=== PATIENT | male | born 1955 | race Caucasian/White ===

== ENCOUNTER 2019-06-26 09:55 | Outpatient (RCR) | payer MEDICARE, MEDICAID, SELFPAY | END 2019-06-26 23:59 | disposition home or self-care (01) | LOC: ONCMED 09:55 | PROVIDERS: Family Provider Electrodiagnostic Medicine; Visit Provider Internal Medicine Medical Oncology | DX: D50.9 Iron deficiency anemia, unspecified (principal) | CPT/HCPCS: 86850; 86900; 86901; 86920 ×2; 96365 ==

== ENCOUNTER 2019-07-09 10:20 | Outpatient (RCR) | payer SELFPAY | END 2019-07-17 00:01 | LOC: ONCMED 10:20 | PROVIDERS: Family Provider Electrodiagnostic Medicine; Visit Provider Nurse Practitioner | DX: D50.0 Iron deficiency anemia secondary to blood loss (chronic) (principal) | CPT/HCPCS: 85025 ×2; 96365; J1439 ==

== ENCOUNTER 2019-08-01 09:59 | Outpatient (RCR) | payer MEDICARE, MEDICAID, SELFPAY ==
[2019-08-01 15:46] LABS: Basophils # 0.1 10^3/uL (0.0-0.1); Basophils % 0.8 %; Eosinophils # 0.9 10^3/uL (0.0-0.8); Eosinophils % 14.6 %; Hematocrit 39.8 % (42.0-52.0); Hemoglobin 12.1 g/dL (11.7-16.6); Lymphocytes % 16.3 %; Mean Corpuscular HGB Conc 30.4 g/dL (30.0-36.0); Mean Corpuscular Hemoglobin 24.1 pg (28.0-34.0); Mean Corpuscular Volume 79.3 fL (80-94); Mean Platelet Volume 10.2 fL (7.4-10.4); Monocytes # 0.5 10^3/uL (0.2-0.9); Monocytes % 8.3 %; Neutrophils # 3.7 10^3/uL (1.8-7.7); Neutrophils % 59.4 %; Nucleated Red Blood Cells % 0 %; Platelet Count 186 10^3/cmm (130-400); Red Blood Count 5.02 10^6/uL (4.1-5.3); Red Cell Distribution Width 23.6 % (12.1-15.1); White Blood Count 6.3 10^3/uL (4.0-10.0)
[2019-08-01 15:50] LABS: Alanine Aminotransferase 21 U/L (0-41); Albumin Level 4.1 g/dL (3.5-5.2); Alkaline Phosphatase 193 IU/L (40-130); Anion Gap 17.8 (5-19); Aspartate Amino Transferase 28 U/L (0-40); Blood Urea Nitrogen 18 mg/dL (8-23); Calcium 8.7 mg/Dl (8.8-10.2); Carbon Dioxide 24 mmol/L (22-29); Chloride 101 mmol/L (98-107); Ferritin 66 ng/mL (30-400); Globulin 2.5 g/dL (1.3-4.6); Glomerular Filtration Rate 114.3 mL/min (90-130); Glucose 152 mg/dL (74-106); Iron 62 ug/dL (59-158); Potassium 3.8 mmol/L (3.5-5.1); Sodium 139 mmol/L (136-145); Total Bilirubin 0.4 mg/dL (0.15-1.2); Total Iron Binding Capacity 309 mg/dL; Total Protein 6.6 g/dL (6.6-8.7); Unsaturated Iron Binding 247 ug/dL (112-347)
== END 2019-08-17 23:59 | disposition home or self-care (01) ==
LOC: WOUND 09:59
PROVIDERS: Family Provider Electrodiagnostic Medicine; PCP Electrodiagnostic Medicine; Visit Provider Nurse Practitioner Family
DX: Z09 Encounter for follow-up examination after completed treatment for conditions other than malignant neoplasm (principal)
CPT/HCPCS: 80053; 82728; 83540; 83550; 85025; 99203; G0463

== ENCOUNTER 2019-08-01 14:25 | Outpatient (CLI) | payer MEDICARE, MEDICAID, SELFPAY | END 2019-08-01 14:26 | disposition home or self-care (01) | LOC: ONCMED 14:28 | PROVIDERS: Family Provider Electrodiagnostic Medicine; PCP Electrodiagnostic Medicine; Visit Provider Nurse Practitioner | DX: Z76.89 Persons encountering health services in other specified circumstances (principal) ==

== ENCOUNTER 2019-08-02 13:20 | Outpatient (CLI) | payer MEDICARE, MEDICAID, SELFPAY ==
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
== END 2019-08-02 13:21 | disposition home or self-care (01) ==
LOC: ONCMED 13:20
PROVIDERS: Family Provider Electrodiagnostic Medicine; PCP Electrodiagnostic Medicine; Visit Provider Nurse Practitioner
DX: D50.9 Iron deficiency anemia, unspecified (principal); G89.29 Other chronic pain; I10 Essential (primary) hypertension; K21.9 Gastro-esophageal reflux disease without esophagitis; M19.90 Unspecified osteoarthritis, unspecified site; F32.9 Major depressive disorder, single episode, unspecified; I48.91 Unspecified atrial fibrillation; Z79.82 Long term (current) use of aspirin; Z79.01 Long term (current) use of anticoagulants; Z95.0 Presence of cardiac pacemaker; Z90.49 Acquired absence of other specified parts of digestive tract; Z98.84 Bariatric surgery status
CPT/HCPCS: 99214

== ENCOUNTER 2019-08-19 12:38 | Inpatient (IN) | payer MEDICARE, MEDICAID, SELFPAY ==
[2019-08-19] VITALS (7 sets, daily range): BP systolic 116–147; BP diastolic 82–87; PULSE 59–70; RESP 15–20; TEMP 36.7–37.1; O2SAT 20–96; BMI 33.1
--- NOTE | 2019-08-19 13:40 | ED_ITS ---
Entered by Leonora Washington, acting as scribe for Cecilia Ortega MD Aug 19, 2019 12:38 HPI - Abdominal Pain General: Chief Complaint: Abdominal Pain Stated Complaint: NAUSEA/VOMITING Time Seen by Provider: 08/19/19 13:39 Source: patient Mode of arrival: wheelchair Limitations: no limitations History of Present Illness: HPI narrative: 63 yo male presents with abdomen pain. pt states this today today. pt states movement and pushing makes the pain worse and nothing a=makes it better. pt has had constipation. pt denies any other symptoms at this time MD elicited complaint: abdominal pain Pertinent past history: none Onset (ago): hour(s) (today) Pain Consistency: constant Location: Epigastric Severity: moderate Quality: sharp Radiation: none Migration to: no migration Exacerbating factors: movement Relieving factors: nothing Associated Symptoms: Reports nausea and vomiting; Denies chills, diarrhea, dysuria and fever(s) Review of Systems Const: Denies: fever, chills, body aches or change in appetite Eyes: Denies: blurry vision or eye discomfort ENMT: Denies: throat pain or dental pain Card: Denies: chest pain Resp: Denies: shortness of breath GI: Reports: abdominal pain, nausea and vomiting; Denies: diarrhea : Denies: painful urination Musc: Denies: neck pain or back pain Skin/Breast: Denies: rash Neuro: Denies: headache Psych: Denies: depression Sincere/Lymph: Denies: easy bruising All/Imm: Denies: hives PFSH ED PFSH: Statuses (acute, chronic, etc) shown below reflect problem list status as previously entered and may not be historically accurate Social History Smoking and tobacco status: never smoked Physical Exam Const: COMMON NORMALS: no apparent distress, oriented x3 and healthy appearing HENMT: COMMON NORMALS: normocephalic and head/scalp atraumatic HEAD & SCALP: normocephalic and atraumatic Eye: COMMON NORMALS: PERRL and EOMs intact bilaterally PUPIL: Yes PERRL Neck/C-Spine: COMMON NORMALS: full ROM and supple Chest: COMMONS NORMALS: inspection of chest normal and palpation of chest normal Resp: COMMON NORMALS: normal respiratory effort, no retractions, no use of accessory muscles and clear to auscultation bilaterally AUSCULTATION: clear to auscultation bilaterally Cardio: COMMON NORMALS: regular rate, regular rhythm and no murmurs RATE: r egular rate RHYTHM: regular rhythm GI: OTHER: distention with decreased bowel sounds, minimal tenderness Extremity: COMMON NORMALS: normal to inspection and full ROM Neuro: COMMON NORMALS: oriented x3, moves all extremities and no focal motor deficits Psych: COMMON NORMALS: mental status grossly normal, thought process normal and cooperative THOUGHT PROCESS: normal thought process Skin: COMMON NORMALS: no rashes or lesions noted and no wounds GENERAL SKIN EXAM: no rashes or lesions noted Course Vital Signs: Vital signs: Vital Signs Temperature 98.3 F 08/19/19 13:25 Pulse Rate 70 08/19/19 13:25 Respiratory Rate 16 08/19/19 14:21 Blood Pressure 147/87 08/19/19 13:25 Pulse Oximetry 84 L 08/19/19 13:59 MDM - Abdominal Pain MDM Narrative: Medical decision making narrative: Patient presents here with abdominal pain along with vomiting is found to have small bowel obstruction on CT scan. Patient has minimal tenderness and normal white count. Spoke to ebonie foster will admit. Surgeon Dr. Pagan consulted as well. Lab Data: Labs: Lab Results 08/19/19 08/19/19 Range/Units 13:55 13:55 WBC 9.7 (4.0-10.0) 10^3/ uL RBC 5.47 H (4.1-5.3) 10^6/u L Hgb 13.3 (11.7-16.6) g/dL Hct 42.1 (42.0-52.0) % MCV 77.0 L (80-94) fL MCH 24.3 L (28.0-34.0) pg MCHC 31.6 (30.0-36.0) g/dL RDW 20.8 H (12.1-15.1) % Plt Count 213 (130-400) 10^3/c mm MPV 10.3 (7.4-10.4) fL Neut % (Auto) 83.8 % Lymph % (Auto) 5.7 % Orange % (Auto) 6.7 % Eos % (Auto) 3.0 % Baso % (Auto) 0.3 % Neut # (Auto) 8.1 H (1.8-7.7) 10^3/u L Lymph # (Auto) 0.6 L (0.8-4.8) 10^3/u L Orange # (Auto) 0.7 (0.2-0.9) 10^3/u L Eos # (Auto) 0.3 (0.0-0.8) 10^3/u L Baso # (Auto) 0.0 (0.0-0.1) 10^3/u L Nucleated RBC % (a uto) 0 % Nucleated RBCs # 0.0 /100WBC Sodium 138 (136-145) mmol/L Potassium 4.3 (3.5-5.1) mmol/L Chloride 95 L (98-107) mmol/L Carbon Dioxide 32 H (22-29) mmol/L Anion Gap 15.3 (5-19) BUN 15 (8-23) mg/dL Creatinine 1.0 (0.7-1.2) mg/dL GFR Calculation 75.7 L (90-130) mL/min Glucose 157 H (74-106) mg/dL Calcium 9.7 (8.5-10.5) mg/dL Total Bilirubin 0.6 (0.15-1.2) mg/dL AST 42 H (0-40) U/L ALT 32 (0-41) U/L Alkaline Phosphata se 245 H (40-130) IU/L Total Protein 8.0 (6.6-8.7) g/dL Albumin 4.2 (3.5-5.2) g/dL Globulin 3.8 (1.3-4.6) g/dL Lipase 90 H (13-60) U/L Imaging Data ^: CT Abd/Pel: Radiologist's impression: Signed Patient: Gary King Unit #: [id number] : 1955 Age/Sex: 63 / M ADM Date: 08/19/19 Loc: ER Room/Bed: Attending Dr: Ordering Provider/Ordering MD: Cecilia Ortega MD Date of Service: 08/19/19 Procedure(s): CT abdomen pelvis w con* [id number] Accession Number(s): [id number] Report Number: [id number] PROCEDURE INFORMATION: Exam: CT Abdomen And Pelvis With Contrast Exam date and time: 08/19/2019 2:01 PM Age: 63 years old Clinical indication: Abdominal pain; Prior surgery; Surgery type: Pacemaker. Hernia. Laparotomy. ; Patient HX: Generalized abd pain with nausea TECHNIQUE: Imaging protocol: Computed tomography of the abdomen and pelvis with intravenous contrast. Total DLP: 2092.82 mGy-cm Radiation optimization: All CT scans at this facility use at least one of these dose optimization techniques: automated exposure control; mA and/or kV adjustment per patient size (includes targeted exams where dose is matched to clinical indication); or iterative reconstruction. Contrast material: OMNI 300; Contrast volume: 95 ml; Contrast route: 18G; COMPARISON: CT abdomen pelvis w con* [id number] 09/05/2018 9:04 PM FINDINGS: Liver: Mild hepatic steatosis. Gallbladder and bile ducts: Normal. No calcified stones. No ductal dilation. Pancreas: Normal. No ductal dilation. Spleen: Spleen measures 16 cm long. Adrenals: Normal. No mass. Kidneys and ureters: Both kidneys contain several small sub cm low-density cysts. Stomach and bowel: Prior gastric and small bowel surgery. Moderate amount of food/liquid in stomach. Dilated proximal small bowel with some fecalization of contents. Transition zone with collapsed distal small bowel. Modest amount of stool in the colon. Appendix: No evidence of appendicitis. Intraperitoneal space: Unremarkable. No free air. No significant fluid collection. Vasculature: Unremarkable. No abdominal aortic aneurysm. Lymph nodes: Unremarkable. No enlarged lymph nodes. Bladder: Unremarkable as visualized. Reproductive: Unremarkable as visualized. Bones/joints: Lower thoracic and lower lumbar spine degenerative disc changes, chronic. Soft tissues: Unremarkable. CT/CT abdomen pelvis w con* [id number] IMPRESSION: 1.) Prior gastric and small bowel surgery. Moderate amount of food/liquid in stomach. Dilated proximal small bowel with some fecalization of contents. Transition zone with collapsed distal small bowel. Appearance worrisome for early or partial mid small bowel obstruction. 2.) Hepatic steatosis. Mild splenomegaly. Radiation Dose CTDIVOL = (mGy): DLP = 2092.82 (mG Discharge Plan Discharge Prescriptions: No Action Aspir-81 81 mg PO DAILY RF: 0 amitriptyline 75 mg tablet 75 mg PO DAILY RF: 0 tizanidine 4 mg tablet 4 mg PO TID RF: 0 ondansetron HCl 4 mg tablet 4 mg PO PRN RF: 0 sertraline 100 mg tablet 100 mg PO BID RF: 0 mupirocin 2 % ointment 1 applic TOPICAL PRN PRN (Reason: [place]) RF: 0 gabapentin 100 mg capsule 100 mg PO BID RF: 0 Multaq 400 mg tablet 400 mg PO BID RF: 0 Coding Level of Care Code ED Assistant Spa Manager for Chg Fwd Exam Problem Focused The documentation recorded by the Felix castillo Bridget Annette, accurately reflects the service I personally performed and the decisions made by Jordan sarkar Korby, MD Aug 19, 2019 12:38
--- NOTE | 2019-08-19 13:43 | XRR_ITS ---
PROCEDURE INFORMATION: Exam: XR Chest, 1 View Exam date and time: 08/19/2019 2:02 PM Age: 63 years old Clinical indication: Chest pain; Additional info: SOB TECHNIQUE: Imaging protocol: XR of the chest Views: 1 view. COMPARISON: CR Chest 1 [place] [id number] 02/13/2019 5:25 PM FINDINGS: Tubes, catheters and devices: Left subclavian pacemaker in place. Lungs: Unremarkable. No consolidation. Pleural space: Unremarkable. No pleural effusion. No pneumothorax. Heart/Mediastinum: Unremarkable. No cardiomegaly. Vasculature: Ectatic aorta. Bones/joints: Unremarkable. Other findings: Epigastric and left upper quadrant region surgical clips in place. XR/XR chest 1V portable [id number] IMPRESSION: No acute process evident. Prior upper abdominal surgery.
--- NOTE | 2019-08-19 13:43 | CTR_ITS ---
PROCEDURE INFORMATION: Exam: CT Abdomen And Pelvis With Contrast Exam date and time: 08/19/2019 2:01 PM Age: 63 years old Clinical indication: Abdominal pain; Prior surgery; Surgery type: Pacemaker. Hernia. Laparotomy. ; Patient HX: Generalized abd pain with nausea TECHNIQUE: Imaging protocol: Computed tomography of the abdomen and pelvis with intravenous contrast. Total DLP: 2092.82 mGy-cm Radiation optimization: All CT scans at this facility use at least one of these dose optimization techniques: automated exposure control; mA and/or kV adjustment per patient size (includes targeted exams where dose is matched to clinical indication); or iterative reconstruction. Contrast material: OMNI 300; Contrast volume: 95 ml; Contrast route: 18G; COMPARISON: CT abdomen pelvis w con* [id number] 09/05/2018 9:04 PM FINDINGS: Liver: Mild hepatic steatosis. Gallbladder and bile ducts: Normal. No calcified stones. No ductal dilation. Pancreas: Normal. No ductal dilation. Spleen: Spleen measures 16 cm long. Adrenals: Normal. No mass. Kidneys and ureters: Both kidneys contain several small sub cm low-density cysts. Stomach and bowel: Prior gastric and small bowel surgery. Moderate amount of food/liquid in stomach. Dilated proximal small bowel with some fecalization of contents. Transition zone with collapsed distal small bowel. Modest amount of stool in the colon. Appendix: No evidence of appendicitis. Intraperitoneal space: Unremarkable. No free air. No significant fluid collection. Vasculature: Unremarkable. No abdominal aortic aneurysm. Lymph nodes: Unremarkable. No enlarged lymph nodes. Bladder: Unremarkable as visualized. Reproductive: Unremarkable as visualized. Bones/joints: Lower thoracic and lower lumbar spine degenerative disc changes, chronic. Soft tissues: Unremarkable. CT/CT abdomen pelvis w con* [id number] IMPRESSION: 1.) Prior gastric and small bowel surgery. Moderate amount of food/liquid in stomach. Dilated proximal small bowel with some fecalization of contents. Transition zone with collapsed distal small bowel. Appearance worrisome for early or partial mid small bowel obstruction. 2.) Hepatic steatosis. Mild splenomegaly. Radiation Dose CTDIVOL = (mGy): DLP = 2092.82 (mGy-cm)
[2019-08-19] MEDS: iohexol 300 mg/mL 100 mL Btl IV (14:02)
[2019-08-19 14:04] LABS: Basophils % 0.3 %; Eosinophils # 0.3 10^3/uL (0.0-0.8); Hematocrit 42.1 % (42.0-52.0); Hemoglobin 13.3 g/dL (11.7-16.6); Lymphocytes # 0.6 10^3/uL (0.8-4.8); Lymphocytes % 5.7 %; Mean Corpuscular HGB Conc 31.6 g/dL (30.0-36.0); Mean Corpuscular Hemoglobin 24.3 pg (28.0-34.0); Mean Platelet Volume 10.3 fL (7.4-10.4); Monocytes # 0.7 10^3/uL (0.2-0.9); Monocytes % 6.7 %; Neutrophils # 8.1 10^3/uL (1.8-7.7); Neutrophils % 83.8 %; Nucleated Red Blood Cells % 0 %; Platelet Count 213 10^3/cmm (130-400); Red Blood Count 5.47 10^6/uL (4.1-5.3); Red Cell Distribution Width 20.8 % (12.1-15.1); White Blood Count 9.7 10^3/uL (4.0-10.0)
[2019-08-19] MEDS: ondansetron 2 mg/ML SDV 2 mL 4 MG IVP (14:21)
[2019-08-19] MEDS: morphine 4 mg/mL SDV 1 mL IVP (14:21)
[2019-08-19] MEDS: sodium chloride 0.9% 1,000 ML 999 ML IV (14:21)
[2019-08-19 14:25] LABS: Alanine Aminotransferase 32 U/L (0-41); Albumin Level 4.2 g/dL (3.5-5.2); Alkaline Phosphatase 245 IU/L (40-130); Anion Gap 15.3 (5-19); Aspartate Amino Transferase 42 U/L (0-40); Blood Urea Nitrogen 15 mg/dL (8-23); Calcium 9.7 mg/dL (8.5-10.5); Carbon Dioxide 32 mmol/L (22-29); Chloride 95 mmol/L (98-107); Globulin 3.8 g/dL (1.3-4.6); Glomerular Filtration Rate 75.7 mL/min (90-130); Glucose 157 mg/dL (74-106); Lipase 90 U/L (13-60); Potassium 4.3 mmol/L (3.5-5.1); Sodium 138 mmol/L (136-145); Total Bilirubin 0.6 mg/dL (0.15-1.2)
[2019-08-19] MEDS: LORazepam 2 mg/mL INJ 1 mL 1 MG IVP (15:13)
--- NOTE | 2019-08-19 15:35 | PC.PHAR ---
PT STATES HE THINKS THIS IS ALL THE MEDICATIONS HE TAKES-PT PHARMACY IS NOT OPEN TO VERIFY ALL THE PTS MEDS
--- NOTE | 2019-08-19 16:36 | PC.NURSE ---
Nurse unavailable for report, stated they would call back.
[2019-08-19] MEDS: sodium chloride 0.9% 1,000 ML 100 ML IV (19:00)
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
[2019-08-19] MEDS: dextrose 5%-lactated ringers 1,000 ML 75 ML IV (20:51)
[2019-08-20] VITALS (12 sets, daily range): BP systolic 122–145; BP diastolic 71–88; PULSE 59–80; RESP 18–20; TEMP 36.4–37; O2SAT 93–99
[2019-08-20] MEDS: HYDROmorphone 1 mg/mL INJ 1 mL 0.5 MG IVP ×3 (03:09→23:27)
[2019-08-20 04:33] LABS: Basophils % 0.6 %; Eosinophils # 0.4 10^3/uL (0.0-0.8); Hematocrit 38.9 % (42.0-52.0); Hemoglobin 11.9 g/dL (11.7-16.6); Lymphocytes # 0.8 10^3/uL (0.8-4.8); Lymphocytes % 14.3 %; Mean Corpuscular HGB Conc 30.6 g/dL (30.0-36.0); Mean Corpuscular Hemoglobin 25.1 pg (28.0-34.0); Mean Corpuscular Volume 81.9 fL (80-94); Monocytes # 0.6 10^3/uL (0.2-0.9); Monocytes % 11.4 %; Neutrophils # 3.5 10^3/uL (1.8-7.7); Neutrophils % 66.3 %; Nucleated Red Blood Cells % 0 %; Platelet Count 171 10^3/cmm (130-400); Red Blood Count 4.75 10^6/uL (4.1-5.3); Red Cell Distribution Width 21.2 % (12.1-15.1); White Blood Count 5.3 10^3/uL (4.0-10.0)
[2019-08-20 04:50] LABS: Anion Gap 12.1 (5-19); Blood Urea Nitrogen 14 mg/dL (8-23); Calcium 8.6 mg/dL (8.5-10.5); Carbon Dioxide 29 mmol/L (22-29); Chloride 99 mmol/L (98-107); Glomerular Filtration Rate 85.5 mL/min (90-130); Glucose 100 mg/dL (74-106); Osmolality Calculated 278 mOsm/kg (285-295); Potassium 4.1 mmol/L (3.5-5.1); Sodium 136 mmol/L (136-145)
[2019-08-20 05:03] LABS: Add Urine Microscopic? NO; Bilirubin Urine 1+ (NEGATIVE); Blood Urine Neg (Negative); Glucose Urine UA Norm (Normal); Ketones Urine Negative (Negative); Leukocyte Esterase Urine Negative (Negative); Nitrate Urine Negative (Negative); Protein Urine Neg (Negative); Specific Gravity, Urine 1.015 (1.005-1.030); Urine Appearance Clear (CLEAR); Urine Color Yellow (Yellow); Urobilinogen Urine 1 mg/dL (Negative); pH Urine 6 (5-7)
--- NOTE | 2019-08-20 07:00 | XR_ITS ---
WS: [id number] ABDOMEN KUB CLINICAL INFORMATION: Renal/ureteral calculi. COMPARISON: CT August 19, 2019 FINDINGS: Surgical clips at the GE junction. Moderate fecal retention in the colon. Fluid-filled loops of small and large bowel unchanged since the prior CT. Contrast in the bladder. XR/XR KUB portable [id number] Impression: 1. Fluid-filled loops of small and large bowel unchanged since the recent CT. 2. Moderate pancolonic constipation
--- NOTE | 2019-08-20 08:22 | PM.PN ---
Subjective Subjective: Interval history: Patient denies abdominal pain. Reports feeling unchanged. Had large amount of bilious fluid NG output. Reports that he did not pass gas since yesterday. His last bowel movement which was formed was on Tuesday. He denies previous history of heart disease or COPD. Patient reports that approximately 6 months ago he started having shortness of breath and chest pain. He was evaluated by his security administrator in [place] ([place]) and had stress test approximately 4 months ago but unfortunately patient was unable to follow-up at that time due to weather and now has appointment to see his security administrator only in September. Reports that since then frequency of his chest pains which sometimes can even happen at rest increased. Reports that for the last 3 months he has been sleeping in the chair and had 2 episodes of waking up short of breath. Reports that for the last 1 month he barely can walk before getting significantly dyspneic. He reports that his chest pain usually lasts 1 to 2 minutes and is in the left precordium. Reports that rest alleviates his pain and describes it as sharp with some dull elements nonradiating and nonpleuritic. Vitals/I&O/Wt Last Vital Signs Temp 98.5 F 08/20/19 07:09 Pulse 60 08/20/19 07:09 Resp 20 H 08/20/19 07:09 BP 134/84 08/20/19 07:09 Pulse Ox 99 08/20/19 07:09 08/19/19 08/20/19 08/20/19 22:59 06:59 14:59 Intake Total 186.667 / 186.667 716.25 / 902.917 Output Total 0 / 0 565 / 565 Balance 186.667 / 186.667 151.25 / 337.917 Weight last 48 hrs Weight 120.202 kg Physical Exam Narrative: EXAM NARRATIVE: Patient exam shows clear lungs and regular heart. Abdomen is soft and nontender with hypoactive bowel sounds. No guarding or rebound tenderness. No lower extremity edema. No focal neurological deficit on gross examination. Data : 08/20/19 03:54 08/20/19 03:54 A&P Assessment and plan (1) Small bowel obstruction: Most likely due to adhesions Status: Acute Code(s): K56.609 - Unspecified intestinal obstruction, unspecified as to partial versus complete obstruction (2) Dyspnea on exertion: Obtain echocardiogram, EKG for further evaluation Status: Acute Code(s): R06.09 - Other forms of dyspnea (3) Chest pain: Currently chest pain-free. Obtain EKG, troponin and echocardiogram Status: Acute Code(s): R07.9 - Chest pain, unspecified Additional A&P Information High-dose PPI, avoid NSAIDs Monitor CMP and CBC. Start patient on Lovenox for DVT prophylaxis Patient is full code Attestations Medical Necessity Statement*: Patient with small bowel obstruction requires close inpatient monitoring and treatment. 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
--- NOTE | 2019-08-20 08:35 | USCV_ITS ---
Gary King Age: 63 Gender: M : 1955 Exam Date: 08/20/2019 13:45 Ordering Phys: German Nunes MD Technologist: Kelle Burton [place] [facility] [place]: [place] BP: 125 / 82 HR: 61 Rhythm: Sinus Technical Quality: Technically difficult study MEASUREMENTS (Male / Female) Normal Values 2D ECHO LV Diastolic Diameter PLAX 5.0 cm 4.2 - 5.9 / 3.9 - 5.3 cm LV Systolic Diameter PLAX 3.7 cm LV Chamber Size 4.7 cm IVS Diastolic Thickness 1.4 cm 0.6 - 1.0 / 0.6 - 0.9 cm IVS Systolic Thickness 1.6 cm LVPW Diastolic Thickness 1.3 cm 0.6 - 1.0 / 0.6 - 0.9 cm LVPW Systolic Thickness 1.8 cm RV Chamber Size 3.2 cm LVOT Diameter 2.1 cm LV Ejection Fraction 2D Teich 52.6 % LA Diameter 4.3 cm LA Width 4.0 cm LA Height 6.7 cm RA Width 3.3 cm RA Height 6.2 cm Aorta at Sinotubular Diameter 3.1 cm M-MODE LV Diastolic Diameter MM 6.9 cm 4.2 - 5.9 / 3.9 - 5.3 cm LV Systolic Diameter MM 5.4 cm LV Ejection Fraction MM Teich 42.9 % IVS Diastolic Thickness MM 1.5 cm 0.6 - 1.0 / 0.6 - 0.9 cm IVS Systolic Thickness MM 1.5 cm LVPW Diastolic Thickness MM 1.6 cm 0.6 - 1.0 / 0.6 - 0.9 cm LVPW Systolic Thickness MM 2.0 cm Aortic Annulus Diameter 4.3 cm LA Ao Ratio MM 1.0 MV E Point Septal Separation 0.7 cm DOPPLER AV Peak Velocity 126.0 cm/s LVOT Peak Velocity 106.0 cm/s AV Area Cont Eq vti 3.1 cm squared AV Area Cont Eq pk 3.0 cm squared MV Area PHT 3.1 cm squared Mitral E to A Ratio 1.0 MV E' Velocity 16.0 cm/s Mitral E to MV E' Ratio 5.3 Mitral E to LV E' Lateral Ratio 3.9 Mitral E to LV E' Septal Ratio 8.2 TR Peak Velocity 269.0 cm/s TR Peak Gradient 29.0 mmHg TR Mean Velocity 221.8 cm/s TR Mean Gradient 20.5 mmHg TR Velocity Time Integral 92.4 cm TV Peak E Velocity 58.0 cm/s Right Atrial Pressure 3.0 mmHg Pulmonary Artery Systolic Pressu 31.9 mmHg PV Peak Velocity 98.0 cm/s RV Acceleration Time 0.1 s RV Ejection Time 0.3 s RV AcT/ET 0.3 FINDINGS Left Ventricle Normal left ventricular cavity size. Normal left ventricular systolic function. No regional wall motion abnormalities. Left ventricular ejection fraction is estimated at 60 %. Grade I/IV diastolic dysfunction (abnormal relaxation filling pattern), normal to mildly elevated filling pressures. Right Ventricle Normal right ventricular size. Catheter/pacemaker wire visualized in the right ventricle. Right Atrium Normal right atrial size. Catheter/pacemaker wire in the right atrial cavity. Left Atrium The left atrium is normal in size. Mitral Valve Mildly thickened mitral valve. Mitral annular calcification. No mitral valve stenosis. Mild mitral valve regurgitation. Aortic Valve Mild aortic valve calcification. No aortic valve stenosis. Trace aortic valve regurgitation. Tricuspid Valve Moderate tricuspid valve regurgitation. Pulmonic Valve Structurally normal pulmonic valve without significant stenosis. There is no pulmonic regurgitation. Pericardium Normal pericardium without effusion. Aorta Normal ascending aorta dimension. CONCLUSIONS 1-Normal left ventricular cavity size. Normal left ventricular systolic function. No regional wall motion abnormalities. Left ventricular ejection fraction is estimated at 60 %. Grade I/IV diastolic dysfunction (abnormal relaxation filling pattern), normal to mildly elevated filling pressures. 2-Normal right ventricular size. Catheter/pacemaker wire visualized in the right ventricle. 3-Normal right atrial size. Catheter/pacemaker wire in the right atrial cavity. 4-Mildly thickened mitral valve. Mitral annular calcification. No mitral valve stenosis. Mild mitral valve regurgitation. 5-Mild aortic valve calcification. No aortic valve stenosis. Trace aortic valve regurgitation. 6-Moderate tricuspid valve regurgitation. 7-There is no pericardial effusion. 8-Right atrial pressure is around 5 mm of mercury. 9-When compared to the prior echocardiogram dated 05/28/2016 there appeared to be /ICD/ PPM wire in the right atrium and ventricle now Shakir Almendarez MD (Electronically Signed) Final Date: 20 August 2019 18:15 S
--- NOTE | 2019-08-20 08:35 | ECG_ITS ---
Measurements Intervals [place] Rate: 63 P: -55 NV: 239 QRS: -11 QRSD: 126 T: 18 QT: 466 QTc: 478 ELECTRONIC ATRIAL PACEMAKER POSSIBLE LEFT VENTRICULAR HYPERTROPHY [VOLTAGE CRITERIA PLUS LAE OR QRS WIDENING] PROBABLE LATERAL MYOCARDIAL INFARCTION [35 ms Q WAVE IN I/aVL/V5/V6], PROBABLY OLD Compared to ECG 02/13/2019 23:22:37 T-wave abnormality no longer present Possible ischemia no longer present Myocardial infarct finding still present Electronically Signed On 08-20-2019 21:07:15 EDUCATIONAL THERAPIST by Víctor Ponce M.D. [email or web address]
[2019-08-20] MEDS: pantoprazole 40 mg SDV IVP ×2 (09:07→23:23)
[2019-08-20] MEDS: enoxaparin 40 mg/0.4 mL Syringe SUBCUT (09:08)
[2019-08-20] MEDS: dextrose 5%-lactated ringers 1,000 ML 75 ML IV (09:13)
--- NOTE | 2019-08-20 13:02 | PC.CHAP ---
Pastoral Care Encounter/Spiritual Assessment Type of Contact [] Declined hoop bender tank visit [] Patient/Family/Request visit [] Outpatient visit [] Follow-up visit [] Physician referral [] Code/Alert [x] Routine visit [] Staff referral [] Actively dying [] Patient sleeping [] Family support [] [] Out of room [] Palliative care [] [] Receiving care in room [] Pre-surgical visit [] Trauma [] Long length of stay [] ICU visit [] Other: Relational/Emotional Strength [x] Patient feels connected with others/family/visitors/staff [] Distress [] Loneliness/isolation [] Abandonment Spirituality of Patient [] Person of Hilary [] Attends Sikhism of their Hilary [x] Believes in Prayer [] Reads Bible or Gnosticist materials [] There are Spiritual issues to be addressed Machine [employer] Interventions [x] Prayer [x] Active listening [x] Non-anxious presence [x] Spiritual/emotional support [] Crisis/trauma care [x] Spiritual counseling [] Bereavement support [] Provided bereavement packet [] Provided Bible/devotional materials [] Provided toy/stuffed animal, coloring book to patient or family member [] Provided Communion [] Anointing/[place] [] Salvation [x] Completed spiritual assessment [] Other: Impact on Illness or Injury [] Angry [x] Fearful [x] Anxious [] Often cries [] Exhaustion [] Unable to work [] Unable to attend yarsanism [] Unable to walk/stand [] Unable to read [] Unable to drive [] Unable to eat/drink [] Unable to sleep [] Unable to be with family [] Patient intubated [] Other: Summary News patient received from Doctor was not as ppositive as paitent expected. Patient is now worried and concerned about what will happen. Machine [employer] Swathi Hall Time spent with patient 20 minutes
--- NOTE | 2019-08-20 13:07 | PC.NURSE ---
Enema Milk and molasses enema given to patient at 12:45. Patient able to hold enema for approximately 20 minutes. Up to bedside commode with results of 2 small hard marble sized pieces of stool.
--- NOTE | 2019-08-20 18:24 | PC.NURSE ---
Milk and molasses enema given.
[2019-08-21] VITALS (8 sets, daily range): BP systolic 128–160; BP diastolic 81–97; PULSE 59–69; RESP 14–20; TEMP 36.4–36.9; O2SAT 93–97
[2019-08-21] MEDS: dextrose 5%-lactated ringers 1,000 ML 75 ML IV (03:42)
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
[2019-08-21] MEDS: pantoprazole 40 mg SDV IVP ×2 (09:58→20:48)
[2019-08-21] MEDS: enoxaparin 40 mg/0.4 mL Syringe SUBCUT (09:59)
[2019-08-21] MEDS: HYDROmorphone 1 mg/mL INJ 1 mL 0.5 MG IVP (10:06)
--- NOTE | 2019-08-21 11:32 | PC.NURSE ---
Milk and Molasses enema given to patient with 3 hard golf ball sized pieces of stool out.
[2019-08-21] MEDS: peg /e-lyte soln 4,000 mL Btl 1500 ML PO (11:45)
--- NOTE | 2019-08-21 15:56 | P.PN_ITS ---
Subjective Subjective: Interval history: Patient denies any complaints this morning. He had good bowel movements with enema. He is passing gas now. He is NG tube output appears to be decreasing. Vitals/I&O/Wt Last Vital Signs Temp 98.5 F 08/21/19 11:51 Pulse 64 08/21/19 11:51 Resp 20 H 08/21/19 11:51 BP 140/86 08/21/19 11:51 Pulse Ox 94 08/21/19 11:51 08/21/19 08/21/19 08/21/19 06:59 14:59 22:59 Intake Total 508.75 / 1453.75 240 / 240 Output Total 1050 / 2100 Balance -541.25 / -646.25 240 / 240 Physical Exam Narrative: EXAM NARRATIVE: Patient exam shows clear lungs and regular heart. Abdomen is soft and nontender with hypoactive bowel sounds. No guarding or rebound tenderness. No lower extremity edema. No focal neurological deficit on gross examination. Data : 08/20/19 03:54 08/20/19 03:54 A&P Assessment and plan (1) Small bowel obstruction: Most likely due to adhesions Status: Acute Code(s): K56.609 - Unspecified intestinal obstruction, unspecified as to partial versus complete obstruction (2) Dyspnea on exertion: Obtain echocardiogram, EKG for further evaluation Status: Acute Code(s): R06.09 - Other forms of dyspnea (3) Chest pain: Currently chest pain-free. Obtain EKG, troponin and echocardiogram Status: Acute Code(s): R07.9 - Chest pain, unspecified Additional A&P Information Continue current monitoring and treatment. Encouraged ambulation. Continue bowel regimen. Appreciate Dr. Pagan's help. 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
[2019-08-21] MEDS: ondansetron 2 mg/ML SDV 2 mL 4 MG IVP (16:06)
[2019-08-22] VITALS (7 sets, daily range): BP systolic 134–151; BP diastolic 74–93; PULSE 59–62; RESP 18–20; TEMP 36.7–37.8; O2SAT 91–98
[2019-08-22] MEDS: dextrose 5%-lactated ringers 1,000 ML 75 ML IV (00:45)
[2019-08-22 05:36] LABS: Basophils % 0.8 %; Eosinophils # 0.4 10^3/uL (0.0-0.8); Eosinophils % 8.1 %; Hemoglobin 11.6 g/dL (11.7-16.6); Lymphocytes # 0.6 10^3/uL (0.8-4.8); Lymphocytes % 12.2 %; Mean Corpuscular HGB Conc 31.4 g/dL (30.0-36.0); Mean Corpuscular Hemoglobin 24.2 pg (28.0-34.0); Mean Corpuscular Volume 77.1 fL (80-94); Mean Platelet Volume 10.4 fL (7.4-10.4); Monocytes # 0.5 10^3/uL (0.2-0.9); Monocytes % 9.7 %; Neutrophils # 3.6 10^3/uL (1.8-7.7); Neutrophils % 68.8 %; Nucleated Red Blood Cells % 0 %; Platelet Count 168 10^3/cmm (130-400); White Blood Count 5.2 10^3/uL (4.0-10.0)
[2019-08-22 05:53] LABS: Alanine Aminotransferase 41 U/L (0-41); Albumin Level 3.4 g/dL (3.5-5.2); Alkaline Phosphatase 203 IU/L (40-130); Anion Gap 13.5 (5-19); Aspartate Amino Transferase 53 U/L (0-40); Blood Urea Nitrogen 7 mg/dL (8-23); Calcium 8.9 mg/dL (8.5-10.5); Carbon Dioxide 31 mmol/L (22-29); Chloride 99 mmol/L (98-107); Globulin 3.6 g/dL (1.3-4.6); Glomerular Filtration Rate 85.5 mL/min (90-130); Potassium 3.5 mmol/L (3.5-5.1); Sodium 140 mmol/L (136-145); Total Bilirubin 0.6 mg/dL (0.15-1.2)
--- NOTE | 2019-08-22 07:02 | XRR_ITS ---
PROCEDURE INFORMATION: Exam: XR Abdomen, 2 Views Exam date and time: 08/22/2019 8:11 AM Age: 63 years old Clinical indication: Abdominal pain; Prior surgery; Surgery type: Gastric bypass; Additional info: Sbo, abd pain TECHNIQUE: Imaging protocol: XR of the abdomen. Frontal supine and upright views of the abdomen. Views: 2 Views. COMPARISON: CR XR abdomen min 2V [id number] 08/21/2019 8:34 AM FINDINGS: Gastrointestinal tract: Marked and progressive bowel dilatation, along with prominent stool. Intraperitoneal space: Extensive postoperative change in the left upper abdomen. Residual 11 mm metallic foreign body overlying the left midabdomen. Bones/joints: Osteopenia and degenerative change. XR/XR abdomen min 2V [id number] IMPRESSION: Marked and progressive bowel dilatation, along with prominent stool.
[2019-08-22 09:14] LABS: Glucose 93 mg/dL (65-115)
[2019-08-22] MEDS: pantoprazole 40 mg SDV IVP (09:40)
[2019-08-22] MEDS: enoxaparin 40 mg/0.4 mL Syringe SUBCUT (09:45)
--- NOTE | 2019-08-22 14:53 | PM.PN ---
Subjective Subjective: Interval history: Patient denies any abdominal pain, nausea or vomiting, had a large loose bowel movement last night. Tolerating a full liquid diet. Vitals/I&O/Wt Last Vital Signs Temp 98.1 F 08/22/19 10:59 Pulse 59 L 08/22/19 10:59 Resp 20 H 08/22/19 10:59 BP 136/84 08/22/19 10:59 Pulse Ox 98 08/22/19 10:59 08/21/19 08/22/19 08/22/19 22:59 06:59 14:59 Intake Total 757.5 / 1147.5 150 / 1147.5 480 / 480 Output Total 350 / 350 Balance 407.5 / 797.5 150 / 797.5 480 / 480 Physical Exam Narrative: EXAM NARRATIVE: Abdomen: Soft, minimally distended, nontender Data : 08/22/19 04:25 08/22/19 04:25 A&P Assessment and plan (1) Small bowel obstruction: Appears to be resolving. 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 Recommended that he advance diet slowly and to stay on an aggressive bowel regimen with senna S and lactulose Follow-up PRN Status: Acute Code(s): K56.609 - Unspecified intestinal obstruction, unspecified as to partial versus complete obstruction Attestations Medical Necessity Statement*: Small bowel obstruction appears to be resolving Coding Level of Care Code Acute Control Systems Specialist for [facility] Diagnoses Small bowel obstruction K56.609
--- NOTE | 2019-08-22 14:59 | PM.DCS ---
Discharge Providers Date of Admission: 08/19/19 14:57 Date of Discharge: Date of Discharge: August 22, 2019 Attending Provider at Admission: German Nunes MD Attending Provider at Discharge: German Nunes MD Primary Care Provider: Alek Mahmood DO Diagnoses at Discharge Discharge Diagnosis (1) Small bowel obstruction: Status: Acute (2) Drug-induced ileus: Status: Acute Reason for Visit Reason for Visit: Reason For Visit: NAUSEA/VOMITING Hospital Course Discharge Summary: Patient on chronic therapy with amitriptyline presents with signs and symptoms of small bowel obstruction. Patient was found to have drug-induced ileus. He was treated supportively and gradually improved. This afternoon patient reports feeling much better and strong enough to be dismissed home. Denies abdominal pain. Reports passing gas. Had bowel movement last night. Tolerates oral intake. Amitriptyline dose will be changed to 50 mg daily for now and patient was told to discuss with primary care physician to further wean it off. Discussed with Dr. Pagan and we will give lactulose twice daily for now and start on senna/Colace. Physical Exam Const: COMMON NORMALS: no apparent distress and oriented x3 Resp: COMMON NORMALS: normal respiratory effort and clear to auscultation bilaterally AUSCULTATION: clear to auscultation bilaterally Cardio: COMMON NORMALS: regular rate, regular rhythm and S2 normal heart sound RATE: regular rate RHYTHM: regular rhythm HEART SOUNDS: S2 normal OTHER: No lower extremity edema GI: COMMON NORMALS: normal to inspection, nondistended, normoactive bowel sounds, soft to palpation and non-tender PALPATION: Yes soft Neuro: COMMON NORMALS: oriented x3 and no focal motor deficits Discharge Data Data Completed and Pending: Completed Studies During Hospitalization Category Date Time Status CT abdomen pelvis w con* [id number] Urge nt Cat Scan 08/19/19 13:43 Completed XR KUB portable 7 [id number] Routine Exams 08/20/19 07:00 Completed XR abdomen min 2V [id number] Routine Exams 08/22/19 07:02 Completed XR abdomen min 2V [id number] Urgent Exams 08/21/19 07:54 Completed XR chest 1V gregory ble [id number] Urgent Exams 08/19/19 13:43 Completed CV echo complete* [id number] Routine Ultrasound 08/20/19 08:35 Completed Labs from last 24 hours 08/22/19 08/22/19 04:25 04:25 WBC 5.2 RBC 4.80 Hgb 11.6 L Hct 37.0 L MCV 77.1 L MCH 24.2 L MCHC 31.4 RDW 20.0 H Plt Count 168 MPV 10.4 Neut % (Auto) 68.8 Lymph % (Auto) 12.2 [place] % (Auto) 9.7 Eos % (Auto) 8.1 Baso % (Auto) 0.8 Neut # (Auto) 3.6 Lymph # (Auto) 0.6 L [place] # (Auto) 0.5 Eos # (Auto) 0.4 Baso # (Auto) 0.0 Nucleated RBC % (a uto) 0 Nucleated RBCs # 0.0 Sodium 140 Potassium 3.5 Chloride 99 Carbon Dioxide 31 H Anion Gap 13.5 BUN 7 L Creatinine 0.9 GFR Calculation 85.5 L Glucose 93 Calcium 8.9 Total Bilirubin 0.6 AST 53 H ALT 41 Alkaline Phosphata se 203 H Total Protein 7.0 Albumin 3.4 L Globulin 3.6 Vitals: Last Vital Signs Temp 98.1 F 08/22/19 10:59 Pulse 59 L 08/22/19 10:59 Resp 20 H 08/22/19 10:59 BP 136/84 08/22/19 10:59 Pulse Ox 98 08/22/19 10:59 Discharge Plan Discharge Patient Disposition: Home, Self-Care Condition: Stable Prescriptions: New amitriptyline 50 mg tablet 50 mg PO DAILY Qty: 10 RF: 0 lactulose 10 gram packet 10 gm PO BID Qty: 30 RF: 0 Senna with Docusate Sodium 8.6-50 mg tablet 1 tab-cap PO BID Qty: 60 RF: 0 Continued Aspir-81 81 mg PO DAILY RF: 0 tizanidine 4 mg tablet 4 mg PO TID RF: 0 ondansetron HCl 4 mg tablet 4 mg PO PRN RF: 0 sertraline 100 mg tablet 100 mg PO BID RF: 0 mupirocin 2 % ointment 1 applic TOPICAL PRN PRN (Reason: UKNOWN) RF: 0 gabapentin 100 mg capsule 100 mg PO BID RF: 0 Multaq 400 mg tablet 400 mg PO BID RF: 0 Discontinued amitriptyline 75 mg tablet 75 mg PO DAILY RF: 0 Multaq 400 mg tablet RF: 0 Discharge Orders: Discharge Order (Routine); Ordered 08/22/19 Ordered By: German Nunes Referrals: Alek Mahmood, [Primary Care Provider] - 4-7 days Discharge Diet: Advance as tolerated Discharge Activity: Resume usual activity Patient Instructions: Perphenazine/Amitriptyline (By mouth), Amitriptyline (By mouth), Laxative, Stimulant (By mouth), Lactulose (By mouth), Angina (DC), Bowel Obstruction (DC) Activity Restrictions/Additional Instructions: Please call your doctor or present to emergency department if your condition worsens or you develop diarrhea, lightheadedness, fatigue or see blood in your stool or black stool. Please discuss with your doctor to gradually wean off amitriptyline which is likely playing a role in your constipation. Please discontinue lactulose if you start having diarrhea. Discharge Attestations Time Spent in Discharge Care*: greater than 30 min Quality Metrics Clinical Quality Measures During this hospital stay, did patient experience: None Coding Level of Care Code Acute Panelbeater for [facility] Fwd Exam Problem Focused Diagnoses Small bowel obstruction K56.609 Drug-induced ileus K56.7; T50.905E
== END 2019-08-22 16:00 | disposition home or self-care (01) | DRG 389 ==
LOC: ER 16:38 → MEDSURG 16:40
PROVIDERS: Internal Medicine; Physician Assistant; Admitting Provider Internal Medicine; Emergency Provider Emergency Medicine; Family Provider Electrodiagnostic Medicine; PCP Electrodiagnostic Medicine; Visit Provider Internal Medicine
DX: K56.7 Ileus, unspecified (principal); I48.20 Chronic atrial fibrillation, unspecified; K56.50 Intestinal adhesions [bands], unspecified as to partial versus complete obstruction; R07.9 Chest pain, unspecified; Z95.0 Presence of cardiac pacemaker; Z79.82 Long term (current) use of aspirin; Z79.899 Other long term (current) drug therapy; Z88.5 Allergy status to narcotic agent; Z88.8 Allergy status to other drugs, medicaments and biological substances; E03.9 Hypothyroidism, unspecified; F32.9 Major depressive disorder, single episode, unspecified; G89.29 Other chronic pain; M54.9 Dorsalgia, unspecified; I10 Essential (primary) hypertension; Z87.891 Personal history of nicotine dependence
CPT/HCPCS: 12345; 36415; 45915; 71045; 74018; 74019; 74177; 80048; 80053; 81003; 83690; 85025; 93005; 93306; 94760; 94762; 96372; 96374; 96375; 99283; C9113; J1170; J1650; J2060; J2270; J2405; J7030; Q9967

== ENCOUNTER 2019-09-14 08:55 | Outpatient (CLI) | payer MEDICARE, MEDICAID, SELFPAY ==
[2019-09-14 10:02] LABS: Basophils # 0.1 10^3/uL (0.0-0.1); Eosinophils # 0.8 10^3/uL (0.0-0.8); Eosinophils % 13.6 %; Hematocrit 38.3 % (42.0-52.0); Hemoglobin 11.8 g/dL (11.7-16.6); Lymphocytes # 0.8 10^3/uL (0.8-4.8); Lymphocytes % 13.9 %; Mean Corpuscular HGB Conc 30.8 g/dL (30.0-36.0); Mean Corpuscular Volume 77.8 fL (80-94); Mean Platelet Volume 10.3 fL (7.4-10.4); Monocytes # 0.6 10^3/uL (0.2-0.9); Monocytes % 9.1 %; Neutrophils # 3.7 10^3/uL (1.8-7.7); Neutrophils % 61.9 %; Nucleated Red Blood Cells % 0 %; Platelet Count 250 10^3/cmm (130-400); Red Blood Count 4.92 10^6/uL (4.1-5.3); Red Cell Distribution Width 17.2 % (12.1-15.1)
[2019-09-14 10:15] LABS: Alanine Aminotransferase 66 U/L (0-41); Albumin Level 3.6 g/dL (3.5-5.2); Alkaline Phosphatase 354 IU/L (40-130); Anion Gap 12.4 (5-19); Aspartate Amino Transferase 66 U/L (0-40); Blood Urea Nitrogen 13 mg/dL (8-23); Calcium 9.1 mg/dL (8.5-10.5); Carbon Dioxide 32 mmol/L (22-29); Chloride 97 mmol/L (98-107); Ferritin 32 ng/mL (30-400); Globulin 3.9 g/dL (1.3-4.6); Glomerular Filtration Rate 114.3 mL/min (90-130); Glucose 128 mg/dL (65-115); Iron 34 ug/dL (59-158); Percent Saturation 10.4 % (20-50); Potassium 4.4 mmol/L (3.5-5.1); Sodium 137 mmol/L (136-145); Total Bilirubin 0.4 mg/dL (0.15-1.2); Total Iron Binding Capacity 326 mcg/dl; Total Protein 7.5 g/dL (6.6-8.7); Unsaturated Iron Binding 292 ug/dL (112-347)
== END 2019-09-14 08:56 | disposition home or self-care (01) ==
PROVIDERS: Family Provider Electrodiagnostic Medicine; PCP Electrodiagnostic Medicine; Visit Provider Nurse Practitioner
DX: D50.9 Iron deficiency anemia, unspecified (principal)
CPT/HCPCS: 80053; 82728; 83540; 83550; 85025

== ENCOUNTER 2019-10-19 10:57 | Outpatient (CLI) | payer MEDICARE, MEDICAID, SELFPAY | END 2019-10-19 10:58 | disposition home or self-care (01) | LOC: ONCMED 10:57 | PROVIDERS: Family Provider Electrodiagnostic Medicine; PCP Electrodiagnostic Medicine; Visit Provider Nurse Practitioner | DX: D50.9 Iron deficiency anemia, unspecified (principal) | CPT/HCPCS: 96365; J1439 ==

== ENCOUNTER 2019-11-12 09:35 | Outpatient (CLI) | payer MEDICARE, MEDICAID, SELFPAY ==
[2019-11-12 10:32] LABS: Basophils # 0.1 10^3/uL (0.0-0.1); Basophils % 1.3 %; Eosinophils # 0.7 10^3/uL (0.0-0.8); Eosinophils % 10.7 %; Hematocrit 41.4 % (42.0-52.0); Hemoglobin 12.7 g/dL (11.7-16.6); Mean Corpuscular HGB Conc 30.7 g/dL (30.0-36.0); Mean Corpuscular Hemoglobin 25.3 pg (28.0-34.0); Mean Corpuscular Volume 82.6 fL (80-94); Mean Platelet Volume 9.9 fL (7.4-10.4); Monocytes # 0.5 10^3/uL (0.2-0.9); Monocytes % 7.8 %; Neutrophils # 3.9 10^3/uL (1.8-7.7); Neutrophils % 63.4 %; Nucleated Red Blood Cells % 0 %; Platelet Count 203 10^3/cmm (130-400); Red Blood Count 5.01 10^6/uL (4.1-5.3); Red Cell Distribution Width 17.9 % (12.1-15.1); White Blood Count 6.1 10^3/uL (4.0-10.0)
[2019-11-12 10:54] LABS: Alanine Aminotransferase 37 U/L (0-41); Albumin Level 3.8 g/dL (3.5-5.2); Alkaline Phosphatase 243 IU/L (40-130); Aspartate Amino Transferase 35 U/L (0-40); Blood Urea Nitrogen 16 mg/dL (8-23); Calcium 8.6 mg/dL (8.5-10.5); Carbon Dioxide 28 mmol/L (22-29); Chloride 102 mmol/L (98-107); Ferritin 132 ng/mL (30-400); Globulin 3.4 g/dL (1.3-4.6); Glomerular Filtration Rate 113.9 mL/min (90-130); Glucose 136 mg/dL (65-115); Iron 45 ug/dL (59-158); Osmolality Calculated 288 mOsm/kg (285-295); Percent Saturation 15.5 % (20-50); Sodium 140 mmol/L (136-145); Total Bilirubin 0.3 mg/dL (0.15-1.2); Total Iron Binding Capacity 290 mcg/dl; Total Protein 7.2 g/dL (6.6-8.7); Unsaturated Iron Binding 245 ug/dL (112-347)
== END 2019-11-12 09:36 | disposition home or self-care (01) ==
LOC: ONCMED 15:32
PROVIDERS: Family Provider Electrodiagnostic Medicine; PCP Electrodiagnostic Medicine; Visit Provider Nurse Practitioner
DX: D50.0 Iron deficiency anemia secondary to blood loss (chronic) (principal)
CPT/HCPCS: 36415; 80053; 82728; 83540; 83550; 85025

== ENCOUNTER 2020-03-07 11:20 | Outpatient (CLI) | payer MEDICARE, MEDICAID, SELFPAY ==
[2020-03-07 12:27] LABS: Basophils # 0.1 10^3/uL (0.0-0.1); Basophils % 1.1 %; Eosinophils # 0.9 10^3/uL (0.0-0.8); Eosinophils % 11.7 %; Hematocrit 37.5 % (42.0-52.0); Hemoglobin 11.2 g/dL (11.7-16.6); Lymphocytes # 1.3 10^3/uL (0.8-4.8); Lymphocytes % 17.9 %; Mean Corpuscular HGB Conc 29.9 g/dL (30.0-36.0); Mean Corpuscular Hemoglobin 23.5 pg (28.0-34.0); Mean Corpuscular Volume 78.8 fL (80-94); Mean Platelet Volume 10.7 fL (7.4-10.4); Monocytes # 0.7 10^3/uL (0.2-0.9); Monocytes % 9.7 %; Neutrophils # 4.39 10^3/uL (1.8-7.7); Neutrophils % 59.3 %; Nucleated Red Blood Cells % 0 %; Platelet Count 251 10^3/cmm (130-400); Red Blood Count 4.76 10^6/uL (4.1-5.3); Red Cell Distribution Width 14.7 % (12.1-15.1); White Blood Count 7.4 10^3/uL (4.0-10.0)
[2020-03-07 12:59] LABS: Alanine Aminotransferase 20 U/L (0-41); Albumin Level 3.9 g/dL (3.5-5.2); Alkaline Phosphatase 213 IU/L (40-130); Anion Gap 12.3 (5-19); Aspartate Amino Transferase 22 U/L (0-40); Blood Urea Nitrogen 22 mg/dL (8-23); Calcium 8.7 mg/dL (8.5-10.5); Carbon Dioxide 26 mmol/L (22-29); Chloride 104 mmol/L (98-107); Globulin 2.9 g/dL (1.3-4.6); Glomerular Filtration Rate 85.2 mL/min (90-130); Glucose 72 mg/dL (65-115); Osmolality Calculated 281 mOsm/kg (285-295); Potassium 4.3 mmol/L (3.5-5.1); Sodium 138 mmol/L (136-145); Total Bilirubin 0.3 mg/dL (0.15-1.2); Total Protein 6.8 g/dL (6.6-8.7)
[2020-03-07 13:48] LABS: Total Iron Binding Capacity 384 mcg/dl
[2020-03-07 13:52] LABS: Iron 32 ug/dL (59-158); Percent Saturation 8.3 % (20-50); Unsaturated Iron Binding 352 ug/dL (112-347)
[2020-03-07 13:53] LABS: Ferritin 18 ng/mL (30-400)
== END 2020-03-07 11:21 | disposition home or self-care (01) ==
LOC: ONCMED 12:06
PROVIDERS: PCP Electrodiagnostic Medicine; Visit Provider Internal Medicine Medical Oncology
DX: D50.0 Iron deficiency anemia secondary to blood loss (chronic) (principal); I10 Essential (primary) hypertension
CPT/HCPCS: 80053; 82728; 83540; 83550; 85025

== ENCOUNTER 2020-03-12 14:57 | Outpatient (CLI) | payer MEDICARE, MEDICAID, SELFPAY ==
[2020-03-12] MEDS: ferric carboxy (IVPB) 750 MG in sodium chloride 0.9% (100 ml) 100 ML 345 MG IV (15:16)
== END 2020-03-12 14:58 | disposition home or self-care (01) ==
LOC: ONCMED 14:57
PROVIDERS: PCP Electrodiagnostic Medicine; Visit Provider Nurse Practitioner
DX: D50.9 Iron deficiency anemia, unspecified (principal)
CPT/HCPCS: 96365; J1439

== ENCOUNTER 2020-04-07 05:46 | Outpatient (CLI) | payer MEDICARE, MEDICAID, SELFPAY ==
[2020-04-07] MEDS: ferric carboxy (IVPB) 750 MG in sodium chloride 0.9% (100 ml) 100 ML 345 MG IV (15:05)
== END 2020-04-07 05:47 | disposition home or self-care (01) ==
LOC: ONCMED 05:48
PROVIDERS: PCP Electrodiagnostic Medicine; Visit Provider Internal Medicine Medical Oncology
DX: D50.0 Iron deficiency anemia secondary to blood loss (chronic) (principal)
CPT/HCPCS: 96365; J1439

== ENCOUNTER 2020-05-13 13:30 | Outpatient (CLI) | payer MEDICARE, MEDICAID, SELFPAY ==
[2020-05-13 13:20] LABS: Basophils # 0.1 10^3/uL (0.0-0.1); Eosinophils # 0.7 10^3/uL (0.0-0.8); Eosinophils % 13.2 %; Hematocrit 40.2 % (42.0-52.0); Hemoglobin 12.4 g/dL (11.7-16.6); Lymphocytes # 0.8 10^3/uL (0.8-4.8); Lymphocytes % 15.3 %; Mean Corpuscular HGB Conc 30.8 g/dL (30.0-36.0); Mean Corpuscular Hemoglobin 25.1 pg (28.0-34.0); Mean Corpuscular Volume 81.2 fL (80-94); Mean Platelet Volume 10.5 fL (7.4-10.4); Monocytes # 0.4 10^3/uL (0.2-0.9); Monocytes % 7.3 %; Neutrophils % 62.8 %; Nucleated Red Blood Cells % 0 %; Platelet Count 205 10^3/cmm (130-400); Red Blood Count 4.95 10^6/uL (4.1-5.3); Red Cell Distribution Width 17.8 % (12.1-15.1); White Blood Count 5.2 10^3/uL (4.0-10.0)
[2020-05-13 13:43] LABS: Alanine Aminotransferase 34 U/L (0-41); Albumin Level 3.6 g/dL (3.5-5.2); Alkaline Phosphatase 241 IU/L (40-130); Anion Gap 15.2 (5-19); Aspartate Amino Transferase 30 U/L (0-40); Blood Urea Nitrogen 16 mg/dL (8-23); Calcium 8.4 mg/dL (8.5-10.5); Carbon Dioxide 26 mmol/L (22-29); Chloride 97 mmol/L (98-107); Ferritin 83 ng/mL (30-400); Globulin 2.8 g/dL (1.3-4.6); Glomerular Filtration Rate 113.9 mL/min (90-130); Glucose 168 mg/dL (65-115); Iron 40 ug/dL (59-158); Osmolality Calculated 283 mOsm/kg (285-295); Percent Saturation 15.1 % (20-50); Potassium 4.2 mmol/L (3.5-5.1); Sodium 134 mmol/L (136-145); Total Bilirubin 0.3 mg/dL (0.15-1.2); Total Iron Binding Capacity 264 mcg/dl; Total Protein 6.4 g/dL (6.6-8.7); Unsaturated Iron Binding 224 ug/dL (112-347)
== END 2020-05-13 13:31 | disposition home or self-care (01) ==
LOC: ONCMED 13:31
PROVIDERS: PCP Electrodiagnostic Medicine; Visit Provider Internal Medicine Medical Oncology
DX: D50.9 Iron deficiency anemia, unspecified (principal)
CPT/HCPCS: 36415; 80053; 82728; 83540; 83550; 85025

== ENCOUNTER 2020-05-14 06:02 | Outpatient (CLI) | payer MEDICARE, MEDICAID, SELFPAY ==
[2020-05-14] MEDS: pneumococcal (23 valent) SDV 0.5 mL IM (14:12)
[2020-05-14] MEDS: ferric carboxy (IVPB) 750 MG in sodium chloride 0.9% (100 ml) 100 ML 345 MG IV (14:15)
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
== END 2020-05-14 06:03 | disposition home or self-care (01) ==
LOC: ONCMED 06:04
PROVIDERS: PCP Electrodiagnostic Medicine; Visit Provider Internal Medicine Medical Oncology
DX: D50.9 Iron deficiency anemia, unspecified (principal); Z23 Encounter for immunization; I10 Essential (primary) hypertension; K21.9 Gastro-esophageal reflux disease without esophagitis; I48.91 Unspecified atrial fibrillation; I48.92 Unspecified atrial flutter; M47.9 Spondylosis, unspecified; F32.9 Major depressive disorder, single episode, unspecified; G89.29 Other chronic pain; Z98.84 Bariatric surgery status; Z79.01 Long term (current) use of anticoagulants; Z95.0 Presence of cardiac pacemaker
CPT/HCPCS: 90471; 90686; 90732; 96365; 99214; J1439

== ENCOUNTER 2020-08-14 11:16 | Outpatient (CLI) | payer MEDICARE, MEDICAID, SELFPAY ==
[2020-08-14 12:15] LABS: Basophils # 0.1 10^3/uL (0.0-0.1); Basophils % 1.6 %; Eosinophils # 0.8 10^3/uL (0.0-0.8); Eosinophils % 12.9 %; Hematocrit 39.8 % (42.0-52.0); Hemoglobin 12.2 g/dL (11.7-16.6); Lymphocytes # 0.9 10^3/uL (0.8-4.8); Lymphocytes % 14.6 %; Mean Corpuscular HGB Conc 30.7 g/dL (30.0-36.0); Mean Corpuscular Hemoglobin 24.7 pg (28.0-34.0); Mean Corpuscular Volume 80.7 fL (80-94); Mean Platelet Volume 10.5 fL (7.4-10.4); Monocytes # 0.5 10^3/uL (0.2-0.9); Monocytes % 7.4 %; Neutrophils # 4.03 10^3/uL (1.8-7.7); Nucleated Red Blood Cells % 0 %; Platelet Count 244 10^3/cmm (130-400); Red Blood Count 4.93 10^6/uL (4.1-5.3); Red Cell Distribution Width 14.5 % (12.1-15.1); White Blood Count 6.4 10^3/uL (4.0-10.0)
[2020-08-14 12:50] LABS: Ferritin 55 ng/mL (30-400); Iron 35 ug/dL (59-158); Percent Saturation 10.2 % (20-50); Total Iron Binding Capacity 340 mcg/dl; Unsaturated Iron Binding 305 ug/dL (112-347)
== END 2020-08-14 11:17 | disposition home or self-care (01) ==
LOC: ONCMED 15:28
PROVIDERS: PCP Electrodiagnostic Medicine; Visit Provider Internal Medicine Medical Oncology
DX: D50.0 Iron deficiency anemia secondary to blood loss (chronic) (principal)
CPT/HCPCS: 82728; 83540; 83550; 85025

== ENCOUNTER 2020-09-07 01:37 | Emergency (ER) | payer MEDICARE, MEDICAID, SELFPAY ==
[2020-09-07 01:44] VITALS: BP 117/90; PULSE 98; RESP 28; TEMP 36.4; O2SAT 93; BMI 33.7
--- NOTE | 2020-09-07 01:55 | XRR_ITS ---
PROCEDURE INFORMATION: Exam: XR Chest, 1 View Exam date and time: 09/07/2020 2:00 AM Age: 64 years old Clinical indication: Dyspnea; Prior surgery; Surgery date: 6+ months; Surgery type: Pacemaker, hernia, bowel; Additional info: SOB TECHNIQUE: Imaging protocol: XR of the chest Views: 1 view. COMPARISON: CR XR chest 1V portable [id number] 08/19/2019 1:56 PM FINDINGS: Lungs: Unremarkable. No consolidation. Pleural spaces: Unremarkable. No pleural effusion. No pneumothorax. Heart/Mediastinum: Unremarkable. No cardiomegaly. Vasculature: A sequencing bipolar pacemaker is placed via the left subclavian vein. Bones/joints: Unremarkable. Intraperitoneal space: Numerous surgical clips are seen in the left upper quadrant of the abdomen. XR/XR chest 1V portable [id number] IMPRESSION: There are no acute chest findings. Stable appearance of the chest compared with 08/19/2019.
[2020-09-07 02:06] LABS: Basophils # 0.1 10^3/uL (0.0-0.1); Basophils % 1.2 %; Eosinophils # 0.5 10^3/uL (0.0-0.8); Eosinophils % 7.6 %; Hematocrit 38.7 % (42.0-52.0); Hemoglobin 11.8 g/dL (11.7-16.6); Lymphocytes % 17.3 %; Mean Corpuscular HGB Conc 30.5 g/dL (30.0-36.0); Mean Corpuscular Volume 78.7 fL (80-94); Mean Platelet Volume 10.5 fL (7.4-10.4); Monocytes # 0.5 10^3/uL (0.2-0.9); Monocytes % 7.6 %; Neutrophils # 3.96 10^3/uL (1.8-7.7); Neutrophils % 65.8 %; Nucleated Red Blood Cells % 0 %; Platelet Count 204 10^3/cmm (130-400); Red Blood Count 4.92 10^6/uL (4.1-5.3); Red Cell Distribution Width 14.6 % (12.1-15.1)
[2020-09-07 02:15] VITALS: BP 136/87; PULSE 67; RESP 18; O2SAT 94
[2020-09-07 02:24] LABS: ABG PCO2 48.2 mmHg (35-45); ABG PH Result 7.39 (7.35-7.45); Base Excess ABG 3.6 mmol/L (-2.0-2.0); Blood Gas Sample Site Brachial, left; Blood Gas Sample Type Arterial; HCO3 ABG 29.3 mmol/L (22-26); HGB O2 Sat 93.7 % (95-100); Methemoglobin 0.7 % (0.4-1.5); Oxygen Device NC; Total Hemoglobin 11.8 g/dL (14-18)
[2020-09-07 02:41] LABS: D Dimer 1.08 ug/mIFEU (0-0.59)
[2020-09-07 02:42] LABS: NT Pro B Type Natriuretic Pept 105 pg/mL (0-125); Procalcitonin 0.07 ng/mL (0-0.5)
--- NOTE | 2020-09-07 02:44 | ECG_ITS ---
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 Measurements Intervals [place] Rate: 64 P: 113 NC: 194 QRS: 193 QRSD: 112 T: 133 QT: 396 QTc: 410 Interpretive Statements SINUS RHYTHM WITH OCCASIONAL SUPRAVENTRICULAR PREMATURE COMPLEXES POSSIBLE RIGHT VENTRICULAR HYPERTROPHY [SOME/ALL OF: PROMINENT R IN V1, LATE TRANSITION, RAD, KINGS, SSS] Compared to ECG 08/20/2019 09:21:58 Atrial abnormality now present Atrial-paced complex(es) or rhythm no longer present Myocardial infarct finding no longer present Electronically Signed On 09-07-2020 18:38:16 CAR UNLOADER by Dayna Mistry M.D. [email or web address]
[2020-09-07 02:48] LABS: Influenza A by IFA Negative (Negative); Influenza B by IFA Negative (Negative); SARS Covid-2 Antigen Negative (Negative)
--- NOTE | 2020-09-07 02:48 | CTR_ITS ---
PROCEDURE INFORMATION: Exam: CT Angiography Chest With Contrast Exam date and time: 09/07/2020 3:00 AM Age: 64 years old Clinical indication: Abnormal findings; Abnormal diagnostic tests; Elevated d-dimer; Prior surgery; Surgery date: 6+ months; Surgery type: Pacemaker, hernia, bowel; Additional info: Chest pain TECHNIQUE: Imaging protocol: Computed tomographic angiography of the chest with contrast. 3D rendering (Not supervised by radiologist): MIP and/or 3D reconstructed images were created by the technologist. Radiation optimization: All CT scans at this facility use at least one of these dose optimization techniques: automated exposure control; mA and/or kV adjustment per patient size (includes targeted exams where dose is matched to clinical indication); or iterative reconstruction. Contrast material: VISI; Contrast volume: 95 ml; Contrast route: INTRAVENOUS (IV); COMPARISON: CTA Chest w Abd/Pel w* 02/13/2019 7:30 PM RADIATION DOSE METRICS: Total DLP (mGy-cm): 701.67 FINDINGS: Tubes, catheters and devices: A sequential bipolar pacemaker is placed via the left subclavian vein. Pulmonary arteries: Normal. No pulmonary emboli. Aorta: Unremarkable. No aortic aneurysm. No aortic dissection. Lungs: There are some increased interstitial opacities present in the lower lobes bilaterally, left more prominent than right, findings that may represent mild pulmonary edema. Some strandy opacities are present in the right lung base likely representing atelectasis or parenchymal or pleural scarring. A calcified granuloma seen in the left upper lobe adjacent to the superior mediastinum. Pleural spaces: Unremarkable. No pneumothorax. No pleural effusion. Heart: Unremarkable. No cardiomegaly. No pericardial effusion. Lymph nodes: Unremarkable. No enlarged lymph nodes. Liver: There is hypoattenuation of the hepatic compatible fatty infiltration. Stomach and bowel: Status post gastric bypass procedure. Bones/joints: Unremarkable. No acute fracture. Soft tissues: Unremarkable. CT/CT angio chest PE protcl [id number] IMPRESSION: 1. There is no evidence for pulmonary emboli. 2. Subtle interstitial opacities are seen in the lower hemithoraces, left more prominent than right, findings could represent mild pulmonary edema. A bilateral basilar pneumonitis cannot be entirely excluded. 3. Strandy and patchy opacities in the right lung base likely represents atelectasis versus parenchymal or pleural scarring. 4. Fatty infiltration of the liver Radiation Dose CTDIVOL = (mGy): DLP = 701.67 (mGy-cm)
[2020-09-07 02:52] LABS: Lactic Sepsis W/Reflex 1.2 mmol/L (0.5-2.2)
[2020-09-07 02:53] LABS: Alanine Aminotransferase 18 U/L (0-41); Albumin Level 3.8 g/dL (3.5-5.2); Alkaline Phosphatase 195 IU/L (40-130); Anion Gap 16.1 (5-19); Aspartate Amino Transferase 23 U/L (0-40); Blood Urea Nitrogen 16 mg/dL (8-23); Calcium 8.6 mg/dL (8.5-10.5); Carbon Dioxide 25 mmol/L (22-29); Chloride 98 mmol/L (98-107); Creatinine Clr Calc Pharmacy 152.3011; Globulin 3.4 g/dL (1.3-4.6); Glomerular Filtration Rate 113.9 mL/min (90-130); Glucose 124 mg/dL (65-115); Osmolality Calculated 283 mOsm/kg (285-295); Potassium 4.1 mmol/L (3.5-5.1); Sodium 135 mmol/L (136-145); Total Bilirubin 0.3 mg/dL (0.15-1.2); Total Protein 7.2 g/dL (6.6-8.7)
[2020-09-07 02:57] VITALS: BP 136/87; PULSE 61; RESP 16; O2SAT 94
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
[2020-09-07] MEDS: iodixanol 320 mg/mL 100mL Btl IV (03:24)
[2020-09-07 03:38] LABS: Troponin(5th) Baseline 12 ng/L (0-15)
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
[2020-09-07 04:23] VITALS: PULSE 63; RESP 17; O2SAT 95
[2020-09-07] MEDS: ipratropium-albuterol 3 mL Neb INHALATION (04:23)
[2020-09-07 04:30] VITALS: PULSE 61
[2020-09-07 04:42] VITALS: BP 106/74; PULSE 94; RESP 18; O2SAT 108
== END 2020-09-07 04:43 | disposition home or self-care (01) ==
PROVIDERS: Emergency Provider Emergency Medicine; PCP Electrodiagnostic Medicine
DX: J20.9 Acute bronchitis, unspecified (principal); Z79.82 Long term (current) use of aspirin; I48.91 Unspecified atrial fibrillation; I10 Essential (primary) hypertension; Z95.0 Presence of cardiac pacemaker
CPT/HCPCS: 36415; 36600; 71045; 71275; 80053; 82805; 83605; 83880; 84145; 84484; 85025; 85378; 87040; 87426; 87804; 93005; 94640; 96374; 99284; J2930; Q9967

== ENCOUNTER 2020-10-22 09:00 | Outpatient (CLI) | payer MEDICARE, MEDICAID, SELFPAY ==
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
== END 2020-10-22 09:01 | disposition home or self-care (01) ==
LOC: RAD 09:08
PROVIDERS: PCP Electrodiagnostic Medicine; Visit Provider Electrodiagnostic Medicine
DX: M54.5 Low back pain (principal); M54.16 Radiculopathy, lumbar region; M47.816 Spondylosis without myelopathy or radiculopathy, lumbar region
CPT/HCPCS: 72100

== ENCOUNTER 2020-11-11 11:26 | Outpatient (CLI) | payer MEDICARE, MEDICAID, SELFPAY ==
[2020-11-11 11:54] LABS: Basophils # 0.1 10^3/uL (0.0-0.1); Basophils % 1.4 %; Eosinophils # 0.8 10^3/uL (0.0-0.8); Eosinophils % 8.5 %; Hematocrit 38.2 % (42.0-52.0); Hemoglobin 11.2 g/dL (11.7-16.6); Lymphocytes # 1.3 10^3/uL (0.8-4.8); Lymphocytes % 13.9 %; Mean Corpuscular HGB Conc 29.3 g/dL (30.0-36.0); Mean Corpuscular Hemoglobin 21.7 pg (28.0-34.0); Mean Corpuscular Volume 74.2 fL (80-94); Mean Platelet Volume 10.3 fL (7.4-10.4); Monocytes # 0.7 10^3/uL (0.2-0.9); Monocytes % 7.3 %; Neutrophils # 6.23 10^3/uL (1.8-7.7); Neutrophils % 68.5 %; Nucleated Red Blood Cells % 0 %; Platelet Count 318 10^3/cmm (130-400); Red Blood Count 5.15 10^6/uL (4.1-5.3); Red Cell Distribution Width 15.6 % (12.1-15.1); White Blood Count 9.1 10^3/uL (4.0-10.0)
[2020-11-11 12:16] LABS: Ferritin 17 ng/mL (30-400); Iron 31 ug/dL (59-158); Percent Saturation 7.1 % (20-50); Total Iron Binding Capacity 435 mcg/dl; Unsaturated Iron Binding 404 ug/dL (112-347)
== END 2020-11-11 11:27 | disposition home or self-care (01) ==
LOC: ONCMED 11-12 08:44
PROVIDERS: PCP Electrodiagnostic Medicine; Visit Provider Internal Medicine Medical Oncology
DX: D50.0 Iron deficiency anemia secondary to blood loss (chronic) (principal)
CPT/HCPCS: 82728; 83540; 83550; 85025

== ENCOUNTER 2020-11-27 08:26 | Outpatient (CLI) | payer MEDICARE, MEDICAID, SELFPAY ==
[2020-11-27] MEDS: sodium chloride 0.9% (100 ml) 100 ML 400 ML (09:23)
[2020-11-27] MEDS: ferric carboxy (IVPB) 750 MG in sodium chloride 0.9% (100 ml) 100 ML 460 MG IV (09:23)
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
== END 2020-11-27 08:27 | disposition home or self-care (01) ==
LOC: ONCMED 08:29
PROVIDERS: PCP Electrodiagnostic Medicine; Visit Provider Internal Medicine Medical Oncology
DX: D50.9 Iron deficiency anemia, unspecified (principal); I10 Essential (primary) hypertension; K21.9 Gastro-esophageal reflux disease without esophagitis; I49.9 Cardiac arrhythmia, unspecified; I48.20 Chronic atrial fibrillation, unspecified; I48.92 Unspecified atrial flutter; Z95.0 Presence of cardiac pacemaker; Z79.01 Long term (current) use of anticoagulants; M47.9 Spondylosis, unspecified; G89.29 Other chronic pain; F32.9 Major depressive disorder, single episode, unspecified; Z79.899 Other long term (current) drug therapy
CPT/HCPCS: 96365; 99214; J1439

== ENCOUNTER 2020-12-04 06:43 | Outpatient (CLI) | payer MEDICARE, MEDICAID, SELFPAY ==
[2020-12-04] MEDS: ferric carboxy (IVPB) 750 MG in sodium chloride 0.9% (100 ml) 100 ML 460 MG IV (13:20)
== END 2020-12-04 06:44 | disposition home or self-care (01) ==
LOC: ONCMED 06:45
PROVIDERS: PCP Electrodiagnostic Medicine; Visit Provider Internal Medicine Medical Oncology
DX: D50.9 Iron deficiency anemia, unspecified (principal)
CPT/HCPCS: 87635; 96365; J1439

== ENCOUNTER 2020-12-09 11:35 | Outpatient (CLI) | payer MEDICARE, MEDICAID, SELFPAY ==
--- NOTE | 2020-12-09 | XR_ITS ---
WS: [id number] LUMBAR SPINE: 3 VIEWS TECHNIQUE: AP, lateral and L5-S1 spot. HISTORY: Lumbar myelogram and back pain. COMPARISON: None available. Patient was unable to tolerate the myelogram. Patient was unable to maintain a prone position for thi s procedure. There are multiple levels osteophytes and disc space narrowing. Most significant degener ative change at L4-5 and L5-S1. XR/XR lumbar spine 2-3V* [id number] IMPRESSION: 1. Patient was unable to tolerate myelogram procedure. Patient was unable to l ay on his stomach for this procedure. 2. Severe degenerative disc disease at L4-5 and L5-S1. 3. The patient will not be charged for this exam.
== END 2020-12-09 11:36 | disposition home or self-care (01) ==
PROVIDERS: PCP Electrodiagnostic Medicine; Visit Provider Electrodiagnostic Medicine
DX: M54.16 Radiculopathy, lumbar region (principal); R25.2 Cramp and spasm; G62.9 Polyneuropathy, unspecified; R56.9 Unspecified convulsions; M51.36 Other intervertebral disc degeneration, lumbar region; M51.37 Other intervertebral disc degeneration, lumbosacral region
CPT/HCPCS: 62304; 72100; 72120

== ENCOUNTER → 2020-12-12 10:32 | Outpatient (BNVA) | payer MEDICARE, MEDICAID, SELFPAY | PROVIDERS: PCP Electrodiagnostic Medicine; Visit Provider Internal Medicine Medical Oncology | DX: Z01.812 Encounter for preprocedural laboratory examination (principal); Z20.822 Contact with and (suspected) exposure to COVID-19 | CPT/HCPCS: 87635 ==

== ENCOUNTER 2020-12-30 20:00 | Outpatient (CLI) | payer MEDICARE, MEDICAID, SELFPAY | END 2020-12-30 20:01 | disposition home or self-care (01) | LOC: SLEEP 12-31 14:45 | PROVIDERS: PCP Electrodiagnostic Medicine; Visit Provider Electrodiagnostic Medicine | DX: G47.33 Obstructive sleep apnea (adult) (pediatric) (principal) | CPT/HCPCS: 95810 ==

== ENCOUNTER → 2021-01-15 10:41 | Outpatient (BNVA) | payer MEDICARE, MEDICAID, SELFPAY | PROVIDERS: PCP Electrodiagnostic Medicine; Referring Provider Electrodiagnostic Medicine; Visit Provider Orthopaedic Surgery | DX: M54.9 Dorsalgia, unspecified (principal); G89.29 Other chronic pain; M48.061 Spinal stenosis, lumbar region without neurogenic claudication | CPT/HCPCS: 72120 ==

== ENCOUNTER 2021-03-09 14:57 | Outpatient (CLI) | payer MEDICARE, MEDICAID, SELFPAY ==
[2021-03-09 15:44] LABS: Basophils % 0.5 %; Eosinophils # 0.4 10^3/uL (0.0-0.8); Eosinophils % 5.1 %; Hemoglobin 11.6 g/dL (11.7-16.6); Lymphocytes # 0.7 10^3/uL (0.8-4.8); Lymphocytes % 9.1 %; Mean Corpuscular HGB Conc 31.4 g/dL (30.0-36.0); Mean Corpuscular Hemoglobin 24.9 pg (28.0-34.0); Mean Corpuscular Volume 79.4 fl (80-94); Mean Platelet Volume 9.8 fL (7.4-10.4); Monocytes # 0.4 10^3/uL (0.2-0.9); Monocytes % 5.2 %; Neutrophils # 6.29 10^3/uL (1.8-7.7); Neutrophils % 79.6 %; Nucleated Red Blood Cells % 0 %; Platelet Count 171 10^3/cmm (130-400); Red Blood Count 4.66 10^6/uL (4.1-5.3); Red Cell Distribution Width 16.6 % (12.1-15.1); White Blood Count 7.9 10^3/uL (4.0-10.0)
[2021-03-09 16:24] LABS: Alanine Aminotransferase 10 U/L (0-41); Albumin Level 3.7 g/dL (3.5-5.2); Alkaline Phosphatase 123 IU/L (40-130); Anion Gap 15.8 (5-19); Aspartate Amino Transferase 15 U/L (0-40); Blood Urea Nitrogen 17 mg/dL (8-23); Calcium 8.2 mg/dL (8.5-10.5); Carbon Dioxide 24 mmol/L (22-29); Chloride 100 mmol/L (98-107); Ferritin 24 ng/mL (30-400); Globulin 2.5 g/dL (1.3-4.6); Glomerular Filtration Rate 113.5 mL/min (90-130); Glucose 159 mg/dL (65-115); Iron 35 ug/dL (59-158); Osmolality Calculated 287 mOsm/kg (285-295); Percent Saturation 10.4 % (20-50); Potassium 3.8 mmol/L (3.5-5.1); Sodium 136 mmol/L (136-145); Total Bilirubin 0.4 mg/dL (0.15-1.2); Total Iron Binding Capacity 334 mcg/dl; Total Protein 6.2 g/dL (6.6-8.7); Unsaturated Iron Binding 299 ug/dL (112-347)
== END 2021-03-09 14:58 | disposition home or self-care (01) ==
LOC: ONCMED 15:01
PROVIDERS: PCP Electrodiagnostic Medicine; Visit Provider Internal Medicine Medical Oncology
DX: I48.0 Paroxysmal atrial fibrillation (principal); Z79.899 Other long term (current) drug therapy; Z95.0 Presence of cardiac pacemaker; Z79.01 Long term (current) use of anticoagulants
CPT/HCPCS: 36415; 80053; 82728; 83540; 83550; 85025

== ENCOUNTER 2021-03-10 05:56 | Outpatient (CLI) | payer MEDICARE, MEDICAID, SELFPAY ==
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
== END 2021-03-10 05:57 | disposition home or self-care (01) ==
LOC: ONCMED 06:03
PROVIDERS: PCP Electrodiagnostic Medicine; Visit Provider Internal Medicine Medical Oncology
DX: D50.9 Iron deficiency anemia, unspecified (principal); Z98.84 Bariatric surgery status
CPT/HCPCS: 99214

== ENCOUNTER 2021-03-18 06:25 | Outpatient (CLI) | payer MEDICARE, MEDICAID, SELFPAY ==
[2021-03-18] MEDS: ferric carboxy (IVPB) 750 MG in sodium chloride 0.9% (100 ml) 100 ML 460 MG IV (15:02)
[2021-03-18] MEDS: sodium chloride 0.9% (100 ml) 100 ML 460 ML (15:02)
== END 2021-03-18 06:26 | disposition home or self-care (01) ==
LOC: ONCMED 06:29
PROVIDERS: PCP Electrodiagnostic Medicine; Visit Provider Internal Medicine Medical Oncology
DX: D50.9 Iron deficiency anemia, unspecified (principal); Z79.899 Other long term (current) drug therapy
CPT/HCPCS: 96365; J1439

== ENCOUNTER 2021-04-30 14:51 | Inpatient (IN) | payer MEDICARE, MEDICAID, SELFPAY ==
[2021-04-30] VITALS (12 sets, daily range): BP systolic 102–130; BP diastolic 55–88; PULSE 61–123; RESP 16–32; TEMP 36.4–38.9; O2SAT 85–97; BMI 31.2
[2021-04-30 15:12] LABS: Glucose Point of Care 133 mg/dL (70-110)
--- NOTE | 2021-04-30 15:12 | ECG_ITS ---
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 Measurements Intervals Gary Rate: 121 P: MD: QRS: -37 QRSD: 120 T: 84 QT: 312 QTc: 443 Interpretive Statements Possibly Sinus tachycardia LEFT AXIS DEVIATION [QRS AXIS < -30] MODERATE INTRAVENTRICULAR CONDUCTION DELAY [110+ ms QRS DURATION] ST ELEVATION, PROBABLY EARLY REPOLARIZATION NONSPECIFIC ST & T-WAVE ABNORMALITY Compared to ECG 09/07/2020 01:52:15 Left-axis deviation now present Intraventricular conduction delay now present ST (T wave) deviation now present Early repolarization now present T-wave abnormality now present Atrial abnormality no longer present Electronically Signed On 05-01-2021 5:42:36 CDT by Dayna Mistry M.D. [id number]
--- NOTE | 2021-04-30 15:12 | CT_ITS ---
WS: [id number] CT head wo con* [id number] REASON FOR EXAM: Symptoms of Acute Stroke IV CONTRAST ADMINISTERED: None. TOTAL EXAM DLP: 1016.[address] scans at [facility] use at least one of these dose optimization techniques: automat ed exposure control; mA and/or kV adjustment per patient size (includes targeted exams where dose is matched to clinical indication); or iterative reconstruction. FINDINGS: The examination is unchanged compared to previous study of 09/05/2018. No midline shift or other significant mass effect. No findings of intracranial hemorrhage and no extra-axial fluid collection. No acute focal brain parenchymal abnormality. Normal ventricles. Normal base of skull and calvarium. CT/CT head wo con* [id number] IMPRESSION: No acute intracranial abnormality.
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
[2021-04-30 15:29] LABS: Basophils # 0.1 10^3/uL (0.0-0.1); Basophils % 0.5 %; Eosinophils # 0.2 10^3/uL (0.0-0.8); Eosinophils % 1.1 %; Hematocrit 38.6 % (42.0-52.0); Hemoglobin 12.8 g/dL (11.7-16.6); Lymphocytes # 0.5 10^3/uL (0.8-4.8); Lymphocytes % 3.9 %; Mean Corpuscular HGB Conc 33.2 g/dL (30.0-36.0); Mean Corpuscular Hemoglobin 26.2 pg (28.0-34.0); Mean Corpuscular Volume 78.9 fl (80-94); Mean Platelet Volume 10.3 fL (7.4-10.4); Monocytes # 0.6 10^3/uL (0.2-0.9); Monocytes % 4.4 %; Neutrophils # 12.02 10^3/uL (1.8-7.7); Neutrophils % 89.7 %; Nucleated Red Blood Cells % 0 %; Platelet Count 237 10^3/cmm (130-400); Red Blood Count 4.89 10^6/uL (4.1-5.3); Red Cell Distribution Width 16.2 % (12.1-15.1); White Blood Count 13.4 10^3/uL (4.0-10.0)
[2021-04-30 15:44] LABS: INR 1.12 (0.8-1.2)
[2021-04-30 15:46] LABS: Partial Thromboplastin Time 30.1 SECONDS (23.9-36.7)
[2021-04-30 15:50] LABS: Add Urine Microscopic? NO; Charge for UA Resulting for Rev
[2021-04-30 15:57] LABS: Bilirubin Urine Neg (Negative); Blood Urine Neg (Negative); Glucose Urine UA Norm (Normal); Ketones Urine Negative (Negative); Leukocyte Esterase Urine Negative (Negative); Nitrate Urine Negative (Negative); Protein Urine Neg (Negative); Specific Gravity, Urine 1.015 (1.005-1.030); Urine Appearance Clear (CLEAR); Urine Color Yellow (Yellow); Urobilinogen Urine Norm (Negative); pH Urine 5 (5-7)
[2021-04-30 15:58] LABS: Alanine Aminotransferase 25 U/L (0-41); Albumin Level 4.1 g/dL (3.5-5.2); Alkaline Phosphatase 179 IU/L (40-130); Anion Gap 16.9 (5-19); Aspartate Amino Transferase 29 U/L (0-40); Blood Urea Nitrogen 26 mg/dL (8-23); Calcium 8.6 mg/dL (8.5-10.5); Carbon Dioxide 25 mmol/L (22-29); Chloride 95 mmol/L (98-107); Globulin 2.7 g/dL (1.3-4.6); Glomerular Filtration Rate 97.3 mL/min (90-130); Glucose 119 mg/dL (65-115); Osmolality Calculated 280 mOsm/kg (285-295); Potassium 4.9 mmol/L (3.5-5.1); Sodium 132 mmol/L (136-145); Total Bilirubin 0.5 mg/dL (0.15-1.2); Total Protein 6.8 g/dL (6.6-8.7)
[2021-04-30 16:06] LABS: Amphetamines Screen Urine Negative (Negative); Barbiturates Screen Urine Negative (Negative); Benzodiazepines Screen Urine Negative (Negative); Cocaine Screen Urine Negative (Negative); Opiate Screen Urine Negative (Negative); PCP Screen Urine Negative (Negative); THC Screen Urine Negative (Negative)
--- NOTE | 2021-04-30 16:07 | XR_ITS ---
WS: [id number] XR chest 1V [id number] REASON FOR EXAM: fever FINDINGS: The chest is unchanged compared to 09/07/2020. Cardiac pacemaker in place over the left upper chest with intact leads to the right atrium and right ventricular apex. Heart at the upper limits of normal in size. Calcified granulomatous disease in both hemithoraces. No active pulmonary parenchymal or pleural disease. XR/XR chest 1V [id number] IMPRESSION: No acute chest abnormality.
[2021-04-30 16:24] LABS: SARS Covid-2 Antigen Negative (Negative)
[2021-04-30] MEDS: cefTRIAXone 2,000 MG in sodium chloride 0.9% (plus) 50 ML 100 MG IV (17:00)
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
[2021-04-30] MEDS: sodium chloride 0.9% 1,000 ML 999 ML IV (18:12)
[2021-04-30] MEDS: ondansetron 2 mg/ML SDV 2 mL 4 MG IVP ×2 (18:12→22:10)
[2021-04-30] MEDS: iohexol 300 mg/mL 100 mL Btl IV (18:32)
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
[2021-05-01] VITALS (10 sets, daily range): BP systolic 116–136; BP diastolic 70–84; PULSE 60–75; RESP 16–18; TEMP 36.4–36.8; O2SAT 90–98
[2021-05-01] MEDS: piperacillin-tazobactam 3.375 GM in sodium chloride 0.9% (plus) 50 ML IV ×3 (02:46→18:00)
[2021-05-01] MEDS: sodium chloride 0.9% 1,000 ML 50 ML IV ×2 (02:47→22:52)
[2021-05-01] MEDS: famotidine 20 mg/2 mL INJ IVP ×2 (02:47→14:39)
--- NOTE | 2021-05-01 08:15 | XR_ITS ---
WS: [id number] XR chest 1V portable [id number] REASON FOR EXAM: follow up FINDINGS: Chest is unchanged compared to 04/30/2021. Moderate tortuosity thoracic aorta and heart at the upper limits of normal. No acute pulmonary parenchymal or pleural abnormality identified. XR/XR chest 1V portable [id number] IMPRESSION: No acute chest abnormality.
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
[2021-05-01] MEDS: polyethylene glycol 3350 Pkt 17 gm PO (11:19)
--- NOTE | 2021-05-01 11:38 | PC.CHAP ---
Pastoral Care Encounter/Spiritual Assessment Type of Contact [] Declined fire regulator visit [] Patient/Family/Request visit [] Outpatient visit [] Follow-up visit [] Physician referral [] Code/Alert [x] Routine visit [] Staff referral [] Actively dying [] Patient sleeping [] Family support [] [] Out of room [] Palliative care [] [] Receiving care in room [] Pre-surgical visit [] Trauma [] Long length of stay [] ICU visit [] Other: Relational/Emotional Strength [x] Patient feels connected with others/family/visitors/staff [] Distress [] Loneliness/isolation [] Abandonment Spirituality of Patient [x] Person of Hilary [] Attends Christianity of their [place]ary [x] Believes in Prayer [] Reads Bible or Druze materials [] There are Spiritual issues to be addressed Technology Applications Consultant Interventions x[] Prayer [x] Active listening [] Non-anxious presence [] Spiritual/emotional support [] Crisis/trauma care [] Spiritual counseling [] Bereavement support [] Provided bereavement packet [] Provided Bible/devotional materials [] Provided toy/stuffed animal, coloring book to patient or family member [] Provided Communion [] Anointing/[place] [] Salvation [x] Completed spiritual assessment [] Other: Impact on Illness or Injury [] Angry [] Fearful [] Anxious [] Often cries [] Exhaustion [] Unable to work [] Unable to attend mandaen [] Unable to walk/stand [] Unable to read [] Unable to drive [] Unable to eat/drink [] Unable to sleep [] Unable to be with family [] Patient intubated [] Other: Summary Time spent with patient 10 min
[2021-05-01] MEDS: methadone 10 mg Tablet PO ×2 (14:39→20:24)
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
[2021-05-01] MEDS: gabapentin 100 mg Capsule PO (17:59)
[2021-05-01] MEDS: sennosides-docusate Tablet 2 TAB PO (17:59)
[2021-05-01] MEDS: amitriptyline 25 mg Tablet 75 MG PO (20:23)
[2021-05-01] MEDS: sertraline 100 mg Tablet 200 MG PO (20:24)
[2021-05-01] MEDS: tizanidine 4 mg Tablet PO (20:24)
[2021-05-02] VITALS (8 sets, daily range): BP systolic 121–150; BP diastolic 82–89; PULSE 60–94; RESP 15–18; TEMP 36.3–36.9; O2SAT 93–96
[2021-05-02] MEDS: famotidine 20 mg/2 mL INJ IVP (01:47)
[2021-05-02] MEDS: piperacillin-tazobactam 3.375 GM in sodium chloride 0.9% (plus) 50 ML IV (01:47)
[2021-05-02 09:07] LABS: Basophils % 0.6 %; Eosinophils # 0.4 10^3/uL (0.0-0.8); Eosinophils % 6.1 %; Hematocrit 36.6 % (42.0-52.0); Hemoglobin 11.2 g/dL (11.7-16.6); Lymphocytes # 0.6 10^3/uL (0.8-4.8); Lymphocytes % 10.3 %; Mean Corpuscular HGB Conc 30.6 g/dL (30.0-36.0); Mean Corpuscular Hemoglobin 25.6 pg (28.0-34.0); Mean Corpuscular Volume 83.8 fl (80-94); Mean Platelet Volume 11.3 fL (7.4-10.4); Monocytes # 0.5 10^3/uL (0.2-0.9); Neutrophils # 4.65 10^3/uL (1.8-7.7); Neutrophils % 74.8 %; Nucleated Red Blood Cells % 0 %; Platelet Count 194 10^3/cmm (130-400); Red Blood Count 4.37 10^6/uL (4.1-5.3); Red Cell Distribution Width 16.4 % (12.1-15.1); White Blood Count 6.2 10^3/uL (4.0-10.0)
[2021-05-02 09:51] LABS: Alanine Aminotransferase 23 U/L (0-41); Albumin Level 3.2 g/dL (3.5-5.2); Alkaline Phosphatase 143 IU/L (40-130); Aspartate Amino Transferase 29 U/L (0-40); Blood Urea Nitrogen 11 mg/dL (8-23); Calcium 8.5 mg/dL (8.5-10.5); Carbon Dioxide 24 mmol/L (22-29); Chloride 105 mmol/L (98-107); Globulin 2.8 g/dL (1.3-4.6); Glomerular Filtration Rate 135.6 mL/min (90-130); Glucose 66 mg/dL (65-115); Osmolality Calculated 286 mOsm/kg (285-295); Sodium 139 mmol/L (136-145); Total Bilirubin 0.4 mg/dL (0.15-1.2)
[2021-05-02 09:55] LABS: Procalcitonin 0.44 ng/mL (0-0.5)
--- NOTE | 2021-05-02 10:02 | PM.PN ---
Subjective Subjective: Interval history: The patient says he feels like he is back to normal today. He had a couple bowel movements yesterday. He is tolerating a clear liquid diet. Vitals/I&O/Wt Last Vital Signs Temp 98.5 F 05/02/21 07:36 Pulse 60 05/02/21 07:36 Resp 16 05/02/21 07:36 BP 131/84 05/02/21 07:36 Pulse Ox 96 05/02/21 07:36 05/01/21 05/02/21 05/02/21 22:59 06:59 14:59 Intake Total 1490 / 1540 50 / 1540 Output Total 900 / 1475 275 / 1475 Balance 590 / 65 -225 / 65 Weight last 48 hrs Weight 260 lb Weight 259 lb 11.2 oz Weight 250 lb Physical Exam Narrative: EXAM NARRATIVE: Bowel sounds are present. The abdomen is soft and nontender. Data : 05/02/21 07:27 05/02/21 07:27 Micro: Microbiology 05/01/21 20:30 Legionella Urinary Antigen - Final Urine,Voided 05/01/21 20:30 Bacterial Antigens - Final Urine,Voided 04/30/21 16:16 Blood Culture - Preliminary Blood NEGATIVE TO DATE 04/30/21 16:16 Blood Culture - Preliminary Blood NEGATIVE TO DATE A&P Assessment and plan (1) Small bowel obstruction: While I agree with the assessment of at least a partial obstructive process on the CAT scan on presentation, this appears to be chronic as demonstrated by the focal but very significant small bowel dilatation and fecalization of some of the contents. The patient has continued to pass flatus and is now having bowel movements. I would consider this to be a chronic partial obstructive process. For future reference, the patient does not want surgery unless absolutely necessary. The patient says that he is back to normal this morning. He is tolerating clear liquids. Discussed with Dr. Mcknight. He is going to be advanced to a soft diet and if he tolerates that then I am okay with him being discharged. Status: Acute (2) Choledocholithiasis: I agree with the finding of possible choledocholithiasis on CT as indicated by the radiologist last night. The patient has a density near the distal common bile duct and perhaps evidence of at least one other gallstone within the gallbladder. Even if this is choledocholithiasis it would appear to be asymptomatic and the patient's liver function studies do not reveal any type of obstructive picture. Status: Acute Attestations Medical Necessity Statement*: See admitting service's notation. Coding Level of Care Code Acute Director Of Housing for [facility] Diagnoses Small bowel obstruction K56.609 Choledocholithiasis K80.50
[2021-05-02] MEDS: methadone 10 mg Tablet 50 MG PO (10:27)
[2021-05-02] MEDS: gabapentin 100 mg Capsule PO (10:28)
[2021-05-02] MEDS: aspirin 81 mg Chew Tablet PO (10:29)
[2021-05-02] MEDS: sennosides-docusate Tablet 2 TAB PO (10:29)
[2021-05-02] MEDS: tizanidine 4 mg Tablet PO ×2 (10:29→14:17)
[2021-05-02] MEDS: dilTIAZem ER (24HR) 120 mg Capsule PO (10:30)
[2021-05-02] MEDS: lisinopril 20 mg Tablet PO (10:30)
[2021-05-02 10:44] LABS: Anion Gap 14.2 (5-19); Potassium 4.2 mmol/L (3.5-5.1)
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
== END 2021-05-02 16:34 | disposition home or self-care (01) | DRG 389 ==
LOC: ER 20:57 → MEDSURG 22:33
PROVIDERS: Admitting Provider Hospitalist; Emergency Provider Emergency Medicine; PCP Electrodiagnostic Medicine; Visit Provider Internal Medicine
DX: K56.600 Partial intestinal obstruction, unspecified as to cause (principal); L03.311 Cellulitis of abdominal wall; I48.0 Paroxysmal atrial fibrillation; G89.29 Other chronic pain; M54.9 Dorsalgia, unspecified; Z93.3 Colostomy status; F32.9 Major depressive disorder, single episode, unspecified; D50.9 Iron deficiency anemia, unspecified; I10 Essential (primary) hypertension; E03.9 Hypothyroidism, unspecified; Z98.84 Bariatric surgery status; Z95.0 Presence of cardiac pacemaker; K80.50 Calculus of bile duct without cholangitis or cholecystitis without obstruction; Z79.82 Long term (current) use of aspirin; Z79.51 Long term (current) use of inhaled steroids
CPT/HCPCS: 36415; 36416; 70450; 71045; 74177; 80053; 80306; 81003; 82962; 83735; 84145; 85025; 85610; 85730; 86403; 87040; 87426; 87449; 93005; 96365; 96375; 99285; J0696; J2405; J2543; J3490; J7030; Q9967

== ENCOUNTER 2021-05-11 05:30 | Inpatient (IN) | payer MEDICARE, MEDICAID, SELFPAY ==
[2021-05-11] VITALS (21 sets, daily range): BP systolic 91–145; BP diastolic 52–94; PULSE 65–114; RESP 16–32; TEMP 36.3–37.3; O2SAT 90–97; BMI 32.5
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
--- NOTE | 2021-05-11 05:45 | XRR_ITS ---
PROCEDURE INFORMATION: Exam: XR Chest Exam date and time: 05/11/2021 5:45 AM Age: 65 years old Clinical indication: Dyspnea; Prior surgery; Surgery date: 6+ months; Surgery type: Pacemaker; Additional info: SOB TECHNIQUE: Imaging protocol: XR of the chest. Views: 1 view. COMPARISON: CR XR chest 1V portable [id number] 05/01/2021 8:16 AM FINDINGS: Tubes, catheters and devices: Left bipolar pacemaker again evident. Lungs: Suspicion of interval worsening of the increased interstitial markings in the lower lungs despite the differences in projection. Continued shallow lung volumes. Still no consolidation. Pleural spaces: Still no pneumothorax or apparent pleural fluid. Heart/Mediastinum: Still no cardiomegaly. Vasculature: Continued aortic elongation. Bones/joints: No visible acute bony disease. Narrowing of a lower thoracic disc still present. Intraperitoneal space: Continued presence of multiple surgical clips in the superior left upper abdomen. XR/XR chest 1V portable [id number] IMPRESSION: 1. Suspicion of interval worsening of the increased interstitial markings in the lower lungs. No other changes, therefore pulmonary edema or interstitial infectious disease not differentiated. 2. Left bipolar pacemaker again evident. Other findings detailed above. Radiation Dose CTDIVOL = (mGy): DLP = (mGy-cm)
--- NOTE | 2021-05-11 05:46 | ECG_ITS ---
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 Measurements Intervals [place] Rate: 107 P: 33 CT: 117 QRS: -24 QRSD: 110 T: 85 QT: 341 QTc: 456 Interpretive Statements Possible SINUS TACHYCARDIA WITH SHORT CT INTERVAL BORDERLINE LEFT AXIS DEVIATION [QRS AXIS < -20] MINIMAL VOLTAGE CRITERIA FOR LVH, CONSIDER NORMAL VARIANT [MEETS CRITERIA IN ONE OF: R(aVL), S(V1), R(V5), R(V5/V6)+S(V1)] ST DEVIATION AND MODERATE T-WAVE ABNORMALITY, CONSIDER LATERAL ISCHEMIA [-0.1+ mV T-WAVE IN I/aVL/V5/V6] Compared to ECG 04/30/2021 15:07:[address] interval now present. Possible ischemia now present.Intraventricular conduction delay no longer present. ST (T wave) deviation no longer present Early repolarization no longer present T-wave abnormality still present Electronically Signed On 05-11-2021 23:42:22 CDT by Víctor Ponce M.D. [id number] f
[2021-05-11] MEDS: ipratropium-albuterol 3 mL Neb INHALATION (06:03)
[2021-05-11 06:09] LABS: Basophils # 0.1 10^3/uL (0.0-0.1); Basophils % 0.4 %; Eosinophils # 0.2 10^3/uL (0.0-0.8); Hematocrit 40.6 % (42.0-52.0); Hemoglobin 12.4 g/dL (11.7-16.6); Lymphocytes # 0.5 10^3/uL (0.8-4.8); Lymphocytes % 3.8 %; Mean Corpuscular HGB Conc 30.5 g/dL (30.0-36.0); Mean Corpuscular Hemoglobin 25.4 pg (28.0-34.0); Mean Platelet Volume 10.9 fL (7.4-10.4); Monocytes # 0.5 10^3/uL (0.2-0.9); Monocytes % 3.2 %; Neutrophils # 13.04 10^3/uL (1.8-7.7); Neutrophils % 91.2 %; Nucleated Red Blood Cells % 0 %; Platelet Count 269 10^3/cmm (130-400); Red Blood Count 4.89 10^6/uL (4.1-5.3); Red Cell Distribution Width 15.8 % (12.1-15.1); White Blood Count 14.3 10^3/uL (4.0-10.0)
[2021-05-11 06:19] LABS: ABG PCO2 49.2 mmHg (35-45); ABG PH Result 7.34 (7.35-7.45); Arterial Blood Gas Hematocrit 40.6 % (42-52); Base Excess ABG 0.1 mmol/L (-2.0-2.0); Blood Gas Allen Test Pos; Blood Gas Sample Site Radial, right; Blood Gas Sample Type Arterial; Carboxyhemoglobin 1.4 %THgb (0.4-20.1); HCO3 ABG 26.5 mmol/L (22-26); HGB O2 Sat 90.3 % (95-100); Methemoglobin 0.6 % (0.4-1.5); PO2 ABG 64.4 mmHg (80.0-100.0); Total Hemoglobin 13.2 g/dL (14-18)
[2021-05-11 06:21] LABS: Oxygen Device NC
[2021-05-11 06:28] LABS: Lactic Sepsis W/Reflex 2.2 mmol/L (0.5-2.2)
[2021-05-11 06:31] LABS: D Dimer 4.92 ug/mIFEU (0-0.59)
[2021-05-11 06:32] LABS: Troponin(5th) Baseline 11 ng/L (0-15)
[2021-05-11 06:37] LABS: Alanine Aminotransferase 16 U/L (0-41); Albumin Level 3.8 g/dL (3.5-5.2); Alkaline Phosphatase 167 IU/L (40-130); Aspartate Amino Transferase 19 U/L (0-40); Blood Urea Nitrogen 16 mg/dL (8-23); Calcium 8.6 mg/dL (8.5-10.5); Carbon Dioxide 23 mmol/L (22-29); Chloride 100 mmol/L (98-107); Globulin 2.7 g/dL (1.3-4.6); Glucose 176 mg/dL (65-115); NT Pro B Type Natriuretic Pept 63 pg/mL (0-125); Osmolality Calculated 291 mOsm/kg (285-295); Sodium 138 mmol/L (136-145); Total Bilirubin 0.3 mg/dL (0.15-1.2); Total Protein 6.5 g/dL (6.6-8.7)
[2021-05-11 07:20] LABS: SARS Covid-2 Antigen Negative (Negative)
[2021-05-11 07:34] LABS: Troponin 5 2HR 10.46 ng/L (0-15); Troponin 5 2HR Delta -0.54 ABS# (0-10)
--- NOTE | 2021-05-11 07:46 | ECG_ITS ---
[facility] Test Date: 2021-05-11 Pat Name: Gary King Department: Room: Gender: Male Box Puller: : 1955 Requested By: Brendan Moon Order Number: [id number] Napoleon MD: Víctor Ponce M.D. Measurements Intervals [place] Rate: 112 P: 11 MT: 118 QRS: -23 QRSD: 113 T: 70 QT: 339 QTc: 464 Interpretive Statements SINUS TACHYCARDIA WITH SHORT MT INTERVAL BORDERLINE LEFT AXIS DEVIATION [QRS AXIS < -20] MODERATE INTRAVENTRICULAR CONDUCTION DELAY [110+ ms QRS DURATION] MINIMAL VOLTAGE CRITERIA FOR LVH, CONSIDER NORMAL VARIANT [MEETS CRITERIA IN ONE OF: R(aVL), S(V1), R(V5), R(V5/V6)+S(V1)] NONSPECIFIC T-WAVE ABNORMALITY ABNORMAL RHYTHM ECG Compared to ECG 04/30/2021 15:07:39 Short MT interval now present ST (T wave) deviation no longer present Early repolarization no longer present T-wave abnormality still present Electronically Signed On 05-11-2021 23:53:23 CDT by Víctor Ponce M.D. [id number]
[2021-05-11 07:51] LABS: Reflex Lactate Order REFLEX LACTIC ORDERD
--- NOTE | 2021-05-11 07:56 | CT_ITS ---
WS: [id number] CT CHEST ANGIOGRAPHY WITH REFORMATS HISTORY: elevated d dimer, dyspnea, hypoxia TECHNIQUE: Contiguous axial images are obtained through the chest during arterial injection of intrav enous contrast. Images are reconstructed to evaluate the pulmonary arteries. MIP imaging also reviewe d. All CT scans at [facility] use at least one of these dose optimization techniques: automat ed exposure control; mA and/or kV adjustment per patient size (includes targeted exams where dose is matched to clinical indication); or iterative reconstruction. CONTRAST: Omnipaque 350; 155 mL IV. DLP: 1131.17 mGy.cm COMPARISON: 09/07/2020 Poor opacification of the pulmonary arteries despite several attempts. No large central pulmonary emb olism. Beyond the lobar branches the opacification is heterogeneous. Pulmonary artery size is slightl y enlarged. Moderate atherosclerosis aorta. No RIGHT heart strain. There is mild enlargement of the L EFT heart chambers. No pericardial or pleural effusions. Scattered opacifications throughout both lungs. Predominantly throughout the RIGHT lung and also at t he lingula and LEFT lower lobe. RIGHT hilar lymph node at 13 mm. Dual lead LEFT subclavian pacer. Increased amount of air throughout the visualized colon. Hiatal hernia. CT/CT angio chest PE protcl [id number] IMPRESSION: 1. Suboptimal opacification of the pulmonary arteries despite several attempts . Centrally no pulmonary embolism. Beyond the lobar branches the opacification is heterogeneous and pulmonary emboli cannot be excluded. 2. Mild enlargement of the pulmonary artery. 3. Mild enlargement of the LEFT heart chambers. 4. Multi lobar areas of pulmonary opacification consistent with pneumonitis.
[2021-05-11] MEDS: ondansetron 2 mg/ML SDV 2 mL 4 MG IVP ×2 (08:11→18:12)
[2021-05-11] MEDS: morphine 4 mg/mL SDV 1 mL IVP ×2 (08:14→21:14)
[2021-05-11] MEDS: sodium chloride 0.9% 1,000 ML 999 ML IV ×2 (08:27→09:33)
[2021-05-11] MEDS: iohexol 350 mg/mL 100 mL Btl IV ×2 (08:54)
[2021-05-11 08:55] LABS: Lactic Acid level (Lactate) 1.6 mmol/L (0.5-2.2)
--- NOTE | 2021-05-11 09:12 | CT_ITS ---
WS: [id number] CT ABDOMEN AND PELVIS WITH CONTRAST HISTORY: Abdominal pain. TECHNIQUE: Imaging performed of the abdomen and pelvis with IV contrast. Single phase imaging of the abdomen. Coronal and sagittal reformats are submitted. All CT scans at [facility] use at isi st one of these dose optimization techniques: automated exposure control; mA and/or kV adjustment per patient size (includes targeted exams where dose is matched to clinical indication); or iterative re construction. IV CONTRAST: Omnipaque 300; 75 mL IV. Oral contrast: No DLP: 1921.94 mGy.cm COMPARISON: 04/30/2021 Lower thorax: Bibasilar opacifications. Mildly enlarged heart. Again noted is a hiatal hernia and pos tsurgical changes at the GE junction from prior gastric bypass. Liver/biliary system: Normal size liver. Stable cyst in the LEFT lobe of the liver. Very mild dilatat ion of the central bile ducts. Gallbladder: Normal. No gallstones or wall thickening. No pericholecystic fluid. Pancreas: Pancreatic atrophy. Very mild prominence of the common bile duct at 8 mm. Similar to the pr ior study. Spleen: Spleen is moderately enlarged to 15 cm in length. Similar to the prior study. Adrenal glands: Normal. Right kidney: Multiple low-attenuation nodules probably due to cysts. No solid mass or obstruction. Left kidney: Low-attenuation cortical nodules cannot be further characterized. No solid mass. No obst ruction. Aorta: Normal. Lymphadenopathy: None. Free fluid: None. GI tract: There is marked dilatation of the small bowel and colon with air and fluid. Moderate consti pation throughout the colon. These findings have been present on multiple prior examinations. No foca l obstruction. Abdominal wall: Unremarkable abdominal wall. No hernia. Pelvis: No free fluid or adenopathy within the pelvis. Bones: Osteopenia. CT/CT abdomen pelvis w con* [id number] IMPRESSION: 1. Significant distention of small bowel and colon with air and fluid. Moderat e fecal retention. These findings have been present on multiple prior examinati ons with only mild progression. Probably component of [place] syndrome and sock mender tin dilatation. 2. No focal transition point. 3. No ascites or adenopathy. 4. Mild splenomegaly is stable since 08/19/2019. 5. Bibasilar opacifications probably due to pneumonitis. 6. Mildly prominent common bile duct is stable over multiple prior studies als o.
--- NOTE | 2021-05-11 09:44 | PC.NURSE ---
pt in on quality assurance monitor
[2021-05-11 09:45] LABS: Add Urine Microscopic? NO; Charge for UA Resulting for Rev
[2021-05-11 09:50] LABS: Bilirubin Urine Neg (Negative); Blood Urine Neg (Negative); Glucose Urine UA Norm (Normal); Ketones Urine Negative (Negative); Leukocyte Esterase Urine Negative (Negative); Nitrate Urine Negative (Negative); Protein Urine Neg (Negative); Urine Appearance Clear (CLEAR); Urine Color Yellow (Yellow); Urobilinogen Urine Norm (Negative); pH Urine 5 (5-7)
[2021-05-11] MEDS: iohexol 300 mg/mL 100 mL Btl IV (10:41)
--- NOTE | 2021-05-11 11:45 | PC.NURSE ---
Pt reports pain of 8/10
--- NOTE | 2021-05-11 11:46 | ECG_ITS ---
[facility] Test Date: 2021-05-11 Pat Name: Gary King Department: Room: Gender: Male On Call: : 1955 Requested By: Brendan Moon Order Number: [id number] Napoleon MD: Víctor Ponce M.D. Measurements Intervals [place] Rate: 64 P: 77 [place]: 200 QRS: -18 QRSD: 122 T: 24 QT: 376 QTc: 390 Interpretive Statements SINUS RHYTHM PROBABLE LATERAL MYOCARDIAL INFARCTION , OF INDETERMINATE AGE [35 ms Q WAVE IN I/aVL/V5/V6] Compared to ECG 05/11/2021 08:12:42 Myocardial infarct finding now present Sinus tachycardia no longer present Short [place] interval no longer present Intraventricular conduction delay no longer present T-wave abnormality no longer present Electronically Signed On 05-11-2021 23:55:28 CDT by Víctor Ponce M.D. [email or web address].[email or web address]/store/[id number] f
[2021-05-11 12:43] LABS: Troponin 5 6HR 9.48 ng/L (0-15)
[2021-05-11 12:46] LABS: Troponin 5 6HR Delta -1.52 ng/L (0-12)
[2021-05-11] MEDS: morphine 4 mg/mL SDV 1 mL 2 MG IVP (12:53)
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
--- NOTE | 2021-05-11 13:39 | NUR.SHIFT ---
Changed pt's into gown.
--- NOTE | 2021-05-11 13:46 | PC.PHAR ---
PT STATES HE TAKES CARE IF HIS OWN MEDICATIONS-NOTES ARE MADE IN THE PHARMACY COMMENTS-PT STATES HE FINISHED HIS AUGMENTIN ON 05/10/21
[2021-05-11] MEDS: sodium chloride 0.9% 1,000 ML 30 ML IV (14:15)
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
--- NOTE | 2021-05-11 14:41 | ANE.PACU2 ---
Inpatient post-anesthesia follow up: Airway intact: Yes Vital signs: Temperature 97.9 F Pulse Rate [Monito r] 89 Pulse Rate 68 Respiratory Rate 16 Blood Pressure 91/52 Pulse Oximetry 91 Oxygen Delivery Me thod Room Air Oxygen Flow Rate 2 Fraction of Inspir ed Oxygen Hydration adequate: Yes Nausea and vomiting: No Pain level: 1 Mental status: Baseline
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
--- NOTE | 2021-05-11 15:30 | PC.NURSE ---
Informed GRETTA Alvarez, transfer to med surg processed.
[2021-05-11] MEDS: D5-NS 0.45% + KCL 20 mEq 20 MEQ/1,000 ML BAG 100 MEQ IV (16:49)
[2021-05-11 16:50] LABS: Estmated Average Glucose 97
[2021-05-11] MEDS: enoxaparin 40 mg/0.4 mL Syringe SUBCUT (16:53)
[2021-05-11] MEDS: methylnaltrexone 12 /0.6 mL INJ 12 MG SUBCUT (17:31)
[2021-05-11] MEDS: pantoprazole 40 mg SDV IVP (20:35)
[2021-05-11] MEDS: piperacillin-tazobactam 3.375 GM in sodium chloride 0.9% (plus) 50 ML IV (21:22)
[2021-05-12] VITALS (10 sets, daily range): BP systolic 115–149; BP diastolic 71–82; PULSE 59–82; RESP 16–18; TEMP 36.3–37.2; O2SAT 96–98
[2021-05-12] MEDS: D5-NS 0.45% + KCL 20 mEq 20 MEQ/1,000 ML BAG 100 MEQ IV ×2 (05:50→19:11)
[2021-05-12 06:34] LABS: Alanine Aminotransferase 10 U/L (0-41); Albumin Level 3.2 g/dL (3.5-5.2); Alkaline Phosphatase 113 IU/L (40-130); Anion Gap 12.2 (5-19); Aspartate Amino Transferase 18 U/L (0-40); Blood Urea Nitrogen 14 mg/dL (8-23); Calcium 8.4 mg/dL (8.5-10.5); Carbon Dioxide 24 mmol/L (22-29); Chloride 104 mmol/L (98-107); Globulin 2.8 g/dL (1.3-4.6); Glomerular Filtration Rate 113.5 mL/min (90-130); Glucose 100 mg/dL (65-115); Osmolality Calculated 283 mOsm/kg (285-295); Potassium 4.2 mmol/L (3.5-5.1); Sodium 136 mmol/L (136-145); Total Bilirubin 0.2 mg/dL (0.15-1.2)
--- NOTE | 2021-05-12 06:57 | PM.PN ---
Subjective Subjective: Interval history: The patient says his abdomen has felt well ever since we did his decompressive colonoscopy yesterday. He has actually continued to pass some flatus and says he is even had a couple bowel movements. He thinks his breathing may be getting a little bit better, as well. Vitals/I&O/Wt Last Vital Signs Temp 97.8 F 05/12/21 03:57 Pulse 69 05/12/21 03:57 Resp 18 05/12/21 03:57 BP 115/73 05/12/21 03:57 Pulse Ox 97 05/12/21 03:57 05/11/21 05/11/21 05/12/21 14:59 22:59 06:59 Intake Total 1999 / 3705 700 / 3705 1005 / 3705 Output Total 1325 / 1325 Balance 1999 2380 700 / 2380 -320 / 2380 Weight last 48 hrs Weight 260 lb Weight 260 lb Physical Exam Narrative: EXAM NARRATIVE: Abdomen is softer than on presentation and no appreciable tenderness. Data : 05/11/21 05:45 05/12/21 05:40 Micro: Microbiology 05/11/21 05:45 Blood Culture - Preliminary Blood NEGATIVE TO DATE 05/11/21 07:42 Blood Culture - Preliminary Blood SPECIMEN COLLECTED A&P Assessment and plan (1) Fan's syndrome: Status post decompressive colonoscopy on 05/11/2021. The patient continues to do well from an abdominal perspective. Status: Acute Attestations Medical Necessity Statement*: See admitting service's notation. Coding Level of Care Code Acute Audio/Visual Operator for Vincent Cullen Diagnoses Fan's syndrome K59.81
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
[2021-05-12] MEDS: morphine 4 mg/mL SDV 1 mL IVP (07:48)
[2021-05-12 07:57] LABS: Basophils % 0.2 %; Eosinophils % 0.2 %; Hematocrit 33.7 % (42.0-52.0); Hemoglobin 10.3 g/dL (11.7-16.6); Lymphocytes # 0.5 10^3/uL (0.8-4.8); Lymphocytes % 6.2 %; Mean Corpuscular HGB Conc 30.6 g/dL (30.0-36.0); Mean Corpuscular Volume 81.8 fl (80-94); Mean Platelet Volume 11.2 fL (7.4-10.4); Monocytes # 0.5 10^3/uL (0.2-0.9); Monocytes % 5.6 %; Neutrophils # 7.05 10^3/uL (1.8-7.7); Neutrophils % 87.4 %; Nucleated Red Blood Cells % 0 %; Platelet Count 183 10^3/cmm (130-400); Red Blood Count 4.12 10^6/uL (4.1-5.3); Red Cell Distribution Width 15.9 % (12.1-15.1); White Blood Count 8.1 10^3/uL (4.0-10.0)
[2021-05-12 08:37] LABS: Coronavirus Test Green County Not Detected
[2021-05-12] MEDS: piperacillin-tazobactam 3.375 GM in sodium chloride 0.9% (plus) 50 ML IV ×2 (08:49→15:04)
[2021-05-12] MEDS: pantoprazole 40 mg SDV IVP (08:49)
[2021-05-12] MEDS: methadone 10 mg Tablet 50 MG PO (13:11)
[2021-05-12] MEDS: gabapentin 100 mg Capsule PO ×2 (13:11→17:28)
--- NOTE | 2021-05-12 15:54 | P.PN_ITS ---
Subjective Subjective: Interval history: Gary reports his abdomen feels little bit better. Would like to get started back on his methadone, and started diet. Less short of breath. Medications: Reviewed: Yes Vitals/I&O/Wt Last Vital Signs Temp 98.2 F 05/12/21 15:20 Pulse 65 05/12/21 15:20 Resp 18 05/12/21 15:20 BP 129/80 05/12/21 15:20 Pulse Ox 97 05/12/21 15:20 05/12/21 05/12/21 05/12/21 06:59 14:59 22:59 Intake Total 1005 / 3705 790 / 790 Output Total 1325 / 1325 500 / 500 375 / 875 Balance -320 / 2380 290 / 290 -375 / -85 Weight last 48 hrs Weight 117.934 kg Weight 117.934 kg Physical Exam Narrative: EXAM NARRATIVE: General exam no distress Neck is supple no lymphadenopathy or thyromegaly Cardiovascular regular rate and rhythm without murmur, no S3 or S4 Lungs clear no wheezing or crackles Abdomen is soft. A few bowel sounds are noted. Distention improved Extremities no cyanosis clubbing or edema, cap refill brisk Data : 05/12/21 05:40 05/12/21 05:40 Micro: Microbiology 05/12/21 02:30 Gram Stain - Final Sputum - Expectorated Sputum 05/11/21 18:14 MRSA Culture - Final Nose 05/11/21 07:42 Blood Culture - Preliminary Blood NEGATIVE TO DATE 05/11/21 05:45 Blood Culture - Preliminary Blood NEGATIVE TO DATE A&P Assessment and plan (1) Pneumonia: Significant pneumonia and despite recent hospitalization on Zosyn and discharged on Augmentin. This could be related to aspiration considering the patient's underlying Fan's and vomiting. Vancomycin and Zosyn initially Sputum culture pending. MRSA negative. Discontinue vancomycin. Blood culture negative today Pulmonary toilet Oxygen as needed, wean off as tolerated Status: Acute (2) [place]'s syndrome: Surgery consultation appreciated Appreciate intervention Initiate clear liquid diet TSH checked and only slight elevation noted. Consider rechecking as an outpatient. Elavil was reduced Reinitiate methadone Repeat dose of methylnaltrexone today Status: Acute (3) Paroxysmal atrial fibrillation: Continue Multaq Status: Acute (4) Chronic back pain: Restart Neurontin Reduced amitriptyline Reinitiate methadone Status: Acute Additional A&P Information Elevated blood sugar. Hemoglobin A1c normal Hypertension. Blood pressure on the lower end. Hold lisinopril currently. Full code Lovenox for DVT prophylaxis Attestations Medical Necessity Statement*: Needs continued hospitalization for IV antibiotics secondary to pneumonia. Coding Level of Care Code Acute Temporary Data Entry Clerk for 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
[2021-05-12] MEDS: enoxaparin 40 mg/0.4 mL Syringe SUBCUT (16:17)
[2021-05-12] MEDS: methylnaltrexone 12 /0.6 mL INJ 12 MG SUBCUT (16:17)
[2021-05-12] MEDS: polyethylene glycol 3350 Pkt 17 gm PO (17:28)
[2021-05-12] MEDS: sennosides-docusate Tablet 2 TAB PO (17:28)
[2021-05-13] VITALS: BP 122/69; PULSE 73; RESP 18; TEMP 36.6; O2SAT 97
[2021-05-13] MEDS: amitriptyline 25 mg Tablet 50 MG PO (00:20)
[2021-05-13] MEDS: sertraline 100 mg Tablet 200 MG PO (00:21)
[2021-05-13] MEDS: piperacillin-tazobactam 3.375 GM in sodium chloride 0.9% (plus) 50 ML IV ×2 (01:15→09:38)
[2021-05-13] MEDS: pantoprazole 40 mg SDV IVP ×2 (01:17→09:37)
[2021-05-13 04:00] VITALS: BP 127/82; PULSE 63; RESP 18; TEMP 36.5; O2SAT 97
[2021-05-13] MEDS: D5-NS 0.45% + KCL 20 mEq 20 MEQ/1,000 ML BAG 100 MEQ IV (05:40)
[2021-05-13] MEDS: dilTIAZem ER (24HR) 120 mg Capsule PO (05:41)
[2021-05-13] MEDS: aspirin 81 mg Chew Tablet PO (05:41)
[2021-05-13 05:50] LABS: Basophils % 0.7 %; Eosinophils # 0.5 10^3/uL (0.0-0.8); Eosinophils % 7.6 %; Hematocrit 34.6 % (42.0-52.0); Hemoglobin 10.5 g/dL (11.7-16.6); Lymphocytes # 0.8 10^3/uL (0.8-4.8); Lymphocytes % 12.8 %; Mean Corpuscular HGB Conc 30.3 g/dL (30.0-36.0); Mean Corpuscular Hemoglobin 24.9 pg (28.0-34.0); Mean Corpuscular Volume 82.2 fl (80-94); Mean Platelet Volume 10.5 fL (7.4-10.4); Monocytes # 0.4 10^3/uL (0.2-0.9); Monocytes % 6.7 %; Neutrophils # 4.28 10^3/uL (1.8-7.7); Neutrophils % 71.9 %; Nucleated Red Blood Cells % 0 %; Platelet Count 187 10^3/cmm (130-400); Red Blood Count 4.21 10^6/uL (4.1-5.3); Red Cell Distribution Width 15.9 % (12.1-15.1)
[2021-05-13 06:15] LABS: Anion Gap 11.1 (5-19); Blood Urea Nitrogen 9 mg/dL (8-23); Calcium 8.3 mg/dL (8.5-10.5); Carbon Dioxide 28 mmol/L (22-29); Chloride 106 mmol/L (98-107); Glomerular Filtration Rate 113.5 mL/min (90-130); Glucose 90 mg/dL (65-115); Osmolality Calculated 290 mOsm/kg (285-295); Potassium 4.1 mmol/L (3.5-5.1); Sodium 141 mmol/L (136-145)
[2021-05-13 07:44] VITALS: BP 133/78; PULSE 61; RESP 17; TEMP 36.3; O2SAT 97
[2021-05-13 08:53] VITALS: PULSE 63; RESP 16; O2SAT 96
--- NOTE | 2021-05-13 09:23 | P.PN_ITS ---
Subjective Subjective: Interval history: Patient says he continues to do well and is passing flatus and stool. He would like to try to go home. Medications: Reviewed: Yes Vitals/I&O/Wt Last Vital Signs Temp 97.4 F L 05/13/21 07:44 Pulse 63 05/13/21 08:53 Resp 16 05/13/21 08:53 BP 133/78 05/13/21 07:44 Pulse Ox 96 05/13/21 08:53 05/12/21 05/13/21 05/13/21 22:59 06:59 14:59 Intake Total 1050 / 2890 1050 / 2890 Output Total 625 / 2175 1050 / 2175 Balance 425 / 715 0 / 715 Weight last 48 hrs Weight 260 lb Data : 05/13/21 05:25 05/13/21 05:25 Micro: Microbiology 05/12/21 02:30 Gram Stain - Final Sputum - Expectorated Sputum 05/11/21 18:14 MRSA Culture - Final Nose 05/11/21 07:42 Blood Culture - Preliminary Blood NEGATIVE TO DATE 05/11/21 05:45 Blood Culture - Preliminary Blood NEGATIVE TO DATE A&P Assessment and plan (1) [place]'s syndrome: Status post decompressive colonoscopy on 05/11/2021. The patient continues to do well from an abdominal perspective. I am okay with the patient being discharged. Status: Acute Attestations Medical Necessity Statement*: See admitting service's notation. Coding Level of Care Code Acute Environmental Engineering Professor for Vincent Cullen Diagnoses Fan's syndrome K59.81
[2021-05-13] MEDS: polyethylene glycol 3350 Pkt 17 gm PO (09:38)
[2021-05-13] MEDS: methadone 10 mg Tablet 50 MG PO (09:38)
[2021-05-13] MEDS: gabapentin 100 mg Capsule PO (09:38)
[2021-05-13] MEDS: sennosides-docusate Tablet 2 TAB PO (09:38)
--- NOTE | 2021-05-13 10:24 | PM.DCS ---
Discharge Providers Date of Admission: 05/11/21 12:17 Date of Discharge: May 13, 2021 Attending Provider at Admission: Blade Lock MD Attending Provider at Discharge: Blade Lock MD Primary Care Provider: Alek Mahmood DO Diagnoses at Discharge Discharge Diagnosis (1) Fan's syndrome: Status: Acute Reason for Visit Reason for Visit: resp. distress Hospital Course Hospital Course Gary is a 65-year-old white male who presented to the emergency department with complaints of cough, shortness of breath, elevated temperature, abdominal discomfort with nausea and vomiting. He was found to have bilateral lower lobe pneumonia. CT abdomen and pelvis demonstrated dilated bowel consistent with ileus, perhaps Madison's. Patient was placed on vancomycin and Zosyn initially, surgery consultation was obtained. Same day as admission he went for decompressive colonoscopy which improved his symptoms greatly. Following this he was placed on a bowel regimen, and received occasional doses of methylnaltrexone to enhance peristalsis. Medications adjustments were made as well to improve colonic motility such as reducing amitriptyline. In regards to his pneumonia he had significant gradual improvement while in the hospital able to weaning down to room air by discharge. He was afebrile for over 24 hours. All cultures were negative. MRSA sputum negative. He will be discharged today on cefdinir, with Flagyl as it is expected that his recurrent pneumonia was secondary to aspiration pneumonitis from ileus and vomiting. He will follow-up with his primary care provider in 3 to 5 days and determine if further imaging is needed in the future. Medication adjustments as noted. Relistor will be used as needed for constipation. Physical Exam Narrative: EXAM NARRATIVE: General exam no distress Neck supple Cardiovascular regular rate and rhythm Lungs clear Abdomen is soft, positive bowel sounds, no distention Extremities no cyanosis clubbing or edema Discharge Data Data Completed and Pending: Completed Studies During Hospitalization Category Date Time Status CT abdomen pelvis w con* [id number] Stat Cat Scan 05/11/21 09:[address] angio chest PE protcl [id number] Stat Cat Scan 05/11/21 07:56 Completed XR abdomen 1V* 74 [id number] Routine Exams 05/12/21 07:00 Completed XR chest 1V gregory ble [id number] Urgent Exams 05/11/21 05:45 Completed Pending at discharge Category Date Time Status Blood Culture Sta t Lab 05/11/21 07:42 Results Sputum Culture an d Gram Stain Chelle ne Lab 05/12/21 02:30 Results Labs from last 24 hours 05/13/21 05/13/21 05:25 05:25 WBC 6.0 RBC 4.21 Hgb 10.5 L Hct 34.6 L MCV 82.2 MCH 24.9 L MCHC 30.3 RDW 15.9 H Plt Count 187 MPV 10.5 H Neut % (Auto) 71.9 Lymph % (Auto) 12.8 [place] % (Auto) 6.7 Eos % (Auto) 7.6 Baso % (Auto) 0.7 Neut # (Auto) 4.28 Lymph # (Auto) 0.8 [place] # (Auto) 0.4 Eos # (Auto) 0.5 Baso # (Auto) 0.0 Nucleated RBC % (a uto) 0 Nucleated RBCs # 0.0 Sodium 141 Potassium 4.1 Chloride 106 Carbon Dioxide 28 Anion Gap 11.1 BUN 9 Creatinine 0.7 GFR Calculation 113.5 Glucose 90 Calculated Osmolal ity 290 Calcium 8.3 L Vitals: Last Vital Signs Temp 97.4 F L 05/13/21 07:44 Pulse 63 05/13/21 08:53 Resp 16 05/13/21 08:53 BP 133/78 05/13/21 07:44 Pulse Ox 96 05/13/21 08:53 Discharge Plan Discharge Patient Disposition: Home Condition: Stable Prescriptions: New metronidazole [Flagyl] 500 mg tablet 500 mg PO Q8H 7 Days Qty: 21 RF: 0 amitriptyline 25 mg Tablet 50 mg PO BEDTIME Qty: 60 RF: 0 polyethylene glycol 3350 17 gram Powder In Packet 17 g PO BID Qty: 60 RF: 0 cefdinir 300 mg capsule 300 mg PO BID 7 Days Qty: 14 RF: 0 Relistor 12 mg/0.6 mL solution 0.6 ml SUBCUT DAILY PRN (Reason: constipation) Qty: 3 RF: 0 Continued tizanidine 4 mg tablet 4 mg PO BID RF: 0 sertraline 100 mg tablet 200 mg PO BEDTIME RF: 0 aspirin 81 mg Tablet,Chewable 81 mg PO QAM Qty: 0 RF: 0 mupirocin 2 % ointment 1 applic TOPICAL TID PRN (Reason: [place]) RF: 0 gabapentin 100 mg capsule 100 mg PO BID RF: 0 Multaq 400 mg tablet 400 mg PO BID RF: 0 albuterol sulfate 90 mcg/actuation HFA aerosol inhaler 2 inh inhalation Q4H PRN (Reason: shortness of breath or wheezing) Qty: 6.7 RF: 1 lisinopril 20 mg tablet 20 mg PO QAM RF: 0 methadone 10 mg tablet 50 mg PO QAM RF: 0 ondansetron HCl 4 mg tablet 4 - 8 mg PO Q6H PRN (Reason: nausea/vomiting) RF: 0 Zyrtec 10 mg Tablet 10 mg PO DAILY RF: 0 Cartia XT 120 mg capsule,extended release 24hr 120 mg PO QAM RF: 0 Senna with Docusate Sodium 8.6-50 mg tablet 3 tab-cap PO BID RF: 0 Discontinued amitriptyline 75 mg Tablet 75 mg PO BEDTIME RF: 0 amoxicillin-pot clavulanate 875-125 mg tablet 1 tab PO BID RF: 0 Discharge Orders: Discharge Order (Routine); Ordered 05/13/21 Ordered By: Blade Lock Referrals: Alek Mahmood DO [Primary Care Provider] - 4-7 days Discharge Diet: Usual diet Discharge Activity: Resume usual activity Patient Instructions: GI Discharge Instructions, Opioid Safety Activity Restrictions/Additional Instructions: Take all medicine as prescribed. Follow-up with your primary care provider 3 to 5 days Methylnaltrexone 0.6 mils subcutaneous as needed constipation Discharge Attestations Time Spent in Discharge Care*: greater than 30 min Quality Metrics Clinical Quality Measures During this hospital stay, did patient experience: None Coding Level of Care Code Acute g [facility] note Diagnoses Fan's syndrome K59.81
[2021-05-13 11:40] VITALS: PULSE 63; RESP 16; O2SAT 96
--- NOTE | 2021-05-14 09:30 | PC.SOCIAL ---
PA completed for Relistor and approved. Notified pharmacy, provider and patient.
--- NOTE | 2021-05-14 09:33 | PC.SOCIAL ---
PA completed and approved on Relistor. Notified pharmacy and provider. Unable to reach patient at contact number and unable to leave message. Called Contact who is listed as friend and unable to reach or leave message as well.
== END 2021-05-13 11:40 | disposition home or self-care (01) | DRG 344 ==
LOC: ER 13:34 → MEDSURG 13:47
PROVIDERS: Emergency Medicine; Surgery; Admitting Provider Internal Medicine; Emergency Provider Family Medicine; PCP Electrodiagnostic Medicine; Visit Provider Internal Medicine
PROC: 0DJD8ZZ Inspection of Lower Intestinal Tract, Via Natural or Artificial Opening Endoscopic (ICD-10-PCS; CPT 45378; principal; 2021-05-11 14:00)
DX: K59.81 Ogilvie syndrome (principal); J69.0 Pneumonitis due to inhalation of food and vomit; Z99.81 Dependence on supplemental oxygen; I48.0 Paroxysmal atrial fibrillation; G89.29 Other chronic pain; M54.9 Dorsalgia, unspecified; Z93.3 Colostomy status; F32.A Depression, unspecified; D50.9 Iron deficiency anemia, unspecified; I10 Essential (primary) hypertension; E03.9 Hypothyroidism, unspecified; Z95.0 Presence of cardiac pacemaker; Z98.84 Bariatric surgery status; Z79.82 Long term (current) use of aspirin; Z79.51 Long term (current) use of inhaled steroids
CPT/HCPCS: 36600; 45393; 71045; 71275; 74018; 74177; 80048; 80053; 81003; 82805; 83036; 83605; 83880; 84443; 84484; 85025; 85378; 87040; 87070; 87205; 87426; 87635; 87641; 93005; 94640; 96361; 96372; 96374; 96375; 96376; 99285; C9113; J1650; J2212; J2270; J2405; J2543; J2704; J2930; J3370; J7030; J7040; Q9967

== ENCOUNTER 2021-09-08 11:10 | Outpatient (CLI) | payer MEDICARE, MEDICAID, SELFPAY ==
[2021-09-08 12:07] LABS: Basophils # 0.1 10^3/uL (0.0-0.1); Basophils % 0.9 %; Eosinophils # 0.4 10^3/uL (0.0-0.8); Eosinophils % 6.4 %; Hematocrit 34.1 % (42.0-52.0); Hemoglobin 9.8 g/dL (11.7-16.6); Lymphocytes # 0.7 10^3/uL (0.8-4.8); Lymphocytes % 13.2 %; Mean Corpuscular HGB Conc 28.7 g/dL (30.0-36.0); Mean Corpuscular Hemoglobin 21.3 pg (28.0-34.0); Mean Corpuscular Volume 74.1 fl (80-94); Mean Platelet Volume 10.9 fL (7.4-10.4); Monocytes # 0.3 10^3/uL (0.2-0.9); Monocytes % 5.9 %; Neutrophils # 4.12 10^3/uL (1.8-7.7); Neutrophils % 73.4 %; Nucleated Red Blood Cells % 0 %; Platelet Count 221 10^3/cmm (130-400); Red Cell Distribution Width 16.3 % (12.1-15.1); White Blood Count 5.6 10^3/uL (4.0-10.0)
[2021-09-08 12:19] LABS: Ferritin 20 ng/mL (30-400); Iron 18 ug/dL (59-158)
[2021-09-08 12:39] LABS: Percent Saturation 4.6 % (20-50); Total Iron Binding Capacity 385 mcg/dl; Unsaturated Iron Binding 367 ug/dL (112-347)
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
== END 2021-09-08 11:11 | disposition home or self-care (01) ==
PROVIDERS: PCP Electrodiagnostic Medicine; Visit Provider Internal Medicine Medical Oncology
DX: D50.9 Iron deficiency anemia, unspecified (principal); I10 Essential (primary) hypertension; K21.9 Gastro-esophageal reflux disease without esophagitis; M47.9 Spondylosis, unspecified; F32.A Depression, unspecified; I48.91 Unspecified atrial fibrillation; Z95.0 Presence of cardiac pacemaker; Z79.899 Other long term (current) drug therapy
CPT/HCPCS: 36415; 82728; 83540; 83550; 85025; 99214

== ENCOUNTER 2021-09-18 10:30 | Outpatient (CLI) | payer MEDICARE, MEDICAID, SELFPAY ==
[2021-09-18] MEDS: ferric carboxy (IVPB) 750 MG in sodium chloride 0.9% (100 ml) 100 ML 460 MG IV (11:05)
== END 2021-09-18 10:31 | disposition home or self-care (01) ==
PROVIDERS: PCP Electrodiagnostic Medicine; Visit Provider Internal Medicine Medical Oncology
DX: D50.9 Iron deficiency anemia, unspecified (principal)
CPT/HCPCS: 96365; J1439

== ENCOUNTER 2021-10-27 15:28 | Inpatient (IN) | payer MEDICARE, MEDICAID, SELFPAY ==
[2021-10-27 15:31] VITALS: BP 116/64; PULSE 73; RESP 20; TEMP 39.4; O2SAT 94; BMI 31.2
--- NOTE | 2021-10-27 15:36 | XRR_ITS ---
PROCEDURE INFORMATION: Exam: XR Chest Exam date and time: 10/27/2021 3:50 PM Age: 66 years old Clinical indication: Dyspnea TECHNIQUE: Imaging protocol: XR of the chest. Views: 1 view. COMPARISON: CR XR chest 1V portable [id number] 05/11/2021 5:51 AM FINDINGS: Tubes, catheters and devices: Two lead pacer device noted in the left chest wall. Lungs: No consolidation. Pleural spaces: No pleural effusion. No pneumothorax. Heart/Mediastinum: No cardiomegaly. Bones/joints: Visualized osseous structures are intact. Intraperitoneal space: Multiple surgical clips project in the left upper abdomen. XR/XR chest 1V portable [id number] IMPRESSION: No acute findings.
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
[2021-10-27 15:50] LABS: Basophils # 0.1 10^3/uL (0.0-0.1); Basophils % 0.5 %; Eosinophils # 0.1 10^3/uL (0.0-0.8); Eosinophils % 0.5 %; Hematocrit 38.2 % (42.0-52.0); Lymphocytes # 0.4 10^3/uL (0.8-4.8); Mean Corpuscular HGB Conc 31.4 g/dL (30.0-36.0); Mean Corpuscular Hemoglobin 23.2 pg (28.0-34.0); Mean Corpuscular Volume 73.9 fl (80-94); Mean Platelet Volume 10.6 fL (7.4-10.4); Monocytes # 0.6 10^3/uL (0.2-0.9); Monocytes % 4.1 %; Neutrophils # 12.61 10^3/uL (1.8-7.7); Neutrophils % 91.4 %; Nucleated Red Blood Cells % 0 %; Platelet Count 242 10^3/cmm (130-400); Red Blood Count 5.17 10^6/uL (4.1-5.3); Red Cell Distribution Width 22.2 % (12.1-15.1); White Blood Count 13.8 10^3/uL (4.0-10.0)
--- NOTE | 2021-10-27 16:11 | CTR_ITS ---
PROCEDURE INFORMATION: Exam: CT Abdomen And Pelvis With Contrast Exam date and time: 10/27/2021 6:57 PM Age: 66 years old Clinical indication: Fever; Prior surgery; Surgery date: 6+ months; Additional info: Eval for infection TECHNIQUE: Imaging protocol: Computed tomography of the abdomen and pelvis with contrast. Radiation optimization: All CT scans at this facility use at least one of these dose optimization techniques: automated exposure control; mA and/or kV adjustment per patient size (includes targeted exams where dose is matched to clinical indication); or iterative reconstruction. Contrast material: VISI; Contrast volume: 95 ml; Contrast route: INTRAVENOUS (IV); COMPARISON: CT abdomen pelvis w con* [id number] 05/11/2021 10:37 AM RADIATION DOSE METRICS: Total DLP (mGy-cm): 1875.21 FINDINGS: Lungs: Bibasilar atelectasis versus minimal infiltrate. Liver: Normal. No mass. Gallbladder and bile ducts: Cholelithiasis. Pancreas: Normal. No ductal dilation. Spleen: Spleen enlarged to 16 cm. Adrenal glands: Normal. No mass. Kidneys and ureters: Left kidney cyst, negative for follow-up advised. Right kidney lower pole 11 mm cyst with some thin enhancing septations appears to reflect a Bosniak 2 F lesion. Stomach and bowel: Dilated loop of bowel in the left abdomen measuring up to 7.8 cm appears to reflect some focal dilated small bowel or perhaps a misplaced portion of the stomach. Findings are similar to prior exam, however, underlying obstruction in this area is not excluded. A CT with enteric contrast could potentially further evaluate this and better define the anatomy. Appendix: No evidence of appendicitis. Intraperitoneal space: Surgical sutures and clips in the upper abdomen. Arteries: Unremarkable. No abdominal aortic aneurysm. Lymph nodes: Unremarkable. No enlarged lymph nodes. Urinary bladder: Unremarkable as visualized. Reproductive: Unremarkable as visualized. Bones/joints: Unremarkable. No acute fracture. Soft tissues: Unremarkable. CT/CT abdomen pelvis w con* [id number] IMPRESSION: 1. Dilated loop of bowel in the left abdomen measuring up to 7.8 cm appears to reflect some focal dilated small bowel or perhaps a misplaced portion of the stomach. Findings are similar to prior exam, however, underlying obstruction in this area is not excluded. A CT with enteric contrast could potentially further evaluate this and better define the anatomy. 2. Bibasilar atelectasis versus minimal infiltrate. 3. Surgical sutures and clips in the upper abdomen. 4. Cholelithiasis. 5. Spleen enlarged to 16 cm. 6. Left kidney cyst, negative for follow-up advised. 7. Right kidney lower pole 11 mm cyst with some thin enhancing septations appears to reflect a Bosniak [address] without and with contrast or MR without and with contrast at 6 months and 12 months, then yearly for 5 years. COMMENTS: Consistent with the [employer]'s Incidental Findings Committee white paper (J Am Marian Radiol 2018): Any incidental renal lesion less than 1 cm or classified as too small to characterize, or any incidental cystic renal lesion characterized as simple-appearing, is likely benign. No follow-up imaging is recommended for these lesions per consensus recommendations based on imaging criteria.
[2021-10-27 16:18] LABS: Free T4 Free Thyroxine 0.94 ng/dL (0.82-1.77); NT Pro B Type Natriuretic Pept 695 pg/mL (0-125); Procalcitonin 0.71 ng/mL (0-0.5); Thyroid Stimulating Hormone 3.07 uIU/mL (0.27-4.20)
[2021-10-27 16:21] VITALS: RESP 18
[2021-10-27] MEDS: sodium chloride 0.9% 1,000 ML 999 ML IV (16:21)
[2021-10-27] MEDS: HYDROmorphone 1 mg/mL INJ 1 mL 0.5 MG IVP (16:21)
[2021-10-27 16:29] LABS: Alanine Aminotransferase 20 U/L (0-41); Albumin Level 4.1 g/dL (3.5-5.2); Alkaline Phosphatase 159 IU/L (40-130); Anion Gap 15.5 (5-19); Aspartate Amino Transferase 24 U/L (0-40); Blood Urea Nitrogen 21 mg/dL (8-23); C Reactive Protein 22.1 mg/L (0.0-4.9); Carbon Dioxide 22 mmol/L (22-29); Chloride 98 mmol/L (98-107); Globulin 2.5 g/dL (1.3-4.6); Glomerular Filtration Rate 84.7 mL/min (90-130); Glucose 120 mg/dL (65-115); Lipase 15 U/L (13-60); Osmolality Calculated 276 mOsm/kg (285-295); Potassium 4.5 mmol/L (3.5-5.1); Sodium 131 mmol/L (136-145); Total Bilirubin 0.4 mg/dL (0.15-1.2); Total Protein 6.6 g/dL (6.6-8.7)
[2021-10-27 16:54] LABS: Lactate (Lactic Acid level) 1.9 mmol/L (0.5-2.2)
[2021-10-27] MEDS: vancomycin 1,000 MG in sodium chloride 0.9% 250 ML 250 MG IV (16:55)
[2021-10-27 17:03] LABS: Ammonia 26 umol/L (16-60)
[2021-10-27 17:05] VITALS: BP 116/64; PULSE 116; RESP 18; O2SAT 95
[2021-10-27] MEDS: cefepime 1,000 MG in sodium chloride 0.9% (plus) 50 ML 100 MG IV (17:06)
[2021-10-27] MEDS: ondansetron 2 mg/ML SDV 2 mL 4 MG IVP (17:07)
[2021-10-27 18:09] LABS: Adenovirus Not Detected (NOT DETECT); Chlamydia Pneumoniae Not Detected (NOT DETECT); Coronavirus 229E,HKU1,NL63,OC4 Not Detected (NOT DETECT); Human Metapneumovirus Not Detected (NOT DETECT); Human Rhinovirus/Enterovirus Not Detected (NOT DETECT); Influenza A Not Detected (NOT DETECT); Influenza A H1 Not Detected (NOT DETECT); Influenza A H1-2009 Not Detected (NOT DETECT); Influenza A H3 Not Detected (NOT DETECT); Influenza B Not Detected (NOT DETECT); Mycoplasma Pneumoniae Not Detected (NOT DETECT); Parainfluenza Virus Type 1 Not Detected (NOT DETECT); Parainfluenza Virus Type 2 Not Detected (NOT DETECT); Parainfluenza Virus Type 3 Not Detected (NOT DETECT); Parainfluenza Virus Type 4 Not Detected (NOT DETECT); Respiratory Syncytial Virus A Not Detected (NOT DETECT); Respiratory Syncytial Virus B Not Detected (NOT DETECT); SARS-COV-2 Not Detected (NOT DETECT)
[2021-10-27 18:20] LABS: Results from Genmark
[2021-10-27] MEDS: iodixanol 320 mg/mL 100mL Btl IV (19:09)
[2021-10-27 19:32] LABS: Add Urine Microscopic? NO; Charge for UA Resulting for Rev
[2021-10-27 19:39] LABS: Bilirubin Urine Neg (Negative); Blood Urine Neg (Negative); Glucose Urine UA Norm (Normal); Ketones Urine Negative (Negative); Leukocyte Esterase Urine Negative (Negative); Nitrate Urine Negative (Negative); Protein Urine Neg (Negative); Specific Gravity, Urine 1.005 (1.005-1.030); Urine Appearance Clear (CLEAR); Urine Color Yellow (Yellow); Urobilinogen Urine Norm (Negative); pH Urine 5 (5-7)
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
--- NOTE | 2021-10-27 19:52 | CTR_ITS ---
PROCEDURE INFORMATION: Exam: CT Cervical Spine Without Contrast Exam date and time: 10/28/2021 1:26 AM Age: 66 years old Clinical indication: Injury or trauma; Blunt trauma; Patient HX: Fall. C/O neck pain. ; Additional info: Fall, neck pain TECHNIQUE: Imaging protocol: Computed tomography images of the cervical spine without contrast. Radiation optimization: All CT scans at this facility use at least one of these dose optimization techniques: automated exposure control; mA and/or kV adjustment per patient size (includes targeted exams where dose is matched to clinical indication); or iterative reconstruction. COMPARISON: No relevant prior studies available. RADIATION DOSE METRICS: Total DLP (mGy-cm): 858.84 FINDINGS: Bones/joints: On axial CT images, no definite acute fracture is visible. Sagittal and coronal reconstructions show no acute fracture or subluxation. Mild to moderate degenerative disc changes and facet joint arthritis at multiple levels. Discs/Spinal canal/Neural foramina: No definite/significant disc herniation by CT, MRI could be more sensitive if clinically indicated. Lungs: No significant acute finding in the upper lungs. CT/CT cervical spin wo con* [id number] IMPRESSION: 1. No definite acute fracture or subluxation by CT. 2. Other findings discussed above.
--- NOTE | 2021-10-27 19:52 | CTR_ITS ---
PROCEDURE INFORMATION: Exam: CT Head Without Contrast Exam date and time: 10/28/2021 1:20 AM Age: 66 years old Clinical indication: Injury or trauma; Blunt trauma (contusions or hematomas); Patient HX: Fall. C/O headache. Febrile. ; Additional info: Fall, headache, fever TECHNIQUE: Imaging protocol: Computed tomography of the head without contrast. Radiation optimization: All CT scans at this facility use at least one of these dose optimization techniques: automated exposure control; mA and/or kV adjustment per patient size (includes targeted exams where dose is matched to clinical indication); or iterative reconstruction. COMPARISON: CT head wo con* [id number] 04/30/2021 3:25 PM RADIATION DOSE METRICS: Total DLP (mGy-cm): 993.32 FINDINGS: Brain: No acute intracranial hemorrhage or mass effect. There is mild decreased attenuation in the periventricular white matter, likely from microvascular disease. No definite acute infarct by CT. Cerebral ventricles: Ventricle size is normal for age. Paranasal sinuses: Minimal mucosal thickening in the ethmoid sinuses. Included paranasal sinuses otherwise appear essentially clear. Mastoid air cells: No significant acute finding. Vasculature: Vascular calcifications in the internal carotid arteries. Bones/joints: No definite acute skull fracture. Soft tissues: No significant acute finding. CT/CT head wo con* [id number] IMPRESSION: 1. No acute intracranial hemorrhage or mass effect. 2. Changes of microvascular disease. 3. Other findings discussed above.
[2021-10-27 20:15] VITALS: BMI 32.0
[2021-10-27] MEDS: sodium chloride 0.9% 1,000 ML 100 ML IV (20:16)
[2021-10-27 20:17] VITALS: BP 123/73; PULSE 95; RESP 18; O2SAT 96
[2021-10-27] MEDS: amitriptyline 25 mg Tablet 50 MG PO (21:48)
[2021-10-27] MEDS: pantoprazole 40 mg SDV IVP (21:49)
[2021-10-27] MEDS: ampicillin 2,000 MG in sodium chloride 0.9% (plus) 50 ML 100 MG IV (21:50)
[2021-10-27 22:38] VITALS: RESP 18
[2021-10-27] MEDS: morphine 4 mg/mL SDV 1 mL 1 MG IVP (22:38)
[2021-10-27] MEDS: cefTRIAXone 2,000 MG in sodium chloride 0.9% (plus) 50 ML 100 MG IV (22:40)
[2021-10-27] MEDS: doxycycline 100 MG in sodium chloride 0.9% (plus) 100 ML IV (23:37)
[2021-10-28] VITALS (8 sets, daily range): BP systolic 102–121; BP diastolic 61–77; PULSE 60–71; RESP 12–20; TEMP 36.6–37.7; O2SAT 90–96
--- NOTE | 2021-10-28 00:17 | PC.NURSE ---
i reported high temp 99.9 to nurse
[2021-10-28] MEDS: vancomycin 1,000 MG in sodium chloride 0.9% 250 ML 250 MG IV ×3 (01:42→17:42)
[2021-10-28] MEDS: morphine 4 mg/mL SDV 1 mL 1 MG IVP (02:24)
[2021-10-28] MEDS: ampicillin 2,000 MG in sodium chloride 0.9% (plus) 50 ML 100 MG IV ×5 (03:21→20:35)
[2021-10-28 03:40] LABS: Basophils # 0.1 10^3/uL (0.0-0.1); Basophils % 0.5 %; Eosinophils # 0.1 10^3/uL (0.0-0.8); Eosinophils % 0.8 %; Hematocrit 34.3 % (42.0-52.0); Hemoglobin 10.9 g/dL (11.7-16.6); Lymphocytes # 0.9 10^3/uL (0.8-4.8); Lymphocytes % 9.3 %; Mean Corpuscular HGB Conc 31.8 g/dL (30.0-36.0); Mean Corpuscular Hemoglobin 23.5 pg (28.0-34.0); Mean Corpuscular Volume 74.1 fl (80-94); Mean Platelet Volume 10.5 fL (7.4-10.4); Monocytes # 0.9 10^3/uL (0.2-0.9); Monocytes % 9.2 %; Neutrophils # 7.65 10^3/uL (1.8-7.7); Neutrophils % 79.8 %; Nucleated Red Blood Cells % 0 %; Platelet Count 185 10^3/cmm (130-400); Red Blood Count 4.63 10^6/uL (4.1-5.3); Red Cell Distribution Width 22.3 % (12.1-15.1); White Blood Count 9.6 10^3/uL (4.0-10.0)
[2021-10-28 04:01] LABS: Alanine Aminotransferase 16 U/L (0-41); Albumin Level 3.5 g/dL (3.5-5.2); Alkaline Phosphatase 119 IU/L (40-130); Anion Gap 14.1 (5-19); Aspartate Amino Transferase 19 U/L (0-40); Blood Urea Nitrogen 16 mg/dL (8-23); Calcium 8.3 mg/dL (8.5-10.5); Carbon Dioxide 25 mmol/L (22-29); Chloride 106 mmol/L (98-107); Globulin 2.8 g/dL (1.3-4.6); Glomerular Filtration Rate 113.2 mL/min (90-130); Glucose 100 mg/dL (65-115); Osmolality Calculated 293 mOsm/kg (285-295); Potassium 4.1 mmol/L (3.5-5.1); Sodium 141 mmol/L (136-145); Total Bilirubin 0.3 mg/dL (0.15-1.2); Total Protein 6.3 g/dL (6.6-8.7)
[2021-10-28] MEDS: aspirin 81 mg Chew Tablet PO (06:12)
[2021-10-28] MEDS: methadone 10 mg Tablet 50 MG PO (06:12)
--- NOTE | 2021-10-28 07:39 | FL_ITS ---
WS: [id number] LUMBAR PUNCTURE CLINICAL INFORMATION: sepsis, meningeal signs COMPARISON: None. TECHNIQUE: Informed consent: The procedure and its potential risk and complications were discussed with the jona ent. Verbal and written consent was obtained. Timeout: A timeout was performed to confirm correct patient, procedure, and site. Patient was prepped and draped in the usual sterile fashion. Lidocaine 1% was used for local anesthes ia. Utilizing fluoroscopic guidance, a 3.5 inch 22-gauge spinal needle was advanced into the subarach noid space at L3-L4 via right oblique sublaminar approach. Free flow of clear CSF was obtained. 5 cc of clear CSF was collected and sent the lab for further analysis. CSF stopped flowing after 5 cc like ly due to spinal canal stenosis FLUOROSCOPIC TIME: 1min [id number] # of spot films: 0 FL/FL guided lumbarpunc dx* [id number] IMPRESSION: 1. Fluoroscopically guided lumbar puncture. No immediate complications 2. Opening pressure 24mm of H20 within normal limits 3. 5 cc clear CSF was obtained.
[2021-10-28] MEDS: cefTRIAXone 2,000 MG in sodium chloride 0.9% (plus) 50 ML 100 MG IV ×2 (09:31→21:11)
[2021-10-28 09:32] LABS: INR 1.31 (0.8-1.2); Partial Thromboplastin Time 33.7 SECONDS (23.9-36.7)
[2021-10-28] MEDS: sodium chloride 0.9% 1,000 ML 100 ML IV ×2 (09:35→17:41)
[2021-10-28] MEDS: doxycycline 100 MG in sodium chloride 0.9% (plus) 100 ML IV ×2 (10:21→21:57)
--- NOTE | 2021-10-28 11:07 | PC.CHAP ---
Pastoral Care Encounter/Spiritual Assessment Type of Contact [] Declined mechanic field service visit [] Patient/Family/Request visit [] Outpatient visit [] Follow-up visit [] Physician referral [] Code/Alert [x] Routine visit [] Staff referral [] Actively dying [] Patient sleeping [] Family support [] [] Out of room [] Palliative care [] [] Receiving care in room [] Pre-surgical visit [] Trauma [] Long length of stay [] ICU visit [] Other: Relational/Emotional Strength [x] Patient feels connected with others/family/visitors/staff [] Distress [] Loneliness/isolation [] Abandonment Spirituality of Patient [x] Person of Hilary [x] Attends Confucianism of their [place] [x] Believes in Prayer [] Reads Bible or Christianity materials [] There are Spiritual issues to be addressed Children'S Counselor Interventions x[] Prayer [x] Active listening x[] Non-anxious presence [x] Spiritual/emotional support [] Crisis/trauma care [] Spiritual counseling [] Bereavement support [] Provided bereavement packet [] Provided Bible/devotional materials [] Provided toy/stuffed animal, coloring book to patient or family member [] Provided Communion [] Anointing/[place] [] Salvation [x] Completed spiritual assessment [] Other: Impact on Illness or Injury [] Angry [] Fearful [] Anxious [] Often cries [] Exhaustion [] Unable to work [] Unable to attend quaker [] Unable to walk/stand [] Unable to read [] Unable to drive [] Unable to eat/drink [] Unable to sleep [] Unable to be with family [] Patient intubated [] Other: Summary Time spent with patient 10 min
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
[2021-10-28 14:22] LABS: Monoscreen Negative (Negative)
[2021-10-28] MEDS: pantoprazole 40 mg SDV IVP (20:35)
[2021-10-28] MEDS: amitriptyline 25 mg Tablet 50 MG PO (20:40)
[2021-10-29] MEDS: ampicillin 2,000 MG in sodium chloride 0.9% (plus) 50 ML 100 MG IV ×4 (01:00→12:10)
[2021-10-29] MEDS: vancomycin 1,000 MG in sodium chloride 0.9% 250 ML 250 MG IV ×2 (02:23→09:41)
[2021-10-29 03:24] LABS: Basophils % 0.6 %; Eosinophils # 0.4 10^3/uL (0.0-0.8); Eosinophils % 8.6 %; Hematocrit 35.6 % (42.0-52.0); Hemoglobin 10.7 g/dL (11.7-16.6); Lymphocytes # 0.7 10^3/uL (0.8-4.8); Lymphocytes % 14.3 %; Mean Corpuscular HGB Conc 30.1 g/dL (30.0-36.0); Mean Corpuscular Hemoglobin 23.2 pg (28.0-34.0); Mean Corpuscular Volume 77.2 fl (80-94); Mean Platelet Volume 10.3 fL (7.4-10.4); Monocytes # 0.5 10^3/uL (0.2-0.9); Monocytes % 9.2 %; Neutrophils # 3.41 10^3/uL (1.8-7.7); Neutrophils % 66.9 %; Nucleated Red Blood Cells % 0 %; Platelet Count 164 10^3/cmm (130-400); Red Blood Count 4.61 10^6/uL (4.1-5.3); Red Cell Distribution Width 22.3 % (12.1-15.1); White Blood Count 5.1 10^3/uL (4.0-10.0)
[2021-10-29 03:44] LABS: Alanine Aminotransferase 14 U/L (0-41); Albumin Level 3.1 g/dL (3.5-5.2); Alkaline Phosphatase 109 IU/L (40-130); Aspartate Amino Transferase 17 U/L (0-40); Blood Urea Nitrogen 12 mg/dL (8-23); Calcium 8.1 mg/dL (8.5-10.5); Carbon Dioxide 27 mmol/L (22-29); Chloride 105 mmol/L (98-107); Globulin 3.1 g/dL (1.3-4.6); Glomerular Filtration Rate 113.2 mL/min (90-130); Glucose 90 mg/dL (65-115); Osmolality Calculated 289 mOsm/kg (285-295); Sodium 140 mmol/L (136-145); Total Bilirubin 0.2 mg/dL (0.15-1.2); Total Protein 6.2 g/dL (6.6-8.7)
[2021-10-29 04:00] VITALS: BP 129/79; PULSE 61; RESP 16; TEMP 36.6; O2SAT 96
[2021-10-29 06:27] VITALS: RESP 18
[2021-10-29] MEDS: methadone 10 mg Tablet 50 MG PO (06:27)
[2021-10-29] MEDS: aspirin 81 mg Chew Tablet PO (06:27)
[2021-10-29 07:46] VITALS: BP 151/88; PULSE 63; RESP 13; TEMP 36.6; O2SAT 94
[2021-10-29] MEDS: sodium chloride 0.9% 1,000 ML 100 ML IV (08:02)
[2021-10-29] MEDS: cefTRIAXone 2,000 MG in sodium chloride 0.9% (plus) 50 ML 100 MG IV (08:36)
[2021-10-29 08:41] LABS: Appearance CSF CLEAR (CLEAR); Color CSF COLORLESS (COLORLESS)
[2021-10-29 08:46] LABS: CSF Mononuclear # 0.001 10^3/uL (50-90); Mononuclear WBC CSF % 100 % (50-90); Polynuclear WBC CSF % 0 % (0-10); Red Blood Cell CSF 0 10^3/uL (0-0); White Blood Cell CSF 1 /uL (0-5)
[2021-10-29 09:08] LABS: Glucose CSF 56 mg/dL (40-70); Total Protein CSF 26 mg/dL (15-45)
[2021-10-29] MEDS: doxycycline 100 MG in sodium chloride 0.9% (plus) 100 ML IV (09:45)
[2021-10-29 10:07] VITALS: PULSE 60; RESP 16; O2SAT 96
[2021-10-29 12:00] VITALS: BP 138/84; PULSE 58; RESP 13; O2SAT 94
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
[2021-10-29 13:31] LABS: Cyclic Citrullinated Peptide 52 UNITS
[2021-10-29 13:57] LABS: Anti-Double Strand DNA AB 1 IU/mL
[2021-10-29 14:13] LABS: Lyme AB Screen <0.90 index
[2021-10-29 16:37] LABS: Anti-Nuclear Antibody Screen NEGATIVE (NEGATIVE)
[2021-10-31 16:54] LABS: ANCA Screen NEGATIVE (NEGATIVE)
[2021-11-01 22:23] LABS: Adenosine Deaminase CSF 0.2 U/L (<7.0)
[2021-11-02 17:17] LABS: E. Chaffeensis AB IGG <1:64; E. Chaffeensis AB IGM <1:20
[2021-11-04 17:02] LABS: RMSF IGG DETECTED; RMSF IGM NOT DETECTED
== END 2021-10-29 14:50 | disposition home or self-care (01) | DRG 194 ==
LOC: ER 19:13 → MEDSURG 19:51
PROVIDERS: Admitting Provider Internal Medicine; Emergency Provider Emergency Medicine; PCP Electrodiagnostic Medicine; Visit Provider Internal Medicine
DX: J18.9 Pneumonia, unspecified organism (principal); G93.40 Encephalopathy, unspecified; R10.31 Right lower quadrant pain; R07.89 Other chest pain; Z95.0 Presence of cardiac pacemaker; E03.9 Hypothyroidism, unspecified; I10 Essential (primary) hypertension; I48.91 Unspecified atrial fibrillation; Z79.01 Long term (current) use of anticoagulants; I49.5 Sick sinus syndrome; Z79.82 Long term (current) use of aspirin; G89.29 Other chronic pain; R16.1 Splenomegaly, not elsewhere classified; M25.50 Pain in unspecified joint; K59.81 Ogilvie syndrome; N28.1 Cyst of kidney, acquired; Z79.891 Long term (current) use of opiate analgesic
CPT/HCPCS: 36415; 62328; 70450; 71045; 72125; 74177; 80053; 80503; 81003; 82140; 82945; 83516; 83605; 83690; 83880; 84145; 84157; 84311; 84439; 84443; 85025; 85610; 85730; 86038; 86140; 86200; 86225; 86308; 86618; 86666; 86747; 86757; 87040; 87070; 87075; 87205; 87631; 87635; 89050; 96365; 96367; 96375; 99285; C9113; J0290; J0692; J0696; J1170; J2270; J2405; J3370; J3490; J7030; J7050; Q9967

== ENCOUNTER 2021-12-13 00:06 | Emergency (ER) | payer MEDICARE, MEDICAID, SELFPAY ==
[2021-12-13 00:08] VITALS: BP 98/62; PULSE 66; RESP 28; TEMP 36.9; O2SAT 93; BMI 30.6
[2021-12-13 00:38] VITALS: BP 104/55; PULSE 61; RESP 26; O2SAT 94
--- NOTE | 2021-12-13 00:38 | XRR_ITS ---
PROCEDURE INFORMATION: Exam: XR Chest Exam date and time: 12/13/2021 1:14 AM Age: 66 years old Clinical indication: Dyspnea; Prior surgery; Surgery date: 6+ months; Surgery type: Pacemaker; Additional info: SOB TECHNIQUE: Imaging protocol: XR of the chest. Views: 1 view. COMPARISON: CR XR chest 1V portable [id number] 10/27/2021 3:50 PM FINDINGS: Tubes, catheters and devices: A sequential bipolar pacemaker is placed via the left subclavian vein. EKG leads overlie the chest. Lungs: There is mild indistinctness of the pulmonary vasculature and increased interstitial opacities are seen in the mid lower hemithoraces, findings could represent pulmonary edema. Superimposed interstitial pneumonitis cannot be entirely excluded. Pleural spaces: Unremarkable. No pleural effusion. No pneumothorax. Heart/Mediastinum: Unremarkable. No cardiomegaly. Bones/joints: Unremarkable. Intraperitoneal space: Multiple surgical clips are seen in the left upper quadrant. XR/XR chest 1V portable [id number] IMPRESSION: Mild indistinctness of the pulmonary vasculature and increased interstitial opacities in the mid lower hemithoraces suggests pulmonary edema although a bilateral interstitial pneumonitis cannot be entirely excluded.
--- NOTE | 2021-12-13 00:39 | ECG_ITS ---
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 Measurements Intervals [place] Rate: 62 P: 234 NC: 227 QRS: -11 QRSD: 114 T: 38 QT: 441 QTc: 450 Interpretive Statements ELECTRONIC ATRIAL PACEMAKER POSSIBLE LATERAL MYOCARDIAL INFARCTION , PROBABLY OLD [30 ms Q WAVE IN I/aVL/V5/V6] Compared to ECG 05/11/2021 12:51:09 Sinus rhythm no longer present Myocardial infarct finding still present Electronically Signed On 12-13-2021 20:27:37 CDT by Gerardo Mayers M.D. [email or web address]
[2021-12-13 00:47] LABS: Basophils # 0.1 10^3/uL (0.0-0.1); Basophils % 1.1 %; Eosinophils # 0.3 10^3/uL (0.0-0.8); Hematocrit 36.1 % (42.0-52.0); Lymphocytes # 0.9 10^3/uL (0.8-4.8); Lymphocytes % 13.9 %; Mean Corpuscular HGB Conc 30.5 g/dL (30.0-36.0); Mean Corpuscular Hemoglobin 23.4 pg (28.0-34.0); Mean Corpuscular Volume 76.6 fl (80-94); Mean Platelet Volume 10.8 fL (7.4-10.4); Monocytes # 0.5 10^3/uL (0.2-0.9); Neutrophils # 4.78 10^3/uL (1.8-7.7); Neutrophils % 72.4 %; Nucleated Red Blood Cells % 0 %; Platelet Count 220 10^3/cmm (130-400); Red Blood Count 4.71 10^6/uL (4.1-5.3); Red Cell Distribution Width 18.9 % (12.1-15.1); White Blood Count 6.6 10^3/uL (4.0-10.0)
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
[2021-12-13] MEDS: ipratropium-albuterol 3 mL Neb INHALATION (01:02)
[2021-12-13 01:03] VITALS: PULSE 64; RESP 26; O2SAT 94
[2021-12-13 01:13] LABS: Troponin(5th) Baseline 14 ng/L (0-15)
[2021-12-13 01:23] LABS: Alanine Aminotransferase 13 U/L (0-41); Albumin Level 4.1 g/dL (3.5-5.2); Alkaline Phosphatase 154 IU/L (40-130); Anion Gap 16.9 (5-19); Aspartate Amino Transferase 21 U/L (0-40); Blood Urea Nitrogen 24 mg/dL (8-23); Calcium 8.6 mg/dL (8.5-10.5); Carbon Dioxide 24 mmol/L (22-29); Chloride 101 mmol/L (98-107); Globulin 2.9 g/dL (1.3-4.6); Glucose 109 mg/dL (65-115); NT Pro B Type Natriuretic Pept 450 pg/mL (0-125); Osmolality Calculated 291 mOsm/kg (285-295); Potassium 3.9 mmol/L (3.5-5.1); Sodium 138 mmol/L (136-145); Total Bilirubin 0.4 mg/dL (0.15-1.2)
[2021-12-13 01:54] LABS: Lactic Sepsis W/Reflex 1.6 mmol/L (0.5-2.2)
[2021-12-13 02:11] LABS: ABG PCO2 45.9 mmHg (35-45); ABG PH Result 7.35 (7.35-7.45); Arterial Blood Gas Hematocrit 33.1 % (42-52); Base Excess ABG -0.6 mmol/L (-2.0-2.0); Blood Gas Allen Test Pos; Blood Gas Sample Site Radial, left; Blood Gas Sample Type Arterial; HCO3 ABG 25.2 mmol/L (22-26); Oxygen Device NC; PO2 ABG 68.3 mmHg (80.0-100.0)
[2021-12-13 02:43] VITALS: BP 113/68; PULSE 60; RESP 22; O2SAT 95
[2021-12-13 02:44] VITALS: BP 113/68; PULSE 60; RESP 22; O2SAT 95
--- NOTE | 2021-12-14 05:45 | PC.NURSE ---
+ report, 1 of 4 bottles, Aerobic gram + cocci in clusters, informed Dr chino of this, pt was on doxycycline 100 mg po on dc, Dr Chino stated that it would be covered and no other intervention needed.
[2021-12-14 17:09] LABS: Bacillus cereus group Not Detected (NOT DETECT); Bacillus subtillis group Not Detected (NOT DETECT); Corynebacterium Not Detected (NOT DETECT); Cutibacterium acnes (P.acnes) Not Detected (NOT DETECT); Enterococcus Not Detected (NOT DETECT); Enterococcus faecalis Not Detected (NOT DETECT); Enterococcus faecium Not Detected (NOT DETECT); Lactobacillus species Not Detected (NOT DETECT); Listeria Not Detected (NOT DETECT); Listeria monocytogenes Not Detected (NOT DETECT); Micrococcus Detected (NOT DETECT); Pan Candida Not Detected (NOT DETECT); Pan Gram-Negative Not Detected (NOT DETECT); Staphylococcus epidermidis Not Detected (NOT DETECT); Staphylococcus lugdunensis Not Detected (NOT DETECT); Staphylococcus species Not Detected (NOT DETECT); Streptococcus agalactiae Not Detected (NOT DETECT); Streptococcus anginosus group Not Detected (NOT DETECT); Streptococcus pneumoniae Not Detected (NOT DETECT); Streptococcus pyogenes Not Detected (NOT DETECT); Streptococcus species Not Detected (NOT DETECT)
== END 2021-12-13 02:51 | disposition home or self-care (01) ==
PROVIDERS: Emergency Provider Emergency Medicine; PCP Electrodiagnostic Medicine
DX: J44.1 Chronic obstructive pulmonary disease with (acute) exacerbation (principal)
CPT/HCPCS: 36600; 71045; 80053; 82803; 83605; 83880; 84484; 85025; 87040; 87150; 87205; 93005; 94640; 96374; 99284; J2930

== ENCOUNTER 2022-04-14 14:00 | Oncology outpatient (recurring) (ONCR) | payer MEDICARE, MEDICAID, SELFPAY ==
[2022-04-12 12:37] LABS: Basophils % 0.6 %; Eosinophils # 0.4 10^3/uL (0.0-0.8); Eosinophils % 8.6 %; Hematocrit 28.7 % (42.0-52.0); Hemoglobin 8.4 g/dL (11.7-16.6); Lymphocytes # 0.7 10^3/uL (0.8-4.8); Lymphocytes % 13.8 %; Mean Corpuscular HGB Conc 29.3 g/dL (30.0-36.0); Mean Corpuscular Hemoglobin 19.5 pg (28.0-34.0); Mean Corpuscular Volume 66.7 fl (80-94); Mean Platelet Volume 10.8 fL (7.4-10.4); Monocytes # 0.3 10^3/uL (0.2-0.9); Monocytes % 5.7 %; Neutrophils # 3.64 10^3/uL (1.8-7.7); Neutrophils % 70.9 %; Nucleated Red Blood Cells % 0 %; Platelet Count 267 10^3/cmm (130-400); Red Cell Distribution Width 16.9 % (12.1-15.1); White Blood Count 5.1 10^3/uL (4.0-10.0)
[2022-04-12 13:01] LABS: Alanine Aminotransferase < 5 U/L (0-41); Albumin Level 3.6 g/dL (3.5-5.2); Alkaline Phosphatase 124 U/L (40-130); Anion Gap 13.4 (5-19); Aspartate Amino Transferase 11 U/L (0-40); Blood Urea Nitrogen 14 mg/dL (8-23); Calcium 8.3 mg/dL (8.5-10.5); Carbon Dioxide 24 mmol/L (22-29); Chloride 106 mmol/L (98-107); Ferritin 22 ng/mL (30-400); Globulin 2.8 g/dL (1.3-4.6); Glomerular Filtration Rate 113.2 mL/min (90-130); Glucose 125 mg/dL (65-115); Iron 19 ug/dL (59-158); Osmolality Calculated 292 mOsm/kg (285-295); Percent Saturation 4.8 % (20-50); Potassium 3.4 mmol/L (3.5-5.1); Sodium 140 mmol/L (136-145); Total Bilirubin 0.3 mg/dL (0.15-1.2); Total Iron Binding Capacity 391 mcg/dl; Total Protein 6.4 g/dL (6.6-8.7); Unsaturated Iron Binding 372 ug/dL (112-347)
[2022-04-12] MEDS: sodium chloride 0.9% 250 ML 75 ML IV (14:45)
[2022-04-12] MEDS: iron sucrose 200 MG in sodium chloride 0.9% (100 ml) 100 ML 220 MG IV (14:46)
[2022-04-14 14:02] VITALS: BP 133/77; PULSE 73; RESP 16; TEMP 36.8; O2SAT 96
[2022-04-14] MEDS: iron sucrose 200 MG in sodium chloride 0.9% (100 ml) 100 ML 220 MG IV (14:08)
== END 2022-04-16 23:59 | disposition home or self-care (01) ==
PROVIDERS: PCP Electrodiagnostic Medicine; Visit Provider Internal Medicine Medical Oncology
DX: D50.0 Iron deficiency anemia secondary to blood loss (chronic) (principal); D50.8 Other iron deficiency anemias; I48.0 Paroxysmal atrial fibrillation
CPT/HCPCS: 36415; 80053; 82728; 83540; 83550; 85025; 96365; 99214; J1756; J7050

== ENCOUNTER 2022-05-11 12:32 | Oncology outpatient (recurring) (ONCR) | payer MEDICARE, MEDICAID, SELFPAY ==
[2022-04-21 14:41] VITALS: BP 135/89; PULSE 70; RESP 16; TEMP 35.9; O2SAT 96
[2022-04-21] MEDS: iron sucrose 200 MG in sodium chloride 0.9% (100 ml) 100 ML 220 MG IV (15:30)
[2022-04-21 15:35] VITALS: BP 127/79; PULSE 63; RESP 16; TEMP 36.6; O2SAT 97
[2022-04-26 14:48] VITALS: BP 127/73; PULSE 67; RESP 16; TEMP 37.3; O2SAT 97
[2022-04-26] MEDS: iron sucrose 200 MG in sodium chloride 0.9% (100 ml) 100 ML 220 MG IV (14:56)
[2022-05-11] MEDS: iron sucrose 200 MG in sodium chloride 0.9% (100 ml) 100 ML 220 MG IV (13:05)
[2022-05-11] MEDS: ondansetron 2 mg/ML SDV 2 mL 4 MG IVP (13:28)
[2022-05-11 13:52] VITALS: BP 144/72; PULSE 67; RESP 18; O2SAT 96
== END 2022-05-17 23:59 | disposition home or self-care (01) ==
PROVIDERS: PCP Electrodiagnostic Medicine; Visit Provider Internal Medicine Medical Oncology
DX: D50.9 Iron deficiency anemia, unspecified; Z01.89 Encounter for other specified special examinations; D50.8 Other iron deficiency anemias; Z79.899 Other long term (current) drug therapy
CPT/HCPCS: 96365; 96375; J1756; J2405

== ENCOUNTER 2022-05-23 12:06 | Emergency (ER) | payer MEDICARE, MEDICAID, SELFPAY ==
[2022-05-23 12:21] VITALS: BP 124/73; PULSE 68; RESP 14; TEMP 37.1; O2SAT 93; BMI 27.5
[2022-05-23 12:26] VITALS: BP 114/72; PULSE 64; RESP 16; TEMP 37.1; O2SAT 95
--- NOTE | 2022-05-23 12:34 | CTR_ITS ---
PROCEDURE INFORMATION: Exam: CT Head Without Contrast Exam date and time: 05/23/2022 2:02 PM Age: 66 years old Clinical indication: Confusion TECHNIQUE: Imaging protocol: Computed tomography of the head without contrast. Radiation optimization: All CT scans at this facility use at least one of these dose optimization techniques: automated exposure control; mA and/or kV adjustment per patient size (includes targeted exams where dose is matched to clinical indication); or iterative reconstruction. COMPARISON: CT HEAD 10/28/2021 1:20 AM RADIATION DOSE METRICS: Total DLP (mGy-cm): 1115.94 FINDINGS: Brain: No acute appearing brain parenchymal abnormality. No intracranial hemorrhage. No extraaxial fluid collections. There is mild diffuse cerebral atrophy. There are mild white matter low attenuation changes potentially related to chronic small vessel disease. Cerebral ventricles: No hydrocephalus. Paranasal sinuses: Mild multifocal mucoperiosteal thickening in the paranasal sinuses. Mastoid air cells: The mastoid air cells are aerated. Bones/joints: No calvarial fracture. Soft tissues: No acute soft tissue abnormality. CT/CT head wo con* [id number] IMPRESSION: No acute intracranial abnormality.
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
[2022-05-23 12:56] VITALS: BP 114/72; PULSE 64; RESP 16; TEMP 37.1; O2SAT 95
--- NOTE | 2022-05-23 13:03 | PC.NURSE ---
pt is going to CT
[2022-05-23 13:10] LABS: Basophils # 0.1 10^3/uL (0.0-0.1); Basophils % 0.4 %; Eosinophils # 0.2 10^3/uL (0.0-0.8); Eosinophils % 1.5 %; Hematocrit 32.5 % (42.0-52.0); Hemoglobin 9.7 g/dL (11.7-16.6); Lymphocytes # 0.8 10^3/uL (0.8-4.8); Lymphocytes % 5.5 %; Mean Corpuscular HGB Conc 29.8 g/dL (30.0-36.0); Mean Corpuscular Volume 70.5 fl (80-94); Mean Platelet Volume 10.1 fL (7.4-10.4); Monocytes # 0.6 10^3/uL (0.2-0.9); Monocytes % 4.6 %; Neutrophils # 12.01 10^3/uL (1.8-7.7); Neutrophils % 87.3 %; Nucleated Red Blood Cells % 0 %; Platelet Count 218 10^3/cmm (130-400); Red Blood Count 4.61 10^6/uL (4.1-5.3); Red Cell Distribution Width 23.4 % (12.1-15.1); White Blood Count 13.8 10^3/uL (4.0-10.0)
[2022-05-23 13:26] LABS: Ammonia 31 umol/L (16-60)
[2022-05-23 13:41] LABS: Alanine Aminotransferase 12 U/L (0-41); Albumin Level 4.2 g/dL (3.5-5.2); Alkaline Phosphatase 139 U/L (40-130); Anion Gap 15.3 (5-19); Aspartate Amino Transferase 20 U/L (0-40); Blood Urea Nitrogen 26 mg/dL (8-23); Calcium 8.6 mg/dL (8.5-10.5); Carbon Dioxide 25 mmol/L (22-29); Chloride 98 mmol/L (98-107); Globulin 2.7 g/dL (1.3-4.6); Glucose 106 mg/dL (65-115); Osmolality Calculated 283 mOsm/kg (285-295); Potassium 4.3 mmol/L (3.5-5.1); Sodium 134 mmol/L (136-145); Thyroid Stimulating Hormone 3.74 uIU/mL (0.27-4.20); Total Bilirubin 0.3 mg/dL (0.15-1.2); Total Protein 6.9 g/dL (6.6-8.7)
[2022-05-23 13:56] VITALS: BP 112/65; PULSE 80; RESP 16; TEMP 37.1; O2SAT 94
[2022-05-23 14:30] VITALS: BP 129/72; PULSE 61; RESP 18; O2SAT 92
[2022-05-23 14:36] LABS: Add Urine Microscopic? NO; Charge for UA Resulting for Rev
[2022-05-23 14:52] LABS: Bilirubin Urine Neg (Negative); Blood Urine Neg (Negative); Glucose Urine UA Norm (Normal); Ketones Urine Negative (Negative); Leukocyte Esterase Urine Negative (Negative); Nitrate Urine Negative (Negative); Protein Urine Neg (Negative); Urine Appearance Clear (CLEAR); Urine Color Straw (Yellow); Urobilinogen Urine Norm (Negative); pH Urine 5 (5-7)
[2022-05-23] MEDS: ibuprofen 800 mg tablet PO (15:22)
[2022-05-23 15:24] VITALS: BP 130/83; PULSE 68; RESP 18; O2SAT 94
== END 2022-05-23 15:28 | disposition home or self-care (01) ==
PROVIDERS: Emergency Provider Student in an Organized Health Care Education/Training Program; PCP Electrodiagnostic Medicine
DX: R41.0 Disorientation, unspecified (principal); D72.829 Elevated white blood cell count, unspecified
CPT/HCPCS: 70450; 80053; 81003; 82140; 84443; 85025; 86140; 99284

== ENCOUNTER 2022-05-25 20:08 | Emergency (ER) | payer MEDICARE, MEDICAID, SELFPAY ==
[2022-05-25 20:12] VITALS: BP 111/70; PULSE 109; RESP 21; TEMP 37.8; O2SAT 94; BMI 28.9
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
[2022-05-25 21:41] VITALS: BP 160/78; PULSE 66; RESP 16; O2SAT 95
[2022-05-25] MEDS: sodium chloride 0.9% 1,000 ML 999 ML IV (21:45)
[2022-05-25 21:55] LABS: Basophils % 0.3 %; Eosinophils # 0.2 10^3/uL (0.0-0.8); Eosinophils % 1.9 %; Hematocrit 32.7 % (42.0-52.0); Hemoglobin 9.5 g/dL (11.7-16.6); Lymphocytes # 0.8 10^3/uL (0.8-4.8); Lymphocytes % 6.4 %; Mean Corpuscular HGB Conc 29.1 g/dL (30.0-36.0); Mean Corpuscular Hemoglobin 21.2 pg (28.0-34.0); Mean Platelet Volume 10.3 fL (7.4-10.4); Monocytes # 0.7 10^3/uL (0.2-0.9); Monocytes % 5.5 %; Neutrophils # 10.32 10^3/uL (1.8-7.7); Neutrophils % 85.3 %; Nucleated Red Blood Cells % 0 %; Platelet Count 224 10^3/cmm (130-400); Red Blood Count 4.48 10^6/uL (4.1-5.3); Red Cell Distribution Width 23.6 % (12.1-15.1); White Blood Count 12.1 10^3/uL (4.0-10.0)
[2022-05-25 22:02] VITALS: BP 124/68; PULSE 68; RESP 16; O2SAT 92
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
[2022-05-25 22:14] LABS: Alanine Aminotransferase 12 U/L (0-41); Albumin Level 3.9 g/dL (3.5-5.2); Alkaline Phosphatase 130 U/L (40-130); Anion Gap 16.1 (5-19); Aspartate Amino Transferase 14 U/L (0-40); Blood Urea Nitrogen 19 mg/dL (8-23); Calcium 8.3 mg/dL (8.5-10.5); Carbon Dioxide 26 mmol/L (22-29); Chloride 101 mmol/L (98-107); Globulin 3.1 g/dL (1.3-4.6); Glucose 87 mg/dL (65-115); Lipase 10 U/L (13-60); Osmolality Calculated 290 mOsm/kg (285-295); Potassium 4.1 mmol/L (3.5-5.1); Sodium 139 mmol/L (136-145); Total Bilirubin 0.3 mg/dL (0.15-1.2)
[2022-05-25 22:17] LABS: Influenza A by IFA negative (Negative); Influenza B by IFA negative (Negative)
[2022-05-25 22:18] LABS: SARS Covid-2 Antigen negative (Negative)
[2022-05-25 22:18] LABS: Lactate (Lactic Acid level) 1.3 mmol/L (0.5-2.2)
[2022-05-25 22:30] VITALS: BP 110/72; PULSE 60; RESP 16; O2SAT 94
[2022-05-25 22:38] LABS: Urine Appearance Clear (CLEAR); Urine Color Yellow (Yellow); pH Urine 5 (5-7)
[2022-05-25 22:39] LABS: Add Urine Microscopic? YES; Bilirubin Urine Neg (Negative); Blood Urine 2+ (Negative); Glucose Urine UA Norm (Normal); Ketones Urine Negative (Negative); Leukocyte Esterase Urine Negative (Negative); Nitrate Urine Negative (Negative); Protein Urine Neg (Negative); Urobilinogen Urine Norm (Negative)
[2022-05-25 22:40] LABS: Add Urine Culture? No; Bacteria Urine TRACE /hpf; Squamous Epithelial Cell Urine 0-4 /hpf (0-5); WBC Urine 0-4 /hpf (0-5)
[2022-05-25 23:46] VITALS: BP 116/61; PULSE 68; RESP 18; O2SAT 94
[2022-05-25] MEDS: levoFLOXacin 750 mg Tablet PO (23:46)
== END 2022-05-25 23:47 | disposition home or self-care (01) ==
PROVIDERS: Emergency Provider Emergency Medicine; PCP Electrodiagnostic Medicine
DX: J18.9 Pneumonia, unspecified organism (principal); R50.9 Fever, unspecified; Z79.82 Long term (current) use of aspirin; Z79.891 Long term (current) use of opiate analgesic; Z20.822 Contact with and (suspected) exposure to COVID-19; Z95.0 Presence of cardiac pacemaker; I10 Essential (primary) hypertension
CPT/HCPCS: 70450; 71045; 80053; 81001; 83605; 83690; 85025; 87040; 87426; 87804; 96360; 99285; J7030

== ENCOUNTER 2022-07-29 18:55 | Observation (INO) | payer MEDICARE, MEDICAID, SELFPAY ==
[2022-07-29 19:01] VITALS: BP 146/84; PULSE 85; RESP 16; TEMP 37.1; O2SAT 95
--- NOTE | 2022-07-29 19:16 | XRR_ITS ---
PROCEDURE INFORMATION: Exam: XR Chest Exam date and time: 07/29/2022 7:21 PM Age: 66 years old Clinical indication: Angina; Additional info: Chest pain TECHNIQUE: Imaging protocol: Radiologic exam of the chest. Views: 1 view. COMPARISON: CR XR chest 1V portable [id number] 05/25/2022 11:01 PM FINDINGS: Tubes, catheters and devices: Intact dual lead left subclavian pacemaker. Lungs: Unremarkable. No consolidation. Pleural spaces: Unremarkable. No pleural effusion. No pneumothorax. Heart/Mediastinum: Unremarkable. No cardiomegaly. Bones/joints: Thoracic curvature. Intraperitoneal space: Surgical clips in the upper left abdomen. XR/XR chest 1V portable [id number] IMPRESSION: No acute findings.
--- NOTE | 2022-07-29 19:16 | ECG_ITS ---
[facility] Test Date: 2022-07-29 Pat Name: Gary King Department: Room: Gender: Male Rn Midwife: : 1955 Requested By: Christian Tan Order Number: [id number] Napoleon MD: Víctor Ponce M.D. Measurements Intervals [place] Rate: 61 P: -74 CA: 242 QRS: -11 QRSD: 120 T: 35 QT: 429 QTc: 433 Interpretive Statements ELECTRONIC ATRIAL PACEMAKER POSSIBLE LEFT VENTRICULAR HYPERTROPHY [VOLTAGE CRITERIA PLUS LAE OR QRS WIDENING] Compared to ECG 12/13/2021 00:18:45 Myocardial infarct finding no longer present Electronically Signed On 07-29-2022 20:47:47 DARKROOM WORKER by Víctor Ponce M.D. [id number] f
[2022-07-29 19:41] LABS: Basophils # 0.1 10^3/uL (0.0-0.1); Basophils % 0.8 %; Eosinophils # 0.4 10^3/uL (0.0-0.8); Eosinophils % 5.8 %; Hematocrit 32.3 % (42.0-52.0); Hemoglobin 9.6 g/dL (11.7-16.6); Lymphocytes # 0.8 10^3/uL (0.8-4.8); Lymphocytes % 12.1 %; Mean Corpuscular HGB Conc 29.7 g/dL (30.0-36.0); Mean Corpuscular Hemoglobin 21.4 pg (28.0-34.0); Mean Corpuscular Volume 71.9 fl (80-94); Monocytes # 0.5 10^3/uL (0.2-0.9); Neutrophils # 4.87 10^3/uL (1.8-7.7); Neutrophils % 73.8 %; Nucleated Red Blood Cells % 0 %; Platelet Count 223 10^3/cmm (130-400); Red Blood Count 4.49 10^6/uL (4.1-5.3); Red Cell Distribution Width 18.2 % (12.1-15.1); White Blood Count 6.6 10^3/uL (4.0-10.0)
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
[2022-07-29] MEDS: aspirin 81 mg Chew Tablet 243 MG PO (19:56)
[2022-07-29] MEDS: ondansetron 2 mg/ML SDV 2 mL 4 MG IVP ×2 (19:56→23:29)
[2022-07-29 20:00] LABS: Partial Thromboplastin Time 30.2 SECONDS (23.9-36.7)
[2022-07-29 20:05] VITALS: O2SAT 89
--- NOTE | 2022-07-29 20:05 | PC.NURSE ---
PT found with o2 sat of 89%. to room to check on pt. pt denies any cp/sob. skin pwd. pulseox adjusted on finger. sat at 97% at this time.
[2022-07-29 20:07] VITALS: O2SAT 97
[2022-07-29 20:15] LABS: Troponin(5th) Baseline 12 ng/L (0-15)
[2022-07-29 20:22] LABS: Alanine Aminotransferase 9 U/L (0-41); Albumin Level 4.1 g/dL (3.5-5.2); Alkaline Phosphatase 142 U/L (40-130); Anion Gap 11.1 (5-19); Aspartate Amino Transferase 13 U/L (0-40); Blood Urea Nitrogen 21 mg/dL (8-23); Calcium 8.9 mg/dL (8.5-10.5); Carbon Dioxide 28 mmol/L (22-29); Chloride 103 mmol/L (98-107); Globulin 3.1 g/dL (1.3-4.6); Glomerular Filtration Rate 113.2 mL/min (90-130); Glucose 98 mg/dL (65-115); Lipase 14 U/L (13-60); NT Pro B Type Natriuretic Pept 417 pg/mL (0-125); Osmolality Calculated 289 mOsm/kg (285-295); Potassium 4.1 mmol/L (3.5-5.1); Sodium 138 mmol/L (136-145); Total Bilirubin 0.3 mg/dL (0.15-1.2); Total Protein 7.2 g/dL (6.6-8.7)
--- NOTE | 2022-07-29 21:16 | ECG_ITS ---
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 Measurements Intervals [place] Rate: 59 P: 257 ND: 271 QRS: -3 QRSD: 116 T: 39 QT: 447 QTc: 446 Interpretive Statements ELECTRONIC ATRIAL PACEMAKER POSSIBLE LATERAL MYOCARDIAL INFARCTION , OF INDETERMINATE AGE [30 ms Q WAVE IN I/aVL/V5/V6] Compared to ECG 07/29/2022 19:08:42 Myocardial infarct finding now present Electronically Signed On 07-30-2022 17:01:55 ADVICE LINE RN by Dayna Mistry M.D. [id number]
[2022-07-29 21:37] VITALS: BP 145/88; PULSE 60; RESP 17; O2SAT 99
--- NOTE | 2022-07-29 21:56 | PC.NURSE ---
vomited x1. states is still nauseated.
[2022-07-29 22:00] LABS: Troponin 5 2HR 15.71 ng/L (0-15)
[2022-07-29 22:03] LABS: Troponin 5 2HR Delta 3.71 ABS# (0-10)
--- NOTE | 2022-07-29 22:25 | PC.NURSE ---
Pt concerned about being admitted. Has animals at home that need to be taken care of. MD notified. MD in to speak with pt.
--- NOTE | 2022-07-29 23:16 | US_ITS ---
WS: [id number] RIGHT UPPER QUADRANT ULTRASOUND HISTORY: ruq pain COMPARISON: None available. Liver: 18.5 cm in length. Enlarged very dense echogenic liver. The entire liver cannot be well visual ized due to attenuation. Portal Vein: Normal hepatopetal flow with monophasic waveform. Gallbladder: Poorly visualized gallbladder due poor imaging windows. Stones and sludge would be diffi cult to exclude. CBD: Common bile duct is poorly visualized. There may be a slight dilatation of the common bile duct. MRCP may be helpful for further evaluation. The pancreatic portion of the common bile duct is normal . In the gallbladder fossa there is mild prominence of the common bile duct as also evidenced on mult iple prior CTs. May be a portion of the gallbladder mimicking the common bile duct versus choledochoc og. Pancreas: Not well visualized. Right kidney: 11.1 cm in length. Normal size and echogenicity. No hydronephrosis or mass. Aorta and IVC: Unremarkable abdominal aorta and IVC. No ascites. US/US gall bladder [id number] IMPRESSION: 1. Limited evaluation of the liver, gallbladder and common bile duct due to jessica dy habitus and attenuation. 2. Hepatic steatosis. 3. Common bile duct in the gallbladder fossa appears prominent versus choledoc hocele or redundant gallbladder. No interval size changer multiple prior examina tions after reviewing several CTs dating back to 04/30/2021. MRCP may be helpfu l for further evaluation.
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
[2022-07-29 23:25] VITALS: BP 128/78; PULSE 62; RESP 17; TEMP 36.8; O2SAT 90
--- NOTE | 2022-07-29 23:25 | ECG_ITS ---
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 Interpretive Statements NAME OF STUDY: LEXISCAN SESTAMIBI STRESS TEST INDICATION: [Chest Pain, ] Procedure: At the baseline, the blood pressure was 111/72 mmHg with a heart rate of 61 bpm. The electrocardiogram showed atrial fibrillation, normal axis with normal ST and T's. The Lexiscan was infused over a period of 20 seconds. A total of 0.4 mg of Lexiscan was infused. The stress phase was continued for a total of 5 minutes. Heart rate was at the end of stress phase was 61 bpm and a blood pressure of 113/75 mmHg. The EKG at the peak infusion revealed atrial fibrillation with no significant ST-T wave changes. Sestamibi was injected 20 seconds after the Lexiscan infusion. Blood pressure at the end of recovery phase was 104/65 mmHg with a heart rate of 61 bpm. Conclusion: 1. Normal EKG response to Lexiscan infusion 2. No Lexiscan induced chest pain or cardiac arrhythmia. 3. Normal blood pressure and heart rate response. 4. Sestamibi/sestamibi perfusion scan pending; see separate report. Electronically Signed On 08-12-2022 11:35:13 MEDICARE COORDINATOR by Gerardo Mayers M.D. [id number]
[2022-07-29 23:38] LABS: INR 1.05 (0.8-1.2)
[2022-07-29] MEDS: enoxaparin 40 mg/0.4 mL Syringe SUBCUT (23:41)
[2022-07-29 23:58] LABS: NT Pro B Type Natriuretic Pept 395 pg/mL (0-125)
[2022-07-30] VITALS (12 sets, daily range): BP systolic 104–131; BP diastolic 65–79; PULSE 59–89; RESP 16–17; TEMP 36–36.8; O2SAT 90–93
[2022-07-30] MEDS: pantoprazole 40 mg SDV IVP ×2 (00:01→23:07)
[2022-07-30 00:26] LABS: Procalcitonin 0.02 ng/mL (0-0.5); Thyroid Stimulating Hormone 4.48 uIU/mL (0.27-4.20)
[2022-07-30 00:37] LABS: C Reactive Protein 8.9 mg/L (0.0-4.9); Chol HDL Ratio 3.11 mg/dL (1.0-5.00); Cholesterol 118 mg/dL (0-200); HDL Cholesterol 38 mg/dL (60-100); LDL Cholesterol Calculated 67 mg/dL (50-129); LDL HDL Ratio 1.76 RATIO (0.00-3.22); Lipase 11 U/L (13-60); Triglycerides 64 mg/dL (0-150)
--- NOTE | 2022-07-30 01:16 | ECG_ITS ---
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 Measurements Intervals Filion Rate: 61 P: 127 OH: 251 QRS: -10 QRSD: 114 T: 36 QT: 442 QTc: 448 Interpretive Statements ELECTRONIC ATRIAL PACEMAKER POSSIBLE LATERAL MYOCARDIAL INFARCTION , PROBABLY OLD [30 ms Q WAVE IN I/aVL/V5/V6] ABNORMAL RHYTHM ECG Compared to ECG 07/29/2022 21:43:06 No significant changes Electronically Signed On 07-30-2022 16:56:45 [employer] by Dayna Mistry M.D. [id number]
[2022-07-30 01:27] LABS: Basophils # 0.1 10^3/uL (0.0-0.1); Basophils % 0.8 %; Eosinophils # 0.4 10^3/uL (0.0-0.8); Eosinophils % 6.5 %; Hematocrit 32.6 % (42.0-52.0); Hemoglobin 9.6 g/dL (11.7-16.6); Lymphocytes # 0.8 10^3/uL (0.8-4.8); Lymphocytes % 13.7 %; Mean Corpuscular HGB Conc 29.4 g/dL (30.0-36.0); Mean Corpuscular Hemoglobin 21.1 pg (28.0-34.0); Mean Corpuscular Volume 71.5 fl (80-94); Mean Platelet Volume 10.5 fL (7.4-10.4); Monocytes # 0.5 10^3/uL (0.2-0.9); Monocytes % 8.5 %; Neutrophils # 4.19 10^3/uL (1.8-7.7); Nucleated Red Blood Cells % 0 %; Platelet Count 210 10^3/cmm (130-400); Red Blood Count 4.56 10^6/uL (4.1-5.3); Red Cell Distribution Width 17.9 % (12.1-15.1)
[2022-07-30] MEDS: carvedilol 3.125 mg Tablet PO (01:35)
[2022-07-30] MEDS: atorvastatin 40 mg Tablet PO ×2 (01:35→20:31)
[2022-07-30 02:01] LABS: Anion Gap 10.9 (5-19); Blood Urea Nitrogen 20 mg/dL (8-23); Calcium 8.3 mg/dL (8.5-10.5); Carbon Dioxide 29 mmol/L (22-29); Chloride 103 mmol/L (98-107); Glomerular Filtration Rate 135.2 mL/min (90-130); Glucose 88 mg/dL (65-115); Osmolality Calculated 290 mOsm/kg (285-295); Potassium 3.9 mmol/L (3.5-5.1); Sodium 139 mmol/L (136-145); Troponin 5 6HR 12.63 ng/L (0-15)
[2022-07-30 02:50] LABS: Troponin 5 6HR Delta 0.63 ng/L (0-12)
[2022-07-30 03:49] LABS: Gamma Glutamyl Transferase 16 U/L (8-61)
[2022-07-30 04:09] LABS: Add Urine Microscopic? NO; Charge for UA Resulting for Rev
[2022-07-30 04:23] LABS: Bilirubin Urine Neg (Negative); Blood Urine Neg (Negative); Glucose Urine UA Norm (Normal); Ketones Urine Negative (Negative); Leukocyte Esterase Urine Negative (Negative); Nitrate Urine Negative (Negative); Protein Urine Neg (Negative); Urine Appearance Clear (CLEAR); Urine Color Yellow (Yellow); Urobilinogen Urine Norm (Negative); pH Urine 5 (5-7)
[2022-07-30] MEDS: aspirin 81 mg Chew Tablet PO (05:04)
[2022-07-30] MEDS: lisinopril 20 mg Tablet PO (05:04)
[2022-07-30] MEDS: dilTIAZem ER (24HR) 120 mg Capsule PO (05:04)
[2022-07-30] MEDS: perflutren protein-a microsphr 0.22 mg/mL SDV 3 mL IV (05:43)
[2022-07-30] MEDS: methadone 10 mg Tablet 50 MG PO (08:09)
[2022-07-30] MEDS: tizanidine 4 mg Tablet PO ×2 (08:09→18:01)
[2022-07-30] MEDS: gabapentin 100 mg Capsule PO ×2 (08:10→18:01)
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
--- NOTE | 2022-07-30 12:24 | PC.CHAP ---
Pastoral Care Encounter/Spiritual Assessment Type of Contact [] Declined ladle repairer visit [] Patient/Family/Request visit [] Outpatient visit [] Follow-up visit [] Physician referral [] Code/Alert [x] Routine visit [] Staff referral [] Actively dying [] Patient sleeping [] Family support [] [] Out of room [] Palliative care [] [] Receiving care in room [] Pre-surgical visit [] Trauma [] Long length of stay [] ICU visit [] Other: Relational/Emotional Strength [x] Patient feels connected with others/family/visitors/staff [] Distress [] Loneliness/isolation [] Abandonment Spirituality of Patient [x Person of Hilary [] Attends Adventism of their [place]ary [x] Believes in Prayer [] Reads Bible or Christian materials [] There are Spiritual issues to be addressed Retreader Interventions [x] Prayer [x] Active listening [] Non-anxious presence [x] Spiritual/emotional support [] Crisis/trauma care [] Spiritual counseling [] Bereavement support [] Provided bereavement packet [] Provided Bible/devotional materials [] Provided toy/stuffed animal, coloring book to patient or family member [] Provided Communion [] Anointing/[place] [] Salvation [x] Completed spiritual assessment [] Other: Impact on Illness or Injury [] Angry [] Fearful [] Anxious [] Often cries [] Exhaustion [] Unable to work [] Unable to attend cheondoism [] Unable to walk/stand [] Unable to read [] Unable to drive [] Unable to eat/drink [] Unable to sleep [] Unable to be with family [] Patient intubated [] Other: Summary Time spent with patient 10 min
[2022-07-30] MEDS: regadenoson 0.4 Mg/5 ml Syringe IVP (13:42)
--- NOTE | 2022-07-30 16:18 | PM.PN ---
Subjective Subjective: Admitted over night for nausea and vomiting. H&P and labs appreciated. Remains on room air. Hemodynamically stable. Seen post cardiac stress test today. Denies any new complaints. States he is hungry. Vitals/I&O/Wt Last Vital Signs Temp 96.8 F L 07/30/22 12:30 Pulse 61 07/30/22 13:42 Resp 17 07/30/22 12:30 BP 104/65 07/30/22 13:42 Pulse Ox 93 07/30/22 12:00 O2 Del Method 07/30/22 12:00 O2 Flow Rate 2 07/30/22 08:00 07/30/22 07/30/22 07/30/22 06:59 14:59 22:59 Output Total 700 / 700 250 / 250 Balance -700 / -700 -250 / -250 Physical Exam Const: COMMON NORMALS: no acute distress and patient oriented x3 HENMT: COMMON NORMALS: normocephalic HEAD & SCALP: normocephalic Eye: COMMON NORMALS: Equal, round and reactive pupils present and EOMs intact bilaterally PUPIL: Yes Equal, round and reactive pupils present Neck/C-Spine: COMMON NORMALS: no JVD Lymph: LYMPHATIC: no lymphadenopathy noted Resp: COMMON NORMALS: normal respiratory effort, No retractions, No use of accessory muscles and clear to auscultation bilaterally AUSCULTATION: clear to auscultation bilaterally Cardio: COMMON NORMALS: no JVD, regular rate, regular rhythm, S1 normal heart sound present and S2 normal heart sound present RATE: regular rate RHYTHM: regular rhythm HEART SOUNDS: S1 normal heart sound present and S2 normal heart sound present GI: COMMON NORMALS: Normal to inspection, nondistended, normoactive bowel sounds present and Soft to palpation PALPATION: Yes Soft to palpation and Yes Tenderness to palpation present (GI) Extremity: COMMON NORMALS: no calf tenderness and no pedal edema Neuro: COMMON NORMALS: patient oriented x3, CN's II-XII intact bilaterally, moves all extremities and no focal motor deficits Psych: COMMON NORMALS: mental status grossly normal Data 07/30/22 00:52 07/30/22 00:52 A&P Assessment and plan (1) Chest pain: Qualifiers: Chest pain type: unspecified Qualified Code(s): R07.9 - Chest pain, unspecified (2) Iron deficiency anemia secondary to blood loss (chronic): (3) Choledocholithiasis: (4) Paroxysmal atrial fibrillation: Plan Nausea, vomiting: Could be secondary to choledocholithiasis. Appreciate CT abdomen pelvis results. Lipase within normal limits, transaminitis not present, alkaline phosphatase elevated. GGT stable. Check right upper quadrant ultrasound. Troponin cycled and negative. Patient is chest pain-free. Lexiscan stress test done. Results awaited. Echocardiogram shows no regional wall motion abnormality with a normal EF though is a poor study. Continue with aspirin, statin. Patient is on Cardizem for rate control. Atrial fibrillation: Continue with home medication. Not on anticoagulation given history of anemia because of slow GI blood loss. Hypertension: Goal blood pressure less than 140/90 mmHg with mean over 65. Full code. Cardiac diet. Lovenox for DVT prophylaxis Protonix OPD prophylaxis Attestations Medical Necessity Statement*: Requires further hospital management of nausea and vomiting while further etiologies are worked out including ACS and gallbladder etiology given history of choledocholithiasis. Time Spent in Patient Care: Greater than 35 minutes Coding Level of Care Code Acute Code for Chg Fwd Diagnoses Chest pain R07.9 Chest pain type: unspecified Iron deficiency anemia secondary to blood loss (chronic) D50.0 Choledocholithiasis K80.50 Paroxysmal atrial fibrillation I48.0
[2022-07-30] MEDS: ferrous gluconate 324 mg Tablet PO (18:01)
[2022-07-30] MEDS: sertraline 100 mg Tablet 200 MG PO (20:31)
[2022-07-30] MEDS: amitriptyline 25 mg Tablet PO (20:31)
[2022-07-30] MEDS: ondansetron 2 mg/ML SDV 2 mL 4 MG IVP (21:05)
[2022-07-30 21:28] LABS: Free T4 Free Thyroxine 0.74 ng/dL (0.82-1.77); T3 Free 2.7 PG/ML (2.0-4.4)
[2022-07-30] MEDS: metoclopramide 5 mg/mL SDV 2 mL IVP (22:19)
[2022-07-30] MEDS: enoxaparin 40 mg/0.4 mL Syringe SUBCUT (23:07)
--- NOTE | 2022-07-30 23:25 | NMCV_ITS ---
NM naomy perf SPECT r/s* [id number] Gary King Age: 66 Gender: M : 1955 Exam Date: 07/30/2022 12:41 Ordering Phys: Clement Roman MD Technologist: JANET Taylor Exam Location: [facility] Indications: CHEST PAIN STRESS TEST Please see separate stress test report in [facility] for full findings IMAGE PROTOCOL Rest/Stress 1 Lexiscan Day Radiopharmaceutical Dose (mCi) Administration Site Administered by Rest: Tc-99m 11.0 IV JANET Costa Sestamibi Stress:Tc-99m 32.7 IV JANET Costa Sestamibi Rest: 30-Jul-2022 60 Discovery 630 Stress: 30-Jul-2022 30 Discovery 630 0.4mg Lexiscan. Supine position only as patient was unable to lay prone. SPECT RESULTS Technical Quality: Excellent Raw Data Analysis: Normal Image Corrections: No attenuation or motion correction applied Summed Stress Score: 9 Summed Rest Score: 14 Summed Difference Score: 0 PERFUSION FINDINGS There is a large in size, fixed perfusion defect noted in the inferior, apical inferior and apical lateral kumari. This is consistent with large sized prior infarct in RCA territory with no evidence of ischemia. Small sized prior infarct is also noted in left circumflex artery territory. FUNCTIONAL RESULTS (calculated via Gated SPECT) Stress Image LV EF (%): 56 Stress EDV (mL):163 TID: 0.95 Stress ESV (mL):72 FUNCTIONAL FINDINGS: There is normal left ventricular systolic function. IMPRESSIONS 1. 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 Small sized infarct is seen in left circumflex artery territory. No significant ischemia seen. 2. LV systolic function is normal Gerardo Mayers MD (Electronically Signed) Final Date: 30 July 2022 14:44 S
--- NOTE | 2022-07-30 23:25 | USCV_ITS ---
Gary King Age: 66 Gender: M : 1955 Exam Date: 07/30/2022 00:23 Ordering Phys: Clement Roman MD Technologist: SAHRA [place] [facility] [facility] [place]ication: chest pain, s/p pacer 2015. BP: 145 / 88 HR: 68 Rhythm: Sinus Technical Quality: Adequate with Optison MEASUREMENTS (Male / Female) Normal Values 2D ECHO LV Diastolic Diameter PLAX 4.9 cm 4.2 - 5.9 / 3.9 - 5.3 cm LV Systolic Diameter PLAX 3.0 cm IVS Diastolic Thickness 1.9 cm 0.6 - 1.0 / 0.6 - 0.9 cm IVS Systolic Thickness 2.6 cm LVPW Diastolic Thickness 1.4 cm 0.6 - 1.0 / 0.6 - 0.9 cm LVPW Systolic Thickness 2.0 cm LVOT Diameter 2.1 cm LV Ejection Fraction 2D Teich 68.1 % LV Ejection Fraction MOD 2C 50.8 % LV Ejection Fraction 2C AL 48.4 % LA Diameter 4.0 cm LA Width 4.5 cm LA Height 6.6 cm RA Width 6.8 cm RA Height 6.5 cm Aorta at Sinotubular Diameter 3.6 cm IVC Diameter 1.6 cm M-MODE Aortic Annulus Diameter 4.3 cm LA Ao Ratio MM 0.9 MV E Point Septal Separation 0.4 cm DOPPLER AV Peak Velocity 121.0 cm/s LVOT Peak Velocity 111.0 cm/s AV Area Cont Eq vti 2.5 cm squared AV Area Cont Eq pk 3.3 cm squared MV Area PHT 3.6 cm squared Mitral E to A Ratio 0.9 MV E' Velocity 35.5 cm/s Mitral E to MV E' Ratio 5.3 Mitral E to LV E' Lateral Ratio 3.8 Mitral E to LV E' Septal Ratio 8.6 TR Peak Velocity 284.8 cm/s TR Peak Gradient 32.4 mmHg TV Peak E Velocity 83.0 cm/s Right Atrial Pressure 10.0 mmHg Pulmonary Artery Systolic Pressu 42.4 mmHg PV Peak Velocity 110.0 cm/s RV Acceleration Time 0.1 s RV Ejection Time 0.4 s RV AcT/ET 0.3 FINDINGS Left Ventricle Normal left ventricular size, systolic function and wall thickness, with no regional wall motion abnormalities. Left ventricular ejection fraction is estimated at 65 %. Normal diastolic function. Right Ventricle Normal right ventricular size and systolic function. Right ventricular systolic pressure 43 mmHg. Pacemaker wire visualized in the right ventricle. Right Atrium Mildly increased right atrial size. Pacemaker wire in the right atrial cavity. Left Atrium Normal left atrial size. Mitral Valve Structurally normal mitral valve. No mitral valve stenosis. Aortic Valve Structurally normal trileaflet aortic valve. No aortic valve stenosis. No aortic valve regurgitation. Tricuspid Valve Structurally normal tricuspid valve. No tricuspid valve stenosis. Moderate tricuspid valve regurgitation. Pulmonic Valve Structurally normal pulmonic valve. No pulmonary valve stenosis. No significant pulmonary valve regurgitation. Pericardium No pericardial effusion. Aorta Normal size aortic root and proximal ascending aorta. IVC Normal sized inferior vena cava. CONCLUSIONS 1. This is a technically difficult study. Optison was used per protocol. 2. Normal left ventricular size, systolic function and wall thickness, with no regional wall motion abnormalities. Left ventricular ejection fraction is estimated at 65 %. Normal diastolic function. 3. Moderate tricuspid valve regurgitation. 4. No significant cahnge when compared to study dated 08/20/2019. Dayna Mistry MD (Electronically Signed) Final Date: 30 July 2022 16:07 S
[2022-07-31] VITALS: BP 117/74; PULSE 60; RESP 16; TEMP 36.6; O2SAT 92
[2022-07-31 03:47] VITALS: BP 112/75; PULSE 60; RESP 16; TEMP 36.7; O2SAT 92
[2022-07-31] MEDS: aspirin 81 mg Chew Tablet PO (05:00)
[2022-07-31] MEDS: dilTIAZem ER (24HR) 120 mg Capsule PO (05:01)
[2022-07-31] MEDS: lisinopril 20 mg Tablet PO (05:01)
[2022-07-31 05:41] LABS: Basophils # 0.1 10^3/uL (0.0-0.1); Basophils % 1.2 %; Eosinophils # 0.4 10^3/uL (0.0-0.8); Eosinophils % 7.6 %; Hematocrit 35.9 % (42.0-52.0); Hemoglobin 9.9 g/dL (11.7-16.6); Lymphocytes # 0.8 10^3/uL (0.8-4.8); Lymphocytes % 16.2 %; Mean Corpuscular HGB Conc 27.6 g/dL (30.0-36.0); Mean Corpuscular Hemoglobin 21.4 pg (28.0-34.0); Mean Corpuscular Volume 77.7 fl (80-94); Mean Platelet Volume 10.3 fL (7.4-10.4); Monocytes # 0.4 10^3/uL (0.2-0.9); Monocytes % 8.6 %; Neutrophils # 3.29 10^3/uL (1.8-7.7); Nucleated Red Blood Cells % 0 %; Platelet Count 210 10^3/cmm (130-400); Red Blood Count 4.62 10^6/uL (4.1-5.3); Red Cell Distribution Width 17.8 % (12.1-15.1)
[2022-07-31 05:43] VITALS: PULSE 61
[2022-07-31 06:08] LABS: Alanine Aminotransferase 9 U/L (0-41); Albumin Level 3.5 g/dL (3.5-5.2); Alkaline Phosphatase 126 U/L (40-130); Blood Urea Nitrogen 14 mg/dL (8-23); Calcium 8.7 mg/dL (8.5-10.5); Carbon Dioxide 27 mmol/L (22-29); Chloride 99 mmol/L (98-107); Globulin 3.1 g/dL (1.3-4.6); Glomerular Filtration Rate 113.2 mL/min (90-130); Glucose 95 mg/dL (65-115); Osmolality Calculated 284 mOsm/kg (285-295); Sodium 137 mmol/L (136-145); Total Bilirubin 0.3 mg/dL (0.15-1.2); Total Protein 6.6 g/dL (6.6-8.7)
[2022-07-31 06:10] LABS: Anion Gap 15.1 (5-19); Aspartate Amino Transferase 22 U/L (0-40); Potassium 4.1 mmol/L (3.5-5.1)
[2022-07-31 08:00] VITALS: BP 137/84; PULSE 62; RESP 16; TEMP 36.4; O2SAT 93
[2022-07-31 08:41] VITALS: RESP 16; O2SAT 93
[2022-07-31] MEDS: methadone 10 mg Tablet 50 MG PO (08:41)
[2022-07-31] MEDS: tizanidine 4 mg Tablet PO (08:41)
[2022-07-31] MEDS: gabapentin 100 mg Capsule PO (08:42)
[2022-07-31] MEDS: ferrous gluconate 324 mg Tablet PO (08:42)
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
--- NOTE | 2022-07-31 11:51 | PC.NURSE ---
Discussed discharge, making follow up appointments and to continue all home medication. Patient verbalized understanding
[2022-07-31 11:52] VITALS: RESP 16; O2SAT 93
--- NOTE | 2022-07-31 14:38 | PM.DCS ---
Discharge Providers Date of Admission: 07/29/22 22:41 Date of Discharge: July 31, 2022 Attending Provider at Admission: Clement Roman MD Attending Provider at Discharge: Ej Diane DO Primary Care Provider: Alek Mahmood DO Diagnoses at Discharge Discharge Diagnosis (1) Chest pain: Status: Acute Qualifiers: Chest pain type: unspecified Qualified Code(s): R07.9 - Chest pain, unspecified (2) Iron deficiency anemia secondary to blood loss (chronic): Status: Acute (3) Choledocholithiasis: Status: Acute (4) Paroxysmal atrial fibrillation: Status: Acute Reason for Visit Reason for Visit: CP Brief History: Presented to ED with complaint of left-sided chest pain, nausea and vomiting x 1 day. Patient notes that he has a history of atrial fibrillation and he is not on anticoagulation due to a chronic GI bleed. As a result, he has iron deficiency anemia. He had denied any recent illness, fever or chills. He was concerned that he was having an acute heart attack, so he proceeded to the ER for evaluation. Hospital Course Hospital Course In the ER a cardiac workup was completed, with acute [place] ruled out. He was admitted for continued monitoring. He was sent for a stress test, which was negative for there was evidence of previous infarct noted on his stress testing, with no current ischemia per cardiology report. In addition he had an echocardiogram which demonstrated normal ejection fraction and no regional wall motion abnormalities. There was moderate tricuspid valve regurgitation. CT scan was performed and did demonstrate some gallbladder abnormalities. He did have cholelithiasis present. There was dilatation of the common bile duct measuring up to 12 mm. It was noted that this was present on previous exams. It was recommended that he follow-up with an ERCP or MRCP, however he does have a pacemaker which would not make him a candidate for the latter. During the course of his stay, he did have a resolution of his chest pain. He was able to eat and drink without nausea or vomiting. His vitals and labs stabilized throughout the course of his hospitalization. He was able to return to his prior level of function/normal activities, and was discharged in stable and improved condition. It was recommended that he follow-up with a general surgeon and his primary care physician to discuss further imaging modalities and treatments. Patient expressed that he would like to see Dr. Castillo if he requires surgery. Physical Exam Const: COMMON NORMALS: no acute distress and patient oriented x3 HENMT: COMMON NORMALS: normocephalic HEAD & SCALP: normocephalic Eye: COMMON NORMALS: Equal, round and reactive pupils present and EOMs intact bilaterally PUPIL: Yes Equal, round and reactive pupils present Neck/C-Spine: COMMON NORMALS: no JVD Lymph: LYMPHATIC: no lymphadenopathy noted Resp: COMMON NORMALS: normal respiratory effort, No retractions, No use of accessory muscles and clear to auscultation bilaterally AUSCULTATION: clear to auscultation bilaterally Cardio: COMMON NORMALS: no JVD, regular rate, regular rhythm, S1 normal heart sound present and S2 normal heart sound present RATE: regular rate RHYTHM: regular rhythm HEART SOUNDS: S1 normal heart sound present and S2 normal heart sound present GI: COMMON NORMALS: Normal to inspection, nondistended, normoactive bowel sounds present and Soft to palpation PALPATION: Yes Soft to palpation and Yes Tenderness to palpation present (GI) Extremity: COMMON NORMALS: no calf tenderness and no pedal edema Neuro: COMMON NORMALS: patient oriented x3, CN's II-XII intact bilaterally, moves all extremities and no focal motor deficits Psych: COMMON NORMALS: mental status grossly normal Discharge Data Studies Completed and Pending Completed Studies During Hospitalization Category Date Time Status CT abdomen pelvis wo con [id number] Routine Cat Scan 07/30/22 10:34 Completed Sestamibi Stress Test Request Routine Exams 07/29/22 23:25 Draft XR chest 1V portable [id number] Stat Exams 07/29/22 19:16 Completed NM naomy perf SPECT r/s* [id number] Routine Nuc Med 07/30/22 23:25 Completed CV. echo wo/w contrast [id number] Routine Ultrasound 07/30/22 23:25 Completed US gall bladder [id number] Stat Ultrasound 07/29/22 23:16 Completed Radiology Impressions Chest X-Ray 07/29/22 19:16 IMPRESSION: No acute findings. Gallbladder Ultrasound 07/29/22 23:16 IMPRESSION: 1. Limited evaluation of the liver, gallbladder and common bile duct due to body habitus and attenuation. 2. Hepatic steatosis. 3. Common bile duct in the gallbladder fossa appears prominent versus choledochocele or redundant gallbladder. 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 MRCP may be helpful for further evaluation. Abdomen/Pelvis CT 07/30/22 10:34 IMPRESSION: 1. Prior postoperative changes gastric bypass with surgical clips and sutures in the upper abdomen. 2. Evidence of prior partial bowel resection with anastomosis in the mid and lower abdomen. 3. Dilatation of a small bowel loop in the midabdomen with air and fluid similar to the prior examination likely due to chronic dilatation. Remainder of the small and large bowel are relatively decompressed. Colon is normal in appearance. 4. No hydronephrosis in either kidney. 5. No other significant changes compared to prior studies. 6. Lobulated gallbladder with cholelithiasis. Dilatation of the common bile duct measuring 12 mm with increased attenuation distally suspicious for choledocholithiasis. This appears to have been present on multiple prior examinations. This can be followed up with ERCP. Patient has AICD/pacer. 7. Correlation with biliary function studies. Laboratory Results WBC 5.0 10^3/uL (4.0-10.0) 07/31/22 04:16 RBC 4.62 10^6/uL (4.1-5.3) 07/31/22 04:16 Hgb 9.9 g/dL (11.7-16.6) L 07/31/22 04:16 Hct 35.9 % (42.0-52.0) L 07/31/22 04:16 MCV 77.7 fl (80-94) L D 07/31/22 04:16 MCH 21.4 pg (28.0-34.0) L 07/31/22 04:16 MCHC 27.6 g/dL (30.0-36.0) L D 07/31/22 04:16 RDW 17.8 % (12.1-15.1) H 07/31/22 04:16 Plt Count 210 10^3/cmm (130-400) 07/31/22 04:16 MPV 10.3 fL (7.4-10.4) 07/31/22 04:16 Neut % (Auto) 66.0 % 07/31/22 04:16 Lymph % (Auto) 16.2 % 07/31/22 04:16 [place] % (Auto) 8.6 % 07/31/22 04:16 Eos % (Auto) 7.6 % 07/31/22 04:16 Baso % (Auto) 1.2 % 07/31/22 04:16 Neut # (Auto) 3.29 10^3/uL (1.8-7.7) 07/31/22 04:16 Lymph # (Auto) 0.8 10^3/uL (0.8-4.8) 07/31/22 04:16 [place] # (Auto) 0.4 10^3/uL (0.2-0.9) 07/31/22 04:16 Eos # (Auto) 0.4 10^3/uL (0.0-0.8) 07/31/22 04:16 Baso # (Auto) 0.1 10^3/uL (0.0-0.1) 07/31/22 04:16 Nucleated RBC % (auto) 0 % 07/31/22 04:16 Nucleated RBCs # 0.0 /100WBC 07/31/22 04:16 PT 14.00 SECONDS (12.1-14.9) 07/29/22 19:25 INR 1.05 (0.8-1.2) 07/29/22 19:25 APTT 30.2 SECONDS (23.9-36.7) 07/29/22 19:25 Sodium 137 mmol/L (136-145) 07/31/22 04:16 Potassium 4.1 mmol/L (3.5-5.1) 07/31/22 04:16 Chloride 99 mmol/L (98-107) 07/31/22 04:16 Carbon Dioxide 27 mmol/L (22-29) 07/31/22 04:16 Anion Gap 15.1 (5-19) 07/31/22 04:16 BUN 14 mg/dL (8-23) 07/31/22 04:16 Creatinine 0.7 mg/dL (0.7-1.2) 07/31/22 04:16 GFR Calculation 113.2 mL/min (90-130) 07/31/22 04:16 Glucose 95 mg/dL (65-115) 07/31/22 04:16 Calculated Osmolality 284 mOsm/kg (285-295) L 07/31/22 04:16 Calcium 8.7 mg/dL (8.5-10.5) 07/31/22 04:16 Total Bilirubin 0.3 mg/dL (0.15-1.2) 07/31/22 04:16 GGT 16 U/L (8-61) 07/29/22 21:22 AST 22 U/L (0-40) 07/31/22 04:16 ALT 9 U/L (0-41) 07/31/22 04:16 Alkaline Phosphatase 126 U/L (40-130) 07/31/22 04:16 Troponin T Baseline 12 ng/L (0-15) 07/29/22 19:25 Troponin T 120 Minute 15.71 ng/L (0-15) H 07/29/22 21:22 Delta Troponin T 3.71 ABS# (0-10) 07/29/22 21:22 Troponin T Hi Sens 6Hr 12.63 ng/L (0-15) 07/30/22 00:52 Troponin T Hi Sens 6Hr Delta 0.63 ng/L (0-12) 07/30/22 00:52 C-Reactive Protein 8.9 mg/L (0.0-4.9) H 07/29/22 21:22 NT-Pro-B Natriuret Pep 395 pg/mL (0-125) H 07/29/22 21:22 Total Protein 6.6 g/dL (6.6-8.7) 07/31/22 04:16 Albumin 3.5 g/dL (3.5-5.2) 07/31/22 04:16 Globulin 3.1 g/dL (1.3-4.6) 07/31/22 04:16 Triglycerides 64 mg/dL (0-150) 07/29/22 21: Cholesterol 118 mg/dL (0-200) 07/29/22 21:22 LDL Cholesterol, Calc 67 mg/dL (50-129) 07/29/22 21:22 HDL Cholesterol 38 mg/dL (60-100) L 07/29/22 21: LDL/HDL Ratio 1.76 RATIO (0.00-3.22) 07/29/22 21: Cholesterol/HDL Ratio 3.11 mg/dL (1.0-5.00) 07/29/22 21:22 Lipase 11 U/L (13-60) L 07/29/22 21:22 Procalcitonin 0.02 ng/mL (0-0.5) 07/29/22 21:22 TSH 4.48 uIU/mL (0.27-4.20) H 07/29/22 21:22 Free T4 0.74 ng/dL (0.82-1.77) L 07/30/22 00:52 Free T3 2.7 PG/ML (2.0-4.4) 07/30/22 00:52 Urine Color Yellow (Yellow) 07/30/22 03:50 Urine Appearance Clear (CLEAR) 07/30/22 03:50 Urine pH 5 (5-7) 07/30/22 03:50 Ur Specific [place] 1.020 (1.005-1.030) 07/30/22 03:50 Urine Protein Neg (Negative) 07/30/22 03:50 Urine Glucose (UA) Norm (Normal) 07/30/22 03:50 Urine Ketones Negative (Negative) 07/30/22 03:50 Urine Blood Neg (Negative) 07/30/22 03:50 Urine Nitrate Negative (Negative) 07/30/22 03:50 Urine Bilirubin Neg (Negative) 07/30/22 03:50 Urine Urobilinogen Norm mg/dL (Negative) 07/30/22 03:50 Ur Leukocyte Esterase Negative (Negative) 07/30/22 03:50 Vitals Last Vital Signs Temp 97.6 F 07/31/22 08:00 Pulse 62 07/31/22 08:00 Resp 16 07/31/22 11:52 BP 137/84 07/31/22 08:00 Pulse Ox 93 07/31/22 11:52 O2 Del Method 07/31/22 08:00 O2 Flow Rate 2 07/30/22 08:00 Discharge Plan Discharge Patient Disposition: Home Condition: Stable Prescriptions: Continued amitriptyline 25 mg tablet 50 mg PO BEDTIME sertraline 100 mg tablet 200 mg PO BEDTIME aspirin 81 mg Tablet,Chewable 81 mg PO QAM Qty: 0 mupirocin 2 % ointment 1 applic TOPICAL TID PRN (Reason: [place]) Multaq 400 mg tablet 400 mg PO BID albuterol sulfate 90 mcg/actuation HFA aerosol inhaler 2 inh inhalation Q4H PRN (Reason: shortness of breath or wheezing) Qty: 6.7 1RF methadone 10 mg tablet 50 mg PO QAM ondansetron HCl 4 mg tablet 4 - 8 mg PO Q6H PRN (Reason: nausea/vomiting) cetirizine [Zyrtec] 10 mg Tablet 10 mg PO QAM tizanidine 2 mg tablet 2 mg PO BID gabapentin 300 mg capsule 300 mg PO BID diltiazem HCl 120 mg capsule,extended release 24hr 120 mg PO QAM Relistor 12 mg/0.6 mL syringe 0.6 ml SUBCUT Q7D Rx Instructions: on sat Discharge Orders: Discharge Order (Routine); Ordered 07/31/22 Ordered By: jE Diane Referrals: Nii Castillo MD [Physician] - 4-7 days (Call on Tuesday to make an appointment) Alek Mahmood DO [Primary Care Provider] - 4-7 days (Please call Tuesday to schedule your appointment with Dr. Mahmood.) Discharge Diet: Usual diet Discharge Activity: Resume usual activity Patient Instructions: Angina (DC), Iron Deficiency Anemia (GEN), Opioid Safety Assessment: Chronic GI pain and blood loss anemia. Plan of Treatment: Discharge today. Referral to Dr. Castillo, General Surgery. Follow up with Dr. Mahmood, PCP in one week. Continue with diet as tolerated. Diligent oral hydration. Return precautions discussed and recommended that he follow up if pain is not controllable, or if unable to tolerate oral intake. Discharge Attestations Time Spent in Discharge Care*: greater than 30 min Specific Discharge Activities: educating patient, documenting/other paperwork and evaluating patient/reviewing data Quality Metrics Clinical Quality Measures [ No reported AMI, CVA or VTE this stay] Coding Level of Care Code Acute Chg FW DC note Diagnoses Chest pain R07.9 Chest pain type: unspecified Iron deficiency anemia secondary to blood loss (chronic) D50.0 Choledocholithiasis K80.50 Paroxysmal atrial fibrillation I48.0
== END 2022-07-31 11:50 | disposition home or self-care (01) ==
LOC: ER 22:41 → MEDSURG 22:41
PROVIDERS: Student in an Organized Health Care Education/Training Program; Admitting Provider Family Medicine; Emergency Provider Family Medicine; PCP Electrodiagnostic Medicine; Visit Provider Family Medicine
DX: R07.9 Chest pain, unspecified (principal); D50.0 Iron deficiency anemia secondary to blood loss (chronic); K80.50 Calculus of bile duct without cholangitis or cholecystitis without obstruction; I48.0 Paroxysmal atrial fibrillation; I10 Essential (primary) hypertension; R11.2 Nausea with vomiting, unspecified; D50.9 Iron deficiency anemia, unspecified; Z79.82 Long term (current) use of aspirin; Z93.3 Colostomy status; Z79.891 Long term (current) use of opiate analgesic; G89.29 Other chronic pain; M54.9 Dorsalgia, unspecified; K21.9 Gastro-esophageal reflux disease without esophagitis; E03.9 Hypothyroidism, unspecified; Z95.1 Presence of aortocoronary bypass graft; Z95.0 Presence of cardiac pacemaker
CPT/HCPCS: 36415; 71045; 74176; 76705; 78452; 80048; 80053; 80061; 81003; 82977; 83690; 83880; 84145; 84439; 84443; 84481; 84484; 85025; 85610; 85730; 86140; 93005; 93017; 93306; 94664; 96372; 96374; 96375; 96376; 99285; A9500; C8929; C9113; G0378; J1650; J2405; J2765; J2785; Q9956

== ENCOUNTER 2022-08-25 07:24 | Inpatient (IN) | payer MEDICARE, MEDICAID, SELFPAY ==
[2022-08-25] VITALS (11 sets, daily range): BP systolic 114–144; BP diastolic 68–92; PULSE 60–101; RESP 16–26; TEMP 36.6–36.9; O2SAT 91–98; BMI 30.7
--- NOTE | 2022-08-25 07:26 | XR_ITS ---
WS: [id number] PORTABLE CHEST HISTORY: chest pain COMPARISON: 07/29/2022 New opacification RIGHT lower lobe. Additional area of increasing consolidation posterior to the LEFT heart. Normal vasculature.. No pleural effusion or pneumothorax. Cardiac size: Normal. Mediastinum/Aorta: Mild atherosclerosis aorta. LEFT subclavian pacer wires. No osseous abnormality seen. Surgical clips in the LEFT upper abdomen. XR/XR chest 1V portable [id number] IMPRESSION: 1. Developing bilateral lower lobe opacifications consistent with pneumonia. 2. Mild atherosclerosis aorta.
--- NOTE | 2022-08-25 07:35 | ECG_ITS ---
[facility] Test Date: 2022-08-25 Pat Name: Gary King Department: Room: Gender: Male 3Rd Mate: : 1955 Requested By: Devorah Samuel Order Number: [id number] Bender MD: Víctor Ponce M.D. Measurements Intervals [place] Rate: 93 P: 12 LA: 120 QRS: -10 QRSD: 106 T: 93 QT: 291 QTc: 362 Interpretive Statements SINUS RHYTHM NONSPECIFIC ST & T-WAVE ABNORMALITY Compared to ECG 07/30/2022 00:53:34 T-wave abnormality now present Atrial-paced complex(es) or rhythm no longer present Myocardial infarct finding no longer present Electronically Signed On 08-26-2022 0:04:04 GLASS BLOCK BENDER by Víctor Ponce M.D. [id number]
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
--- NOTE | 2022-08-25 07:58 | ECG_ITS ---
[facility] Test Date: 2022-08-25 Pat Name: Gary King Department: Room: Gender: Male Newsp[employer] St[employer]: : 1955 Requested By: Devorah Samuel Order Number: [id number] Napoleon MD: Víctor Ponce M.D. Measurements Intervals Lee Rate: 89 P: -4 NH: 113 QRS: -7 QRSD: 108 T: 66 QT: 293 QTc: 357 Interpretive Statements SINUS RHYTHM WITH SHORT NH INTERVAL WITH OCCASIONAL SUPRAVENTRICULAR PREMATURE COMPLEXES NONSPECIFIC T-WAVE ABNORMALITY Compared to ECG 08/25/2022 07:35:41 Short NH interval now present T-wave abnormality still present Electronically Signed On 08-26-2022 0:15:22 ANALYTICAL CHEMIST by Víctor Ponce M.D. [id number]
[2022-08-25] MEDS: morphine 4 mg/mL SDV 1 mL IVP (07:59)
--- NOTE | 2022-08-25 07:59 | PC.NURSE ---
PT PLACED ON CONTINUOUS SPO2, NIBP, AND CM.
[2022-08-25 08:00] LABS: Basophils % 0.3 %; Eosinophils # 0.1 10^3/uL (0.0-0.8); Lymphocytes # 0.3 10^3/uL (0.8-4.8); Lymphocytes % 3.2 %; Mean Corpuscular HGB Conc 29.6 g/dL (30.0-36.0); Mean Corpuscular Hemoglobin 20.5 pg (28.0-34.0); Mean Corpuscular Volume 69.2 fl (80-94); Mean Platelet Volume 9.6 fL (7.4-10.4); Monocytes # 0.4 10^3/uL (0.2-0.9); Monocytes % 4.1 %; Nucleated Red Blood Cells % 0 %; Platelet Count 184 10^3/cmm (130-400); Red Cell Distribution Width 16.7 % (12.1-15.1); White Blood Count 10.6 10^3/uL (4.0-10.0)
[2022-08-25 08:20] LABS: Troponin(5th) Baseline 13 ng/L (0-15)
[2022-08-25 08:23] LABS: Alanine Aminotransferase 10 U/L (0-41); Albumin Level 3.7 g/dL (3.5-5.2); Alkaline Phosphatase 118 U/L (40-130); Anion Gap 16.6 (5-19); Aspartate Amino Transferase 16 U/L (0-40); Blood Urea Nitrogen 18 mg/dL (8-23); Carbon Dioxide 23 mmol/L (22-29); Chloride 101 mmol/L (98-107); Globulin 2.7 g/dL (1.3-4.6); Glomerular Filtration Rate 84.7 mL/min (90-130); Glucose 139 mg/dL (65-115); Osmolality Calculated 288 mOsm/kg (285-295); Potassium 3.6 mmol/L (3.5-5.1); Sodium 137 mmol/L (136-145); Total Bilirubin 0.4 mg/dL (0.15-1.2); Total Protein 6.4 g/dL (6.6-8.7)
--- NOTE | 2022-08-25 08:54 | PC.NURSE ---
AMB PT 30 FEET SPO2 DECREASED TO 86% ON RA. PT BECAME DIZZY AND RR INCREASED TO 28/MIN.
[2022-08-25] MEDS: piperacillin-tazobactam 3.375 GM in sodium chloride 0.9% (plus) 50 ML IV (09:35)
[2022-08-25 10:51] LABS: Troponin 5 2HR 13.48 ng/L (0-15)
[2022-08-25 11:03] LABS: Troponin 5 2HR Delta 0.48 ABS# (0-10)
[2022-08-25 12:05] LABS: Influenza A by IFA negative (Negative); Influenza B by IFA negative (Negative)
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
[2022-08-25 13:17] LABS: Ferritin 17 ng/mL (30-400); Iron 13 ug/dL (59-158); Total Iron Binding Capacity 428 mcg/dl; Unsaturated Iron Binding 415 ug/dL (112-347)
--- NOTE | 2022-08-25 13:26 | ECG_ITS ---
[facility] Test Date: 2022-08-25 Pat Name: Gary King Department: Room: 272 Gender: Male Atm Manager: : [id number] Requested By: Devorah Samuel Order Number: [id number] Napoleon MD: Víctor Ponce M.D. Measurements Intervals [place] Rate: 66 P: 201 OR: 251 QRS: -4 QRSD: 116 T: 17 QT: 445 QTc: 468 Interpretive Statements ELECTRONIC ATRIAL PACEMAKER POSSIBLE LATERAL MYOCARDIAL INFARCTION , PROBABLY OLD [30 ms Q WAVE IN I/aVL/V5/V6] MODERATE T-WAVE ABNORMALITY, CONSIDER ANTERIOR ISCHEMIA [-0.1+ mV T-WAVE IN V3/V4] Compared to ECG 08/25/2022 07:58:07 Myocardial infarct finding now present Possible ischemia now present Sinus rhythm no longer present Short OR interval no longer present T-wave abnormality still present Electronically Signed On 08-26-2022 0:18:29 SPECIAL INVESTIGATION UNIT INVESTIGATOR by Víctor Ponce M.D. [id number]
[2022-08-25 13:33] LABS: Adenovirus Not Detected (NOT DETECT); Chlamydia Pneumoniae Not Detected (NOT DETECT); Coronavirus 229E,HKU1,NL63,OC4 Not Detected (NOT DETECT); Human Metapneumovirus Not Detected (NOT DETECT); Human Rhinovirus/Enterovirus Not Detected (NOT DETECT); Influenza A Not Detected (NOT DETECT); Influenza A H1 Not Detected (NOT DETECT); Influenza A H1-2009 Not Detected (NOT DETECT); Influenza A H3 Not Detected (NOT DETECT); Influenza B Not Detected (NOT DETECT); Mycoplasma Pneumoniae Not Detected (NOT DETECT); Parainfluenza Virus Type 1 Not Detected (NOT DETECT); Parainfluenza Virus Type 2 Not Detected (NOT DETECT); Parainfluenza Virus Type 3 Not Detected (NOT DETECT); Parainfluenza Virus Type 4 Not Detected (NOT DETECT); Respiratory Syncytial Virus A Not Detected (NOT DETECT); Respiratory Syncytial Virus B Not Detected (NOT DETECT); SARS-COV-2 Not Detected (NOT DETECT)
[2022-08-25] MEDS: azithromycin 250 mg Tablet 500 MG PO (13:35)
[2022-08-25] MEDS: pantoprazole 40 mg SDV IVP (13:37)
[2022-08-25 13:39] LABS: Troponin 5 6HR 14.91 ng/L (0-15)
[2022-08-25] MEDS: gabapentin 300 mg Capsule PO ×2 (13:40→21:29)
[2022-08-25 14:09] LABS: Troponin 5 6HR Delta 1.91 ng/L (0-12)
[2022-08-25] MEDS: tizanidine 4 mg Tablet 2 MG PO (17:29)
[2022-08-25] MEDS: sertraline 100 mg Tablet 200 MG PO (21:29)
[2022-08-25] MEDS: amitriptyline 25 mg Tablet 50 MG PO (21:29)
[2022-08-26] VITALS (7 sets, daily range): BP systolic 106–129; BP diastolic 56–84; PULSE 62–71; RESP 17–24; TEMP 36.3–36.7; O2SAT 93–99
[2022-08-26] MEDS: pantoprazole 40 mg SDV IVP ×3 (01:01→23:34)
[2022-08-26 05:15] LABS: Basophils % 0.4 %; Eosinophils # 0.4 10^3/uL (0.0-0.8); Eosinophils % 7.5 %; Hematocrit 27.6 % (42.0-52.0); Hemoglobin 7.8 g/dL (11.7-16.6); Lymphocytes # 0.7 10^3/uL (0.8-4.8); Lymphocytes % 12.3 %; Mean Corpuscular HGB Conc 28.3 g/dL (30.0-36.0); Mean Corpuscular Hemoglobin 20.2 pg (28.0-34.0); Mean Corpuscular Volume 71.5 fl (80-94); Mean Platelet Volume 10.4 fL (7.4-10.4); Monocytes # 0.5 10^3/uL (0.2-0.9); Monocytes % 8.4 %; Neutrophils # 3.82 10^3/uL (1.8-7.7); Neutrophils % 71.2 %; Nucleated Red Blood Cells % 0 %; Platelet Count 164 10^3/cmm (130-400); Red Blood Count 3.86 10^6/uL (4.1-5.3); Red Cell Distribution Width 16.7 % (12.1-15.1); White Blood Count 5.4 10^3/uL (4.0-10.0)
[2022-08-26 05:34] LABS: Alanine Aminotransferase 9 U/L (0-41); Albumin Level 3.4 g/dL (3.5-5.2); Alkaline Phosphatase 102 U/L (40-130); Anion Gap 11.5 (5-19); Aspartate Amino Transferase 13 U/L (0-40); Blood Urea Nitrogen 14 mg/dL (8-23); Calcium 7.8 mg/dL (8.5-10.5); Carbon Dioxide 27 mmol/L (22-29); Chloride 103 mmol/L (98-107); Globulin 2.5 g/dL (1.3-4.6); Glomerular Filtration Rate 113.2 mL/min (90-130); Glucose 106 mg/dL (65-115); Osmolality Calculated 287 mOsm/kg (285-295); Potassium 3.5 mmol/L (3.5-5.1); Sodium 138 mmol/L (136-145); Total Bilirubin 0.4 mg/dL (0.15-1.2); Total Protein 5.9 g/dL (6.6-8.7)
[2022-08-26] MEDS: methadone 10 mg Tablet 50 MG PO (06:17)
[2022-08-26] MEDS: dilTIAZem ER (24HR) 120 mg Capsule PO (06:18)
[2022-08-26] MEDS: cetirizine 10 mg Tablet PO (06:18)
[2022-08-26] MEDS: iron sucrose 200 MG in sodium chloride 0.9% (100 ml) 100 ML 220 MG IV (09:17)
[2022-08-26] MEDS: gabapentin 300 mg Capsule PO ×2 (09:26→20:39)
[2022-08-26] MEDS: tizanidine 4 mg Tablet 2 MG PO ×2 (09:26→17:20)
--- NOTE | 2022-08-26 10:22 | PM.PN ---
Subjective Subjective: Gary reports he is doing okay. Feels like his breathing may be a little bit better. He was still on 2 L when I visited with him this morning, despite his vitals saying he was on room air. He is coughing some. He did have a bowel movement yesterday. He reports no obvious blood in the bowel movement yesterday. This was Hemoccult positive. Medications: Reviewed: Yes Vitals/I&O/Wt Last Vital Signs Temp 97.6 F 08/26/22 08:00 Pulse 63 08/26/22 08:00 Resp 18 08/26/22 08:00 BP 123/77 08/26/22 08:00 Pulse Ox 96 08/26/22 08:00 O2 Del Method 08/25/22 16:00 O2 Flow Rate 2 08/25/22 20:00 08/25/22 08/26/22 08/26/22 22:59 06:59 14:59 Intake Total 540 / 590 440 / 1030 Output Total 0 / 0 Balance 540 / 590 440 / 1030 Weight last 48 hrs Weight 71.94 kg Weight 111.584 kg Physical Exam Narrative: General exam no distress Neck is supple no lymphadenopathy thyromegaly Cardiovascular regular rate and rhythm without murmur, no S3 or S4 Lungs crackles at the bases, left greater than right. Improved aeration from yesterday Abdomen is soft nontender positive bowel sounds. Surgical scars are noted. exam is deferred Extremities no cyanosis clubbing or edema, cap refill brisk Skin no rash Data 08/26/22 04:53 08/26/22 04:53 Micro: Microbiology 08/25/22 09:26 Blood Culture - Preliminary Blood NEGATIVE TO DATE 08/25/22 09:23 Blood Culture - Preliminary Blood NEGATIVE TO DATE 08/25/22 19:33 Occult Blood (FIT) - Final Stool - Stool Aspirate A&P Assessment and plan (1) Pneumonia: Patient was found to be hypoxic, has chest x-ray evidence of pneumonia I am suspicious he may have aspiration secondary to his chronic GI issues, with previous history of gastric bypass and intermittent vomiting. Continue Zosyn Repeat lab tomorrow Await sputum and blood cultures, blood cultures negative to date Pulmonary toilet Wean oxygen if tolerated Influenza negative. COVID-negative Zithromax p.o. to cover atypicals. Incentive spirometry (2) Iron deficiency anemia secondary to blood loss (chronic): Patient with significant anemia Past history of iron deficiency anemia Iron level significantly low. Iron transfusion today, likely repeat tomorrow. Stool Hemoccult was positive. Could benefit from EGD, colonoscopy once stable from a pneumonia standpoint. This could potentially be done as an outpatient if hemoglobin remained stable. This potentially could be related to chronic GI loss of blood or malabsorption secondary to previous history of gastric bypass Cannot rule out upper GI bleeding as above Continue Protonix 40 mg IV every 12 hours Aspirin has been discontinued (3) Chest pain: Nuclear imaging negative Troponin not elevated Suspect this may be GI related considering his intermittent vomiting, past history of gastric bypass, underlying anemia that is recently worsened. Currently he is chest pain-free See notations under anemia (4) Paroxysmal atrial fibrillation: Patient on Multaq, diltiazem. Continue. No anticoagulation secondary to his history of significant anemia (5) Abnormal CT of the abdomen: Concern of cholelithiasis on CT abdomen and pelvis. Liver enzymes are normal. Consider outpatient surgery consultation. (6) Chronic back pain: Continue methadone Associated with chronic constipation, continue Relistor. Dosing not needed till Tuesday. Plan Multiple other medical problems as outlined in past medical history Full code SCDs for DVT prophylaxis. Anticoagulation contraindicated secondary to severe anemia, concern of possible GI bleed. Attestations Medical Necessity Statement*: Needs continued hospitalization for IV antibiotics secondary to pneumonia with hypoxia as well as close monitoring of anemia. Coding Level of Care Code 45451 High MDM includes risk/complexity, reviewing test results, ordering lab/other test(s) and independently interpretating test(s) (not separately recorded) Diagnoses Pneumonia J18.9 Iron deficiency anemia secondary to blood loss (chronic) D50.0 Chest pain R07.9 Paroxysmal atrial fibrillation I48.[address] of the abdomen R93.5 Chronic back pain M54.9; G89.29 Time Spent (min) 25
[2022-08-26] MEDS: piperacillin-tazobactam 3.375 GM in sodium chloride 0.9% (plus) 50 ML IV ×2 (11:21→17:20)
[2022-08-26] MEDS: azithromycin 250 mg Tablet 500 MG PO (11:21)
--- NOTE | 2022-08-26 12:14 | PC.CHAP ---
Pastoral Care Encounter/Spiritual Assessment Type of Contact [] Declined computing services director visit [] Patient/Family/Request visit [] Outpatient visit [] Follow-up visit [] Physician referral [] Code/Alert [x] Routine visit [] Staff referral [] Actively dying [] Patient sleeping [] Family support [] [] Out of room [] Palliative care [] [x] Receiving care in room [] Pre-surgical visit [] Trauma [] Long length of stay [] ICU visit [] Other: Relational/Emotional Strength [x] Patient feels connected with others/family/visitors/staff [] Distress [] Loneliness/isolation [] Abandonment Spirituality of Patient [x] Person of Hilary [] Attends Shinto of their Hilary [x] Believes in Prayer [] Reads Bible or Caodaism materials [] There are Spiritual issues to be addressed Coal Grader Interventions [x] Prayer [x] Active listening [x] Non-anxious presence [x] Spiritual/emotional support [] Crisis/trauma care [x] Spiritual counseling [] Bereavement support [] Provided bereavement packet [] Provided Bible/devotional materials [] Provided toy/stuffed animal, coloring book to patient or family member [] Provided Communion [] Anointing/[place] [] Salvation [x] Completed spiritual assessment [] Other: Impact on Illness or Injury [] Angry [] Fearful [ ] Anxious [] Often cries [] Exhaustion [] Unable to work [] Unable to attend spiritism [] Unable to walk/stand [] Unable to read [] Unable to drive [] Unable to eat/drink [] Unable to sleep [] Unable to be with family [] Patient intubated [] Other: Summary pain heart is feeling better has a good attitude well go home Time spent with patient 10 mins
[2022-08-26] MEDS: ondansetron 2 mg/ML SDV 2 mL 4 MG IVP (13:22)
[2022-08-26] MEDS: amitriptyline 25 mg Tablet 50 MG PO (20:39)
[2022-08-26] MEDS: sertraline 100 mg Tablet 200 MG PO (20:39)
[2022-08-27] VITALS: BP 107/73; PULSE 62; RESP 18; TEMP 36.6; O2SAT 95
[2022-08-27] MEDS: piperacillin-tazobactam 3.375 GM in sodium chloride 0.9% (plus) 50 ML IV ×2 (02:11→10:44)
[2022-08-27 04:00] VITALS: BP 108/68; PULSE 61; RESP 18; TEMP 36.5; O2SAT 92
[2022-08-27 07:03] LABS: Basophils % 0.8 %; Eosinophils # 0.6 10^3/uL (0.0-0.8); Eosinophils % 11.4 %; Hematocrit 30.6 % (42.0-52.0); Hemoglobin 8.7 g/dL (11.7-16.6); Lymphocytes # 0.7 10^3/uL (0.8-4.8); Lymphocytes % 13.2 %; Mean Corpuscular HGB Conc 28.4 g/dL (30.0-36.0); Mean Corpuscular Hemoglobin 20.7 pg (28.0-34.0); Mean Corpuscular Volume 72.9 fl (80-94); Mean Platelet Volume 10.8 fL (7.4-10.4); Monocytes # 0.4 10^3/uL (0.2-0.9); Monocytes % 8.1 %; Neutrophils # 3.26 10^3/uL (1.8-7.7); Neutrophils % 66.1 %; Nucleated Red Blood Cells % 0 %; Platelet Count 191 10^3/cmm (130-400); Red Cell Distribution Width 16.9 % (12.1-15.1); White Blood Count 4.9 10^3/uL (4.0-10.0)
[2022-08-27 07:27] LABS: Anion Gap 10.5 (5-19); Blood Urea Nitrogen 11 mg/dL (8-23); Calcium 8.5 mg/dL (8.5-10.5); Carbon Dioxide 32 mmol/L (22-29); Chloride 101 mmol/L (98-107); Glucose 129 mg/dL (65-115); Osmolality Calculated 291 mOsm/kg (285-295); Potassium 3.5 mmol/L (3.5-5.1); Sodium 140 mmol/L (136-145)
[2022-08-27 07:59] VITALS: BP 132/89; PULSE 64; RESP 19; TEMP 36.7; O2SAT 91
[2022-08-27] MEDS: tizanidine 4 mg Tablet 2 MG PO (08:39)
[2022-08-27] MEDS: azithromycin 250 mg Tablet 500 MG PO (08:40)
[2022-08-27] MEDS: gabapentin 300 mg Capsule PO (08:41)
[2022-08-27] MEDS: dilTIAZem ER (24HR) 120 mg Capsule PO (08:41)
[2022-08-27] MEDS: cetirizine 10 mg Tablet PO (08:41)
[2022-08-27 08:42] VITALS: RESP 16
[2022-08-27] MEDS: methadone 10 mg Tablet 50 MG PO (08:42)
[2022-08-27] MEDS: iron sucrose 200 MG in sodium chloride 0.9% (100 ml) 100 ML 220 MG IV (08:44)
--- NOTE | 2022-08-27 08:53 | PM.DCS ---
Discharge Providers Date of Admission: 08/25/22 11:47 Date of Discharge: August 27, 2022 Attending Provider at Admission: Blade Lock MD Attending Provider at Discharge: Blade Lock MD Primary Care Provider: Alek Mahmood DO Diagnoses at Discharge Discharge Diagnosis (1) Pneumonia: Status: Acute (2) Iron deficiency anemia secondary to blood loss (chronic): Status: Acute (3) Chest pain: Status: Acute (4) Paroxysmal atrial fibrillation: Status: Acute (5) Abnormal CT of the abdomen: Status: Acute (6) Chronic back pain: Status: Acute Reason for Visit Reason for Visit: CHEST PAIN Hospital Course Hospital Course Gary is a 66-year-old white male that presented to the emergency department and was found to be hypoxic. He had complained originally of some shocking type discomfort in his left chest. He was also found to be significantly anemic, worse than his chronic anemia numbers. After further evaluation pneumonia was seen. Stool Hemoccult ultimately was positive and iron deficiency was noted. This has been a chronic problem according to the patient. He was given IV antibiotics, oxygen, and Protonix. His aspirin was stopped. Over the course of his hospitalization oxygen was able to be weaned off. Hemoglobin increased. I discussed with him work-up of anemia and heme positive stool with EGD and colonoscopy and this will be arranged outpatient at the patient's preference, with a referral to Dr. Castillo. Discharge hemoglobin was 8.7. Cultures were negative to date. Previous nuclear cardiac imaging demonstrated no reversible ischemia. Troponins were all negative. Patient was given an opportunity to ask questions, and agreed with the plan. Physical Exam Narrative: General exam no distress Neck is supple no lymphadenopathy thyromegaly Cardiovascular regular rate and rhythm Lungs clear Abdomen is soft Extremities no cyanosis clubbing or edema Discharge Data Studies Completed and Pending Completed Studies During Hospitalization Category Date Time Status XR chest 1V portable [id number] Urgent Exams 08/25/22 07:26 Completed Pending at discharge Category Date Time Status Blood Culture Stat Lab 08/25/22 09:23 Results Sputum Culture and Gram Stain Stat Lab 08/26/22 11:30 Received Radiology Impressions Chest X-Ray 08/25/22 07:26 IMPRESSION: 1. Developing bilateral lower lobe opacifications consistent with pneumonia. 2. Mild atherosclerosis aorta. Laboratory Results WBC 4.9 10^3/uL (4.0-10.0) 08/27/22 05:33 RBC 4.20 10^6/uL (4.1-5.3) 08/27/22 05:33 Hgb 8.7 g/dL (11.7-16.6) L 08/27/22 05:33 Hct 30.6 % (42.0-52.0) L 08/27/22 05:33 MCV 72.9 fl (80-94) L 08/27/22 05:33 MCH 20.7 pg (28.0-34.0) L 08/27/22 05:33 MCHC 28.4 g/dL (30.0-36.0) L 08/27/22 05:33 RDW 16.9 % (12.1-15.1) H 08/27/22 05:33 Plt Count 191 10^3/cmm (130-400) 08/27/22 05:33 MPV 10.8 fL (7.4-10.4) H 08/27/22 05:33 Neut % (Auto) 66.1 % 08/27/22 05:33 Lymph % (Auto) 13.2 % 08/27/22 05:33 [place] % (Auto) 8.1 % 08/27/22 05:33 Eos % (Auto) 11.4 % 08/27/22 05:33 Baso % (Auto) 0.8 % 08/27/22 05:33 Neut # (Auto) 3.26 10^3/uL (1.8-7.7) 08/27/22 05:33 Lymph # (Auto) 0.7 10^3/uL (0.8-4.8) L 08/27/22 05:33 [place] # (Auto) 0.4 10^3/uL (0.2-0.9) 08/27/22 05:33 Eos # (Auto) 0.6 10^3/uL (0.0-0.8) 08/27/22 05:33 Baso # (Auto) 0.0 10^3/uL (0.0-0.1) 08/27/22 05:33 Nucleated RBC % (auto) 0 % 08/27/22 05:33 Nucleated RBCs # 0.0 /100WBC 08/27/22 05:33 Sodium 140 mmol/L (136-145) 08/27/22 05:33 Potassium 3.5 mmol/L (3.5-5.1) 08/27/22 05:33 Chloride 101 mmol/L (98-107) 08/27/22 05:33 Carbon Dioxide 32 mmol/L (22-29) H 08/27/22 05:33 Anion Gap 10.5 (5-19) 08/27/22 05:33 BUN 11 mg/dL (8-23) 08/27/22 05:33 Creatinine 0.8 mg/dL (0.7-1.2) 08/27/22 05:33 GFR Calculation 97.0 mL/min (90-130) 08/27/22 05:33 Glucose 129 mg/dL (65-115) H 08/27/22 05:33 Calculated Osmolality 291 mOsm/kg (285-295) 08/27/22 05:33 Calcium 8.5 mg/dL (8.5-10.5) 08/27/22 05:33 Iron 13 ug/dL (59-158) L 08/25/22 07:54 TIBC 428 mcg/dl 08/25/22 07:54 % Saturation 3.0 % (20-50) L 08/25/22 07:54 Unsat Iron Binding 415 ug/dL (112-347) H 08/25/22 07:54 Ferritin 17 ng/mL (30-400) L 08/25/22 07:54 Total Bilirubin 0.4 mg/dL (0.15-1.2) 08/26/22 04:53 AST 13 U/L (0-40) 08/26/22 04:53 ALT 9 U/L (0-41) 08/26/22 04:53 Alkaline Phosphatase 102 U/L (40-130) 08/26/22 04:53 Troponin T Baseline 13 ng/L (0-15) 08/25/22 07:54 Troponin T 120 Minute 13.48 ng/L (0-15) 08/25/22 09:52 Delta Troponin T 0.48 ABS# (0-10) 08/25/22 09:52 Troponin T Hi Sens 6Hr 14.91 ng/L (0-15) 08/25/22 13:12 Troponin T Hi Sens 6Hr Delta 1.91 ng/L (0-12) 08/25/22 13:12 Total Protein 5.9 g/dL (6.6-8.7) L 08/26/22 04:53 Albumin 3.4 g/dL (3.5-5.2) L 08/26/22 04:53 Globulin 2.5 g/dL (1.3-4.6) 08/26/22 04:53 Coronavirus 229E (PCR) Not detected (NOT DETECT) 08/25/22 10:53 Influenza Type A Ag negative (Negative) 08/25/22 10:53 Influenza Type B Ag negative (Negative) 08/25/22 10:53 SARS-CoV-2 (PCR) Not detected (NOT DETECT) 08/25/22 10:53 Vitals Last Vital Signs Temp 98.0 F 08/27/22 07:59 Pulse 64 08/27/22 07:59 Resp 19 H 08/27/22 07:59 BP 132/89 08/27/22 07:59 Pulse Ox 91 08/27/22 07:59 O2 Del Method 08/25/22 16:00 O2 Flow Rate 2 08/26/22 20:00 Discharge Plan Discharge Patient Disposition: Home Condition: Stable Prescriptions: New amoxicillin-pot clavulanate 875-125 mg tablet 1 tab PO BID Qty: 14 0RF pantoprazole [Protonix] 40 mg tablet,delayed release (DR/EC) 40 mg PO BID Qty: 60 0RF Continued amitriptyline 25 mg tablet 50 mg PO BEDTIME sertraline 100 mg tablet 200 mg PO BEDTIME mupirocin 2 % ointment 1 applic TOPICAL TID PRN (Reason: Rash) Multaq 400 mg tablet 400 mg PO BID albuterol sulfate 90 mcg/actuation HFA aerosol inhaler 2 inh inhalation Q4H PRN (Reason: shortness of breath or wheezing) Qty: 6.7 1RF methadone 10 mg tablet 50 mg PO QAM ondansetron HCl 4 mg tablet 4 - 8 mg PO Q6H PRN (Reason: nausea/vomiting) cetirizine [Zyrtec] 10 mg Tablet 10 mg PO QAM tizanidine 2 mg tablet 2 mg PO BID gabapentin 300 mg capsule 300 mg PO TID diltiazem HCl 120 mg capsule,extended release 24hr 120 mg PO QAM Relistor 12 mg/0.6 mL syringe 0.6 ml SUBCUT Q7D Rx Instructions: on sat Discontinued aspirin 81 mg Tablet,Chewable 81 mg PO QAM Qty: 0 Discharge Orders: Discharge Order (Routine); Ordered 08/27/22 Ordered By: Blade Lock Referrals: Nii Castillo MD [Physician] - 2 weeks (Office closed on Fridays. Please call Tuesday to schedule a follow up appointment. ) Alek Mahmood DO [Primary Care Provider] - 08/30/22 2:00 pm (CBC on follow-up) Discharge Diet: Regular Discharge Activity: Increase activity as tolerated Patient Instructions: Opioid Safety Activity Restrictions/Additional Instructions: May discharge after dose of Rocephin and Zithromax today, and after iron transfusion Follow-up with your primary care provider 3 to 5 days with CBC. Take all medicine as prescribed Note referral to Dr. Castillo Aspirin is on hold currently but will need to be likely restarted at your visit with your primary care provider. Ask him about this after CBC is checked. Patient's Health Concerns: Shortness of breath Assessment: Pneumonia anemia Plan of Treatment: Finish course of antibiotics Iron transfusion in the hospital Follow-up with primary care provider Follow-up with surgery regarding possible EGD and colonoscopy Discharge Attestations Time Spent in Discharge Care*: greater than 30 min Quality Metrics Clinical Quality Measures [ No reported AMI, CVA or VTE this stay] Coding Level of Care Code 67161 Total time (in minutes) for Discharge: 38 Diagnoses Pneumonia J18.9 Iron deficiency anemia secondary to blood loss (chronic) D50.0 Chest pain R07.9 Paroxysmal atrial fibrillation I48.[address] of the abdomen R93.5 Chronic back pain M54.9; G89.29
[2022-08-27 10:11] VITALS: PULSE 62; RESP 18; O2SAT 92
--- NOTE | 2022-08-27 11:20 | PC.CHAP ---
Pastoral Care Encounter/Spiritual Assessment Type of Contact [] Declined afternoon nanny visit [] Patient/Family/Request visit [] Outpatient visit [] Follow-up visit [] Physician referral [] Code/Alert [x] Routine visit [] Staff referral [] Actively dying [] Patient sleeping [] Family support [] [] Out of room [] Palliative care [] [] Receiving care in room [] Pre-surgical visit [] Trauma [] Long length of stay [] ICU visit [] Other: Relational/Emotional Strength [] Patient feels connected with others/family/visitors/staff [] Distress [] Loneliness/isolation [] Abandonment Spirituality of Patient [] Person of Hilary [] Attends Voodoo of their Hilary [] Believes in Prayer [] Reads Bible or Zoroastrianism materials [] There are Spiritual issues to be addressed 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 [x] Prayer [] Active listening [] Non-anxious presence [] Spiritual/emotional support [] Crisis/trauma care [] Spiritual counseling [] Bereavement support [] Provided bereavement packet [] Provided Bible/devotional materials [] Provided toy/stuffed animal, coloring book to patient or family member [] Provided Communion [] Anointing/Story [] Salvation [] Completed spiritual assessment [] Other: Impact on Illness or Injury [] Angry [] Fearful [] Anxious [] Often cries [] Exhaustion [] Unable to work [] Unable to attend adventism [] Unable to walk/stand [] Unable to read [] Unable to drive [] Unable to eat/drink [] Unable to sleep [] Unable to be with family [] Patient intubated [] Other: Summary Time spent with patient 5min
[2022-08-27 11:37] VITALS: BP 119/64; PULSE 70; RESP 20; TEMP 36.4; O2SAT 96
[2022-08-27] MEDS: pantoprazole 40 mg SDV IVP (12:56)
== END 2022-08-27 14:00 | disposition home or self-care (01) | DRG 195 ==
LOC: ER 09:39 → MEDSURG 11:47
PROVIDERS: Physician Assistant; Admitting Provider Internal Medicine; Emergency Provider Family Medicine; PCP Electrodiagnostic Medicine; Visit Provider Internal Medicine
DX: J18.9 Pneumonia, unspecified organism (principal); D50.0 Iron deficiency anemia secondary to blood loss (chronic); Z79.51 Long term (current) use of inhaled steroids; Z79.891 Long term (current) use of opiate analgesic; I48.0 Paroxysmal atrial fibrillation; G89.29 Other chronic pain; M54.9 Dorsalgia, unspecified; Z98.84 Bariatric surgery status; F32.A Depression, unspecified; K21.9 Gastro-esophageal reflux disease without esophagitis; I10 Essential (primary) hypertension; E03.9 Hypothyroidism, unspecified; I49.5 Sick sinus syndrome; Z95.0 Presence of cardiac pacemaker; R19.5 Other fecal abnormalities
CPT/HCPCS: 36415; 71045; 80048; 80053; 82274; 82728; 83540; 83550; 84484; 85025; 87040; 87070; 87205; 87635; 87804; 93005; 96365; 96375; 99285; C9113; J1756; J2270; J2405; J2543; Q0144

== ENCOUNTER → 2022-10-20 09:20 | Outpatient (BNVA) | payer MEDICARE, MEDICAID, SELFPAY | PROVIDERS: PCP Electrodiagnostic Medicine; Visit Provider Nurse Practitioner | DX: D50.9 Iron deficiency anemia, unspecified (principal) | CPT/HCPCS: 99214 ==

== ENCOUNTER 2022-10-29 11:00 | Oncology outpatient (recurring) (ONCR) | payer MEDICARE, MEDICAID, SELFPAY ==
[2022-10-21 11:00] VITALS: BP 134/87; PULSE 72; TEMP 36.8; O2SAT 97
[2022-10-21] MEDS: sodium chloride 0.9% 250 ML 100 ML IV (11:39)
[2022-10-21] MEDS: diphenhydrAMINE 50 mg/mL SDV 1mL 25 MG IVP (11:39)
[2022-10-21] MEDS: iron sucrose 200 MG in sodium chloride 0.9% (100 ml) 100 ML 220 MG IV (12:06)
[2022-10-21 12:45] VITALS: BP 128/81; PULSE 63; TEMP 37.7; O2SAT 95
[2022-10-27] MEDS: iron sucrose 200 MG in sodium chloride 0.9% (100 ml) 100 ML 220 MG IV (11:56)
[2022-10-29] MEDS: sodium chloride 0.9% 250 ML 100 ML IV (11:06)
[2022-10-29] MEDS: diphenhydrAMINE 50 mg/mL SDV 1mL 25 MG IVP (11:07)
[2022-10-29 11:11] VITALS: BP 130/80; PULSE 64; TEMP 37.5; O2SAT 95
[2022-10-29] MEDS: iron sucrose 200 MG in sodium chloride 0.9% (100 ml) 100 ML 220 MG IV (11:13)
[2022-10-29 11:57] VITALS: BP 128/78; PULSE 66; TEMP 37.7; O2SAT 95
== END 2022-11-14 23:59 | disposition home or self-care (01) ==
PROVIDERS: PCP Electrodiagnostic Medicine; Visit Provider Internal Medicine Medical Oncology
DX: D50.0 Iron deficiency anemia secondary to blood loss (chronic) (principal)
CPT/HCPCS: 36415; 80053; 82728; 83540; 83550; 85025; 96365; 96375; 99213; J1200; J1756; J7050

== ENCOUNTER 2022-10-30 14:19 | Emergency (ER) | payer MEDICARE, MEDICAID, SELFPAY ==
[2022-10-30 14:28] VITALS: BP 154/84; PULSE 98; TEMP 37.7; O2SAT 94; BMI 28.7
[2022-10-30 14:44] VITALS: BP 139/81; PULSE 100; RESP 14; O2SAT 95
--- NOTE | 2022-10-30 14:46 | XRR_ITS ---
PROCEDURE INFORMATION: Exam: XR Chest Exam date and time: 10/30/2022 2:50 PM Age: 67 years old Clinical indication: Cough; Additional info: Rose Mary hook TECHNIQUE: Imaging protocol: Radiologic exam of the chest. Views: 1 view. COMPARISON: CR XR chest 1V portable [id number] 07/29/2022 7:21 PM FINDINGS: Tubes, catheters and devices: Pacemaker. Lungs: See Heart/Mediastinum finding. Pleural spaces: Unremarkable. No pleural effusion. No pneumothorax. Heart/Mediastinum: Cardiomegaly and pulmonary vascular congestion. Bones/joints: Unremarkable. XR/XR chest 1V portable [id number] IMPRESSION: 1. Cardiomegaly and pulmonary vascular congestion. 2. Pacemaker.
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
[2022-10-30 15:35] LABS: Basophils # 0.1 10^3/uL (0.0-0.1); Basophils % 0.5 %; Eosinophils # 0.3 10^3/uL (0.0-0.8); Eosinophils % 2.4 %; Hematocrit 31.1 % (42.0-52.0); Hemoglobin 8.9 g/dL (11.7-16.6); Lymphocytes # 0.7 10^3/uL (0.8-4.8); Lymphocytes % 5.1 %; Mean Corpuscular HGB Conc 28.6 g/dL (30.0-36.0); Mean Corpuscular Hemoglobin 19.9 pg (28.0-34.0); Mean Corpuscular Volume 69.4 fl (80-94); Mean Platelet Volume 10.3 fL (7.4-10.4); Monocytes # 0.6 10^3/uL (0.2-0.9); Monocytes % 4.8 %; Neutrophils # 11.08 10^3/uL (1.8-7.7); Neutrophils % 86.7 %; Nucleated Red Blood Cells % 0 %; Platelet Count 237 10^3/cmm (130-400); Red Blood Count 4.48 10^6/uL (4.1-5.3); Red Cell Distribution Width 22.2 % (12.1-15.1); White Blood Count 12.8 10^3/uL (4.0-10.0)
[2022-10-30 16:08] LABS: Alanine Aminotransferase 8 U/L (0-41); Albumin Level 3.8 g/dL (3.5-5.2); Alkaline Phosphatase 132 U/L (40-130); Anion Gap 15.2 (5-19); Aspartate Amino Transferase 19 U/L (0-40); Blood Urea Nitrogen 16 mg/dL (8-23); Calcium 8.2 mg/dL (8.5-10.5); Carbon Dioxide 24 mmol/L (22-29); Chloride 99 mmol/L (98-107); Creatinine Clr Calc Pharmacy 118.7474; Globulin 3.2 g/dL (1.3-4.6); Glomerular Filtration Rate 96.7 mL/min (90-130); Glucose 80 mg/dL (65-115); Osmolality Calculated 278 mOsm/kg (285-295); Potassium 4.2 mmol/L (3.5-5.1); Sodium 134 mmol/L (136-145); Total Bilirubin 0.3 mg/dL (0.15-1.2)
[2022-10-30] MEDS: sodium chloride 0.9% 1,000 ML 999 ML IV (17:01)
== END 2022-10-30 17:58 | disposition home or self-care (01) ==
PROVIDERS: Emergency Provider Emergency Medicine; PCP Electrodiagnostic Medicine
DX: J06.9 Acute upper respiratory infection, unspecified (principal); Z79.82 Long term (current) use of aspirin; I51.7 Cardiomegaly; Z95.0 Presence of cardiac pacemaker; I10 Essential (primary) hypertension
CPT/HCPCS: 36415; 71045; 80053; 85025; 86850; 86900; 99284; J7030

== ENCOUNTER 2023-01-13 08:05 | Oncology outpatient (recurring) (ONCR) | payer MEDICARE, MEDICAID, SELFPAY ==
[2022-12-28 08:53] VITALS: BP 125/84; PULSE 67; RESP 18; TEMP 37.2; O2SAT 97
[2022-12-28 08:53] LABS: Basophils # 0.1 10^3/uL (0.0-0.1); Basophils % 0.8 %; Eosinophils # 0.5 10^3/uL (0.0-0.8); Eosinophils % 6.6 %; Hemoglobin 10.7 g/dL (11.7-16.6); Lymphocytes # 0.8 10^3/uL (0.8-4.8); Mean Corpuscular HGB Conc 28.9 g/dL (30.0-36.0); Mean Corpuscular Hemoglobin 20.4 pg (28.0-34.0); Mean Corpuscular Volume 70.5 fl (80-94); Mean Platelet Volume 9.3 fL (7.4-10.4); Monocytes # 0.6 10^3/uL (0.2-0.9); Monocytes % 7.6 %; Neutrophils # 5.67 10^3/uL (1.8-7.7); Neutrophils % 74.6 %; Nucleated Red Blood Cells % 0 %; Platelet Count 227 10^3/cmm (130-400); Red Blood Count 5.25 10^6/uL (4.1-5.3); Red Cell Distribution Width 19.9 % (12.1-15.1); White Blood Count 7.6 10^3/uL (4.0-10.0)
[2022-12-28 09:10] LABS: Anion Gap 12.3 (5-19); Blood Urea Nitrogen 18 mg/dL (8-23); Calcium 8.3 mg/dL (8.5-10.5); Carbon Dioxide 28 mmol/L (22-29); Chloride 101 mmol/L (98-107); Glomerular Filtration Rate 96.7 mL/min (90-130); Potassium 4.3 mmol/L (3.5-5.1); Sodium 137 mmol/L (136-145); Total Bilirubin 0.2 mg/dL (0.15-1.2); Total Protein 7.3 g/dL (6.6-8.7)
[2022-12-28 10:11] LABS: Alanine Aminotransferase 14 U/L (0-41); Albumin Level 4.2 g/dL (3.5-5.2); Alkaline Phosphatase 166 U/L (40-130); Aspartate Amino Transferase 21 U/L (0-40); Ferritin 18 ng/mL (30-400); Globulin 3.1 g/dL (1.3-4.6); Glucose 103 mg/dL (65-115); Iron 23 ug/dL (59-158); Osmolality Calculated 286 mOsm/kg (285-295); Percent Saturation 5.4 % (20-50); Total Iron Binding Capacity 419 mcg/dl; Unsaturated Iron Binding 396 ug/dL (112-347)
[2023-01-13 08:25] VITALS: BP 124/79; PULSE 62; TEMP 37.3; O2SAT 92
[2023-01-13] MEDS: ferric carboxy (IVPB) 750 MG in sodium chloride 0.9% (100 ml) 100 ML 345 MG IV (08:58)
[2023-01-13 09:23] VITALS: BP 126/87; PULSE 61; TEMP 37.8; O2SAT 95
== END 2023-01-14 23:59 | disposition home or self-care (01) ==
PROVIDERS: Nurse Practitioner Family; PCP Electrodiagnostic Medicine; Visit Provider Internal Medicine Medical Oncology
DX: D50.0 Iron deficiency anemia secondary to blood loss (chronic) (principal); Z79.899 Other long term (current) drug therapy
CPT/HCPCS: 36415; 80053; 82728; 83540; 83550; 85025; 96365; 99214; J1439

== ENCOUNTER 2023-01-13 12:54 | Emergency (ER) | payer MEDICARE, MEDICAID, SELFPAY ==
[2023-01-13] VITALS (11 sets, daily range): BP systolic 104–124; BP diastolic 60–85; PULSE 60–73; RESP 19–20; TEMP 38; O2SAT 90–94
--- NOTE | 2023-01-13 13:05 | ECG_ITS ---
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 Measurements Intervals [place] Rate: 60 P: 180 NH: 213 QRS: -13 QRSD: 110 T: 5 QT: 398 QTc: 398 Interpretive Statements ELECTRONIC ATRIAL PACEMAKER MODERATE VOLTAGE CRITERIA FOR LVH, CONSIDER NORMAL VARIANT [MEETS CRITERIA IN ONE OF: R(aVL), S(V1), R(V5), R(V5/V6)+S(V1)] ABNORMAL RHYTHM ECG Compared to ECG 08/25/2022 13:33:34 Myocardial infarct finding no longer present T-wave abnormality no longer present Possible ischemia no longer present Electronically Signed On 01-13-2023 19:26:54 CDT by Dayna Mistry M.D. [email or web address] f
--- NOTE | 2023-01-13 13:19 | XR_ITS ---
WS: [id number] Exam: XR chest 1V portable [id number] Date/Time of Exam: 01/13/2023 1:27 PM Reason For Exam: chest pain Comparison 10/30/2022. The lungs are clear and fully expanded. Unremarkable cardiomediastinal silhouette. A cardiac pacer espinoza perimposes the left chest. Numerous surgical clips and sutures in the upper left abdomen. XR/XR chest 1V portable [id number] IMPRESSION: 1. No acute cardiopulmonary process.
[2023-01-13 13:47] LABS: Basophils % 0.3 %; Eosinophils # 0.3 10^3/uL (0.0-0.8); Eosinophils % 2.4 %; Hematocrit 33.9 % (42.0-52.0); Hemoglobin 9.6 g/dL (11.7-16.6); Lymphocytes # 0.7 10^3/uL (0.8-4.8); Lymphocytes % 6.5 %; Mean Corpuscular HGB Conc 28.3 g/dL (30.0-36.0); Mean Corpuscular Hemoglobin 20.2 pg (28.0-34.0); Mean Corpuscular Volume 71.2 fl (80-94); Mean Platelet Volume 9.5 fL (7.4-10.4); Monocytes # 0.8 10^3/uL (0.2-0.9); Monocytes % 7.2 %; Neutrophils # 8.81 10^3/uL (1.8-7.7); Neutrophils % 83.4 %; Nucleated Red Blood Cells % 0 %; Platelet Count 263 10^3/cmm (130-400); Red Blood Count 4.76 10^6/uL (4.1-5.3); White Blood Count 10.6 10^3/uL (4.0-10.0)
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
[2023-01-13 14:13] LABS: Alanine Aminotransferase 115 U/L (0-41); Albumin Level 3.9 g/dL (3.5-5.2); Alkaline Phosphatase 305 U/L (40-130); Aspartate Amino Transferase 143 U/L (0-40); Blood Urea Nitrogen 16 mg/dL (8-23); Calcium 8.4 mg/dL (8.5-10.5); Carbon Dioxide 30 mmol/L (22-29); Chloride 98 mmol/L (98-107); Globulin 2.8 g/dL (1.3-4.6); Glomerular Filtration Rate 112.8 mL/min (90-130); Glucose 103 mg/dL (65-115); Osmolality Calculated 289 mOsm/kg (285-295); Sodium 139 mmol/L (136-145); Total Bilirubin 0.4 mg/dL (0.15-1.2); Total Protein 6.7 g/dL (6.6-8.7)
[2023-01-13 14:15] LABS: Troponin(5th) Baseline 12 ng/L (0-15)
[2023-01-13] MEDS: nitroglycerin 0.4 mg sublingual Tablet SUBLINGUAL (14:17)
[2023-01-13] MEDS: morphine 4 mg/mL SDV 1 mL IVP (14:17)
[2023-01-13 14:28] LABS: D Dimer 3.22 ug/mIFEU (0-0.59)
--- NOTE | 2023-01-13 14:34 | CTR_ITS ---
PROCEDURE INFORMATION: Exam: CTA Chest With Contrast Exam date and time: 01/13/2023 3:23 PM Age: 67 years old Clinical indication: Pain; Chest pressure; Additional info: Recent surgery; Chest pain/sob, elevated ddimer TECHNIQUE: Imaging protocol: Computed tomographic angiography of the chest with contrast. Exam focused on the arteries. 3D rendering (Not supervised by radiologist): MIP and/or 3D reconstructed images were created by the technologist. Radiation optimization: All CT scans at this facility use at least one of these dose optimization techniques: automated exposure control; mA and/or kV adjustment per patient size (includes targeted exams where dose is matched to clinical indication); or iterative reconstruction. Contrast material: OMNI 350; Contrast volume: 100 ml; Contrast route: INTRAVENOUS (IV); REPORTING DATA: Count of CT and Cardiac NM exams in prior 12 months: This patient has received 4 known CTs and 0 known cardiac nuclear medicine studies in the 12 months prior to the current study. COMPARISON: CT angio chest PE protcl [id number] 05/11/2021 8:36 AM RADIATION DOSE METRICS: Total DLP (mGy-cm): 578.71 FINDINGS: Tubes, catheters and devices: Left-sided pacemaker. Pulmonary arteries: Normal. No pulmonary emboli. Aorta: Unremarkable. No aortic aneurysm. No aortic dissection. Lungs: Unremarkable. No consolidation. No masses. Pleural spaces: Unremarkable. No pneumothorax. No pleural effusion. Heart: Unremarkable. No cardiomegaly. No pericardial effusion. Lymph nodes: Several enlarged left axillary lymph nodes, somewhat increased in size and number compared to prior exam measuring up to 17 mm with surrounding edema, nonspecific. Gallbladder and bile ducts: Cholecystectomy with fluid and air in the gallbladder fossa may be postsurgical in nature, infection and/or a biliary leak are not excluded, please correlate clinically, further evaluation with a nuclear medicine HIDA scan can be considered for further evaluation of a biliary leak if clinically indicated. Stomach and bowel: Constipation. Gastric surgical clips. Bones/joints: Unremarkable. No acute fracture. Soft tissues: Subcutaneous emphysema over the right upper abdomen likely postsurgical in nature. Left kidney cyst, negative for follow-up advised. CT/CT angio chest PE protcl [id number] IMPRESSION: 1. Cholecystectomy with fluid and air in the gallbladder fossa may be postsurgical in nature, infection and/or a biliary leak are not excluded, please correlate clinically, further evaluation with a nuclear medicine HIDA scan can be considered for further evaluation of a biliary leak if clinically indicated. 2. Several enlarged left axillary lymph nodes, somewhat increased in size and number compared to prior exam measuring up to 17 mm with surrounding edema, nonspecific. 3. Left-sided pacemaker. 4. Constipation. 5. Gastric surgical clips. 6. Subcutaneous emphysema over the right upper abdomen likely postsurgical in nature. 7. Left kidney cyst, negative for follow-up advised.
[2023-01-13 14:35] LABS: Procalcitonin 0.14 ng/mL (0-0.5)
[2023-01-13 15:02] LABS: Lipase 12 U/L (13-60)
--- NOTE | 2023-01-13 15:19 | ECG_ITS ---
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 Measurements Intervals [place] Rate: 61 P: 169 ME: 230 QRS: -9 QRSD: 114 T: 12 QT: 416 QTc: 420 Interpretive Statements ELECTRONIC ATRIAL PACEMAKER MODERATE INTRAVENTRICULAR CONDUCTION DELAY [110+ ms QRS DURATION] ABNORMAL RHYTHM ECG Compared to ECG 01/13/2023 13:05:31 Intraventricular conduction delay now present Electronically Signed On 01-13-2023 19:27:58 CDT by Dayna Mistry M.D. [email or web address]/[id number]
[2023-01-13] MEDS: iohexol 350 mg/mL 500 mL Btl (per mL) IV (15:34)
[2023-01-13 16:42] LABS: Troponin 5 2HR 11.93 ng/L (0-15)
[2023-01-13 16:46] LABS: Troponin 5 2HR Delta -0.07 ABS# (0-10)
[2023-01-13] MEDS: acetaminophen 325 mg Tablet 650 MG PO (18:11)
== END 2023-01-13 18:18 | disposition home or self-care (01) ==
PROVIDERS: Physician Assistant; Emergency Provider Physician Assistant; PCP Electrodiagnostic Medicine
DX: R07.9 Chest pain, unspecified (principal); R94.5 Abnormal results of liver function studies; R10.9 Unspecified abdominal pain; R59.0 Localized enlarged lymph nodes; N28.1 Cyst of kidney, acquired; Z95.0 Presence of cardiac pacemaker; Z79.899 Other long term (current) drug therapy
CPT/HCPCS: 36415; 71045; 71275; 80053; 83690; 84145; 84484; 85025; 85378; 93005; 96374; 99285; J2270; Q9967

== ENCOUNTER 2023-01-31 08:45 | Oncology outpatient (recurring) (ONCR) | payer MEDICARE, MEDICAID, SELFPAY ==
[2023-01-31 08:50] VITALS: BP 114/76; PULSE 85; RESP 16; TEMP 36; O2SAT 94
[2023-01-31] MEDS: ferric carboxy (IVPB) 750 MG in sodium chloride 0.9% (100 ml) 100 ML 345 MG IV (09:59)
[2023-01-31 10:25] VITALS: BP 107/68; PULSE 60; TEMP 37.1; O2SAT 92
== END 2023-02-14 23:59 | disposition home or self-care (01) ==
LOC: ONCMED 08:46
PROVIDERS: PCP Electrodiagnostic Medicine; Visit Provider Internal Medicine Medical Oncology
DX: D50.0 Iron deficiency anemia secondary to blood loss (chronic) (principal)
CPT/HCPCS: 96365; J1439

== ENCOUNTER 2023-04-10 12:11 | Emergency (ER) | payer MEDICARE, MEDICAID, SELFPAY ==
[2023-04-10 12:14] VITALS: BP 183/115; PULSE 115; RESP 20; TEMP 36.8; O2SAT 88; BMI 31.2
--- NOTE | 2023-04-10 12:33 | ECG_ITS ---
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 Measurements Intervals [place] Rate: 114 P: 65 [place]: 134 QRS: -31 QRSD: 122 T: 107 QT: 320 QTc: 442 Interpretive Statements SINUS TACHYCARDIA LEFT AXIS DEVIATION [QRS AXIS < -30] LEFT VENTRICULAR HYPERTROPHY AND ST-T CHANGE [VOLTAGE CRITERIA PLUS ST/T ABNORMALITY] Compared to ECG 01/13/2023 15:53:56 Left-axis deviation now present Left ventricular hypertrophy now present ST (T wave) deviation now present Atrial-paced complex(es) or rhythm no longer present Intraventricular conduction delay no longer present Electronically Signed On 04-10-2023 14:39:35 CDT by Gerardo Mayers M.D. [id number]
--- NOTE | 2023-04-10 12:33 | XRR_ITS ---
PROCEDURE INFORMATION: Exam: XR Chest Exam date and time: 04/10/2023 12:38 PM Age: 67 years old Clinical indication: Shortness of breath; Additional info: Chest pain TECHNIQUE: Imaging protocol: Radiologic exam of the chest. Views: 1 view. COMPARISON: CR XR chest 1V portable [id number] 01/13/2023 12:32 PM FINDINGS: Tubes, catheters and devices: Dual-chamber pacemaker in place. Lungs: Unremarkable. No consolidation. Pleural spaces: Unremarkable. No pleural effusion. No pneumothorax. Heart/Mediastinum: Unremarkable. No cardiomegaly. Bones/joints: Unremarkable. XR/XR chest 1V portable [id number] IMPRESSION: No acute findings.
[2023-04-10 12:58] VITALS: O2SAT 92
[2023-04-10 13:05] LABS: Basophils # 0.1 10^3/uL (0.0-0.1); Basophils % 0.4 %; Eosinophils # 0.3 10^3/uL (0.0-0.8); Eosinophils % 2.2 %; Hematocrit 37.2 % (37-53); Lymphocytes # 0.4 10^3/uL (0.8-4.8); Lymphocytes % 3.9 %; Mean Corpuscular HGB Conc 31.2 g/dL (30-55); Mean Corpuscular Volume 80.2 fl (82-101); Mean Platelet Volume 10.1 fL (7.4-10.4); Monocytes # 0.5 10^3/uL (0.2-0.9); Neutrophils # 10.16 10^3/uL (1.8-7.7); Neutrophils % 89.2 %; Nucleated Red Blood Cells % 0 %; Platelet Count 270 10^3/cmm (157-399); Red Blood Count 4.64 10^6/uL (3.85-5.65); Red Cell Distribution Width 18.6 % (12.1-15.1); White Blood Count 11.38 10^3/uL (3.29-11.43)
--- NOTE | 2023-04-10 13:06 | CTR_ITS ---
PROCEDURE INFORMATION: Exam: CT Head Without Contrast Exam date and time: 04/10/2023 1:24 PM Age: 67 years old Clinical indication: Dizziness; Additional info: Weakness dizziness multiple falls TECHNIQUE: Imaging protocol: Computed tomography of the head without contrast. Radiation optimization: All CT scans at this facility use at least one of these dose optimization techniques: automated exposure control; mA and/or kV adjustment per patient size (includes targeted exams where dose is matched to clinical indication); or iterative reconstruction. REPORTING DATA: Count of CT and Cardiac NM exams in prior 12 months: This patient has received 5 known CTs and 0 known cardiac nuclear medicine studies in the 12 months prior to the current study. COMPARISON: CT head wo con* [id number] 05/25/2022 9:54 PM RADIATION DOSE METRICS: Total DLP (mGy-cm): 1124.28 FINDINGS: Brain: Mild bilateral periventricular and subcortical white matter hypodensities are present compatible with small-vessel ischemic disease. No midline shift. No mass, acute infarct, hemorrhage, or extra-axial fluid collection. Cerebral ventricles: No ventriculomegaly. Paranasal sinuses: Visualized sinuses are unremarkable. No fluid levels. Mastoid air cells: Visualized mastoid air cells are well aerated. Bones/joints: Unremarkable. No acute fracture. Soft tissues: Unremarkable. CT/CT head wo con* [id number] IMPRESSION: No acute intracranial abnormality.
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
[2023-04-10 13:19] VITALS: BP 127/75; PULSE 62; RESP 18; O2SAT 94
[2023-04-10 13:25] LABS: Alanine Aminotransferase 48 U/L (0-41); Albumin Level 4.1 g/dL (3.5-5.2); Alkaline Phosphatase 283 U/L (40-130); Anion Gap 14.6 (5-19); Aspartate Amino Transferase 63 U/L (0-40); Blood Urea Nitrogen 18 mg/dL (8-23); Calcium 8.4 mg/dL (8.5-10.5); Carbon Dioxide 27 mmol/L (22-29); Chloride 99 mmol/L (98-107); Globulin 3.1 g/dL (1.3-4.6); Glomerular Filtration Rate 74.8 mL/min (90-130); Glucose 163 mg/dL (65-115); Osmolality Calculated 287 mOsm/kg (285-295); Potassium 4.6 mmol/L (3.5-5.1); Sodium 136 mmol/L (136-145); Total Bilirubin 0.4 mg/dL (0.15-1.2); Total Protein 7.2 g/dL (6.6-8.7); Troponin(5th) Baseline 13 ng/L (0-15)
[2023-04-10 13:36] LABS: INR 1.08 (0.8-1.2)
--- NOTE | 2023-04-10 14:33 | ECG_ITS ---
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 Measurements Intervals [place] Rate: 65 P: 243 SC: 207 QRS: -20 QRSD: 111 T: 62 QT: 300 QTc: 312 Interpretive Statements Regular supraventricular rhythm Significant artifact MODERATE INTRAVENTRICULAR CONDUCTION DELAY [110+ ms QRS DURATION] MINIMAL VOLTAGE CRITERIA FOR LVH, CONSIDER NORMAL VARIANT [MEETS CRITERIA IN ONE OF: R(aVL), S(V1), R(V5), R(V5/V6)+S(V1)] NONSPECIFIC ST & T-WAVE ABNORMALITY Compared to ECG 04/10/2023 12:17:20 Intraventricular conduction delay now present T-wave abnormality now present Left-axis deviation no longer present ST (T wave) deviation no longer present Electronically Signed On 04-10-2023 14:52:48 CDT by Gerardo Mayers M.D. [email or web address]/store/OM/[id number]
--- NOTE | 2023-04-10 14:37 | PC.NURSE ---
RN at bedside for medication administration. Patient family reported that patient fell in the kitchen this morning and hit the back of his head. Patient family also reported that the slight jerking that the patient is doing is not normal for the patient. Family stating that they are wanting to take the patient to another facility ER for further care. Patient refused medication at this time. Dr. Ness informed of patient family concerns and patient refusing medication. Dr. Ness to go to bedside to speak with patient and family.
[2023-04-10 14:46] VITALS: BP 134/82; PULSE 71; RESP 18; O2SAT 94
== END 2023-04-10 15:00 | disposition left against medical advice (07) ==
PROVIDERS: Emergency Provider Emergency Medicine; PCP Electrodiagnostic Medicine
DX: R07.89 Other chest pain (principal); R51.9 Headache, unspecified; R25.1 Tremor, unspecified; Z53.21 Procedure and treatment not carried out due to patient leaving prior to being seen by health care provider; Z79.82 Long term (current) use of aspirin; Z79.891 Long term (current) use of opiate analgesic; I10 Essential (primary) hypertension
CPT/HCPCS: 36415; 70450; 71045; 80053; 84484; 85025; 85610; 93005; 99285

== ENCOUNTER 2023-07-15 08:00 | Oncology outpatient (recurring) (ONCR) | payer MEDICARE, MEDICAID, SELFPAY ==
[2023-07-07 13:15] VITALS: BP 132/73; PULSE 81; RESP 16; TEMP 37.1; O2SAT 93
[2023-07-07 13:24] LABS: Basophils # 0.1 10^3/uL (0.0-0.1); Basophils % 0.8 %; Eosinophils # 0.6 10^3/uL (0.0-0.8); Eosinophils % 6.9 %; Hematocrit 30.3 % (37-53); Lymphocytes % 10.8 %; Mean Corpuscular HGB Conc 30.4 g/dL (30-55); Mean Corpuscular Hemoglobin 21.7 pg (27-33); Mean Corpuscular Volume 71.5 fl (82-101); Mean Platelet Volume 10.3 fL (7.4-10.4); Monocytes # 0.6 10^3/uL (0.2-0.9); Monocytes % 6.2 %; Neutrophils # 6.97 10^3/uL (1.8-7.7); Neutrophils % 74.9 %; Nucleated Red Blood Cells % 0 %; Platelet Count 300 10^3/cmm (157-399); Red Blood Count 4.24 10^6/uL (3.85-5.65); Red Cell Distribution Width 15.1 % (12.1-15.1); White Blood Count 9.31 10^3/uL (3.29-11.43)
[2023-07-07 13:41] LABS: Alanine Aminotransferase 11 U/L (0-41); Albumin Level 3.8 g/dL (3.5-5.2); Alkaline Phosphatase 156 U/L (40-130); Anion Gap 14.4 (5-19); Aspartate Amino Transferase 17 U/L (0-40); Blood Urea Nitrogen 15 mg/dL (8-23); Calcium 7.6 mg/dL (8.5-10.5); Carbon Dioxide 25 mmol/L (22-29); Chloride 100 mmol/L (98-107); Globulin 2.9 g/dL (1.3-4.6); Glomerular Filtration Rate 96.7 mL/min (90-130); Glucose 126 mg/dL (65-115); Osmolality Calculated 282 mOsm/kg (285-295); Potassium 4.4 mmol/L (3.5-5.1); Sodium 135 mmol/L (136-145); Total Bilirubin 0.2 mg/dL (0.15-1.2); Total Protein 6.7 g/dL (6.6-8.7)
[2023-07-07 14:13] LABS: Ferritin 8 ng/mL (30-400); Iron 24 ug/dL (59-158); Percent Saturation 6.5 % (20-50); Total Iron Binding Capacity 369 mcg/dl; Unsaturated Iron Binding 345 ug/dL (112-347)
[2023-07-08 07:51] VITALS: BP 123/80; PULSE 92; RESP 17; TEMP 36.2; O2SAT 96
[2023-07-08] MEDS: ferric carboxy (IVPB) 750 MG in sodium chloride 0.9% (100 ml) 100 ML 345 MG IV (08:13)
== END 2023-07-17 23:59 | disposition home or self-care (01) ==
PROVIDERS: Nurse Practitioner Family; PCP Electrodiagnostic Medicine; Visit Provider Internal Medicine Medical Oncology
DX: Z53.9 Procedure and treatment not carried out, unspecified reason (principal)
CPT/HCPCS: 36415; 80053; 82728; 83540; 83550; 85025; 96365; 99214; J1439

== ENCOUNTER 2023-12-01 12:30 | Oncology outpatient (recurring) (ONCR) | payer MEDICARE, MEDICAID, SELFPAY ==
[2023-11-24 12:07] LABS: Basophils # 0.1 10^3/uL (0.0-0.1); Basophils % 0.8 %; Eosinophils # 0.3 10^3/uL (0.0-0.8); Eosinophils % 4.2 %; Lymphocytes # 0.5 10^3/uL (0.8-4.8); Lymphocytes % 8.5 %; Mean Corpuscular Hemoglobin 17.5 pg (27-33); Mean Corpuscular Volume 64.8 fl (82-101); Mean Platelet Volume 9.7 fL (7.4-10.4); Monocytes # 0.4 10^3/uL (0.2-0.9); Monocytes % 7.3 %; Neutrophils # 4.64 10^3/uL (1.8-7.7); Neutrophils % 78.9 %; Nucleated Red Blood Cells % 0 %; Platelet Count 330 10^3/cmm (157-399); Red Blood Count 3.55 10^6/uL (3.85-5.65); Red Cell Distribution Width 17.4 % (12.1-15.1); White Blood Count 5.89 10^3/uL (3.29-11.43)
[2023-11-24 12:30] LABS: Alanine Aminotransferase 18 U/L (0-41); Albumin Level 3.3 g/dL (3.5-5.2); Alkaline Phosphatase 99 U/L (40-130); Anion Gap 12.6 (5-19); Aspartate Amino Transferase 25 U/L (0-40); Blood Urea Nitrogen 15 mg/dL (8-23); Calcium 7.7 mg/dL (8.5-10.5); Carbon Dioxide 27 mmol/L (22-29); Chloride 103 mmol/L (98-107); Ferritin 12 ng/mL (30-400); Globulin 2.8 g/dL (1.3-4.6); Glomerular Filtration Rate 96.4 mL/min (90-130); Glucose 109 mg/dL (65-115); Iron 13 ug/dL (59-158); Osmolality Calculated 287 mOsm/kg (285-295); Percent Saturation 3.5 % (20-50); Potassium 4.6 mmol/L (3.5-5.1); Sodium 138 mmol/L (136-145); Total Bilirubin 0.3 mg/dL (0.15-1.2); Total Iron Binding Capacity 362 mcg/dl; Total Protein 6.1 g/dL (6.6-8.7); Unsaturated Iron Binding 349 ug/dL (112-347)
[2023-11-24] MEDS: sodium chloride 0.9% (100 ml) 100 ML 50 ML (13:40)
[2023-11-24] MEDS: acetaminophen 325 mg Tablet 650 MG PO (13:43)
[2023-11-24] MEDS: diphenhydrAMINE 25 mg Capsule PO (13:44)
[2023-11-24 14:02] VITALS: BP 112/70; PULSE 62; RESP 18; TEMP 36.4; O2SAT 90
[2023-11-24 15:30] VITALS: BP 112/67; PULSE 61; RESP 18; TEMP 36.4; O2SAT 96
[2023-11-24 15:40] VITALS: BP 112/67; PULSE 61; RESP 18; TEMP 36.4; O2SAT 96
[2023-11-25] MEDS: acetaminophen 325 mg Tablet 650 MG PO (08:48)
[2023-11-25] MEDS: diphenhydrAMINE 25 mg Capsule PO (08:49)
[2023-11-25] MEDS: sodium chloride 0.9% 250 mL Bag IV (09:20)
[2023-11-25 09:30] VITALS: BP 100/62; PULSE 61; RESP 16; TEMP 36.7; O2SAT 92
[2023-11-25 09:49] VITALS: BP 100/63; PULSE 60; RESP 17; TEMP 36.7; O2SAT 97
[2023-11-25 10:15] VITALS: BP 95/68; PULSE 59; RESP 16; TEMP 36.7; O2SAT 94
[2023-11-25 10:35] VITALS: BP 105/65; PULSE 61; RESP 16; TEMP 36.6; O2SAT 95
[2023-11-25 12:02] VITALS: BP 106/63; PULSE 60; RESP 17; TEMP 36.7; O2SAT 92
[2023-11-25 12:03] VITALS: BP 104/63; PULSE 60; RESP 17; TEMP 36.7; O2SAT 92
[2023-12-01 11:39] VITALS: BP 124/74; PULSE 87; RESP 18; TEMP 35.6; O2SAT 93
[2023-12-01] MEDS: sodium chloride 0.9% 250 ML 75 ML IV (12:08)
[2023-12-01] MEDS: iron sucrose 500 MG in sodium chloride 0.9% 250 ML 78 MG IV (12:08)
[2023-12-01 16:05] VITALS: BP 148/78; PULSE 78; RESP 18; TEMP 37.2; O2SAT 98
== END 2023-12-16 23:59 | disposition home or self-care (01) ==
PROVIDERS: Nurse Practitioner Family; PCP Electrodiagnostic Medicine; Visit Provider Internal Medicine Medical Oncology
DX: Z53.9 Procedure and treatment not carried out, unspecified reason (principal); D50.0 Iron deficiency anemia secondary to blood loss (chronic)
CPT/HCPCS: 36415; 36430; 80053; 82728; 83540; 83550; 85025; 86850; 86900; 86920; 96365; 96366; 99214; J1756; J7050; P9016

== ENCOUNTER 2023-12-22 08:15 | Oncology outpatient (recurring) (ONCR) | payer MEDICARE, MEDICAID, SELFPAY ==
[2023-12-19 12:22] VITALS: BP 105/71; PULSE 98; RESP 18; TEMP 35.6; O2SAT 98
[2023-12-19] MEDS: iron sucrose 500 MG in sodium chloride 0.9% 250 ML 78 MG IV (12:30)
[2023-12-19 15:18] VITALS: BP 116/69; PULSE 66; RESP 18; TEMP 36.3; O2SAT 97
== END 2024-01-15 23:59 | disposition home or self-care (01) ==
PROVIDERS: PCP Electrodiagnostic Medicine; Visit Provider Internal Medicine Medical Oncology
DX: Z53.9 Procedure and treatment not carried out, unspecified reason (principal)
CPT/HCPCS: 96365; 96366; J1756; J7050

== ENCOUNTER 2024-03-12 14:30 | Oncology outpatient (recurring) (ONCR) | payer MEDICARE, MEDICAID, SELFPAY ==
[2024-03-02 08:17] LABS: Basophils % 0.2 %; Eosinophils % 0.1 %; Hematocrit 33.1 % (37-53); Lymphocytes # 0.9 10^3/uL (0.8-4.8); Lymphocytes % 7.9 %; Mean Corpuscular Volume 69.1 fl (82-101); Mean Platelet Volume 10.4 fL (7.4-10.4); Monocytes # 0.7 10^3/uL (0.2-0.9); Monocytes % 5.9 %; Neutrophils # 10.25 10^3/uL (1.8-7.7); Neutrophils % 85.6 %; Nucleated Red Blood Cells % 0 %; Platelet Count 322 10^3/cmm (157-399); Red Blood Count 4.79 10^6/uL (3.85-5.65); Red Cell Distribution Width 17.9 % (12.1-15.1); White Blood Count 11.97 10^3/uL (3.29-11.43)
[2024-03-02 08:36] LABS: Alanine Aminotransferase 15 U/L (0-41); Albumin Level 4.3 g/dL (3.5-5.2); Alkaline Phosphatase 185 U/L (40-130); Anion Gap 15.2 (5-19); Aspartate Amino Transferase 16 U/L (0-40); Blood Urea Nitrogen 26 mg/dL (8-23); Calcium 8.5 mg/dL (8.5-10.5); Carbon Dioxide 21 mmol/L (22-29); Chloride 104 mmol/L (98-107); Ferritin 15 ng/mL (30-400); Globulin 3.1 g/dL (1.3-4.6); Glomerular Filtration Rate 96.4 mL/min (90-130); Glucose 105 mg/dL (65-115); Iron 17 ug/dL (59-158); Osmolality Calculated 287 mOsm/kg (285-295); Percent Saturation 3.7 % (20-50); Potassium 4.2 mmol/L (3.5-5.1); Sodium 136 mmol/L (136-145); Total Bilirubin 0.2 mg/dL (0.15-1.2); Total Iron Binding Capacity 455 mcg/dl; Total Protein 7.4 g/dL (6.6-8.7); Unsaturated Iron Binding 438 ug/dL (112-347)
[2024-03-02] MEDS: iron sucrose 200 MG in sodium chloride 0.9% (100 ml) 100 ML 220 MG IV (10:39)
[2024-03-02 11:18] VITALS: BP 118/74; PULSE 81; RESP 16; TEMP 36.7; O2SAT 97
== END 2024-03-17 23:59 | disposition home or self-care (01) ==
PROVIDERS: Nurse Practitioner Family; PCP Electrodiagnostic Medicine; Visit Provider Internal Medicine Medical Oncology
DX: Z53.9 Procedure and treatment not carried out, unspecified reason
CPT/HCPCS: 36415; 80053; 82728; 83540; 83550; 85025; 96365; 99214; J1756

== ENCOUNTER 2024-05-14 11:00 | Oncology outpatient (recurring) (ONCR) | payer MEDICARE, MEDICAID, SELFPAY ==
[2024-05-02 10:03] LABS: Basophils # 0.1 10^3/uL (0.0-0.1); Basophils % 1.1 %; Eosinophils # 0.4 10^3/uL (0.0-0.8); Eosinophils % 8.2 %; Hematocrit 32.2 % (37-53); Lymphocytes # 0.8 10^3/uL (0.8-4.8); Lymphocytes % 15.1 %; Mean Corpuscular HGB Conc 29.2 g/dL (30-55); Mean Corpuscular Hemoglobin 19.9 pg (27-33); Mean Corpuscular Volume 68.1 fl (82-101); Mean Platelet Volume 10.2 fL (7.4-10.4); Monocytes # 0.5 10^3/uL (0.2-0.9); Neutrophils # 3.45 10^3/uL (1.8-7.7); Nucleated Red Blood Cells % 0 %; Platelet Count 230 10^3/cmm (157-399); Red Blood Count 4.73 10^6/uL (3.85-5.65); Red Cell Distribution Width 19.9 % (12.1-15.1); White Blood Count 5.23 10^3/uL (3.29-11.43)
[2024-05-02 10:16] LABS: Alanine Aminotransferase 24 U/L (0-41); Alkaline Phosphatase 202 U/L (40-130); Anion Gap 12.4 (5-19); Aspartate Amino Transferase 18 U/L (0-40); Blood Urea Nitrogen 16 mg/dL (8-23); Calcium 8.1 mg/dL (8.5-10.5); Carbon Dioxide 27 mmol/L (22-29); Chloride 102 mmol/L (98-107); Creatinine Clr Calc Pharmacy 111.2808; Ferritin 13 ng/mL (30-400); Globulin 2.9 g/dL (1.3-4.6); Glomerular Filtration Rate 84.2 mL/min (90-130); Glucose 136 mg/dL (65-115); Iron 19 ug/dL (59-158); Osmolality Calculated 287 mOsm/kg (285-295); Percent Saturation 4.6 % (20-50); Potassium 4.4 mmol/L (3.5-5.1); Sodium 137 mmol/L (136-145); Total Bilirubin 0.3 mg/dL (0.15-1.2); Total Iron Binding Capacity 413 mcg/dl; Total Protein 6.9 g/dL (6.6-8.7); Unsaturated Iron Binding 394 ug/dL (112-347)
[2024-05-02 10:38] LABS: Slide Review Slide Review Perform
[2024-05-07 11:01] VITALS: BP 115/75; PULSE 82; RESP 16; TEMP 37; O2SAT 92
[2024-05-07] MEDS: iron sucrose 200 MG in sodium chloride 0.9% (100 ml) 100 ML 220 MG IV (11:22)
[2024-05-07 12:05] VITALS: BP 116/64; PULSE 84; RESP 16; TEMP 36.4; O2SAT 98
[2024-05-11 10:35] VITALS: BP 103/67; PULSE 95; RESP 16; TEMP 37; O2SAT 93
[2024-05-11] MEDS: iron sucrose 200 MG in sodium chloride 0.9% (100 ml) 100 ML 220 MG IV (10:36)
[2024-05-11 11:06] VITALS: BP 109/71; PULSE 72; RESP 16; TEMP 36.8; O2SAT 95
[2024-05-14 10:53] VITALS: BP 115/63; PULSE 88; RESP 16; TEMP 37.4; O2SAT 93
[2024-05-14] MEDS: iron sucrose 200 MG in sodium chloride 0.9% (100 ml) 100 ML 220 MG IV (11:01)
[2024-05-14 11:32] VITALS: BP 115/72; PULSE 61; RESP 17; TEMP 37.3; O2SAT 94
== END 2024-05-17 23:59 | disposition home or self-care (01) ==
PROVIDERS: Nurse Practitioner Family; PCP Electrodiagnostic Medicine; Visit Provider Internal Medicine Medical Oncology
DX: D50.0 Iron deficiency anemia secondary to blood loss (chronic) (principal); I48.0 Paroxysmal atrial fibrillation; Z53.9 Procedure and treatment not carried out, unspecified reason
CPT/HCPCS: 36415; 80053; 82728; 83540; 83550; 85025; 96365; 99214; J1756

== ENCOUNTER 2024-06-13 11:33 | Oncology outpatient (recurring) (ONCR) | payer MEDICARE, MEDICAID, SELFPAY ==
[2024-06-13 12:39] LABS: Basophils # 0.1 10^3/uL (0.0-0.1); Basophils % 0.9 %; Eosinophils # 0.4 10^3/uL (0.0-0.8); Hematocrit 35.8 % (37-53); Lymphocytes % 15.9 %; Mean Corpuscular HGB Conc 30.4 g/dL (30-55); Mean Corpuscular Hemoglobin 22.3 pg (27-33); Mean Corpuscular Volume 73.4 fl (82-101); Mean Platelet Volume 9.7 fL (7.4-10.4); Monocytes # 0.5 10^3/uL (0.2-0.9); Monocytes % 7.3 %; Neutrophils # 4.54 10^3/uL (1.8-7.7); Neutrophils % 69.4 %; Nucleated Red Blood Cells % 0 %; Platelet Count 218 10^3/cmm (157-399); Red Blood Count 4.88 10^6/uL (3.85-5.65); Red Cell Distribution Width 22.1 % (12.1-15.1); White Blood Count 6.54 10^3/uL (3.29-11.43)
[2024-06-13 13:04] LABS: Alanine Aminotransferase 19 U/L (0-41); Albumin Level 3.9 g/dL (3.5-5.2); Alkaline Phosphatase 149 U/L (40-130); Anion Gap 14.2 (5-19); Aspartate Amino Transferase 30 U/L (0-40); Blood Urea Nitrogen 23 mg/dL (8-23); Calcium 8.7 mg/dL (8.5-10.5); Carbon Dioxide 24 mmol/L (22-29); Chloride 98 mmol/L (98-107); Creatinine Clr Calc Pharmacy 125.1909; Ferritin 22 ng/mL (30-400); Globulin 2.6 g/dL (1.3-4.6); Glomerular Filtration Rate 96.4 mL/min (90-130); Glucose 119 mg/dL (65-115); Iron 35 ug/dL (59-158); Osmolality Calculated 279 mOsm/kg (285-295); Percent Saturation 9.2 % (20-50); Potassium 4.2 mmol/L (3.5-5.1); Sodium 132 mmol/L (136-145); Total Bilirubin 0.2 mg/dL (0.15-1.2); Total Iron Binding Capacity 379 mcg/dl; Total Protein 6.5 g/dL (6.6-8.7); Unsaturated Iron Binding 344 ug/dL (112-347)
== END 2024-06-16 23:59 | disposition home or self-care (01) ==
LOC: ONCMED 11:33
PROVIDERS: Nurse Practitioner Family; PCP Electrodiagnostic Medicine; Visit Provider Internal Medicine
DX: D50.0 Iron deficiency anemia secondary to blood loss (chronic) (principal); D50.8 Other iron deficiency anemias; I48.0 Paroxysmal atrial fibrillation; Z79.899 Other long term (current) drug therapy
CPT/HCPCS: 80053; 82728; 83540; 83550; 85025; 99215

== ENCOUNTER 2024-07-12 15:22 | Oncology outpatient (recurring) (ONCR) | payer MEDICARE, MEDICAID, SELFPAY ==
[2024-06-25] MEDS: iron sucrose 200 MG in sodium chloride 0.9% (100 ml) 100 ML 220 MG IV (14:58)
[2024-06-25 15:38] VITALS: BP 107/68; PULSE 63; RESP 16; TEMP 37.4; O2SAT 96
[2024-07-02] MEDS: sodium chloride 0.9% 250 ML 75 ML IV (15:24)
[2024-07-02] MEDS: iron sucrose 200 MG in sodium chloride 0.9% (100 ml) 100 ML 220 MG IV (15:24)
[2024-07-04] MEDS: iron sucrose 200 MG in sodium chloride 0.9% (100 ml) 100 ML 220 MG IV (14:49)
[2024-07-04] MEDS: ondansetron 2 mg/ML SDV 2 mL 8 MG IVP (15:30)
[2024-07-04 15:45] VITALS: BP 130/84; PULSE 66; RESP 16; TEMP 37.1; O2SAT 98
== END 2024-07-17 23:59 | disposition home or self-care (01) ==
PROVIDERS: PCP Electrodiagnostic Medicine; Visit Provider Internal Medicine
DX: Z53.9 Procedure and treatment not carried out, unspecified reason
CPT/HCPCS: 96365; 96375; J1756; J2405; J7050

== ENCOUNTER 2024-10-10 12:26 | Oncology outpatient (recurring) (ONCR) | payer MEDICARE, MEDICAID, SELFPAY ==
[2024-10-10 12:54] LABS: Basophils # 0.1 10^3/uL (0.0-0.1); Basophils % 0.6 %; Eosinophils # 0.4 10^3/uL (0.0-0.8); Eosinophils % 5.6 %; Lymphocytes # 0.9 10^3/uL (0.8-4.8); Lymphocytes % 11.6 %; Mean Corpuscular HGB Conc 28.7 g/dL (30-55); Mean Corpuscular Hemoglobin 19.9 pg (27-33); Mean Corpuscular Volume 69.4 fl (82-101); Mean Platelet Volume 10.1 fL (7.4-10.4); Monocytes # 0.5 10^3/uL (0.2-0.9); Monocytes % 6.8 %; Neutrophils # 5.86 10^3/uL (1.8-7.7); Neutrophils % 74.9 %; Nucleated Red Blood Cells % 0 %; Platelet Count 236 10^3/cmm (157-399); Red Blood Count 4.47 10^6/uL (3.85-5.65); Red Cell Distribution Width 16.3 % (12.1-15.1); White Blood Count 7.83 10^3/uL (3.29-11.43)
[2024-10-10 13:11] LABS: Alanine Aminotransferase 18 U/L (0-41); Albumin Level 3.9 g/dL (3.5-5.2); Alkaline Phosphatase 154 U/L (40-130); Anion Gap 14.3 (5-19); Aspartate Amino Transferase 19 U/L (0-40); Blood Urea Nitrogen 19 mg/dL (8-23); Carbon Dioxide 24 mmol/L (22-29); Chloride 103 mmol/L (98-107); Ferritin 8 ng/mL (30-400); Globulin 2.8 g/dL (1.3-4.6); Glomerular Filtration Rate 96.1 mL/min (90-130); Glucose 134 mg/dL (65-115); Iron 21 ug/dL (59-158); Osmolality Calculated 288 mOsm/kg (285-295); Percent Saturation 5.3 % (20-50); Potassium 4.3 mmol/L (3.5-5.1); Sodium 137 mmol/L (136-145); Total Bilirubin 0.3 mg/dL (0.15-1.2); Total Iron Binding Capacity 392 mcg/dl; Total Protein 6.7 g/dL (6.6-8.7); Unsaturated Iron Binding 371 ug/dL (112-347)
== END 2024-10-15 23:59 | disposition home or self-care (01) ==
PROVIDERS: PCP Electrodiagnostic Medicine; Visit Provider Internal Medicine
DX: D50.0 Iron deficiency anemia secondary to blood loss (chronic) (principal); I48.0 Paroxysmal atrial fibrillation; Z79.899 Other long term (current) drug therapy
CPT/HCPCS: 36415; 80053; 82728; 83540; 83550; 85025; 99214

== ENCOUNTER 2024-10-23 08:25 | Oncology outpatient (recurring) (ONCR) | payer MEDICARE, MEDICAID, SELFPAY ==
[2024-10-23] MEDS: acetaminophen 325 mg Tablet 650 MG PO (09:48)
[2024-10-23] MEDS: diphenhydrAMINE 50 mg/mL SDV 1mL 25 MG IVP (09:49)
--- NOTE | 2024-10-23 10:18 | PC.PHAR ---
INFED DOSE CLARIFICATION: I CALCULATED PATIENTS INFED DOSE TO BE 2000MG. ASKED DR. MAKI TO DOUBLE CHECK MY MATH AND HE SUGGESTED THAT I CAP THE DOSE AT 1500MG.
[2024-10-23] MEDS: sodium chloride 0.9% 500 ML 75 ML IV (10:19)
[2024-10-23] MEDS: iron dextran 25 MG in SYRINGE 1 EACH 30 MG IVP (10:27)
[2024-10-23 12:07] VITALS: BP 121/78; PULSE 67; RESP 17; TEMP 36.7; O2SAT 96
[2024-10-23] MEDS: iron dextran 1,500 MG in sodium chloride 0.9% 1,000 ML 250.75 MG IV (12:09)
[2024-10-23 16:39] VITALS: BP 145/85; PULSE 61; RESP 17; TEMP 36.3; O2SAT 96
== END 2024-11-14 23:59 | disposition home or self-care (01) ==
PROVIDERS: PCP Electrodiagnostic Medicine; Visit Provider Internal Medicine Medical Oncology
DX: D50.0 Iron deficiency anemia secondary to blood loss (chronic) (principal); Z79.899 Other long term (current) drug therapy; I48.0 Paroxysmal atrial fibrillation; D50.8 Other iron deficiency anemias; Z53.9 Procedure and treatment not carried out, unspecified reason; Z98.84 Bariatric surgery status
CPT/HCPCS: 96365; 96366; 96375; J1200; J1750; J7030; J7040; J9999

== ENCOUNTER 2025-01-17 12:20 | Oncology outpatient (recurring) (ONCR) | payer OTHER, MEDICAID, SELFPAY ==
[2025-01-17 12:45] LABS: Hematocrit 33.9 % (37-53); Hemoglobin 10.80 g/dL (11.27-16.99); Mean Corpuscular HGB Conc 31.9 g/dL (30-55); Mean Corpuscular Hemoglobin 24.7 pg (27-33); Mean Corpuscular Volume 77.6 fl (82-101); Nucleated Red Blood Cells % 0 %; Platelet Count 179 10^3/cmm (157-399); Red Blood Count 4.37 10^6/uL (3.85-5.65); White Blood Count 6.01 10^3/uL (3.29-11.43)
[2025-01-17 13:03] LABS: Alanine Aminotransferase 38 U/L (0-41); Albumin Level 3.9 g/dL (3.5-5.2); Alkaline Phosphatase 161 U/L (40-130); Anion Gap 16.3 (5-19); Aspartate Amino Transferase 31 U/L (0-40); Blood Urea Nitrogen 19 mg/dL (8-23); Calcium 8.5 mg/dL (8.5-10.5); Carbon Dioxide 22 mmol/L (22-29); Chloride 101 mmol/L (98-107); Creatinine Clr Calc Pharmacy 122.8665; Globulin 3.1 g/dL (1.3-4.6); Glucose 103 mg/dL (65-115); Osmolality Calculated 283 mOsm/kg (285-295); Potassium 4.3 mmol/L (3.5-5.1); Sodium 135 mmol/L (136-145); Total Protein 7.0 g/dL (6.6-8.7)
[2025-01-17 14:19] LABS: Ferritin 39 ng/mL (30-400); Iron 33 ug/dL (59-158); Total Iron Binding Capacity 355 mcg/dl; Unsaturated Iron Binding 322 ug/dL (112-347)
== END 2025-02-14 23:59 | disposition home or self-care (01) ==
PROVIDERS: Nurse Practitioner; Nurse Practitioner Family; PCP Electrodiagnostic Medicine; Visit Provider Internal Medicine Medical Oncology
DX: D50.0 Iron deficiency anemia secondary to blood loss (chronic) (principal); I48.0 Paroxysmal atrial fibrillation; Z79.899 Other long term (current) drug therapy; R06.02 Shortness of breath
CPT/HCPCS: 36415; 80053; 82728; 83540; 83550; 85025; 99215

== ENCOUNTER 2025-01-27 10:36 | Inpatient (IN) | payer MEDICARE, MEDICAID, SELFPAY ==
--- OUTSIDE RECORDS SUMMARY | 2023-11-02 04:00 | XMS_ITS ---
Author Organization [facility] Address [address] [place] [address] Care Team Providers Care Files Supervisor Name Role Phone Cl Arlet Pepe [phone] REASON FOR VISIT [phone] Iron Deficiency/injectar infusion Encounters Encounter Location Date Provider Diagnosis [facility] [address] [facility] [place] [address] 11/02/2023 Arlet Smallwood Plan Of Treatment No Information Progress Notes * Gary ZAMANDOB:1955 ( 69 yo M)Acc No.[id number]:11/02/2023 Progress Notes Patient: Gary Sanchez Provider: Kathy Smallwood APRN :1955 A ge:68 Y S ex:Male Date:11/02/2023 Address:[address] [place], [place] [id number] Subjective: * Chief Complaints: * 6 [id number] Iron Deficiency/injectar infusion Billing Information: * Procedure Codes: * Electronic signature of Eyal Smallwood APRN on 01/27/2025 at 10:46 AM CDT Sign off status: Pending * Provider: Kathy Smallwood APRN Date: 0 11/02/2023 Generated for Printi ng/Faxing/eTransmitting on: 0 01/27/2025 10:46 AM CDT
--- OUTSIDE RECORDS SUMMARY | 2023-11-10 09:45 | XMS_ITS ---
Author Organization [facility] Address [address] [facility] [place] [address] Care Team Providers Care Talent Coordinator Name Role Phone Cl Arlet Pepe [phone] REASON FOR VISIT [phone] Iron Deficiency/injectar infusion Encounters Encounter Location Date Provider Diagnosis [facility] [address] [facility] [place] [address] 11/10/2023 Arlet Smallwood Plan Of Treatment No Information Progress Notes * Gary ZAMANDOB:1955 ( 69 yo M)Acc No.[id number]:11/10/2023 Progress Notes Patient: Gary Sanchez Provider: Kathy Smallwood APRN :1955 A ge:68 Y S ex:Male Date:11/10/2023 Address:[address] [place], [place] [id number] Subjective: * Chief Complaints: * 6 [id number] Iron Deficiency/injectar infusion Billing Information: * Procedure Codes: * Electronic signature of Eyal Smallwood APRN on 01/27/2025 at 10:45 AM CDT Sign off status: Pending * Provider: Kathy Smallwood APRN Date: 0 11/10/2023 Generated for Printi ng/Faxing/eTransmitting on: 0 01/27/2025 10:45 AM CDT
--- OUTSIDE RECORDS SUMMARY | 2023-11-15 09:00 | XMS_ITS ---
Author Organization [facility] Address [address] [place] [address] Care Team Providers Care Ore Puncher Name Role Phone Cl Arlet Pepe [phone] REASON FOR VISIT [phone] Iron Deficiency/injectar infusion Encounters Encounter Location Date Provider Diagnosis [facility] [address] [place] [address] 11/15/2023 Arlet Smallwood Plan Of Treatment No Information Progress Notes * Gary ZAMANDOB:1955 ( 69 yo M)Acc No.[id number]:11/15/2023 Progress Notes Patient: Gary Sanchez Provider: Kathy Smallwood APRN :1955 A ge:68 Y S ex:Male Date:11/15/2023 Address:[address] [place], [place] [phone] Subjective: * Chief Complaints: * 6 [id number] Iron Deficiency/injectar infusion Billing Information: * Procedure Codes: * Electronic signature of Eyal Smallwood APRN on 01/27/2025 at 10:46 AM CDT Sign off status: Pending * Provider: Kathy Smallwood APRN Date: 0 11/15/2023 Generated for Printi ng/Faxing/eTransmitting on: 0 01/27/2025 10:46 AM CDT
[2025-01-27] VITALS (79 sets, daily range): BP systolic 77–122; BP diastolic 39–75; PULSE 60–111; RESP 14–27; TEMP 36.9–37.1; O2SAT 90–99; BMI 33.2
--- NOTE | 2025-01-27 10:41 | CTR_ITS ---
PROCEDURE INFORMATION: Exam: CT Head Without Contrast Exam date and time: 01/27/2025 11:24 AM Age: 69 years old Clinical indication: Injury or trauma; Fall; Blunt trauma (contusions or hematomas); Consciousness not specified; Additional info: Multiple falls TECHNIQUE: Imaging protocol: Computed tomography of the head without contrast. Radiation optimization: All CT scans at this facility use at least one of these dose optimization techniques: automated exposure control; mA and/or kV adjustment per patient size (includes targeted exams where dose is matched to clinical indication); or iterative reconstruction. COMPARISON: CT head wo con* [id number] 04/10/2023 1:24 PM RADIATION DOSE METRICS: Total DLP (mGy-cm): 1121.68 FINDINGS: Brain: Mild diffuse cerebral atrophy is noted. I see no evidence of acute hemorrhage, mass effect or infarct on today's study. Cerebral ventricles: No ventriculomegaly. No midline shift. Paranasal sinuses: Visualized sinuses are unremarkable. No fluid levels. Mastoid air cells: Visualized mastoid air cells are well aerated. Bones: Unremarkable. No acute fracture. Soft tissues: Unremarkable. CT/CT head wo con* [id number] IMPRESSION: 1. No acute findings. 2. Mild cerebral atrophy noted
--- NOTE | 2025-01-27 10:41 | XRR_ITS ---
PROCEDURE INFORMATION: Exam: XR Chest Exam date and time: 01/27/2025 11:25 AM Age: 69 years old Clinical indication: Other: Weakness TECHNIQUE: Imaging protocol: Radiologic exam of the chest. Views: 1 view. COMPARISON: 1. CR XR chest 2V* [id number] 10/31/2024 1:[address] angio chest PE protcl [id number] 01/13/2023 3:23 PM 3. CR XR chest 2V* [id number] 11/29/2023 2:17 PM 4. CR XR chest 2V* [id number] 12/15/2023 10:53 AM 5. CR XR chest 2V* [id number] 10/25/2024 10:41 AM FINDINGS: Tubes, catheters and devices: There is a dual-lead AICD with leads positioned in the right atrium and right ventricle. Lungs: Interstitial markings in the lower lungs are indistinct. There is no focal consolidation. Mild opacities in both lower lobes are visible on chest CT 01/13/2023 and on prior radiographs. Pleural spaces: There is no pleural effusion or pneumothorax. Heart/Mediastinum: There is mild enlargement of the cardiac silhouette. Bones/joints: No acute osseous findings. Intraperitoneal space: Multiple surgical clips in the left upper abdomen. XR/XR chest 1V portable [id number] IMPRESSION: 1. No pulmonary consolidation. 2. Indistinct interstitial markings in the lower lungs. Nonspecific finding. Similar findings are seen on prior radiographs and CT. Possible acute or chronic process or some combination thereof. Consider interstitial lung disease, aspiration, and atypical infection.
--- OUTSIDE RECORDS SUMMARY | 2025-01-27 10:45 | XMS_ITS | Encounter Summary ---
Author Organization [facility] Address [address] [place] [address] Care Team Providers Care Gas And Oil Servicer Name Role Phone Unavailable Primary Care Provider Unavailabl e Reason for Referral * Nuclear Medicine (Urgent) - Open Specialty Diagnoses / Procedures Referred By Contac t Referred To Contact Radiology Diagnoses Dyspnea, unspecified Procedures NM CARDIAC MUGA SCAN Swathi Liao FNP [address] [place] [address] Phone: tel: fax: [facility] Nuclear Medicine [address] [place] [address] Phone: tel: fax: Referral ID Status Reason Start Date Expiration Date V isits Requested Visits Authorized [id number] Open F CTS to Schedule 01/22/2025 02/22/2026 1 1 Encounter Details Date Type Department Care Team (Late st Contact Info) Description 01/22/2025 Transcribe Orders [facility] Scheduling Vest CALL TO MAKE APPOINTMENT ONLY [address] [place] [address] Swathi Liao FNP [address] [place] [address] Dyspnea, unspecified (Primary Dx) Social History Tobacco Use Types Packs/Day Years Used Date Smoking Tobacco: Never Passive Smoke Exposure: Never Smokeless Tobacco: Never Alcohol Use Standard Drinks/Week Comments Not Currently 0 (1 standard drink = 0.6 oz pur e alcohol) Feeling Safe Answer Date Recorded Are you in a relationship wi th someone who hurts you emotionally and/or physically? No 04/19/2024 Food Insecurity Answer Date Recorded Patient needs follow up regardin 11/08/2024 Transportation Needs Answer Date Record ed Patient needs follow up regardin 11/08/2024 Housing Stability Answer Date Recorded Social/Environmental Concerns No concerns Utility Needs Answer Date Recorded Patient needs follow up regardin 11/08/2024 Sex and Gender Information Value Date Recorded Sex Assigned at Not on file Legal Sex Male 11:50 AM CDT Gender Identity Not on file Sexual Orientation Not on file documented as of this encounter Plan of Treatment Upcoming Encounters Date Type Department Care Team (Late st Contact Info) Description 02/04/2025 10:30 AM CDT Appointment [facility] Nuclear Medicine [address] [place] [phone] Swathi Liao, RUSSELL [address] [place] [address] 03/28/2025 2:00 PM CDT Office Visit [facility] Cardiology [facility] [address] [address] Lyndsay Busch MD [address] [phone] Scheduled Orders Name Type Priority Associated Diagnoses Orde r Schedule NM CARDIAC MUGA SCAN Electrophysiology Stat Dyspnea, unspecified 1 Occurrences starting 01/22/2025 until 01/22/2026 documented as of this encounter Visit Diagnoses Diagnosis Dyspnea, unspecified- Primary documented in this encounter
--- OUTSIDE RECORDS SUMMARY | 2025-01-27 10:46 | XMS_ITS | Clinical Summary ---
Author Organization [facility] Address [address] [place] [address] Care Team Providers Care Warp Preparer Name Role Phone Unavailable Primary Care Provider Unavailabl e Allergies Active Allergy Reactions Criticality Noted Date Comments Butorphanol Other (See Comments) High 09/14/2023 Counter acts methadone Ketorolac Nausea and Vomiting High 09/14/2023 Ondansetron Other (See Comments) 10/28/2023 Interacts with multaq Oxycodone-Acetaminophe n Anaphylaxis High 09/14/2023 Throat Swelling Sumatriptan Other (See Comments) Low 09/14/2023 Tachycardia Medications aspirin (ECOTRIN EC) 81 mg Tablet, Delayed Release (E.C.) Take 81 mg by mouth daily. Active tiZANidine (ZANAFLEX) 4 mg Capsule Take 4 mg by mouth 2 times daily. Active sertraline (ZOLOFT) 100 mg tablet Take 200 mg by mouth daily at bedtime. Active albuterol sulfate HFA 90 mcg/actuation aerosol inhaler Take 2 Puffs by inhalation every 6 hours as needed. 4 Active amitriptyline (ELAVIL) 25 mg tablet Take 25 mg by mouth daily at bedtime. 4 Active gabapentin (NEURONTIN) 300 mg capsule Take 300 mg by mouth 2 times daily. 4 Active methadone (DOLOPHINE) 10 mg Tablet Take 10 mg by mouth daily. 4 Active methylnaltrexon e (Relistor) 12 mg/0.6 mL Syringe Inject 12 mg by subcutaneous injection every 7 days. Self injection every Tuesday 4 Active naloxone (NARCAN) 4 mg/spray [place], Non-Aerosol Active nitroglycerin (NITROSTAT) 0.4 mg Tablet, Sublingual Active mupirocin (BACTROBAN) 2 % Ointment Apply to affected area 1 time daily as needed for Other (See Comment). Skin rash, no currently using Active dilTIAZem (CARDIZEM CD, CARTIA XT) 120 mg Controlled Delivery 24 hour capsule Take 1 Capsule (120 mg) by mouth 2 times daily. 180 Capsule 3 Active lisinopriL (PRINIVIL) 20 mg tablet Take 1 Tablet (20 mg) by mouth daily. 90 Tablet 1 5 Active dronedarone (Multaq) 400 mg Tablet TAKE 1 TABLET BY MOUTH TWICE A DAY 180 Tablet 3 5 Active Active Problems Problem Noted Date Diagnosed Date Permanent atrial fibrillation 09/25/2024 continuous churn buttermaker current use of antiarrhythmic medical therapy 09/25/2024 Cardiomyopathy 11/18/2023 Essential hypertension 09/27/2023 Paroxysmal atrial fibrillation 09/27/2023 Other dietary vitamin B12 deficiency anemia 09/15 Encounters Date Type Department Care Team Description 01/22/2025 Transcribe [facility] Centralized [facility] CALL TO MAKE APPOINTMENT ONLY [address] [place] [address] Swathi Liao FNP Dyspnea, unspecified (Primary Dx) 01/01/2025 External Device Data STL ABSTRACTION Provider, Abstract 12/21/2024 [facility] [address] [facility] [address] [place] [address] Lyndsay Busch MD 12/18/2024 External Device Data STL ABSTRACTION Provider, Abstract 12/11/2024 External Device Data STL ABSTRACTION Provider, Abstract 11/20/2024 External Device Data STL ABSTRACTION Provider, Abstract 11/20/2024 External Device Data STL ABSTRACTION Provider, Abstract 11/08/2024 [facility] [address] [address] [place] [address] Varsha Kent RN 11/08/2024 [facility] [address] [facility] [facility] [address] [place] [address] Lyndsay Busch MD from Last 3 Months Immunizations Immunization Administration Dates Next Due (SHINGRIX)(50 YRS UP) ZOSTER VACCINE RECOMBINANT, 0.5 ML, IM 05/19/2023 INFLUENZA VACCINE QUADRIVALENT 6 MOS UP PF IM Family History Medical History Relation Name Comments Diabetes Father Hypertension Father Diabetes Mother Hypertension Mother Relation Name Status Comments Father Mother Social History Tobacco Use Types Packs/Day Years Used Date Smoking Tobacco: Never Passive Smoke Exposure: Never Smokeless Tobacco: Never Tobacco Cessation:Counseling Given: No Alcohol Use Standard Drinks/Week Comments Not Currently [...] on file Sexual Orientation Not on file Last Filed Vital Signs Vital Sign Reading Time Taken Comments Blood Pressure 126/82 09/25/2024 2:54 PM CDT Pulse 86 09/25/2024 2:54 PM CDT Temperature 36.6 C (97.9 F) 04/19/2024 3:59 PM CDT Respiratory Rate 18 04/19/2024 3:59 PM CDT Oxygen Saturation 92% 09/25/2024 2:54 PM CDT Inhaled Oxygen Concentration - - Weight 124.7 kg (275 lb) 09/25/2024 2:54 PM CDT Height 190.5 cm (6' 3 ) 09/25/2024 2:54 PM CDT Body Mass Index 34.37 09/25/2024 2:54 PM CDT Plan of Treatment Upcoming Encounters Date Type Department Care Team (Late st Contact Info) Description 02/04/2025 10:30 AM CDT Appointment [facility] Nuclear Medicine [address] [place] [address] Swathi Liao, RUSSELL [address] [place] [address] 03/28/2025 2:00 PM CDT Office Visit [facility] Cardiology [facility] [address] [facility] [address] [place] [address] Lyndsay Busch MD [address] [facility] [address] [place] [address] Health Maintenance Due Date Last Done Comments Pre-Diabetes and Diabetes Screening 1955 DTAP/TDAP/TD VACCINES (1 - Tdap) 09/18/1975 COLORECTAL SCREENING 2001 Colorectal Cancer Screening 2001 FIT-DNA Q 3 years 2001 FIT/FOBT Q 1 year 2001 Flex Sig/CT Colonography Q 5 years 2001 PNEUMOCOCCAL VACCINE 50+ YEA RS (2 of 2 - PCV) 05/20/2016 05/20/2015, 04/15/2010 RSV VACCINE (60+ or ) (1 - Risk 60-74 years 1-dose series) 2016 ZOSTER VACCINE (2 of 2) 07/14/2023 05/19/2023 COVID-19 Vaccine (3 - 2023-2 5 season) 2024 03/20/2021, 02/20/2021 INFLUENZA VACCINE (#1) 2025 , 05/19/2023, 06/19/2022, Additional history exists Medical Devices Implanted Type Area Data Mining Analyst Device Identifier Shelf Expiration Date Model / Serial / Lot Pacemaker-2015 Implanted:06/21 by Víctor Ponce MD (Quantity not on file) Pacemaker Chest Description:[employer]ID [facility] DUAL COMPLETE HMO [facility] [id number]
--- OUTSIDE RECORDS SUMMARY | 2025-01-27 10:46 | XMS_ITS ---
Author Name RICHIE ERICKSON Address [address] [place] [address] Phone Organization [facility] Address [address] [place] [address] Phone Care Team Providers Care Drop Hammer Set Up Operator Name Role Phone MD [facility] [phone] ALLERGIES, ADVERSE REACTIONS AND ALERTS Allergy Name Allergy Date Allergy Status Allergy Severity Allergy Reaction Ketorolac, [RxNorm: 78865] 09/08/2023 Current Percocet, [RxNorm: 44998] 09/08/2023 Current Imitrex, [RxNorm: 196960] 09/08/2023 Current PROBLEMS Problem Code Problem Description Problem Status Problem Da te Problem End Date R40.4-Transient alteration of awareness Transient alteration of awareness Current 09/08/2023 R41.3-Other amnesia Other amnesia Current 09/08/2023 M54.9-DORSALGIA UNSPECIFIED DORSALGIA UNSPECIFIED Current 09/08/2023 PROCEDURES Procedure Description Date Notes NO PROCEDURES PERFORMED ASSESSMENTS Assessment None PLAN OF TREATMENT Assessment Planned Activity LOINC Planned Devon e None CONSULTATION NOTE Note Author Date None HISTORY AND PHYSICAL NOTE Note Author Date None PROGRESS NOTE Note Author Date None DISCHARGE SUMMARY Note Author Date None CHIEF COMPLAINT AND REASON FOR VISIT FUNCTIONAL STATUS Functional or Cognitive Find ing None MENTAL STATUS Cognitive Finding None ENCOUNTERS Encounter Type Provider Diagnoses Start Date Location Disc harged to None SOCIAL HISTORY Social Status Observation Unknown if ever smoked Sex: Male CARE TEAM INFORMATION Drop Hammer Set Up Operator Provider ID Role Location Phone RICHIE ERICKSON [id number] [address] , [place] [address] INSURANCE PROVIDERS Payer Name Policy type / Coverage type Covered democrat ID Policy [facility] Insurance [id number] SELF MEDICAID [place] Medicaid [id number] SELF
--- OUTSIDE RECORDS SUMMARY | 2025-01-27 10:46 | XMS_ITS | Patient Health Record ---
Author Organization [facility] Address [address] [place] [address] Care Team Providers Care Business Support Associate Name Role Phone Arlet Smallwood Unavailable [phone] Reason For Referral No Information Plan Of Treatment No Information Insurance Providers Payer Name Payer Address Payer Phone Subscriber Number Group Number Insured Name Patient Relationship to Insured Coverage Start Date Coverage End Date NOT IN NETWORK - UHC Medicare Dual Complete HMO [address] [address] [place] [address] [id number] Gary King Self - patient is the insured
--- OUTSIDE RECORDS SUMMARY | 2025-01-27 10:46 | XMS_ITS | Encounter Summary ---
Author Organization [facility] Address [address] [place] [address] Care Team Providers Care Financial Planning Consultant Name Role Phone Unavailable Primary Care Provider Unavailabl e Reason for Visit * Reason Onset Date Comments Question 11/18/2023 Encounter Details Date Type Department Care Team (Late st Contact Info) Description 11/18/2023 Telephone [facility] [address] [facility] [address] [place] [phone] Errol Villanueva MD NO ADDRESS ON FILE Question Social History Tobacco Use Types Packs/Day Years Used Date Smoking Tobacco: Never Alcohol Use Standard Drinks/Week Comments Not Currently 0 (1 standard drink = 0.6 oz pur e alcohol) Feeling Safe Answer Date Recorded Are you in a relationship wi th someone who hurts you emotionally and/or physically? No 11/18/2023 Food Insecurity Answer Date Recorded Social/Environmental Concerns No concerns Transportation Needs Answer Date Record ed Social/Environmental Concerns No concerns Housing Stability Answer Date Recorded Social/Environmental Concerns No concerns Utility Needs Answer Date Recorded Social/Environmental Concerns No concerns Sex and Gender Information Value Date Recorded Sex Assigned at Not on file Legal Sex Male 11:50 AM CDT Gender Identity Not on file Sexual Orientation Not on file documented as of this encounter Miscellaneous Notes * Telephone Encounter - Cindy Dewitt RN - 11/18/2023 1:11 PM CDT Called to check on pt. Pt stated he was not able to take vitals today but stated, My BP yesterday was 96/58 and my HR was 60-70's. Patient stated that he is always dizzy and that it is not a new symptom for him. I explained that his blood work came back abnormal (Hgb 6.2) and that I wanted to seehow he was feeling. He denied chest pain but stated, I have blood in my stool but I have this all the time. I asked if it was a small amount on toilet paper or if it fills the toilet. He stated, It's in the water but it's always like that so I thought nothing of it. Pt states that he is fatigue. I told him that I would like him to go to the ER if he starts feeling bad to which he replied, I will absolutely not go to the [place] ER. I will drive to [place] before I do that. He stated. I have a nurse practitioner friend I can call. I reiterated the concern to go to the ER if he starts feeling bad. Pt verbalized understanding. * Telephone Encounter - Cindy Dewitt RN - 11/18/2023 12:04 PM CDT I spoke to the label drier. They report Hgb 6.2. Messaged routed to Dr. Villanueva for advice. * Telephone Encounter - Dari Asif - 11/18/2023 11:56 AM CDT [facility] Call Center Communications Kay (Provider) Caller: [employer] Lab MESSAGE [facility] lab calling to report a critical lab result- call transferred to RN [facility] Cushion Maker: JACINTA Vásquez documented in this encounter Plan of Treatment Upcoming Encounters Date Type Department Care Team (Late st Contact Info) Description 02/04/2025 10:30 AM CDT Appointment [facility] Nuclear Medicine [facility] [place] [phone] Swathi Liao, RUSSELL [address] [place] [address] 03/28/2025 2:00 PM CDT Office Visit [facility] Cardiology [facility] [address] [facility] [address] [place] [address] Lyndsay Busch MD [address] [facility] [address] [place] [address] documented as of this encounter Visit Diagnoses Not on filedocumented in this encounter
--- OUTSIDE RECORDS SUMMARY | 2025-01-27 10:46 | XMS_ITS | Data Portability ---
Author Organization [facility] Address [address] [place] [address] Care Team Providers Care Backend Python Developer Name Role Phone MARÍA ELAINE Primary Care Provider Unavailabl e Assessment Encounter Date Assessment Date Assessment LastModified by Organization Details LastModified Time 10/25/2024 10/25/2024 I reviewed recent records including infusion data at [facility] on 10/23/24. office note from oncology not completed yet. We discussed with the patient. Pt is severely ill. He does not want to go to the hospital. will will work on determining multiple possible contributing factors to is acute resp failure as per below. pt is to go ot ER with any worsening. A Care Coordination Assessment form was filled out as part of this patient's office visit today. [email or web address] Not available 10/25/2024 11:04:13 10/31/2024 10/31/2024 Document scribed by Curt Lozano Supervisor Calibration. I was present during interview and exam. I have reviewed and agree with above documentation. Dr. María Elaine. [email or web address] Not available 10/31/2024 15:42:00 Plan of Treatment Reminders Order Date Submit Date Provider Last Modified By Organization Details Last Modified Time Details Appointments None recorded. Lab C-reactive protein, quantitativ e, serum or plasma 2024 025 [facility], [address], [address] [facility] [place], [address], 5 02:35:24 ESR (erythrocyt e sedimentati on rate), blood 2024 025 [facility] ([facility]), [address] [facility], [place], [address], 16:04:29 culture, blood 2024 025 [facility], [address] [place] [address] [address], [address], [place], [address], 02:35:26 culture, blood 2024 025 [facility], [address] [place] [address] 248, [address], [place], [address], 02:35:28 culture, sputum 2024 025 [email or web address] [facility], [address] [place] [address], [address], [place], [address], 08:56:42 CBC 2024 025 [facility]AVONNE [facility], [address] [facility], [address], [place], [address], 15:04:47 vitamin B12 + folate, serum or blood 2024 025 [facility], [address] [place] [address], [address], [place], [address], 5 06:09:12 CMP, serum or plasma 2024 025 [facility]AVONNE [facility], [address], [address], [place], [address], 5 12:10:20 lipid panel, blood 2024 025 [facility], [address], [address], [place], [address], 12:10:22 CBC 2024 025 L[facility], [address], [address], [place], [address], 5 11:21:38 TSH, serum or plasma 2024 025 [facility], [address], [address], [place], [address], 5 08:53:50 iron + TIBC + ferritin, serum 2024 025 [facility], [address] [place] [address], [address], [place], [address], 5 06:09:11 TSH, serum or plasma 2023 024 [facility] ([facility]), [address] [place], [address], 4 15:48:05 CMP, serum or plasma 2023 024 [facility], [address] [facility], [place], [address], 4 15:26:52 vitamin B12 + folate, serum or blood 2023 024 [facility], [address] [place] [address], [address], [place], [address], 4 06:33:32 iron + TIBC + ferritin, serum 2023 024 [facility], [address] [place] [address], [address], [place], [address], 4 06:33:31 CBC 2023 024 [facility], [address], [address], [place], [address], 13:32:21 Referral None recorded. Procedures None recorded. Surgeries None recorded. Imaging XR, chest, 2 view 2024 025 [email or web address] [facility] ([facility]), [address] [place], [address], 18:08:25 PFT, complete 2024 025 [email or web address] [facility], [address] [place], [address], 08:12:46 electrocard iogram 2024 025 [facility] ([facility]), [address] [place], [address], 14:41:10 XR, chest, 2 view 2024 025 [facility] ([facility]), [address] [place], [address], 14:41:09 Medication Orders Relistor 12 mg/0.6 mL subcutaneou s syringe 2023 024 [email or web address] [id number], [address] [facility], [place], [address], 08:01:44 Patient TargetsNo targets recorded. Patient InstructionsNo instructions recorded. Reason for Referral None Reported. Results Created Date Observation Date Name Description Value Unit Range Abnormal Flag Note LastModifiedBy Organization Detail LastModifiedTime 05/31/20 24 05/31/2024 CBC WBC 6.9 x10 4.5-10 .5 Not Available [facility] [address] [facility] [address], [place], [address], 05/31/2024 13:32:21 11/14/20 24 05/31/2024 CBC RBC 4.61 x10 4.30-5 .90 Not Available [facility] [address] [facility], [place], [address], 05/31/2024 13:32:21 05/31/20 24 05/31/2024 CBC HGB 10.3 g/dL 13.5-1 8.0 low Not Available [facility] [address] [facility], [place], [address], 05/31/2024 13:32:21 05/31/20 24 05/31/2024 CBC HCT 31.5 % 35.0-6 0.0 low Not Available [facility] [address] [facility] [address], [place], [address], 05/31/2024 13:32:21 05/31/20 24 05/31/2024 CBC MCV 68.3 fL 80.0-9 9.9 low Not Available [facility] [address] [facility], [place], [address], 05/31/2024 13:32:21 05/31/20 24 05/31/2024 CBC MCH 22.4 pg 27.0-3 2.0 low Not Available [facility] [address] [facility], [place], [address], 05/31/2024 13:32:21 05/31/20 24 05/31/2024 CBC MCHC 32.8 g/dL 32.0-3 6.0 Not Available [facility] [address] [facility], [place], [address], 05/31/2024 13:32:21 05/31/20 24 05/31/2024 CBC RDW 25.1 % 11.5-1 4.5 high Not Available [facility] [address] [facility], [place], [address], 05/31/2024 13:32:21 05/31/20 24 05/31/2024 CBC plt 172.5 x10 150.0- 451.0 Not Available [facility] [address] [facility] [address], [place], [address], 05/31/2024 13:32:21 05/31/20 24 05/31/2024 CBC lymphocytes % 12.7 % 20.0-5 0.0 low Not Available [facility] [address] [facility], [place], [address], 05/31/2024 13:32:21 05/31/20 24 05/31/2024 CBC granulcytes % 72.9 % 30.0-7 0.0 high Not Available [facility] [address] [facility], [place], [address], 05/31/2024 13:32:21 05/31/20 24 05/31/2024 CBC monocytes % 9.0 % 2.0-16 .0 Not Available [facility] [address] [facility], [place], [address], 05/31/2024 13:32:21 05/31/20 24 05/31/2024 CBC granulcytes# 5.0 x10 Not Columba ilable [facility] [address] [facility], [place], [address], 05/31/2024 13:32:21 05/31/20 24 05/31/2024 CBC lymphocytes # 0.9 x10 Not Available [facility] [address] [facility] 1, [place], [address], 05/31/2024 13:32:21 05/31/20 24 05/31/2024 CBC monocytes # 0.6 x10 Not Avai lable [facility] [address] [facility], [place], [address], 05/31/2024 13:32:21 05/31/20 24 05/31/2024 CMP (MALE ) glucose 106.0 mg/dL 60.0-9 9.0 high Not Available [facility] [address] [facility], [place], [address], 05/31/2024 15:26:52 05/31/20 24 05/31/2024 CMP (MALE ) BUN (blood urea nitrogen) 25.0 mg/dL 10.0-2 6.0 Not Available [facility] [address] [facility], [place], [address], 05/31/2024 15:26:52 05/31/20 24 05/31/2024 CMP (MALE ) creatinine (serum) 1.1 mg/dL 0.4-1. 5 Not Available [facility] [address] [facility], [place], [address], 05/31/2024 15:26:52 05/31/20 24 05/31/2024 CMP (MALE ) BUN/creatini ne ratio 22.73 ratio Not Available [facility] [address] [facility], [place], [address], 05/31/2024 15:26:52 05/31/20 24 05/31/2024 CMP (MALE ) eGFR calculated 71.0 Not Available [facility] [address] [facility], [place], [address], 05/31/2024 15:26:52 05/31/20 24 05/31/2024 CMP (MALE ) total protein 7.2 g/dL 6.0-8. 5 Not Available [facility] [address] [facility] Marva [facility] 1, [place], [address], 05/31/2024 15:26:52 05/31/20 24 05/31/2024 CMP (MALE ) total bilirubin 0.5 mg/dL 0.2-1. 3 Not Available [facility] [address] [facility], [place], [address], 05/31/2024 15:26:52 05/31/20 24 05/31/2024 CMP (MALE ) albumin 4.3 g/dL 3.5-5. 5 Not Available [facility] [address] [facility] [address], [place], [address], 05/31/2024 15:26:52 05/31/20 24 05/31/2024 CMP (MALE ) globulin 2.9 calc Not Available [facility] [address] [facility], [place], [address], 05/31/2024 15:26:52 05/31/20 24 05/31/2024 CMP (MALE ) AST (SGOT) 25.0 U/L 0.0-46 .0 Not Available [facility] [address] [facility] [address], [place], [address], 05/31/2024 15:26:52 05/31/20 24 05/31/2024 CMP (MALE ) altv (SGPT) 18.0 U/L 13.0-6 9.0 normal Not Available [facility] [address] [facility] [address], [place], [address], 05/31/2024 15:26:52 05/31/20 24 05/31/2024 CMP (MALE ) A/G ratio 1.5 ratio Not Available [facility] [address] [facility] [address], [place], [address], 05/31/2024 15:26:52 05/31/20 24 05/31/2024 CMP (MALE ) ALP phos 117.0 U/L 30.0-1 40.0 normal Not Available [facility] [address] [facility] [address], [place], [address], 05/31/2024 15:26:52 05/31/20 24 05/31/2024 CMP (MALE ) calcium 8.5 mg/dL 8.4-10 .5 Not Available [facility] [address] [facility] 1, [place], [address], 05/31/2024 15:26:52 05/31/20 24 05/31/2024 CMP (MALE ) sodium 135.0 mmol/ L 136.0- 145.0 low Not Available [facility] [address] [facility], [place], [address], 05/31/2024 15:26:52 05/31/20 24 05/31/2024 CMP (MALE ) potassium 3.8 mmol/ L 3.5-5. 1 Not Available [facility] [address] [facility], [place], [address], 05/31/2024 15:26:52 05/31/20 24 05/31/2024 CMP (MALE ) chloride 99.0 mmol/ L 98.0-1 10.0 normal Not Available [facility] [address] [facility], [place], [address], 05/31/2024 15:26:52 05/31/20 24 05/31/2024 CMP (MALE ) C02 28.0 mmol/ L 22.0-3 1.0 Not Available [facility] [address] [facility], [place], [address], 05/31/2024 15:26:52 05/31/20 24 05/31/2024 CMP (MALE ) anion gap 8.0 calc Not Available [facility] [address] [facility] 1, [place], [address], 05/31/2024 15:26:52 05/31/2010 0605/31/2024 CMP (MALE ) osmolality 283.6 calc Not Available [facility] [address] [facility], [place], [address], 05/31/2024 15:26:52 05/31/20 24 06/01/2024 IRON, TIBC AND CHRISTOPHER TIN PANEL iron, total 37 mcg/d L 50-180 low Not Available [address] [place], [address], 06/01/2024 06:33:31 05/31/20 24 06/01/2024 IRON, TIBC AND CHRISTOPHER TIN PANEL iron binding capacity 412 mcg/d L_(ca lc) 250-42 5 normal Not Available [address] [place], [address], 06/01/2024 06:33:31 05/31/20 24 06/01/2024 IRON, TIBC AND CHRISTOPHER TIN PANEL % saturation 9 %_(ca lc) 20-48 low Not Available [address], [address], 06/01/2024 06:33:31 05/31/20 24 06/01/2024 IRON, TIBC AND CHRISTOPHER TIN PANEL ferritin 33 NG/mL 24-380 normal Not Available [address], [address], 06/01/2024 06:33:31 05/31/20 24 06/01/2024 VITAM IN B12/F OLATE , SERUM PANEL vitamin B12 402 pg/mL 200-11 00 normal Not Available [address], [address], 06/01/2024 06:33:32 05/31/20 24 06/01/2024 VITAM IN B12/F OLATE , SERUM PANEL folate, serum 6.4 NG/mL normal Refer ence Range Low: <3.4 Borde rline : 3.4-5 .4 Hilary l: >5.4 Not Available [facility] [facility] [address] [place], [address], 06/01/2024 06:33:32 05/31/20 24 05/31/2024 TSH, serum or plasm a TSH 4.66 uIU/m L 0.49-3 .82 abnormal Not Available [facility] ([facility]) [address] [place], [address], 05/31/2024 11:58:50 10/26/19 25 10/25/2024 CBC WBC 16.3 x10 4.5-10 .5 high Not Available [facility] [address], [address], 10/25/2024 11:21:38 10/26/19 25 10/25/2024 CBC RBC 4.26 x10 4.30-5 .90 low Not Available [facility] [address] [address], [place], [address], 10/25/2024 11:21:38 10/26/19 25 10/25/2024 CBC HGB 8.7 g/dL 13.5-1 8.0 low Not Available [facility] [address], [address], 10/25/2024 11:21:38 10/26/19 25 10/25/2024 CBC HCT 28.2 % 35.0-6 0.0 low Not Available [facility] [address] [address], [place], [address], 10/25/2024 11:21:38 10/26/19 25 10/25/2024 CBC MCV 66.2 fL 80.0-9 9.9 low Not Available [facility] [address], [address], 10/25/2024 11:21:38 10/26/19 25 10/25/2024 CBC MCH 20.4 pg 27.0-3 2.0 low Not Available [facility] [address] [facility], [place], [address], 10/25/2024 11:21:38 10/26/19 25 10/25/2024 CBC MCHC 30.9 g/dL 32.0-3 6.0 low Not Available [facility] [address] [facility], [place], [address], 10/25/2024 11:21:38 10/26/19 25 10/25/2024 CBC RDW 19.4 % 11.5-1 4.5 high Not Available [facility] [address] [facility], [place], [address], 10/25/2024 11:21:38 10/26/19 25 10/25/2024 CBC plt 257.4 x10 150.0- 451.0 Not Available [facility] [address] [facility] 1, [place], [address], 10/25/2024 11:21:38 10/26/19 25 10/25/2024 CBC lymphocytes % 5.1 % 20.0-5 0.0 low Not Available [facility] [address] [facility], [place], [address], 10/25/2024 11:21:38 10/26/19 25 10/25/2024 CBC granulcytes % 90.8 % 30.0-7 0.0 high Not Available [facility] [address] [facility], [place], [address], 10/25/2024 11:21:38 10/26/19 25 10/25/2024 CBC monocytes % 2.9 % 2.0-16 .0 Not Available [facility] [address] [address], [place], [address], 10/25/2024 11:21:38 10/26/19 25 10/25/2024 CBC granulcytes# 14.8 x10 Not Columba ilable [facility] [address] [address], [place], [address], 10/25/2024 11:21:38 10/26/19 25 10/25/2024 CBC lymphocytes # 0.8 x10 Not Available [facility] [address] [address], [place], [address], 10/25/2024 11:21:38 10/26/19 25 10/25/2024 CBC monocytes # 0.5 x10 Not Avai lable [place] [address] [address], [place], [address], 10/25/2024 11:21:38 10/26/19 25 10/25/2024 CMP (MALE ) glucose 139.0 mg/dL 60.0-9 9.0 high Not Available [facility] [address] [address], [place], [address], 10/25/2024 12:10:20 10/26/19 25 10/25/2024 CMP (MALE ) BUN (blood urea nitrogen) 16.0 mg/dL 10.0-2 6.0 Not Available [facility] [address] [address], [place], [address], 10/25/2024 12:10:20 10/26/19 25 10/25/2024 CMP (MALE ) creatinine (serum) 1.0 mg/dL 0.4-1. 5 Not Available [facility] [address] [address], [place], [address], 10/25/2024 12:10:20 10/26/19 25 10/25/2024 CMP (MALE ) BUN/creatini ne ratio 16.00 ratio Not Available [facility] [address] [facility], [place], [address], 10/25/2024 12:10:20 10/26/19 25 10/25/2024 CMP (MALE ) eGFR calculated 79.0 Not Available [facility] [address] [facility], [place], [address], 10/25/2024 12:10:20 10/26/19 25 10/25/2024 CMP (MALE ) total protein 7.4 g/dL 6.0-8. 5 Not Available [facility] [address] [facility] 1, [place], [address], 10/25/2024 12:10:20 10/26/19 25 10/25/2024 CMP (MALE ) total bilirubin 0.7 mg/dL 0.2-1. 3 Not Available [facility] [address] [facility] [address], [place], [address], 10/25/2024 12:10:20 10/26/19 25 10/25/2024 CMP (MALE ) albumin 4.2 g/dL 3.5-5. 5 Not Available [facility] [address] [facility] [address], [place], [address], 10/25/2024 12:10:20 10/26/19 25 10/25/2024 CMP (MALE ) globulin 3.[address] [facility] [address] [facility] 1, [place], [address], 10/25/2024 12:10:20 10/26/19 25 10/25/2024 CMP (MALE ) AST (SGOT) 32.0 U/L 0.0-46 .0 Not Available [facility] [address] [facility] 1, [place], [address], 10/25/2024 12:10:20 10/26/19 25 10/25/2024 CMP (MALE ) altv (SGPT) 18.0 U/L 13.0-6 9.0 normal Not Available [facility] [address] [facility] 1, [place], [address], 10/25/2024 12:10:20 10/26/19 25 10/25/2024 CMP (MALE ) A/G ratio 1.3 ratio Not Available Serge [facility]onk [facility] [address] [facility] 1, [place], [address], 10/25/2024 12:10:20 10/26/19 25 10/25/2024 CMP (MALE ) ALP phos 118.0 U/L 30.0-1 40.0 normal Not Available [facility] [address] [facility] 1, [place], [address], 10/25/2024 12:10:20 10/26/19 25 10/25/2024 CMP (MALE ) calcium 8.4 mg/dL 8.4-10 .5 Not Available [facility] [address] [facility] 1, [place], [address], 10/25/2024 12:10:20 10/26/19 25 10/25/2024 CMP (MALE ) sodium 138.0 mmol/ L 136.0- 145.0 Not Available [facility] [address] [facility] 1, [place], [address], 10/25/2024 12:10:20 10/26/19 25 10/25/2024 CMP (MALE ) potassium 4.3 mmol/ L 3.5-5. 1 Not Available [facility] [address] [facility] 1, [place], [address], 10/25/2024 12:10:20 10/26/19 25 10/25/2024 CMP (MALE ) chloride 102.0 mmol/ L 98.0-1 10.0 normal Not Available [facility] [address] [facility] 1, [place], [address], 10/25/2024 12:10:20 10/26/19 25 10/25/2024 CMP (MALE ) C02 28.0 mmol/ L 22.0-3 1.0 Not Available [facility] [address] [facility] 1, [place], [address], 10/25/2024 12:10:20 10/26/19 25 10/25/2024 CMP (MALE ) anion gap 8.0 calc Not Available [facility] [address] [facility] 1, [place], [address], 10/25/2024 12:10:20 10/26/19 25 10/25/2024 CMP (MALE ) osmolality 288.3 calc Not Available [facility] [address] [facility] 1, [place], [address], 10/25/2024 12:10:20 10/26/19 25 10/25/2024 LIPID PROFI LE (MALE ) cholesterol 91.0 mg/dL 0.0-20 0.0 Not Available [facility] [address] [facility] 1, [place], [address], 10/25/2024 12:10:22 10/26/19 25 10/25/2024 LIPID PROFI LE (MALE ) trig 76.0 mg/dL 0.0-15 0.0 Not Available [facility] [address] [facility] 1, [place], [address], 10/25/2024 12:10:22 10/26/19 25 10/25/2024 LIPID PROFI LE (MALE ) HDL - direct 26.0 mg/dL >40.0 low Not Available [facility] [address] [facility] 1, [place], [address], 10/25/2024 12:10:22 10/26/19 25 10/25/2024 LIPID PROFI LE (MALE ) VLDL - direct 15.2 mg/dL Not Available [facility] [address] [facility] 1, [place], [address], 10/25/2024 12:10:22 10/26/19 25 10/25/2024 LIPID PROFI LE (MALE ) LDL - direct 49.8 mg/dL 0.0-13 0.0 Not Available [facility] [address] [facility] 1, [place], [address], 10/25/2024 12:10:22 10/26/19 25 10/25/2024 TSH TSH 1.63 uIU/m L 0.49-3 .82 Not Available [facility] [address] [facility] 1, [place], [address], 10/25/2024 13:06:36 10/26/19 25 10/26/2024 IRON, TIBC AND CHRISTOPHER TIN PANEL iron, total 193 mcg/d L 50-180 high Not Available [address], [address], 10/26/2024 06:09:10 10/26/19 25 10/26/2024 IRON, TIBC AND CHRISTOPHER TIN PANEL iron binding capacity 496 mcg/d L_(ca lc) 250-42 5 high Not Available [employer] [address], [address], 10/26/2024 06:09:10 10/26/19 25 10/26/2024 IRON, TIBC AND CHRISTOPHER TIN PANEL % saturation 39 %_(ca lc) 20-48 normal Not Available [address], [address], 10/26/2024 06:09:10 10/26/19 25 10/26/2024 IRON, TIBC AND CHRISTOPHER TIN PANEL ferritin 126 NG/mL 24-380 normal Not Available [facility] [address] [place] [address], [address], 10/26/2024 06:09:10 10/26/19 25 10/26/2024 VITAM IN B12/F OLATE , SERUM PANEL vitamin B12 529 pg/mL 200-11 00 normal Not Available [facility] [address] [place] [address], [address], 10/26/2024 06:09:12 10/26/19 25 10/26/2024 VITAM IN B12/F OLATE , SERUM PANEL folate, serum 3.7 NG/mL low Refer ence Range Low: <3.4 Borde rline : 3.4-5 .4 Hilary l: >5.4 Not Available [facility] [id number] [place] [address], [address], 10/26/2024 06:09:12 11/01/19 25 10/31/2024 CBC WBC 5.4 x10 4.5-10 .5 Not Available [facility] [address] [facility] 1, [place], [address], 10/31/2024 15:04:46 11/01/19 25 10/31/2024 CBC RBC 4.64 x10 4.30-5 .90 Not Available [facility] [address] [facility] 1, [place], [address], 10/31/2024 15:04:46 11/01/19 25 10/31/2024 CBC HGB 10.1 g/dL 13.5-1 8.0 low Not Available [facility] [address] [facility] 1, [place], [address], 10/31/2024 15:04:46 11/01/19 25 10/31/2024 CBC HCT 33.0 % 35.0-6 0.0 low Not Available [facility] [address] [facility] 1, [place], [address], 10/31/2024 15:04:46 11/01/19 25 10/31/2024 CBC MCV 71.1 fL 80.0-9 9.9 low Not Available [facility] [address] [facility], [place], [address], 10/31/2024 15:04:46 11/01/19 25 10/31/2024 CBC MCH 21.7 pg 27.0-3 2.0 low Not Available [facility] [address] [facility] [place], [address], 10/31/2024 15:04:46 11/01/19 25 10/31/2024 CBC MCHC 30.5 g/dL 32.0-3 6.0 low Not Available [facility] [address] [facility] [address] [address], [place], [address], 10/31/2024 15:04:46 11/01/19 25 10/31/2024 CBC RDW 25.3 % 11.5-1 4.5 panic high Not Available [facility] [address] [facility] [place], [address], 10/31/2024 15:04:46 11/01/19 25 10/31/2024 CBC plt 222.5 x10 150.0- 451.0 Not Available [facility] [address] [facility], [place], [address], 10/31/2024 15:04:46 11/01/19 25 10/31/2024 CBC lymphocytes % 13.8 % 20.0-5 0.0 low Not Available [facility] [address] [facility], [place], [address], 10/31/2024 15:04:46 11/01/19 25 10/31/2024 CBC granulcytes % 74.3 % 30.0-7 0.0 high Not Available [place] [id number] [address], [place], [address], 10/31/2024 15:04:46 11/01/19 25 10/31/2024 CBC monocytes % 6.5 % 2.0-16 .0 Not Available [address] [address], [place], [address], 10/31/2024 15:04:46 11/01/19 25 10/31/2024 CBC granulcytes# 4.0 x10 Not [facility] [address] [address], [place], [address], 10/31/2024 15:04:46 11/01/19 25 10/31/2024 CBC lymphocytes # 0.7 x10 Not Available [address], [address], 10/31/2024 15:04:46 11/01/19 25 10/31/2024 CBC monocytes # 0.4 x10 Not Avai lable [address], [address], 10/31/2024 15:04:46 11/01/19 25 11/06/2024 C-EDWARD CTIVE PROTE IN C-reactive protein 4.2 mg/L <8.0 normal Not Available [employer] [facility] [address] , [place], [address], 11/06/2024 02:35:24 11/01/19 25 11/06/2024 CULTU RE, BLOOD culture, blood SEE NOTE CULTU RE, BLOOD Micro Numbe r: [id number] Test Statu s: Final Speci men Sourc e: Blood 1 Speci men Quali ty: Adequ ate Resul t: No growt h after 5 days TRANS PORT MEDIA : Aerob ic and anaer obic bottl e recei kasia. Not Available [facility] [address] [place], [address], 11/06/2024 02:35:26 11/01/19 25 11/06/2024 CULTU RE, BLOOD culture, blood SEE NOTE CULTU RE, BLOOD Micro Numbe r: [id number] Test Statu s: Final Speci men Sourc e: Blood , right arm Speci men Quali ty: Adequ ate Resul t: No growt h after 5 days TRANS PORT MEDIA : Aerob ic and anaer obic bottl e recei kasia. Not Available [facility] [address] , [place], [address], 11/06/2024 02:35:28 11/01/19 25 10/31/2024 ESR (eryt hrocy te sedim entat ion rate) , blood SedRate 24 Not Available [facility] ([facility]) [address] [place] [address], [address], 10/31/2024 14:09:52 10/26/19 25 10/29/2024 XR, chest , 2 view No observ ation record ed. [address] ([facility]) [address] [place] [address], [address], 10/31/2024 15:29:12 10/26/19 25 10/29/2024 elect rocar diogr am No observ ation record ed. [email or web address] ([facility]) [address] [place] [address], [phone], 10/30/2024 07:36:41 10/27/19 25 10/25/2024 XR, chest , 2 view No observ ation record ed. [address] ([facility]) [address] [place] [address], [phone], 10/29/2024 09:21:19 10/27/19 25 10/25/2024 elect rocar diogr am No observ ation record ed. [email or web address] [facility] ([facility]) [address] [place], [address], 10/29/2024 08:45:58 10/30/19 25 10/25/2024 elect rocar diogr am No observ ation record ed. [facility] ([facility]) [address] [place], [address], 10/30/2024 09:24:39 11/01/19 25 10/31/2024 XR, chest , 2 view No observ ation record ed. [email or web address] [facility] ([facility]) [address] [place], [address], 10/31/2024 21:37:58 11/03/19 25 10/31/2024 XR, chest , 2 view No observ ation record ed. [facility] ([facility]) [address] [place], [address], 11/04/2024 20:27:41 Result Notes None recorded. Problems Name Problem SNOMED Code Status Onset Date Resolution Date Notes Provider Name and Address Organization Details Recorded Time Chronic cholecystit is 98545544 Active [address] [facility] 21:15:54 Essential hypertensio n 10724389 Active 2022 STACY SNOW [facility] 21:15:54 Moderate recurrent major depression 96010549 Active 2022 STACY SNOW [facility] 21:15:54 Nausea 838330484 Active [address] [facility] 08:49:07 Chronic pain syndrome 230727553 Active 2022 STACY SNOW null, [facility] 3 21:15:54 Iron deficiency anemia 99757389 Active 2022 María Elaine, DO [address] [place], [address], [facility] 4 13:31:18 Abdominal pain 83092679 Active 2022 Haydee Dase null, [facility] 5 08:49:07 History of fall 556481151 Active 2022 María Elaine, [address], [address], [facility] 4 13:31:18 Chronic pain 40861677 Active 2022 STACY SNOW null, [facility] 3 21:15:54 Symptomatic sinus bradycardia 935081277 Active 2022 Haydee Burden null, [facility] 5 08:49:07 Hyperlipide bertin 31443281 Active 2022 Curt Lozano null, [facility] 4 12:13:05 Angina pectoris 661295281 Active 2023 María Elaine, DO [address] [place] [address], [address], [facility] 4 13:31:18 Vitamin B12 deficiency anemia due to malabsorpti on with proteinuria 132605542 Active 2023 María Elaine, DO [address] [place] [address], [address], [facility] 4 13:31:18 Muscle pain 46021080 Active [address] [facility] 5 08:49:07 Atrial fibrillatio n 07716430 Active 2023 María Elaine, DO [address] [place] [address], [address], [facility] 4 13:31:18 Obesity 774509116 Active 2023 María Elaine, DO [address] [place] [address], [address], [facility] 5 10:58:02 History of anemia vitamin B12 deficient 516112389 Active [address] [facility] 5 08:49:07 Dyspnea 859056145 Active 2023 Haydee kate, [facility] 5 08:49:07 Pleural effusion 76488314 Active 2023 Haydee kate, [facility] 5 08:49:07 Ectasia of thoracic aorta 9140670884731 08 Active 2023 Maríajamil Elaine [address], [address], [facility] 5 10:58:02 Chronic obstructive pulmonary disease 67909746 Active 2023 Maríajamil Elaine [address], [address], [facility] 5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
--- NOTE | 2025-01-27 10:55 | ECG_ITS ---
[facility] Test Date: 2025-01-27 Pat Name: Gary King Department: Room: Gender: Male Singe Winder: : 1955 Requested By: Johanna Bellamy Order Number: [id number] Napoleon MD: Víctor Ponce M.D. Measurements Intervals [place] Rate: 65 P: 201 MO: 213 QRS: -8 QRSD: 122 T: 23 QT: 360 QTc: 375 Interpretive Statements Regular supraventricular rhythm, possibly sinus MODERATE INTRAVENTRICULAR CONDUCTION DELAY [110+ ms QRS DURATION] MODERATE T-WAVE ABNORMALITY, CONSIDER ANTERIOR ISCHEMIA [-0.1+ mV T-WAVE IN V3/V4] Compared to ECG 04/10/2023 14:13:52 Possible ischemia now present Supraventricular rhythm no longer present T-wave abnormality still present Electronically Signed On 01-29-2025 10:08:05 CDT by Víctor Ponce M.D. [email or web address]
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
[2025-01-27 11:23] LABS: Hematocrit 35.0 % (37-53); Hemoglobin 10.90 g/dL (11.27-16.99); Mean Corpuscular HGB Conc 31.1 g/dL (30-55); Mean Corpuscular Hemoglobin 24.5 pg (27-33); Mean Corpuscular Volume 78.7 fl (82-101); Nucleated Red Blood Cells % 0 %; Platelet Count 177 10^3/cmm (157-399); Red Blood Count 4.45 10^6/uL (3.85-5.65); White Blood Count 14.43 10^3/uL (3.29-11.43)
[2025-01-27 11:41] LABS: Lactic Sepsis W/Reflex 2.3 mmol/L (0.5-2.2)
[2025-01-27 11:42] LABS: Troponin(5th) Baseline 24 ng/L (0-15)
[2025-01-27 11:43] LABS: Alanine Aminotransferase 37 U/L (0-41); Albumin Level 3.0 g/dL (3.5-5.2); Alkaline Phosphatase 136 U/L (40-130); Anion Gap 17.0 (5-19); Aspartate Amino Transferase 31 U/L (0-40); Blood Urea Nitrogen 26 mg/dL (8-23); Calcium 6.6 mg/dL (8.5-10.5); Carbon Dioxide 21 mmol/L (22-29); Chloride 104 mmol/L (98-107); Globulin 2.0 g/dL (1.3-4.6); Glucose 85 mg/dL (65-115); Osmolality Calculated 290 mOsm/kg (285-295); Potassium 4.0 mmol/L (3.5-5.1); Sodium 138 mmol/L (136-145); Total Protein 5.0 g/dL (6.6-8.7)
[2025-01-27 11:50] LABS: Procalcitonin 1.47 ng/mL (0-0.5)
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
--- NOTE | 2025-01-27 12:09 | PC.PHAR ---
Pt and family member verified his current med list. Pt states he is not taking Plavix 75mg daily last fill 11/24/23 or Levothyroxine 25mcg 37.5mcg daily last fill 12/24/24 90ds.
[2025-01-27] MEDS: calcium gluconate 0.1 gm/mL 10% SDV 10mL 1 GM IVP (12:32)
[2025-01-27] MEDS: linezolid premix 600 MG/300 ML PREMIX 300 MG IV (12:42)
[2025-01-27] MEDS: morphine 4 mg/mL SDV 1 mL IVP (12:51)
[2025-01-27 13:07] LABS: Reflex Lactate Order REFLEX LACTIC ORDERD
[2025-01-27 13:34] LABS: Lactic Acid level (Lactate) 1.2 mmol/L (0.5-2.2); Troponin 5 2HR 21.38 ng/L (0-15)
[2025-01-27 13:38] LABS: Glucose Urine UA Negative (Normal); Nitrate Urine Negative (Negative); Specific Gravity, Urine 1.022 (1.005-1.030)
[2025-01-27 13:40] LABS: Troponin 5 2HR Delta -2.62 ABS# (0-10)
--- NOTE | 2025-01-27 14:08 | ECG_ITS ---
[facility]25[facility]27 Pat Name: Gary King Department: Room: ICU07 Gender: Male Palliative Care Specialist: : [id number] Requested By: Johanna Bellamy Order Number: [id number] [place] MD: Víctor Ponce M.D. Measurements Intervals [place] Rate: 62 P: 214 SC: 241 QRS: -19 QRSD: 121 T: 16 QT: 397 QTc: 405 Interpretive Statements ELECTRONIC ATRIAL PACEMAKER POSSIBLE LATERAL MYOCARDIAL INFARCTION , PROBABLY OLD [30 ms Q WAVE IN I/aVL/V5/V6] ABNORMAL RHYTHM ECG Compared to ECG 01/27/2025 10:55:56 Myocardial infarct finding now present Intraventricular conduction delay no longer present T-wave abnormality no longer present Possible ischemia no longer present Electronically Signed On 01-30-2025 00:32:03 CDT by Víctor Ponce M.D. [email or web address]
--- NOTE | 2025-01-27 14:22 | PC.NURSE ---
Dr. Fernandes contacted for patients blood pressure 79/43 and patient reporting pain 10/10. order received for 1L bolus and 4Mg morphine.
--- NOTE | 2025-01-27 14:46 | PC.NURSE ---
Patient had left ankle wrapped, wrapping removed and no wound underneath.
[2025-01-27 14:47] LABS: UA Slide Review UA Slide Review Perf
[2025-01-27] MEDS: norepinephrine 4 MG/250 ML BAG 7.5 MG IV (15:46)
[2025-01-27] MEDS: calcium gluconate 0.9% NaCL 1 GM/50 ML PREMIX IV ×2 (15:59→16:32)
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
[2025-01-27] MEDS: meropenem 1,000 mg SDV 1000 MG IVP ×2 (16:34→23:24)
[2025-01-27 16:39] LABS: Magnesium 1.6 mg/dL (1.7-2.3)
[2025-01-27] MEDS: heparin 5,000 unit/mL INJ 1 mL 5000 UNIT SUBCUT ×2 (16:39→23:27)
--- NOTE | 2025-01-27 16:40 | ECG_ITS ---
[facility] Date: 2025-01-27 Pat Name: Gary King Department: Room: [facility] Gender: Male Title Investigator: : 1955 Requested By: Johanna Bellamy Order Number: [id number] aNpoleon MD: Vícotr Ponce M.D. Measurements Intervals [place] Rate: 62 P: 259 VT: 245 QRS: -24 QRSD: 121 T: 44 QT: 419 QTc: 429 Interpretive Statements ELECTRONIC ATRIAL PACEMAKER with occasional ectopics PROBABLE LATERAL MYOCARDIAL INFARCTION , PROBABLY OLD [35 ms Q WAVE IN I/aVL/V5/V6] Compared to ECG 01/27/2025 14:08:42 No significant changes Electronically Signed On 01-30-2025 00:31:26 CDT by Víctor Ponce M.D. [email or web address]
[2025-01-27 17:25] LABS: Thyroid Stimulating Hormone 1.59 uIU/mL (0.27-4.20)
--- NOTE | 2025-01-27 18:01 | PC.NURSE ---
home meds in pyxis pocket 23.
--- NOTE | 2025-01-27 18:23 | PC.NURSE ---
Dr. Fernandes aware of delay in administrating relistor due to unstable blood pressure and patient refusing bed leon, requesting bed side commode, stating he wants to be on commode before receiving injection.
[2025-01-27 18:29] LABS: Troponin 5 6HR 19.17 ng/L (0-15)
[2025-01-27 18:31] LABS: Troponin 5 6HR Delta -4.83 ng/L (0-12)
[2025-01-27 18:51] LABS: Anion Gap 16.5 (5-19); Blood Urea Nitrogen 34 mg/dL (8-23); Calcium 8.4 mg/dL (8.5-10.5); Carbon Dioxide 20 mmol/L (22-29); Chloride 99 mmol/L (98-107); Creatinine Clr Calc Pharmacy 70.6874; Glucose 97 mg/dL (65-115); Osmolality Calculated 280 mOsm/kg (285-295); Potassium 4.5 mmol/L (3.5-5.1); Sodium 131 mmol/L (136-145)
[2025-01-28] VITALS (168 sets, daily range): BP systolic 81–126; BP diastolic 49–77; PULSE 59–76; RESP 10–29; TEMP 35.8–37.2; O2SAT 86–100
[2025-01-28] MEDS: methylnaltrexone 12 /0.6 mL INJ 12 MG SUBCUT (05:00)
[2025-01-28 05:10] LABS: Hematocrit 30.7 % (37-53); Hemoglobin 9.40 g/dL (11.27-16.99); Mean Corpuscular HGB Conc 30.6 g/dL (30-55); Mean Corpuscular Hemoglobin 24.5 pg (27-33); Mean Corpuscular Volume 79.9 fl (82-101); Nucleated Red Blood Cells % 0 %; Platelet Count 118 10^3/cmm (157-399); Red Blood Count 3.84 10^6/uL (3.85-5.65); White Blood Count 5.54 10^3/uL (3.29-11.43)
[2025-01-28 05:32] LABS: Alanine Aminotransferase 34 U/L (0-41); Albumin Level 2.9 g/dL (3.5-5.2); Alkaline Phosphatase 136 U/L (40-130); Anion Gap 12.2 (5-19); Aspartate Amino Transferase 31 U/L (0-40); Blood Urea Nitrogen 28 mg/dL (8-23); Calcium 8.2 mg/dL (8.5-10.5); Carbon Dioxide 25 mmol/L (22-29); Chloride 101 mmol/L (98-107); Creatinine Clr Calc Pharmacy 98.9624; Globulin 2.8 g/dL (1.3-4.6); Glucose 83 mg/dL (65-115); Osmolality Calculated 283 mOsm/kg (285-295); Potassium 4.2 mmol/L (3.5-5.1); Sodium 134 mmol/L (136-145); Total Protein 5.7 g/dL (6.6-8.7)
[2025-01-28] MEDS: meropenem 1,000 mg SDV 1000 MG IVP ×2 (07:56→15:17)
[2025-01-28] MEDS: heparin 5,000 unit/mL INJ 1 mL 5000 UNIT SUBCUT ×2 (07:57→15:17)
[2025-01-28] MEDS: morphine 4 mg/mL SDV 1 mL IVP ×2 (08:00→22:56)
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
--- NOTE | 2025-01-28 10:48 | XR_ITS ---
WS: [email or web address] XR foot RT 2V [id number] REASON FOR EXAM: Fall and metatarsal pain FINDINGS: No acute fracture. Subluxations of the first through the fifth toes. Joint spaces of the forefoot, midfoot, and hindfoot are intact and relatively well preserved. No radiopaque soft tissue foreign body. XR/XR foot RT 2V [id number] IMPRESSION: No acute abnormality.
--- NOTE | 2025-01-28 10:48 | XR_ITS ---
WS: [email or web address] XR wrist LT 2V [id number] REASON FOR EXAM: Fall and pain with movement FINDINGS: No acute fracture identified. Joint spaces of the wrist are intact and relatively well preserved. No radiopaque soft tissue foreign body. XR/XR wrist LT 2V [id number] IMPRESSION: No acute abnormality.
--- NOTE | 2025-01-28 10:48 | XR_ITS ---
WS: [email or web address] XR ankle RT 2V [id number] REASON FOR EXAM: Fall and ankle pain FINDINGS: No acute fracture identified. Joint spaces of the ankle are intact and well preserved. No radiopaque soft tissue foreign body. XR/XR ankle RT 2V [id number] IMPRESSION: No acute abnormality identified.
--- NOTE | 2025-01-28 10:48 | XR_ITS ---
WS: [email or web address] XR ankle LT 2V [id number] REASON FOR EXAM: Fall and bilateral malleoli are pain and tenderness FINDINGS: No acute fracture. Joint spaces of the ankle are intact and well preserved. No radiopaque soft tissue foreign body. XR/XR ankle LT 2V [id number] IMPRESSION: No acute abnormality identified.
--- NOTE | 2025-01-28 10:48 | XR_ITS ---
WS: [email or web address] XR foot LT 2V [id number] REASON FOR EXAM: Fall and metatarsal pain minimal tenderness FINDINGS: No acute fracture. Subluxations of the second through the fourth toes. Joint spaces of the forefoot, midfoot, and hindfoot are intact and relatively well preserved. No radiopaque soft tissue foreign body. XR/XR foot LT 2V [id number] IMPRESSION: Forefoot subluxations. No acute abnormality identified.
[2025-01-28] MEDS: calcium gluconate 0.9% NaCL 1 GM/50 ML PREMIX IV (11:23)
[2025-01-28] MEDS: iron sucrose 200 MG in sodium chloride 0.9% (100 ml) 100 ML 220 MG IV (11:23)
[2025-01-28] MEDS: ondansetron 2 mg/ML SDV 2 mL 4 MG IVP (20:33)
[2025-01-29] VITALS (169 sets, daily range): BP systolic 94–152; BP diastolic 59–88; PULSE 53–87; RESP 11–29; TEMP 35.8–37.2; O2SAT 86–99
[2025-01-29] MEDS: heparin 5,000 unit/mL INJ 1 mL 5000 UNIT SUBCUT ×3 (00:46→15:35)
[2025-01-29] MEDS: meropenem 1,000 mg SDV 1000 MG IVP ×2 (00:47→08:27)
[2025-01-29] MEDS: morphine 4 mg/mL SDV 1 mL IVP ×2 (03:03→18:57)
[2025-01-29 05:30] LABS: Alanine Aminotransferase 27 U/L (0-41); Albumin Level 2.9 g/dL (3.5-5.2); Alkaline Phosphatase 134 U/L (40-130); Anion Gap 11.2 (5-19); Aspartate Amino Transferase 20 U/L (0-40); Blood Urea Nitrogen 21 mg/dL (8-23); Calcium 8.5 mg/dL (8.5-10.5); Carbon Dioxide 28 mmol/L (22-29); Chloride 102 mmol/L (98-107); Creatinine Clr Calc Pharmacy 123.7030; Globulin 2.7 g/dL (1.3-4.6); Glucose 85 mg/dL (65-115); Osmolality Calculated 286 mOsm/kg (285-295); Potassium 4.2 mmol/L (3.5-5.1); Sodium 137 mmol/L (136-145); Total Protein 5.6 g/dL (6.6-8.7)
[2025-01-29 09:53] LABS: Hematocrit 33.8 % (37-53); Hemoglobin 10.50 g/dL (11.27-16.99); Mean Corpuscular HGB Conc 31.1 g/dL (30-55); Mean Corpuscular Hemoglobin 24.7 pg (27-33); Mean Corpuscular Volume 79.5 fl (82-101); Nucleated Red Blood Cells % 0 %; Platelet Count 136 10^3/cmm (157-399); Red Blood Count 4.25 10^6/uL (3.85-5.65); White Blood Count 4.12 10^3/uL (3.29-11.43)
--- NOTE | 2025-01-29 12:56 | XRR_ITS ---
PROCEDURE INFORMATION: Exam: XR Right Shoulder Exam date and time: 01/29/2025 12:59 PM Age: 69 years old Clinical indication: Injury or trauma; Fall; Bleeding/hemorrhage; Shoulder; Right; Additional info: Fall now has range of motion and pain TECHNIQUE: Imaging protocol: Radiologic exam of the right shoulder. Views: 1 view. COMPARISON: CR XR shoulder RT min 2V* [id number] 02/20/2024 1:05 PM FINDINGS: Bones/joints: No fractures are seen on this one view. Osteoarthrosis of the acromioclavicular joint. Lungs: Suggestion of mild right basilar atelectasis or opacity. Soft tissues: Normal. Other findings: Cardiac pacer leads are partially visualized. XR/XR shoulder RT 1V [id number] IMPRESSION: No acute findings in the right shoulder.
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
--- NOTE | 2025-01-29 21:14 | PC.NURSE ---
Transfer Patient transferred to [place] [id number]. All belongings taken with patient. Patient voicing no complaints.
[2025-01-30] VITALS (11 sets, daily range): BP systolic 116–137; BP diastolic 71–89; PULSE 60–65; RESP 13–18; TEMP 36.3–37; O2SAT 92–96
[2025-01-30] MEDS: heparin 5,000 unit/mL INJ 1 mL 5000 UNIT SUBCUT ×2 (00:05→08:36)
[2025-01-30 06:25] LABS: Alanine Aminotransferase 23 U/L (0-41); Albumin Level 3.1 g/dL (3.5-5.2); Alkaline Phosphatase 130 U/L (40-130); Anion Gap 13.5 (5-19); Aspartate Amino Transferase 21 U/L (0-40); Blood Urea Nitrogen 16 mg/dL (8-23); Calcium 8.5 mg/dL (8.5-10.5); Carbon Dioxide 30 mmol/L (22-29); Chloride 101 mmol/L (98-107); Creatinine Clr Calc Pharmacy 123.3625; Globulin 2.8 g/dL (1.3-4.6); Glucose 74 mg/dL (65-115); Osmolality Calculated 290 mOsm/kg (285-295); Potassium 4.5 mmol/L (3.5-5.1); Sodium 140 mmol/L (136-145); Total Protein 5.9 g/dL (6.6-8.7)
--- NOTE | 2025-01-30 09:26 | PC.SOCIAL ---
IMM Update pg 2 of IMM Updated and reviewed w/ patient. Copy provided and copy dated, initialed and placed in chart.
[2025-01-30 11:13] LABS: Hematocrit 33.4 % (37-53); Hemoglobin 10.40 g/dL (11.27-16.99); Mean Corpuscular HGB Conc 31.1 g/dL (30-55); Mean Corpuscular Hemoglobin 24.8 pg (27-33); Mean Corpuscular Volume 79.7 fl (82-101); Nucleated Red Blood Cells % 0 %; Platelet Count 148 10^3/cmm (157-399); Red Blood Count 4.19 10^6/uL (3.85-5.65); White Blood Count 4.35 10^3/uL (3.29-11.43)
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
[2025-01-31 09:19] LABS: Vit D 1,25 (Oh)2, Total 20 pg/mL (18-72); Vit D2 1,25 (Oh)2 <8 pg/mL; Vit D3 1,25 (Oh)2 20 pg/mL
== END 2025-01-30 16:40 | disposition home health service (06) | DRG 871 ==
LOC: ER 12:46 → ICU 13:21 → MEDSURG 01-29 21:05
PROVIDERS: Admitting Provider Internal Medicine; Emergency Provider Emergency Medicine; PCP Electrodiagnostic Medicine; Visit Provider Internal Medicine
DX: A41.9 Sepsis, unspecified organism (principal); J69.0 Pneumonitis due to inhalation of food and vomit; K56.7 Ileus, unspecified; E87.20 Acidosis, unspecified; J96.11 Chronic respiratory failure with hypoxia; T40.605A Adverse effect of unspecified narcotics, initial encounter; R11.2 Nausea with vomiting, unspecified; T42.8X5A Adverse effect of antiparkinsonism drugs and other central muscle-tone depressants, initial encounter; D50.0 Iron deficiency anemia secondary to blood loss (chronic); E83.51 Hypocalcemia; G89.4 Chronic pain syndrome; I48.0 Paroxysmal atrial fibrillation; W01.0XXA Fall on same level from slipping, tripping and stumbling without subsequent striking against object, initial encounter; G62.9 Polyneuropathy, unspecified; Z66 Do not resuscitate; E66.9 Obesity, unspecified; Z68.33 Body mass index [BMI] 33.0-33.9, adult; R33.9 Retention of urine, unspecified; Z79.82 Long term (current) use of aspirin; Z98.84 Bariatric surgery status; I10 Essential (primary) hypertension; E03.9 Hypothyroidism, unspecified; Z95.0 Presence of cardiac pacemaker; I49.5 Sick sinus syndrome
CPT/HCPCS: 36415; 51702; 70450; 71045; 71250; 73020; 73100; 73600; 73620; 74176; 80048; 80053; 81001; 82533; 82652; 83605; 83735; 84100; 84145; 84443; 84484; 85025; 86140; 87040; 93005; 94664; 96365; 96372; 96374; 96375; 96376; 97110; 97116; 97162; 97167; 97530; 99285; J0612; J1644; J1756; J2020; J2185; J2212; J2270; J2405; J7030; J7040; J9999

== ENCOUNTER 2025-03-06 10:06 | Oncology outpatient (recurring) (ONCR) | payer OTHER, MEDICAID, SELFPAY ==
[2025-03-06 10:52] LABS: Hematocrit 35.3 % (37-53); Hemoglobin 11.10 g/dL (11.27-16.99); Mean Corpuscular HGB Conc 31.4 g/dL (30-55); Mean Corpuscular Hemoglobin 24.8 pg (27-33); Mean Corpuscular Volume 79.0 fl (82-101); Nucleated Red Blood Cells % 0 %; Platelet Count 158 10^3/cmm (157-399); Red Blood Count 4.47 10^6/uL (3.85-5.65); White Blood Count 5.84 10^3/uL (3.29-11.43)
[2025-03-06 11:26] LABS: Alanine Aminotransferase 18 U/L (0-41); Albumin Level 3.8 g/dL (3.5-5.2); Alkaline Phosphatase 131 U/L (40-130); Aspartate Amino Transferase 23 U/L (0-40); Blood Urea Nitrogen 15 mg/dL (8-23); Calcium 8.3 mg/dL (8.5-10.5); Carbon Dioxide 25 mmol/L (22-29); Chloride 105 mmol/L (98-107); Creatinine Clr Calc Pharmacy 121.2080; Globulin 3.1 g/dL (1.3-4.6); Glucose 138 mg/dL (65-115); Iron 24 ug/dL (59-158); Osmolality Calculated 289 mOsm/kg (285-295); Sodium 138 mmol/L (136-145); Total Iron Binding Capacity 372 mcg/dl; Total Protein 6.9 g/dL (6.6-8.7); Unsaturated Iron Binding 348 ug/dL (112-347)
[2025-03-06 11:33] LABS: Anion Gap 12.0 (5-19); Potassium 4.0 mmol/L (3.5-5.1)
[2025-03-06 12:23] LABS: Ferritin 30 ng/mL (30-400)
[2025-03-14 11:50] LABS: CLL Prognostic Panel (BBPL) See Report
== END 2025-03-17 23:59 | disposition home or self-care (01) ==
PROVIDERS: Nurse Practitioner; PCP Electrodiagnostic Medicine; Visit Provider Internal Medicine
DX: D50.0 Iron deficiency anemia secondary to blood loss (chronic) (principal); I48.0 Paroxysmal atrial fibrillation; D50.8 Other iron deficiency anemias; G89.29 Other chronic pain; K92.1 Melena; Z79.899 Other long term (current) drug therapy
CPT/HCPCS: 36415; 80053; 81263; 82232; 82728; 83540; 83550; 83615; 85025; 88185; 88264; 88271; 88367; 88374; 99213

== ENCOUNTER 2025-04-03 12:38 | Oncology outpatient (recurring) (ONCR) | payer OTHER, MEDICAID, SELFPAY ==
[2025-03-27 11:29] LABS: Hematocrit 34.2 % (37-53); Hemoglobin 10.70 g/dL (11.27-16.99); Mean Corpuscular HGB Conc 31.3 g/dL (30-55); Mean Corpuscular Hemoglobin 23.7 pg (27-33); Mean Corpuscular Volume 75.7 fl (82-101); Nucleated Red Blood Cells % 0 %; Platelet Count 197 10^3/cmm (157-399); Red Blood Count 4.52 10^6/uL (3.85-5.65); White Blood Count 8.35 10^3/uL (3.29-11.43)
[2025-03-27] MEDS: ferric carboxy (PYXIS) 750 MG in sodium chloride 0.9% (100 ml) 100 ML 345 MG IV (11:30)
[2025-03-27 12:05] VITALS: BP 134/74; PULSE 73; RESP 17; TEMP 37.1; O2SAT 98
[2025-03-27 12:38] LABS: Alanine Aminotransferase 20 U/L (0-41); Albumin Level 4.0 g/dL (3.5-5.2); Alkaline Phosphatase 123 U/L (40-130); Anion Gap 16.4 (5-19); Aspartate Amino Transferase 29 U/L (0-40); Blood Urea Nitrogen 14 mg/dL (8-23); Calcium 8.8 mg/dL (8.5-10.5); Carbon Dioxide 23 mmol/L (22-29); Chloride 101 mmol/L (98-107); Creatinine Clr Calc Pharmacy 122.7955; Globulin 3.4 g/dL (1.3-4.6); Glucose 124 mg/dL (65-115); Osmolality Calculated 286 mOsm/kg (285-295); Potassium 3.4 mmol/L (3.5-5.1); Sodium 137 mmol/L (136-145); Total Protein 7.4 g/dL (6.6-8.7)
[2025-04-03] MEDS: ondansetron 2 mg/ML SDV 2 mL 8 MG IVP (13:21)
[2025-04-03] MEDS: ferric carboxy (PYXIS) 750 MG in sodium chloride 0.9% (100 ml) 100 ML 345 MG IV (13:51)
[2025-04-03 14:30] VITALS: BP 128/76; PULSE 84; RESP 16; TEMP 36.9; O2SAT 96
== END 2025-04-16 23:59 | disposition home or self-care (01) ==
PROVIDERS: Internal Medicine; PCP Electrodiagnostic Medicine; Visit Provider Nurse Practitioner Family
DX: D50.0 Iron deficiency anemia secondary to blood loss (chronic); Z79.899 Other long term (current) drug therapy; Z53.9 Procedure and treatment not carried out, unspecified reason
CPT/HCPCS: 36415; 80053; 83615; 85025; 96365; 99214; J1439; J2405; J7050

== ENCOUNTER 2025-06-05 13:08 | Oncology outpatient (recurring) (ONCR) | payer OTHER, MEDICAID, SELFPAY ==
[2025-06-05 13:53] LABS: Hematocrit 43.3 % (37-53); Hemoglobin 13.80 g/dL (11.27-16.99); Mean Corpuscular HGB Conc 31.9 g/dL (30-55); Mean Corpuscular Hemoglobin 26.2 pg (27-33); Mean Corpuscular Volume 82.3 fl (82-101); Nucleated Red Blood Cells % 0 %; Platelet Count 165 10^3/cmm (157-399); Red Blood Count 5.26 10^6/uL (3.85-5.65); White Blood Count 6.99 10^3/uL (3.29-11.43)
[2025-06-05 14:18] LABS: Alanine Aminotransferase 24 U/L (0-41); Albumin Level 4.4 g/dL (3.5-5.2); Alkaline Phosphatase 169 U/L (40-130); Anion Gap 15.1 (5-19); Aspartate Amino Transferase 29 U/L (0-40); Blood Urea Nitrogen 19 mg/dL (8-23); Calcium 8.4 mg/dL (8.5-10.5); Carbon Dioxide 26 mmol/L (22-29); Chloride 107 mmol/L (98-107); Ferritin 97 ng/mL (30-400); Globulin 3.5 g/dL (1.3-4.6); Glucose 87 mg/dL (65-115); Iron 69 ug/dL (59-158); Osmolality Calculated 300 mOsm/kg (285-295); Potassium 4.1 mmol/L (3.5-5.1); Sodium 144 mmol/L (136-145); Total Iron Binding Capacity 335 mcg/dl; Total Protein 7.9 g/dL (6.6-8.7); Unsaturated Iron Binding 266 ug/dL (112-347)
== END 2025-06-16 23:59 | disposition home or self-care (01) ==
PROVIDERS: PCP Electrodiagnostic Medicine; Visit Provider Nurse Practitioner Family
DX: D50.0 Iron deficiency anemia secondary to blood loss (chronic) (principal); I48.0 Paroxysmal atrial fibrillation; E87.6 Hypokalemia; R03.0 Elevated blood-pressure reading, without diagnosis of hypertension; G89.29 Other chronic pain; R51.9 Headache, unspecified; F32.A Depression, unspecified; Z79.899 Other long term (current) drug therapy
CPT/HCPCS: 36415; 80053; 82728; 83540; 83550; 83615; 85025; 99214

== ENCOUNTER 2025-07-17 18:38 | Emergency (ER) | payer MEDICARE, MEDICAID, SELFPAY ==
--- OUTSIDE RECORDS SUMMARY | 2025-07-17 18:46 | XMS_ITS | Clinical Summary ---
Author Organization [facility] Based Address [address] [place] [address] Care Team Providers Care Blade Groover Name Role Phone Unavailable Primary Care Provider [...] by inhalation every 6 hours as needed. 08/12/19 24 Active amitriptyline (ELAVIL) 25 mg tablet Take 25 mg by mouth daily at bedtime. 08/12/19 24 Active gabapentin (NEURONTIN) 300 mg capsule Take 300 mg by mouth 2 times daily. 08/12/19 24 Active methadone (DOLOPHINE) 10 mg Tablet Take 10 mg by mouth daily. 08/25/19 24 Active methylnaltrexo ne (Relistor) 12 mg/0.6 mL Syringe Inject 12 mg by subcutaneous injection every 7 days. Self injection every Tuesday11/15/19 24 Active naloxone (NARCAN) 4 mg/spray [employer], Non-Aerosol Active nitroglycerin (NITROSTAT) 0.4 mg Tablet, Sublingual Active mupirocin (BACTROBAN) 2 % Ointment Apply to affected area 1 time daily as needed for Other (See Comment). Skin rash, no currently using Active dilTIAZem (CARDIZEM CD, CARTIA XT) 120 mg Controlled Delivery 24 hour capsule Take 1 Capsule (120 mg) by mouth 2 times daily. 180 Capsule 3 11/09/19 25 Active dronedarone (Multaq) 400 mg Tablet TAKE 1 TABLET BY MOUTH TWICE A DAY 180 Tablet 3 12/22/19 25 Active lisinopriL (PRINIVIL) 20 mg tablet TAKE 1 TABLET BY MOUTH EVERY DAY 90 Tablet 07/16/20 25 Active lisinopriL (PRINIVIL) 20 mg tablet Take 1 Tablet (20 mg) by mouth daily. 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 medical therapy 09/25/2024 Cardiomyopathy 11/18/2023 Essential hypertension 09/27/2023 Paroxysmal atrial fibrillation 09/27/2023 Other dietary vitamin B12 deficiency anemia 09/15 Encounters Date Type Department Care Team Description 07/16/2025 [facility] [facility] [address] [facility] [address] [place] [address] Lyndsay Busch MD 07/09/2025 External Device Data [facility] Provider, Abstract 07/02/2025 External Device Data [facility] Provider, Abstract 06/04/2025 External Device Data [facility] Provider, Abstract 05/15/2025 [facility]iology [facility] [address] [facility] [address] [place] [address] Lyndsay Busch MD 05/08/2025 External Device Data [facility] Provider, Abstract from Last 3 Months Immunizations Immunization Administration [...] 09/25/2024 2:54 PM CDT Plan of Treatment Health Maintenance Due Date Last Done Comments Pre-Diabetes and Diabetes Screening 1955 DTAP/TDAP/TD VACCINES (1 - Tdap) 09/18/1975 COLORECTAL SCREENING 2001 Colorectal Cancer Screening 2001 FIT-DNA Q 3 years 2001 FIT/FOBT Q 1 year 2001 Flex Sig/CT Colonography Q 5 years 2001 RSV VACCINE (60+ or ) (1 - Risk 50-74 years 1-dose series) 2006 PNEUMOCOCCAL VACCINE 50+ YEA RS (2 of 2 - PCV) 05/20/2016 05/20/2015, 04/15/2010 ZOSTER VACCINE (2 of 2) 07/14/2023 05/19/2023 INFLUENZA VACCINE (#1) 2025 , 05/19/2023, 06/19/2022, Additional history exists COVID-19 Vaccine (3 - 2024-2 6 season) 2025 03/20/2021, 02/20/2021 Medical Devices Implanted Type Area Conveyor Attendant Device Identifier Shelf Expiration Date Model / Serial / Lot Pacemaker-2015 Implanted:06/21 by Víctor Ponce MD (Quantity not on file) Pacemaker Chest Description:[employer] [place] [facility] DUAL COMPLETE O [facility] [id number]
--- OUTSIDE RECORDS SUMMARY | 2025-07-17 18:46 | XMS_ITS | Encounter Summary ---
Author Organization [facility] Address 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 [address] [facility] [address] [place] [id number] Errol Villanueva MD NO ADDRESS ON FILE [...] I will absolutely not go to the [facility]. I will drive to [place] before I do that. He stated. I have a nurse practitioner friend I can call. I reiterated the concern to go to the ER if he starts feeling bad. Pt verbalized understanding. * Telephone Encounter - Cindy Dewitt RN - 11/18/2023 12:04 PM CDT I spoke to the powerhouse laborer. They report Hgb 6.2. Messaged routed to Dr. Villanueva for advice. * Telephone Encounter - Dari Asif - 11/18/2023 11:56 AM CDT [facility] Call Center Communications Kay (Provider) Caller: Angelique Lab MESSAGE [facility] lab calling to report a critical lab result- call transferred to RN [facility] [employer] Developer: JACINTA Vásquez documented in this encounter Plan of Treatment Not on file documented as of this encounter Visit Diagnoses Not on filedocumented in this encounter
--- OUTSIDE RECORDS SUMMARY | 2025-07-17 18:46 | XMS_ITS ---
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 Name Role Phone MD [facility] [phone] ALLERGIES, ADVERSE REACTIONS AND ALERTS Allergy Name Allergy Date Allergy Status Allergy Severity Allergy Reaction Ketorolac, [RxNorm: 85372] 09/08/2023 Current Percocet, [RxNorm: 26727] 09/08/2023 Current Imitrex, [RxNorm: 680437] 09/08/2023 Current PROBLEMS Problem Code Problem Description [...] ever smoked Sex: Male CARE TEAM INFORMATION Plastic Extruding Machine Operator Provider ID Role Location Phone RICHIE ERICKSON [phone] [address] , [place] [address] INSURANCE PROVIDERS Payer Name Policy type / Coverage type Covered constitution party ID Policy [employer] Private Health Insurance [id number] [place] MEDICAID [place] Medicaid [id number] SELF
--- OUTSIDE RECORDS SUMMARY | 2025-07-17 18:46 | XMS_ITS | Data Portability ---
Author Organization [facility] Address [address] [place] [address] Care Team Providers Care Breaker Hand Name Role Phone MARÍA ELAINE Primary Care Provider Unavailabl e Assessment Encounter Date Assessment Date Assessment LastModified by Organization Details LastModified Time 10/25/2024 10/25/2024 I reviewed recent records including infusion data at [facility] on 10/23/24. office note from oncology not [...] part of this patient's office visit today. [email or web address] Not available 10/25/2024 11:04:13 10/31/2024 10/31/2024 Document scribed by Curt Lozano Education Instructor. I was present during interview and exam. I have reviewed and agree with above documentation. Dr. María Elaine. [email or web address] Not available 10/31/2024 15:42:00 02/20/2025 02/20/2025 I reviewed hospital records prior to seeing the patient today. I have reviewed tests/procedure s and diagnoses during hospital stay. I have reviewed and noted medications prior to admission as well as medication changes post admission. I have updated and reconciled medications post discharge today and meds are updated in EMR. I have also educated patient about medication changes and current medications. Please see hpi above and chart for detailed records. I have addressed all patient questions today. They express verbal understanding. Document scribed by Curt Lozano Education Instructor. I was present during interview and exam. I have reviewed and agree with above documentation. Dr. María Elaine. [email or web address] Not available 02/20/2025 12:22:09 Plan of Treatment Reminders Order Date Submit Date Provider Last Modified By Organization Details Last Modified Time Details Appointments None recorded. Lab C-reactive protein, quantitativ e, serum or plasma 2024 025 [employer] [facility], [address] [place] [address] 248, [address], [place], [address], 02:35:24 ESR (erythrocyt e sedimentati on rate), blood 2024 025 [facility] ([facility]), [address] [place], [address], 5 16:04:29 culture, blood 2024 025 [employer] [facility], [address] [place] [address], [address], [place], [address], 5 02:35:26 culture, blood 2024 025 [employer] [facility], [address] [place] [address] 248, [address], [place], [address], 5 02:35:28 culture, sputum 2024 025 [email or web address] [employer] [facility], [address] [place] [address] 248, [address], [place], [address], 5 08:56:42 CBC 2024 025 [facility], [address] [facility], [facility] 1, [place], [address], 5 15:04:47 vitamin B12 + folate, serum or blood 2024 025 [employer] [facility], [address] [place] [address] 248, [address], [place], [address], 06:09:12 CMP, serum or plasma 2024 025 [facility], [address] [facility], [facility] 1, [place], [address], 12:10:20 lipid panel, blood 2024 025 [facility], [address] [facility], [facility] 1, [place], [address], 12:10:22 CBC 2024 025 [facility], [address] [facility], [facility] 1, [place], [address], 11:21:38 TSH, serum or plasma [address] Lab, [address] [facility], [facility] 1, [place], [address], 08:53:50 iron + TIBC + ferritin, serum 2024 025 [employer] [facility], [address] [facility] 248, [address] [place], [address], 06:09:11 Referral None recorded. Procedures None recorded. Surgeries None recorded. Imaging XR, chest, 2 view [address] ([facility]), [address] [place], [address], 18:08:25 PFT, complete [address], [address] [place], [address], 04/24/202 5 08:12:46 electrocard iogram 2024 025 [facility] ([facility]), [address] [place], [address], 14:41:10 XR, chest, 2 view 2024 025 [facility] ([facility]), [address] [place], [address], 14:41:09 Medication Orders Relistor 12 mg/0.6 mL subcutaneou s syringe 2023 024 [email or web address] [id number], [address] [facility], [facility] 2, [place], [address], 08:01:44 Patient TargetsNo targets recorded. Patient InstructionsNo instructions recorded. Reason for Referral None Reported. Results Created Date Observation Date Name Description Value Unit Range Abnormal Flag Note LastModifiedBy Organization Detail LastModifiedTime 10/26/1910/25/2024 CBC WBC 16.3 x10 4.5-10 .5 high Not Available [facility] [address] [facility] 1, [place], [address], 10/25/2024 11:21:38 10/26/19 25 10/25/2024 CBC RBC 4.26 x10 4.30-5 .90 low Not Available [facility] [address] [facility] 1, [place], [address], 10/25/2024 11:21:38 10/26/19 25 10/25/2024 CBC HGB 8.7 g/dL 13.5-1 8.0 low Not Available [facility] [address] [facility] 1, [place], [address], 10/25/2024 11:21:38 10/26/19 25 10/25/2024 CBC HCT 28.2 % 35.0-6 0.0 low Not Available [facility] [address] [facility], [place], [address], 10/25/2024 11:21:38 10/26/19 25 10/25/2024 CBC MCV 66.2 fL 80.0-9 9.9 low Not Available [facility] [address] [place] [facility], [place], [address], 10/25/2024 11:21:38 10/26/19 25 10/25/2024 CBC MCH 20.4 pg 27.0-3 2.0 low Not Available [facility] [address] [place] [facility], [place], [address], 10/25/2024 11:21:38 10/26/19 25 10/25/2024 CBC MCHC 30.9 g/dL 32.0-3 6.0 low Not Available [facility] [address] [facility], [place], [address], 10/25/2024 11:21:38 10/26/19 25 10/25/2024 CBC RDW 19.4 % 11.5-1 4.5 high Not Available [facility] [address] [place] [facility], [place], [address], 10/25/2024 11:21:38 10/26/19 25 10/25/2024 CBC plt 257.4 x10 150.0- 451.0 Not Available [facility] [address] [facility], [place], [address], 10/25/2024 11:21:38 10/26/19 25 10/25/2024 CBC lymphocytes % 5.1 % 20.0-5 0.0 low Not Available [facility] [address] [facility], [place], [address], 10/25/2024 11:21:38 10/26/19 25 10/25/2024 CBC granulcytes % 90.8 % 30.0-7 0.0 high Not Available [facility] [address] [facility] 1, [place], [address], 10/25/2024 11:21:38 10/26/19 25 10/25/2024 CBC monocytes % 2.9 % 2.0-16 .0 Not Available [facility] [address] [address], [place], [address], 10/25/2024 11:21:38 10/26/19 25 10/25/2024 CBC granulcytes# 14.8 x10 Not Columba ilable [facility] [address] [address], [place], [address], 10/25/2024 11:21:38 10/26/19 25 10/25/2024 CBC lymphocytes # 0.8 x10 Not Available [facility] [address] [address], [place], [address], 10/25/2024 11:21:38 10/26/19 25 10/25/2024 CBC monocytes # 0.5 x10 Not Avai lable [facility] [address] [address], [place], [address], 10/25/2024 11:21:38 10/26/19 25 10/25/2024 CMP (MALE ) glucose 139.0 mg/dL 60.0-9 9.0 high Not Available [facility] [address] [address], [place], [address], 10/25/2024 12:10:20 10/26/19 25 10/25/2024 CMP (MALE ) BUN (blood urea nitrogen) 16.0 mg/dL 10.0-2 6.0 Not Available [facility] [address] [address], [place], [address], 10/25/2024 12:10:20 10/26/19 25 10/25/2024 CMP (MALE ) creatinine (serum) 1.0 mg/dL 0.4-1. 5 Not Available [facility] [address] [facility] 1, [place], [address], 10/25/2024 12:10:20 10/26/19 25 10/25/2024 CMP (MALE ) BUN/creatini ne ratio 16.00 ratio Not Available [facility] [address] [facility] 1, [place], [address], 10/25/2024 12:10:20 10/26/19 25 10/25/2024 CMP (MALE ) eGFR calculated 79.0 Not Available [facility] [address] [facility] 1, [place], [address], 10/25/2024 12:10:20 10/26/19 25 10/25/2024 CMP (MALE ) total protein 7.4 g/dL 6.0-8. 5 Not Available [facility] [address] [facility] 1, [place], [address], 10/25/2024 12:10:20 10/26/19 25 10/25/2024 CMP (MALE ) total bilirubin 0.7 mg/dL 0.2-1. 3 Not Available [facility] [address] [facility] 1, [place], [address], 10/25/2024 12:10:20 10/26/19 25 10/25/2024 CMP (MALE ) albumin 4.2 g/dL 3.5-5. 5 Not Available [facility] [address] [facility] 1, [place], [address], 10/25/2024 12:10:20 10/26/19 25 10/25/2024 CMP (MALE ) globulin 3.2 calc Not Available [facility] [address] [place] [facility], [place], [address], 10/25/2024 12:10:20 10/26/19 25 10/25/2024 CMP (MALE ) AST (SGOT) 32.0 U/L 0.0-46 .0 Not Available [facility] [address] [place] [facility], [place], [address], 10/25/2024 12:10:20 10/26/19 25 10/25/2024 CMP (MALE ) altv (SGPT) 18.0 U/L 13.0-6 9.0 normal Not Available [facility] [address] [place] [facility], [place], [address], 10/25/2024 12:10:20 10/26/19 25 10/25/2024 CMP (MALE ) A/G ratio 1.3 ratio Not Available [facility] B[facility] [address] [facility] 1, [place], [address], 10/25/2024 12:10:20 10/26/19 25 10/25/2024 CMP (MALE ) ALP phos 118.0 U/L 30.0-1 40.0 normal Not Available [facility] [address] [facility] 1, [place], [address], 10/25/2024 12:10:20 10/26/19 25 10/25/2024 CMP (MALE ) calcium 8.4 mg/dL 8.4-10 .5 Not Available [facility] [address] [facility] 1, [place], [address], 10/25/2024 12:10:20 10/26/19 25 10/25/2024 CMP (MALE ) sodium 138.0 mmol/ L 136.0- 145.0 Not Available [facility] [address] [facility] 1, [place], [address], 10/25/2024 12:10:20 10/26/19 25 10/25/2024 CMP (MALE ) potassium 4.3 mmol/ L 3.5-5. 1 Not Available [facility] [address] [facility] 1, [place], [address], 10/25/2024 12:10:20 10/26/19 25 10/25/2024 CMP (MALE ) chloride 102.0 mmol/ L 98.0-1 10.0 normal Not Available [facility] [address] [facility] 1, [place], [address], 10/25/2024 12:10:20 10/26/19 25 10/25/2024 CMP (MALE ) C02 28.0 mmol/ L 22.0-3 1.0 Not Available [facility] [address] [facility] 1, [place], [address], 10/25/2024 12:10:20 10/26/19 25 10/25/2024 CMP (MALE ) anion gap 8.0 calc Not Available Serge dean [facility] [address] [facility] 1, [place], [address], 10/25/2024 12:10:20 10/26/19 25 10/25/2024 CMP (MALE ) osmolality 288.3 calc Not Available [facility] [address] [facility] 1, [place], [address], 10/25/2024 12:10:20 10/26/19 25 10/25/2024 LIPID PROFI LE (MALE ) cholesterol 91.0 mg/dL 0.0-20 0.0 Not Available [facility] [address] [facility] 1, [place], [address], 10/25/2024 12:10:22 10/26/19 25 10/25/2024 LIPID PROFI LE (MALE ) trig 76.0 mg/dL 0.0-15 0.0 Not Available [facility] [address] [facility] 1, [place], [address], 10/25/2024 12:10:22 10/26/19 25 10/25/2024 LIPID PROFI LE (MALE ) HDL - direct 26.0 mg/dL >40.0 low Not Available [address] [address], [place], [address], 10/25/2024 12:10:22 10/26/19 25 10/25/2024 LIPID PROFI LE (MALE ) VLDL - direct 15.2 mg/dL Not Available [address] [address], [place], [address], 10/25/2024 12:10:22 10/26/19 25 10/25/2024 LIPID PROFI LE (MALE ) LDL - direct 49.8 mg/dL 0.0-13 0.0 Not Available [address] [address], [place], [address], 10/25/2024 12:10:22 10/26/19 25 10/25/2024 TSH TSH 1.63 uIU/m L 0.49-3 .82 Not Available [address] [address], [place], [address], 10/25/2024 13:06:36 10/26/19 25 10/26/2024 IRON, TIBC AND CHRISTOPHER TIN PANEL iron, total 193 mcg/d L 50-180 high Not Available [employer] [address], [address], 10/26/2024 06:09:10 10/26/19 25 10/26/2024 IRON, TIBC AND CHRISTOPHER TIN PANEL iron binding capacity 496 mcg/d L_(ca lc) 250-42 5 high Not Available [employer] [address] [place], [address], 10/26/2024 06:09:10 10/26/19 25 10/26/2024 IRON, TIBC AND CHRISTOPHER TIN PANEL % saturation 39 %_(ca lc) 20-48 normal Not Available [address], [address], 10/26/2024 06:09:10 10/26/1910/26/2024 IRON, TIBC AND CHRISTOPHER TIN PANEL ferritin 126 NG/mL 24-380 normal Not Available [address], [address], 10/26/2024 06:09:10 10/26/1910/26/2024 VITAM IN B12/F OLATE , SERUM PANEL vitamin B12 529 pg/mL 200-11 00 normal Not Available [address], [address], 10/26/2024 06:09:12 10/26/1910/26/2024 VITAM IN B12/F OLATE , SERUM PANEL folate, serum 3.7 NG/mL low Refer ence Range Low: <3.4 Borde rline : 3.4-5 .4 Hilary l: >5.4 Not Available [address], [address], 10/26/2024 06:09:12 11/01/1910/31/2024 CBC WBC 5.4 x10 4.5-10 .5 Not Available [facility] [address], [place], [address], 10/31/2024 15:04:46 11/01/19 25 10/31/2024 CBC RBC 4.64 x10 4.30-5 .90 Not Available [facility] [address], [place], [address], 10/31/2024 15:04:46 11/01/19 25 10/31/2024 CBC HGB 10.1 g/dL 13.5-1 8.0 low Not Available [facility] [address] Beren[address] [facility] 1, [place], [address], 10/31/2024 15:04:46 11/01/19 25 10/31/2024 CBC HCT 33.0 % 35.0-6 0.0 low Not Available [facility] [address] [facility] 1, [place], [address], 10/31/2024 15:04:46 11/01/19 25 10/31/2024 CBC MCV 71.1 fL 80.0-9 9.9 low Not Available [facility] [address] [facility] 1, [place], [address], 10/31/2024 15:04:46 11/01/19 25 10/31/2024 CBC MCH 21.7 pg 27.0-3 2.0 low Not Available [facility] [address] [facility] 1, [place], [address], 10/31/2024 15:04:46 11/01/19 25 10/31/2024 CBC MCHC 30.5 g/dL 32.0-3 6.0 low Not Available [facility] [address] [facility] 1, [place], [address], 10/31/2024 15:04:46 11/01/19 25 10/31/2024 CBC RDW 25.3 % 11.5-1 4.5 panic high Not Available [facility] [address] [facility] 1, [place], [address], 10/31/2024 15:04:46 11/01/19 25 10/31/2024 CBC plt 222.5 x10 150.0- 451.0 Not Available [facility] [address] [facility] [address] [address], [place], [address], 10/31/2024 15:04:46 11/01/19 25 10/31/2024 CBC lymphocytes % 13.8 % 20.0-5 0.0 low Not Available [facility] [address] [facility], [place], [address], 10/31/2024 15:04:46 11/01/19 25 10/31/2024 CBC granulcytes % 74.3 % 30.0-7 0.0 high Not Available [facility] [address] [address], [place], [address], 10/31/2024 15:04:46 11/01/19 25 10/31/2024 CBC monocytes % 6.5 % 2.0-16 .0 Not Available [facility] [address] [facility] [address] [address], [place], [address], 10/31/2024 15:04:46 11/01/19 25 10/31/2024 CBC granulcytes# 4.0 x10 Not Columba ilable [facility] [address] [address], [place], [address], 10/31/2024 15:04:46 11/01/19 25 10/31/2024 CBC lymphocytes # 0.7 x10 Not Available [facility] [address] [address], [place], [address], 10/31/2024 15:04:46 11/01/19 25 10/31/2024 CBC monocytes # 0.4 x10 Not Avai lable [facility] [address] [address], [place], [address], 10/31/2024 15:04:46 11/01/19 25 11/06/2024 C-EDWARD CTIVE PROTE IN C-reactive protein 4.2 mg/L <8.0 normal Not Available [facility] [address] [place], [address], 11/06/2024 02:35:24 11/01/19 25 11/06/2024 CULTU RE, BLOOD culture, blood SEE NOTE CULTU RE, BLOOD Micro Numbe r: [id number] Test Statu s: Final Speci men Sourc e: Blood 1 Speci men Quali ty: Adequ ate Resul t: No growt h after 5 days TRANS PORT MEDIA : Aerob ic and anaer obic bottl e recei kasia. Not Available [facility] [address] [place], [address], 11/06/2024 02:35:26 11/01/19 25 11/06/2024 CULTU RE, BLOOD culture, blood SEE NOTE CULTU RE, BLOOD Micro Numbe r: [id number] Test Statu s: Final Speci men Sourc e: Blood , right arm Speci men Quali ty: Adequ ate Resul t: No growt h after 5 days TRANS PORT MEDIA : Aerob ic and anaer obic bottl e recei kasia. Not Available [facility] [address] [place], [address], 11/06/2024 02:35:28 11/01/19 25 10/31/2024 ESR (eryt hrocy te sedim entat ion rate) , blood SedRate 24 Not Available [facility] ([facility]) [address] [place] [address], [address], 10/31/2024 14:09:52 10/26/19 25 10/29/2024 XR, chest , 2 view No observ ation record ed. [email or web address] [facility] ([facility]) [address] [place] [address], [address], 10/31/2024 15:29:12 10/26/19 25 10/29/2024 elect rocar diogr am No observ ation record ed. [email or web address] [facility] ([facility]) [address] [place], [address], 10/30/2024 07:36:41 10/27/19 25 10/25/2024 XR, chest , 2 view No observ ation record ed. [address] ([facility]) [address] [place], [address], 10/29/2024 09:21:19 10/27/19 25 10/25/2024 elect rocar diogr am No observ ation record ed. [email or web address] [address] ([facility]) [address] [place], [address], 10/29/2024 08:45:58 10/30/19 25 10/25/2024 elect rocar diogr am No observ ation record ed. [email or web address] [address] ([facility]) [address] [place], [address], 10/30/2024 09:24:39 11/01/19 25 10/31/2024 XR, chest , 2 view No observ ation record ed. [address] ([facility]) [address] [place], [address], 10/31/2024 21:37:58 11/03/19 25 10/31/2024 XR, chest , 2 view No observ ation record ed. [address] ([facility]) [address] [place], [address], 11/04/2024 20:27:41 03/15/20 25 03/04/2025 imagi ng/di agnos tic resul t No observ ation record ed. [email or web address] Not Available 03/15 16:48:35 Result Notes None recorded. Problems Name Problem SNOMED Code Status Onset Date Resolution Date Notes Provider Name and Address Organization Details Recorded Time Chronic cholecystit is 28803436 Active 2022 STACY TIAN null, [facility] 3 21:15:54 Essential hypertensio n 19794816 Active 2022 STACY OVERTON null, [facility] 3 21:15:54 Moderate recurrent major depression 84649741 Active 2022 STACY OVERTON null, [facility] 3 21:15:54 Nausea 084491083 Active 2022 Haydee Burden null, [facility] 5 08:49:07 Chronic pain syndrome 068827330 Active 2022 STACY OVERTON null, [facility] 3 21:15:54 Iron deficiency anemia 69268389 Active 2022 María Elaine, [address], [address], [facility] 4 13:31:18 Abdominal pain 37559162 Active 2022 Haydee Burden [facility], [facility] 5 08:49:07 History of fall 665137296 Active 2022 [address], [address], [facility] 4 13:31:18 Chronic pain 70884885 Active 2022 STACY OVERTON null, [facility] 3 21:15:54 Symptomatic sinus bradycardia 508440307 Active 2022 Haydee Burden null, [facility] 5 08:49:07 Hyperlipide bertin 98094552 Active 2022 Curt kate, [facility] 4 12:13:05 Angina pectoris 384754643 Active 2023 María Elaine, [address], [address], [facility] 4 13:31:18 Vitamin B12 deficiency anemia due to malabsorpti on with proteinuria 255126575 Active 2023 María Elaine, [address], [address], [facility] 4 13:31:18 Muscle pain 63983219 Active 2023 Haydee kate [facility] 5 08:49:07 Atrial fibrillatio n 32087743 Active 2023 María Elaine, [address], [address], [facility] 4 13:31:18 Obesity 687148032 Active 2023 María Elaine, [address], [address], [facility] 5 10:58:02 History of anemia vitamin B12 deficient 896438786 Active 2023 Haydee kate [facility] 5 08:49:07 Dyspnea 667599837 Active 2023 Haydee kate [facility] 5 08:49:07 Pleural effusion 78409202 Active 2023 Haydee kate [facility] 5 08:49:07 Ectasia of thoracic aorta 6899096490480 08 Active 2023 María Elaine [address], [address], [facility] 5 10:58:02 Chronic obstructive pulmonary disease 95908135 Active 2023 [address], [address], [facility] 5 10:58:02 Cardiomyopa thy 66303045 Active 2023 María Elaine[address], [address], [facility] Tommy[facility].CC[facility]et 5 10:58:02 Pain of right shoulder joint 8617714124597 9100 Active 2023 Haydee kate [facility] 5 08:49:07 Hypothyroid ism 68236006 Active 20[address], [address], [facility] 4 07:48:03 Therapeutic opioid induced constipatio n 2720376599038 02 Active 2023 Haydee kate [facility] 5 08:49:07 Acute hypoxemic respiratory failure 882917268 Active 2024 Haydee kate [facility] 5 08:49:07 Problem Notes None recorded. Procedures Surgical History Date Name Laterality Status Provider Name and Address Organization Details Recorded Time 02/29/2024 Joint Inj Kenalog- Shoulder, Hip, Knee completed Curt Lozano [facility] jamil [facility] 02/29/2024 17:48:00 Imaging Results None recorded. Procedure Notes None recorded. Medical Equipment None Reported. Allergies Allergen ID Allergen Name Allergen Category Reaction Reaction Severity Criticality Documentation Date Start Date Code Code System Note Provider Name and Address Organization Details Recorded Time 3402 acetamino phen / oxycodone medicatio n Not available Not available Not available 12/07/2022 86983 3 [facility] 11:04:09 3403 Toradol medicatio n Not available Not available Not available 12/07/2022 24983 RxNorm SEBASTIÁN kate, [facility] 3 11:04:28 3404 Imitrex medicatio n Not available Not available Not available 12/07/2022 31869 3 RxNorm [facility] 3 11:04:45 67045 Zoloft medicatio n Not available Not available Not available 05/19/2023 [address] RxNorm SEBASTIÁN kate, [facility] 3 10:00:18 74423 butorphan ol medicatio n Not available Not available Not available 06/10/20252024 1841 RxNorm Not Available [employer] Data Service - prod 5 10:47:03 28398 ketorolac medicatio n Not available Not available Not available 06/10/20252024 40714 RxNorm Not Available sylvie - External Data Service - prod 5 10:47:03 77864 oxycodone medicatio n Not available Not available Not available 06/10/20252024 7804 RxNorm Not Available sylvie - External Data Service - prod 5 10:47:03 13312 sumatript an medicatio n Not available Not available Not available 06/10/20252024 44566 RxNorm Not Available [place] Orders External Data Service - prod 5 10:47:03 75199 ondansetr on medicatio n Not available Not available Not available 06/10/20252023 92832 RxNorm Inter acts with multa q Not Available sylvie - External Data Service - prod 13:26:01 16686 acetamino phen / oxycodone medicatio n anaphylax is Not available [facility] 06/10/20252023 39673 3 RxNorm Throa t Swell ing Not Available sylvie - External Data Service - prod 13:26:01 Medications Name Sig Start Date Stop Date Status Note LastModified by Organization Details LastModified Time Prescript ion - Prior Authoriza tion Request active Not Available Not Available Not Available atorvasta tin 40 mg tablet 06/28 completed Not Available Not Available Not Available tizanidin e 2 mg tablet TAKE 1 TABLET BY MOUTH THREE TIMES A DAY FOR MUSCLE SPASM 2024 active Not Available Not Available Not Avai lable cetirizin e 10 mg tablet TAKE ONE TABLET BY MOUTH DAILY 2022 active Not Available Not Available Not Avai lable methadone 10 mg tablet Take 1 tablet 5 times a day by oral route for 30 days. 2024 active Not Available Not Available Not Avai lable lisinopri l 20 mg tablet TAKE 1 TABLET BY MOUTH EVERY DAY active Not Available Not Available No t Available ondansetr on HCl 4 mg tablet TAKE ONE TO TWO TABLETS BY MOUTH EVERY SIX HOURS, NEEDED active Not Available Not Available No t Available sertralin e 100 mg tablet TAKE 2 TABLETS BY MOUTH DAILY active Not Available Not Available No t Available potassium chloride ER 10 mEq tablet,ex tended release TAKE 1 TABLET BY MOUTH EVERY DAY active Not Available Not Available No t Available clopidogr el 75 mg tablet Take 1 [...] ondansetr on 8 mg disintegr ating tablet PLACE 1 TABLET BY TRANSLIN GUAL ROUTE 3 TIMES A DAY active Not Available Not Available No t Available levothyro xine 25 mcg tablet TAKE 1 AND 1/2 TABLETS BY MOUTH DAILY 2024 active Not Available Not Available Not Avai lable levothyro xine 75 mcg tablet TAKE 1 TABLET BY MOUITH EVERY DAY IN THE MORNING active Not Available Not Available No [...] ole 40 mg tablet,de layed release TAKE 1 TABLET BY MOUTH EVERY DAY IN THE MORNING active Not Available Not Available No t Available nitroglyc rea 0.4 mg sublingua l tablet active Not Available Not Available Not Available gabapenti n 300 mg capsule TAKE 1 CAPSULE BY MOUTH THREE TIMES A DAY active Not Available Not Available No t Available diltiazem CD 120 mg capsule,e xtended release 24 hr Take 1 capsule twice a day by oral route for 90 days. active Not Available Not Available No t Available mupirocin 2 % topical ointment APPLY A SMALL AMOUNT TO THE AFFECTED AREA TOPICALL Y 3 TIMES PER DAY active Not Available Not Available No t Available levofloxa nilda 500 mg tablet TAKE 1 TABLET BY MOUTH EVERY DAY FOR 10 DAYS 02/20 completed Not Available Not Available Not Available albuterol sulfate HFA 90 mcg/actua tion aerosol inhaler TAKE ONE PUFF BY MOUTH EVERY 6 HOURS NEEDED FOR BREATHIN G active Not Available Not Available No t Available amoxicill in 875 mg-potass ium clavulana te 125 mg tablet 12/07 completed Not Available Not Available Not Available ondansetr on HCl every six hours, as needed 05/19 completed DM/sd; 30529; Recorded 05/18/20 22 8:19AM by Stacy Snow (Authori raheem through María Elaine DO), Refill Request; Refill Quantity : 0; Not Available Not Available Not Available methadone daily 05/19 completed Recorded 09/24/19 23 4:29PM by María Elaine DO, Refill Request; Refill Quantity : 0; Not Available Not Available Not Available amitripty line at bedtime 05/19 completed DM/sd; 88180; Recorded 07/19/19 23 12:27PM by Stacy Snow (Authori zed through María Elaine DO), Refill Request; Refill Quantity : 180; Tablet; Not Available Not Available Not Available Nitrostat as needed 05/19 completed 0; Recorded 11/18/19 22 1:58PM by Krystal Parker, Office Visit; Not Available Not Available Not Available Diltiazem HCL ER daily 05/19 completed 0; Recorded 09/21/19 23 3:00PM by Stacy Snow, Annotati on/Osbaldo dum; Not Available Not Available Not Available cholecalc iferol (vitamin D3) 25 mcg (1,000 unit) tablet TAKE 2 TABLETS BY MOUTH DAILY active Not Available [...] Not Avai lable Movantik 25 mg tablet TAKE 1 TABLET BY MOUTH EVERY DAY active Not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 setting of an albumin of 3 and received several doses of calcium gluconate. He was ultimately found to have low vitamin D and started on oral vitamin D as well as oral calcium replacement. His bradycardia, hypotension and nausea vomiting with ileus were consistent with tizanidine toxicity and tizanidine was stopped. Patient did have improved blood pressures from systolic 88-108/40-65 on admission to blood pressures 117-137/73-87. Nausea has largely resolved. He still has some upset stomach when eating but not nausea at rest and no vomiting. Additionally he has had a bowel movement each day. Initially he thought his nausea vomiting and constipation was related to narcotics and Relistor being stopped. He did have a bowel movement in response to Relistor but after stopping tizanidine he is having bowel movement spontaneously despite being on his methadone 50 mg daily. Patient had multiple musculoskeletal injuries that were painful for him including right shoulder, left wrist and bilateral ankles and feet which were x-rayed and demonstrated no fractures. 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 I encouraged him to take Ensure which she did okay on and he will continue at home along with supplementing with solid food. Due to his past surgeries and methadone he still has some GI upset taking solid food. Prescriptions: New lidocaine 5 % Adhesive Patch,Medicated 1 patch topical [id number] Qty: 30 0RF cholecalciferol (vitamin D3) 25 mcg (1,000 unit) Tablet 2,000 unit PO DAILY Qty: 100 0RF calcium carbonate 600 mg calcium (1,500 mg) Tablet 1,200 mg PO BID Qty: 200 0RF amoxicillin-pot clavulanate 875-125 mg Tablet 1 tab PO BID Qty: 6 0RFDiscontinued tizanidine 2 mg tablet 2 mg PO BID = He reports he is better today than he was a couple weeks ago.He had fallen, was unable to stand up so a neighbor called EMS and they took him to the hospital.He reports EMS said BP was low, unsure the reading. BP today is 106/64. He was told to stop taking Tizanidine because it was causing his BP to be low. He reports being off the Tizanidine is not good for him, he is hurting. He got up about 0600 this am to mow the yard, mowed for about 10mins and then started not feeling well. He went inside to rest, sat noted to be 88% on RA, this came up to 91% before he left the house to come to clinic. Having some n/v 3-4 times per week, with occasional blood in it. He last saw Cardiology approx 6 months ago.He continues Lisinopril for BP. He has upcoming appt with Oncology on 02/27/25 to discuss iron infusions. Pt thinks he is scheduled for NM test with [facility] on 02/27/25, however [facility] doesn't reflect anything scheduled except appt with Oncology. Received pa request for lidocaine patches ordered per hospital and they do not do pa's Do you want to order this med María Elaine DO [address] [place] [address], [phone], [facility] 02/27/2025 10:46:28
--- OUTSIDE RECORDS SUMMARY | 2025-07-17 18:46 | XMS_ITS | Encounter Summary ---
Author Organization [facility] Address [address] [place] [address] Care Team Providers Care Final Inspection Supervisor Name Role Phone Unavailable Primary Care Provider Unavailabl e Reason for Visit * Reason Comments Med Refill Encounter Details Date Type Department Care Team ([facility] st Contact Info) Description 07/16/2025 Refill [facility] [address] [phone] Lyndsay Busch MD [address] [facility] [address] [place] [address] Social History Tobacco Use Types Packs/Day Years [...] encounter Miscellaneous Notes * Telephone Encounter - Varsha Kent RN - 07/16/2025 9:28 AM CST Last seen 09/25/24, will fill 90 day fill however patient needs to see Dr. Busch for further refills. Script sent to pharmacy per Dr. Busch ROAD DISPATCHER documented in this encounter Plan of Treatment Not on file documented as of this encounter Visit Diagnoses Not on filedocumented in this encounter
--- OUTSIDE RECORDS SUMMARY | 2025-07-17 18:46 | XMS_ITS | Patient Health Record ---
Author Organization [facility] Address [address] [place] [address] Care Team Providers Care Lumber Press Operator Name Role Phone Arlet Smallwood Unavailable [phone] Reason For Referral No Information Plan Of Treatment No Information Insurance Providers Payer Name Payer Address Payer Phone Subscriber Number Group Number Insured Name Patient Relationship to Insured Coverage Start Date Coverage End Date NOT IN NETWORK - [employer] Medicare Dual Complete HMO [address] [address] [place] [address] [phone] [id number] Gary King Self - patient is the insured
--- OUTSIDE RECORDS SUMMARY | 2025-07-17 18:46 | XMS_ITS | Encounter Summary ---
Author Organization [facility] Address [address] [place] [address] Care Team Providers Care Fitness Technician Name Role Phone Unavailable Primary Care Provider Unavailabl e Encounter Details Date Type Department Care Team (Late st Contact Info) Description 07/09/2025 External Device Data [facility] ABSTRACTION Provider, Abstract NO ADDRESS ON FILE Social History Tobacco Use Types Packs/Day Years [...] as of this encounter Plan of Treatment Not on file documented as of this encounter Visit Diagnoses Not on filedocumented in this encounter
[2025-07-17 19:07] VITALS: BP 109/73; PULSE 80; RESP 17; TEMP 36.7; O2SAT 94; BMI 30.3
--- NOTE | 2025-07-17 20:21 | XRR_ITS ---
PROCEDURE INFORMATION: Exam: XR Abdomen Exam date and time: 07/17/2025 8:27 PM Age: 69 years old Clinical indication: Constipation and nausea and vomiting; Abdominal pain; Generalized; Prior surgery; Surgery date: 6+ months; Surgery type: Pacer. Gastric bypass. Laparotomy; C/O diffuse abd pain with n/v and constipation TECHNIQUE: Imaging protocol: Radiologic exam of the abdomen. Views: Frontal supine view of the abdomen. 1 View. COMPARISON: CT abdomen pelvis con [id number] 07/30/2022 12:09 PM FINDINGS: Gastrointestinal tract: Nonobstructive bowel-gas pattern. Intraperitoneal space: Metallic density in the left upper quadrant of the abdomen. Surgical clips in the upper abdomen. Bones/joints: Mild degenerative changes of the lumbar vertebral bodies. XR/XR KUB portable [id number] IMPRESSION: Nonobstructive bowel-gas pattern.
[2025-07-17 20:42] LABS: Hematocrit 46.4 % (37-53); Hemoglobin 14.90 g/dL (11.27-16.99); Mean Corpuscular HGB Conc 32.1 g/dL (30-55); Mean Corpuscular Hemoglobin 26.3 pg (27-33); Mean Corpuscular Volume 81.8 fl (82-101); Nucleated Red Blood Cells % 0 %; Platelet Count 234 10^3/cmm (157-399); Red Blood Count 5.67 10^6/uL (3.85-5.65); White Blood Count 10.68 10^3/uL (3.29-11.43)
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
[2025-07-17 21:00] VITALS: BP 104/80; PULSE 86; O2SAT 91
[2025-07-17 21:17] LABS: Alanine Aminotransferase 24 U/L (0-41); Albumin Level 4.1 g/dL (3.5-5.2); Alkaline Phosphatase 170 U/L (40-130); Anion Gap 16.2 (5-19); Aspartate Amino Transferase 24 U/L (0-40); Blood Urea Nitrogen 15 mg/dL (8-23); Calcium 9.1 mg/dL (8.5-10.5); Carbon Dioxide 25 mmol/L (22-29); Chloride 101 mmol/L (98-107); Globulin 3.3 g/dL (1.3-4.6); Glucose 125 mg/dL (65-115); Lipase 13 U/L (13-60); Osmolality Calculated 288 mOsm/kg (285-295); Potassium 4.2 mmol/L (3.5-5.1); Sodium 138 mmol/L (136-145); Total Protein 7.4 g/dL (6.6-8.7)
[2025-07-17] MEDS: diphenhydrAMINE 50 mg/mL SDV 1mL 25 MG IVP (21:19)
[2025-07-17] MEDS: methylnaltrexone 12 /0.6 mL INJ 12 MG SUBCUT (21:20)
[2025-07-17 21:26] VITALS: BP 118/89; PULSE 88; O2SAT 93
== END 2025-07-17 23:53 | disposition home or self-care (01) ==
PROVIDERS: Emergency Provider Physician Assistant; PCP Electrodiagnostic Medicine
DX: K59.01 Slow transit constipation (principal); Z79.82 Long term (current) use of aspirin; I10 Essential (primary) hypertension
CPT/HCPCS: 36415; 74018; 80053; 83690; 85025; 96372; 96374; 96375; 99284; J0780; J1200; J2212